=== PATIENT | female | born 1965 | race Caucasian/White ===

== ENCOUNTER 2024-10-05 21:01 | Outpatient (REF) | payer BC, SELFPAY ==
--- OUTSIDE RECORDS SUMMARY | 2024-10-05 21:04 | XMS_ITS | Encounter Summary ---
Author Organization [facility] Address [address] [place] [address] Phone Care Team Providers Care Corporate Executive Name Role Phone Angela Heard MD Primary Care Provider [phone] Willard Vann MD Unavailable [phone] Encounter Details Date Type Department Care Team (Late st Contact Info) Description 01/02/2021 10:00 AM PDT Immunization [facility] COVID-[address] [facility] [place] [address] [place] [address] Camila Be MD [address] [facility] [address] [place], [place] [id number] Social History Tobacco Use Types Packs/Day Years Used Date Smoking Tobacco: Former Cigarettes Smokeless Tobacco: Never Alcohol Use Standard Drinks/Week Comments Yes 5 (1 standard drink = 0.6 oz pure alcohol) Wine and spirits 5+ days per week Depression Answer Date Recorded PHQ-9 Score 0 08/22/2020 What screening was completed? Not on file Sexually Active Control Partners Comments Not Currently Pill Comments No Sex and Gender Information Value Date Recorded Sex Assigned at Not on file Legal Sex Female 7:27 PM PDT Gender Identity Not on file Sexual Orientation Not on file documented as of this encounter Functional Status * Are you deaf or do you have serious difficulty hearing? Answer Date of Assessment Author No 05/31/2019 6:00 PM PDT Miri Esquivel RN * Are you blind or do you have serious difficulty seeing, even when wearing glasses? Answer Date of Assessment Author No 05/31/2019 6:00 PM PDT Miri Esquivel RN * Do you have serious difficulty walking or climbing stairs? Answer Date of Assessment Author No 05/31/2019 6:00 PM PDT Miri Esquivel RN * Do you have difficulty dressing or bathing? Answer Date of Assessment Author No 05/31/2019 6:00 PM PDT Miri Esquivel RN * Because of a physical, mental, or emotional condition, do you have difficulty doing errands alone such as visiting a doctor's office or shopping? Answer Date of Assessment Author No 05/31/2019 6:00 PM PDT Miri Esquivel RN documented as of this encounter Plan of Treatment Upcoming Encounters Date Type Department Care Team (Late st Contact Info) Description 10/30/2024 3:00 PM PST Initial consult 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
--- OUTSIDE RECORDS SUMMARY | 2024-10-05 21:04 | XMS_ITS | Encounter Summary ---
Author Organization [facility] Address [address] [place] [address] Phone Care Team Providers Care Assistant Manager Quality Management Name Role Phone Angela Heard MD Primary Care Provider [phone] Willard Vann MD Unavailable [phone] Encounter Details Date Type Department Care Team (Latest Contact Info) Description 09/10/2020 5:53 PM PST - 09/10/2020 11:59 PM [facility] Hospital Encounter OUTREACH SPECIMEN [address] [place] [address] Laboratory, [place], [address] [facility] [id number] [place], [place] [id number] Discharge Disposition: Home Social History Tobacco Use Types Packs/Day Years [...] of Assessment Author No 05/31/2019 6:00 PM Miri Suero RN * Are you blind or do you have serious difficulty seeing, even when wearing glasses? Answer Date of Assessment Author No 05/31/2019 6:00 PM PDT Miri Esquivel RN * Do you have serious difficulty walking or climbing stairs? Answer Date of Assessment Author No 05/31/2019 6:00 PM Miri Suero RN * Do you have difficulty dressing or bathing? Answer Date of Assessment Author No 05/31/2019 6:00 PM Miri Suero RN * Because of a physical, mental, or emotional condition, do you have difficulty doing errands alone such as visiting a doctor's office or shopping? Answer Date of Assessment Author No 05/31/2019 6:00 PM Miri Suero RN documented as of this encounter Medications at Time of Discharge HYDROcodone-lauri taminophen 5-325 mg (NORCO) 5-325 mg oral tablet Take 1 tablet by mouth every 6 hours as needed for Pain. Max dose of acetaminophen is 3000mg from all sources in 24 hrs. 20 tablet 06/03/2019 ibuprofen (MOTRIN) 600 mg oral tablet Take 1 tablet by mouth 3 times daily. Take with food. 30 tablet 06/03/2019 enoxaparin (LOVENOX) 40 mg/0.4 mL syringe Inject 40 mg subcutaneously every 12 hours. 11 Syringe 06/03/2019 loratadine (CLARITIN PO) 1 tablet daily. documented as of this encounter Plan of Treatment Upcoming Encounters Date Type Department Care Team (Late st Contact Info) Description 10/30/2024 3:00 PM PST Initial consult [facility]X [address] [place] [address] [address] [place] [address] Jesu Dawkins MD [address] [place] [address] [address] [place], [place] [id number] documented as of this encounter Procedures Procedure Name Priority Date/Time Associated Diagnosis Comments CT LEVEL IV SURG PATHOLOGY GROSS&MICROSCOPIC EXAM Routine 09/10/2020 documented in this encounter Results * SURGICAL PATHOLOGY (09/10/2020) 09/10/2020 09/11/2020 us Rosy Gomez MD PATHOLOGY/CYTOLOGY ORDER FREDDIE Final Result [facility] DEPT OF PATHOLOGY & LAB MEDICINE [address] [place] [address] documented in this encounter Visit Diagnoses Not on filedocumented in this encounter Additional Health Concerns Infection Onset Date Last Indicated Resolved Time ESBL Producing Organism (Ext ended Spectrum Beta-lactamase) Comment:06/08/19 Urine E.coli 06/13/2019 06/13/2019 Assessment Noted Time PHQ-9 Depression Total Score: 0 08/22/20 20 11:53 AM PST documented as of this encounter Care Teams Assistant Manager Quality Management Relationship Specialty Start Date End Date Angela Heard MD PCP - General Obstetrics & Gynecology 05/25/19 09/26/24 Willard Vann MD [address] [address] PCP - [employer] Attributed PCP 04/16/20 10/16/21 documented as of this encounter
--- OUTSIDE RECORDS SUMMARY | 2024-10-05 21:04 | XMS_ITS | Encounter Summary ---
Author Organization [facility] Address [address] [facility] [place] [address] Phone Care Team Providers Care Cook Pressure Name Role Phone Angela Heard MD Primary Care Provider Willard Vann MD Unavailable [phone] Reason for Visit * Reason Comments Follow-up Encounter Details Date Type Department Care Team (Latest Contact Info) Description 08/22/2020 11:40 AM PST Office Visit [facility] [address] [facility] [address] [place], [place] [id number] Willard Vann MD [address] [facility] [facility] [address] [place] [address] History of cervical cancer (Primary Dx) Social History Tobacco Use Types Packs/Day Years [...] on file documented as of this encounter Last Filed Vital Signs Vital Sign Reading Time Taken Comments Blood Pressure 142/85 08/22/2020 11:52 AM PST Pulse 64 08/22/2020 11:52 AM PST Temperature 36.6 ??C (97.8 ??F) 08/22/2020 11:[address] Respiratory Rate 21 08/22/2020 11:52 AM PST Oxygen Saturation - - Inhaled Oxygen Concentration - - Weight 59 kg (130 lb) 08/22/2020 11:52 AM PST Height - - Body Mass Index 19.48 05/31/2019 9:59 AM PDT documented in this encounter Functional Status * Are you [...] Esquivel RN documented as of this encounter Progress Notes * Willard Vann MD - 08/22/2020 11:40 AM PST Gynecology Oncology Progress Note Date of service: 08/22/2020 Chief complaint: Surveillance visit. Subjective: This is a 54 year old year old female status post modified radical hysterectomy and staging on 05/31/19 for a stage IB1 adenocarcinoma of the cervix. She is feeling well and has no complaints. Her incision is intermittently tender. Review of systems: She has no pain or vaginal bleeding. Social: The patient is back to her activities of daily living. Objective: Vitals: 08/22/20 1152 BP: 142/85 Pulse: 64 Resp: 21 Temp: 36.6 ??C (97.8 ??F) GI: Abdomen soft, nontender, no masses. : Vulva shows normal external female genitalia; the Bartholin's and Skenes glands are unremarkable. Vagina is without lesions, blood, or masses. Cuff is intact without masses. Posterior culdesac shows no nodularity. Pap performed. Asessment/plan: This is a 54 year old year old with FIGO 2018 stage IIA1 adenocarcinoma of the cervix. She did not meet Sedlis criteria for postoperative radiation. I recommend observation and surveillance. She will return in 6 months. Willard Vann MD 08/22/2020 12:02 PM CC: Angela Heard MD documented in this encounter Plan of Treatment Upcoming Encounters Date Type Department Care Team (Late st Contact Info) Description 10/30/2024 3:00 PM PST Initial consult [facility]X [address] [place] [address] [place] [address] Jesu Dawkins MD [address] [address] documented as of this encounter Procedures Procedure Name Priority Date/Time Associated Diagnosis Comments PAP CYTOLOGY Routine 08/22/2020 documented in this encounter Results * PAP CYTOLOGY (08/22/2020) 08/22/2020 08/22/2020 us Willard Vann MD PATHOLOGY/CYTOLOGY ORDERABLES Final Result [facility] DEPT OF PATHOLOGY & LAB MEDICINE [address] [facility] [place] [address] documented in this encounter Visit Diagnoses Diagnosis History of cervical cancer- Primary Personal history of malignant neoplasm of cervix uteri documented in this encounter Additional Health Concerns Infection Onset Date Last Indicated Resolved Time ESBL Producing Organism (Ext ended Spectrum Beta-lactamase) Comment:06/08/19 Urine E.coli 06/13/2019 06/13/2019 Assessment Noted Time PHQ-9 Depression Total Score: 0 08/22/20 11:53 AM PST documented as of this encounter Care Teams Cook Pressure Relationship Specialty Start Date End Date Angela Heard MD PCP - General Obstetrics & Gynecology 05/25/19 09/26/24 Willard Vann MD [address] [address] PCP - [employer] Attributed PCP 04/16/20 10/16/21 documented as of this encounter
--- OUTSIDE RECORDS SUMMARY | 2024-10-05 21:04 | XMS_ITS | Encounter Summary ---
Author Organization [facility] Address [address] [facility] [place] [address] Phone Care Team Providers Care Court Commissioner Name Role Phone Angela Heard MD Primary Care Provider [phone] Encounter Details Date Type Department Care Team (Late st Contact Info) Description 09/14/2019 Orders Only [facility] GENERAL INT LEAD ENGINEER [address] [place] [address] [employer] Social History Tobacco Use Types Packs/Day Years Used Date Smoking Tobacco: Former Cigarettes Smokeless Tobacco: Never Alcohol Use Standard Drinks/Week Comments Yes 5 (1 standard drink = 0.6 oz pure alcohol) Wine and spirits 5+ days per week Sexually Active Control Partners Comments Not Currently [...] Author No 05/31/2019 6:00 PM PDT Miri Esquivel, RAISA * Are you blind or do you have serious difficulty seeing, even when wearing glasses? Answer Date of Assessment Author No 05/31/2019 6:00 PM PDT Miri Esquivel, RAISA * Do you have serious difficulty walking [...] Description 10/30/2024 3:00 PM PST Initial consult [facility]/[address] [address] Jesu Dawkins MD [address] [phone] Scheduled Orders Name Type Priority Associated Diagnoses Orde r Schedule MY CS-LINK PERSONAL DATA LOG Procedures Routine Ordered: 019 documented as of this encounter Visit Diagnoses Not on filedocumented in this encounter Additional Health Concerns Infection Onset Date Last Indicated Resolved Time ESBL Producing Organism (Ext ended Spectrum Beta-lactamase) Comment:06/08/19 Urine E.coli 06/13/2019 06/13/2019 Assessment Noted Time PHQ-9 Depression Total Score: 0 05/31/20 19 6:00 PM PDT documented as of this encounter Care Teams Court Commissioner Relationship Specialty Start Date End Date Angela Heard MD PCP - General Obstetrics & Gynecology 05/25/1909/26 documented as of this encounter
--- OUTSIDE RECORDS SUMMARY | 2024-10-05 21:04 | XMS_ITS | Encounter Summary ---
Author Organization [facility] Address [address] [facility] [place] [address] Phone Care Team Providers Care Product Safety Test Engineer Name Role Phone Angela Heard MD Primary Care Provider [phone] Reason for Visit * Reason Comments Follow-up Encounter Details Date Type Department Care Team (Latest Contact Info) Description 04/23/2023 10:20 AM PDT Office Visit [facility] [address] [facility] [address] [place] [address] Willard Vann MD [address] [facility] [address] [place] [address] History of cervical cancer (Primary Dx) Social [...] Sign Reading Time Taken Comments Blood Pressure 119/68 04/23/2023 10:33 AM PDT Pulse 58 04/23/2023 10:33 AM PDT Temperature 36.1 ??C (97 ??F) 04/23/2023 10:33 AM PDT Respiratory Rate 18 04/23/2023 10:33 AM PDT Oxygen Saturation - - Inhaled Oxygen Concentration - - Weight 60.5 kg (133 lb 4.8 oz) 04/23/2023 10:33 AM PDT Height - - Body Mass Index 19.97 05/31/2019 9:59 AM PDT documented in this [...] Progress Notes * Willard Vann MD - 04/23/2023 10:20 AM PDT Gynecology Oncology Progress Note Date of service: 04/23/2023 Chief complaint: Surveillance visit. Subjective: This is a 57 year old year old female status post modified radical hysterectomy and staging on 05/31/19 for a stage IB1 adenocarcinoma of the cervix. She is feeling well and has no complaints. She is having annual normal Pap testing with Dr Heard. Review of systems: She has no pain or vaginal bleeding. Social: The patient is back to her activities of daily living. Objective: Vitals: 04/23/23 1033 BP: 119/68 Pulse: 58 Resp: 18 Temp: 36.1 ??C (97 ??F) GI: Abdomen soft, nontender, no masses. : Vulva shows normal external female genitalia; the Bartholin's and Skenes glands are unremarkable. Vagina is without lesions, blood, or masses. Cuff is intact without masses. Posterior culdesac shows no nodularity. Her exam is unchanged from her last visit. Asessment/plan: This is a 57 year old year old with FIGO 2018 stage IIA1 adenocarcinoma of the cervix. She did not meet Sedlis criteria for postoperative radiation. I recommend observation and surveillance. She will continue 6 months visits alternating between Dr Heard and myself, and will continue annualPap testing with Dr Heard. Willard Vann MD 04/23/2023 10:46 AM CC: Angela Heard MD documented in this encounter Plan of Treatment Upcoming Encounters Date Type Department Care Team (Late st Contact Info) Description 10/30/2024 3:00 PM PST Initial consult [facility] [address] [place] [address] Jesu Dawkins MD [address] [address] documented as of this encounter Visit Diagnoses Diagnosis History of [...] documented as of this encounter Care Teams Product Safety Test Engineer Relationship Specialty Start Date End Date Angela Heard MD PCP - General Obstetrics & Gynecology 05/25/1909/26 documented as of this encounter
--- OUTSIDE RECORDS SUMMARY | 2024-10-05 21:04 | XMS_ITS | Encounter Summary ---
Author Organization [facility] Address [address] [facility] [place] [address] Phone Care Team Providers Care Hhas Name Role Phone Oliver Keller MD Primary Care Provider [phone] Reason for Visit * Reason Comments Low Back Pain Right leg pain Encounter Details Date Type Department Care Team (Late st Contact Info) Description 09/27/2024 9:30 AM PST Office Visit [facility] [address] [facility] [place] [phone] Cameron Llamas MD [address] [facility] [address] [place] [address] Lumbar disc herniation (Primary Dx); Lumbar radiculopathy; Right foot drop Social History Tobacco Use Types Packs/Day Years Used Date Smoking Tobacco: Former Cigarettes Smokeless Tobacco: Never Tobacco Cessation:Counseling Given: Not Answered Alcohol Use Standard Drinks/Week Comments Yes 5 [...] Sign Reading Time Taken Comments Blood Pressure - - Pulse - - Temperature - - Respiratory Rate - - Oxygen Saturation - - Inhaled Oxygen Concentration - - Weight 60.3 kg (133 lb) 09/27/2024 11:14 AM PST Height 172.7 cm (5' 8) 09/27/2024 11:14 AM PST Body Mass Index 20.22 09/27/2024 11:14 AM PST documented in this encounter Functional Status * [...] Esquivel RN documented as of this encounter Patient Instructions * Patient Instructions* Leah Kirkland - 09/27/2024 9:[address] Chidi Lugo [address] [facility], [address] [place] [address] Dr. Jesu Dawkins [address] [facility] [address] [place] [address] documented in this encounter Progress Notes * Cameron Llamas MD - 09/27/2024 9:30 AM PST Images from the original note were not included. I, Leah Kirkland, am scribing for, and in the presence of, Cameron Llamas MD. Initial Patient Consultation Date: 09/27/2024 Consulting Physician: No ref. provider found Chief Complaint: Chief Complaint Patient presents with Low Back Pain Right leg pain History of Present Illness: Leah Jones is a 58 year old female who presents at the request of No ref. provider found for initial consultation and evaluation for treatment options related to the patient's pain complaints. The patient???s complaints started 3 weeks ago. The patient statesher symptoms began after performing a squat while at the gym. She developed acute pain in the low back radiating down the right lower extremity. She was prescribed a Medrol Pasquale with good improvement.Pain has improved, however still notes slight discomfort in the leg, numbness in the right foot, and weakness of the right leg that causes her to limp. Currently, the pain is described as intermittent. It is rated as 5-7 /10 and described as sharp-shooting, tingling, numbness, pin-prick, stabbing, deep- pressure, tightness, and spasms . The pain is in the right side of the low back with radiation to the right lower extremity. The pain is worse withsitting and better with n/a . The patient is limited by not being able to walk, sit. The patient does describe any weakness in the right lower extremity. She was seen at [facility] by Dr. Rei Carmona, was told she had a foot drop. Past Medical History: Past Medical History: Diagnosis Date Anxiety Chicken pox Hay fever Skin tumors, generalized Past Surgical History: Past Surgical History: Procedure Laterality Date HX APPENDECTOMY HX LEEP PROCEDURE 20 years ago LAPAROTOMY N/A 05/31/2019 Performed by Willard Vann MD at MAIN OR LAPAROTOMY STAGING N/A 05/31/2019 Performed by Willard Vann MD at MAIN OR MODIFIED HYSTERECTOMY RADICAL N/A 05/31/2019 Performed by Willard Vann MD at MAIN OR Medications: Current Outpatient Medications Medication estradiol-norethindrone acetate (ACTIVELLA) 0.5-0.1 mg oral tablet HYDROcodone-acetaminophen 5-325 mg (NORCO) 5-325 mg oral tablet ibuprofen (MOTRIN) 600 mg oral tablet enoxaparin (LOVENOX) 40 mg/0.4 mL syringe loratadine (CLARITIN PO) No current facility-administered medications for this visit. Allergies: Other Family History: Family History Problem Relation Age of Onset Lung Cancer Paternal Uncle at the age of 65 Social History: Social History Socioeconomic History Marital status: Single Spouse name: Not on file Number of children: Not on file Years of education: Not on file Highest education level: Not on file Occupational History Not on file Tobacco Use Smoking status: Former Types: Cigarettes Smokeless tobacco: Never Vaping Use Vaping status: Unknown Substance and Sexual Activity Alcohol use: Yes Alcohol/week: 5.0 standard drinks of alcohol Types: 5 Standard drinks or equivalent per week Comment: Wine and spirits 5+ days per week Drug use: Never Sexual activity: Not Currently control/protection: Pill Physical Exam: Visit Vitals LMP 03/11/2019 (Approximate) General appearance: alert, cooperative, no distress, appears stated age Head: Normocephalic, without obvious abnormality, atraumatic Extremities: extremities normal, atraumatic, no cyanosis or edema Skin: Skin color, texture, turgor normal. No rashes or lesions Lumbar Spine: Inspection: The lumbar area is symmetric without kyphosis or scoliosis Palpation: There is tenderness along the right lumbar paraspinals and tenderness along the right sciatic notch Range of Motion: There is diminished range in all planes with pain Special Testing: Straight leg testing is positive on the right. Facet loading is negative. Neurologic Exam: Oriented to person/ place/ time. Intact recent and remote memory. Appropriate moodand affect. Normal attention span and concentration. Motor: Normal bulk and tone in all 4 extremities. 5/5 strength in all muscle groups x 4 extremities. RUE: 5/5 Deltoid, 5/5 Triceps, 5/5 Biceps, 5/5 BrachioRadialis, 5/5 Intrinsics. LUE: 5/5 Deltoid, 5/5 Triceps, 5/5 Biceps, 5/5 BrachioRadialis, 5/5 Intrinsics. RLE: 5/5 IlioPsoas, 5/5 KneeFlexors, 5/5 KneeExtensors, 2/5 AnkleFlexors, 5/5 AnkleExtensors. LLE: 5/5 IlioPsoas, 5/5 KneeFlexors, 5/5 KneeExtensors, 5/5 AnkleFlexors, 5/5 AnkleExtensors. DTRs: 2/4 equal and symmetric in all extremities Imaging and work-up: MRI of the lumbar spine, taken on 09.15.24, was personally reviewed by myself with the patient present. Demonstrated: Diagnosis: 1. Lumbar disc herniation 2. Lumbar radiculopathy 3. Right foot drop Commentary and Medical Decision Making: Leah Jones is a 58 year old female who presentsto clinic today for evaluation and treatment options related to symptoms complaints. The patient???s complaints are most likely secondary to lumbar disc pathology and lumbar radiculopathy. Symptoms are radicular in nature. Overall pain has improved significantly but the weakness has not. She does have weakness with dorsiflexion and a foot drop. Given the weakness I did suggest getting a surgical opinion. Despite the pain improving the weakness is quite profound. We will make the necessary referral. At this time we discussed various treatment options including referral for surgical options. Recommendations: - The patient may continue anti-inflammatories as directed with a meal. - The patient will be referred to a spine surgeon for surgical opinion. - The patient to use ice and heat to the affected area prn. - The patient will follow-up as symptoms dictate - We may consider an epidural injection. However, we discussed this may not address the weakness and encouraged she seek a surgical opinion. While in the patient's presence and per the provider's instructions, I brought the following information into this note from elsewhere in the medical record; past medical history, past surgical history, past social history, past family history, medications, vitals, review of systems and imaging studies. Signed by: Catalina Hoskins, 09/27/2024 10:18 AM. I, Cameron Llamas MD, personally performed the services described in this documentation, as scribed by Leah Kirkland in my presence, and it is both accurate and complete. Signed: 09/27/2024 10:18 AM documented in this encounter Plan of Treatment Upcoming Encounters Date Type Department Care Team (Late st Contact Info) Description 10/30/2024 3:00 PM PST Initial consult [facility] [address] [facility] [place] [address] Jesu Dawkins MD [address] [facility] [address] [place] [id number] documented as of this encounter Visit Diagnoses Diagnosis Lumbar disc herniation- Primary Displacement of lumbar intervertebral disc without myelopathy Lumbar radiculopathy Thoracic or lumbosacral neuritis or radiculitis, unspecified Right foot drop Other acquired deformity of ankle and foot documented in this encounter Additional Health Concerns Infection Onset Date Last Indicated Resolved Time ESBL Producing Organism (Ext ended Spectrum Beta-lactamase) Comment:06/08/19 Urine E.coli 06/13/2019 06/13/2019 Assessment Noted Time PHQ-9 Depression Total Score: 0 08/22/20 20 11:53 AM PST documented as of this encounter Care Teams Hhas Relationship Specialty Start Date End Date Oliver Keller MD [address] [facility] [address] [place] [address] PCP - General Internal Medicine 09/27/24 documented as of this encounter
--- OUTSIDE RECORDS SUMMARY | 2024-10-05 21:04 | XMS_ITS | Clinical Summary ---
Author Organization [facility] Address [address] [place] [address] Phone Care Team Providers Care Quality Assurance Engineer Name Role Phone Oliver Keller MD Primary Care Provider [phone] Source Comments The [employer] EMR is fully implemented at [facility] Allergies Active Allergy Reactions Criticality Noted Date Comments Other Swelling Medium 05/31/2019 Bees; hay fever- itching Medications * Always verify current medications with the patient. loratadine (CLARITIN PO) 1 tablet daily. Active HYDROcodone-ac etaminophen 5-325 mg (NORCO) 5-325 mg oral tablet Take 1 tablet by mouth every 6 hours as needed for Pain. Max dose of acetaminophen is 3000mg from all sources in 24 hrs. 20 tablet 9 Active Additional Information Patient not taking.Reason: Patient Non-Compliant, Reported on 06/08/2019 ibuprofen (MOTRIN) 600 mg oral tablet Take 1 tablet by mouth 3 times daily. Take with food. 30 tablet 9 Active Additional Information Patient not taking.Reason: Per Provider Instruction, Reported on 08/17/2019 enoxaparin (LOVENOX) 40 mg/0.4 mL syringe Inject 40 mg subcutaneously every 12 hours. 11 Syringe 9 Active Additional Information Patient not taking.Reason: Per Provider Instruction, Reported on 08/17/2019 estradiol-nore thindrone acetate (ACTIVELLA) 0.5-0.1 mg oral tablet 2 Active Active Problems Problem Noted Date Diagnosed Date Encounter for evaluation of Dubon catheter 06/06 Post-operative state 06/06/2019 Encounters Date Type Department Care Team Description 09/27/2024 9:30 AM PST Office Visit [facility] [address] [facility] [place] [phone] Cameron Llamas MD Lumbar disc herniation (Primary Dx); Lumbar radiculopathy; Right foot drop 09/15/2024 Ancillary Procedure [facility] [address] [facility] [address] [place] [address] 09/15/2024 Orders Only [facility] [address] [facility] [address] [place] [address] Imaging, Roel, 08/29/2024 9:20 AM PST Office Visit [facility] [place] [address] [address] [place] [address] Willard Vann MD History of cervical cancer (Primary Dx) from Last 3 Months Immunizations Name Administration Dates Next Due COVID-19, monovalent, mRNA, Pfizer, 12+ yrs (until 01/26/2023) 01/23/2021,01/02/2021 Family History Medical History Relation Name Comments Lung Cancer Paternal Uncle at the a ge of 65 Relation Name Status Comments Paternal Uncle Social History Tobacco Use Types Packs/Day Years [...] on file Sexual Orientation Not on file Last Filed Vital Signs Vital Sign Reading Time Taken Comments Blood Pressure 127/80 08/29/2024 9:57 AM PST Pulse 58 08/29/2024 9:57 AM PST Temperature 36.3 ??C (97.4 ??F) 08/29/2024 9:57 AM PS T Respiratory Rate 18 08/29/2024 9:57 AM PST Oxygen Saturation 98% 04/20/2023 3:27 PM PDT Inhaled Oxygen Concentration - - Weight 60.3 kg (133 lb) 09/27/2024 11:14 AM PST Height 172.7 cm (5' 8) 09/27/2024 11:14 AM PST Body Mass Index 20.22 09/27/2024 11:14 AM PST Plan of Treatment Upcoming Encounters Date Type Department Care Team (Late st Contact Info) Description 10/30/2024 3:00 PM PST Initial consult [facility] [address] [place] [address] [place] [phone] Jesu Dawkins MD [address] [address] Health Maintenance Due Date Last Done Comments CRC Screening 1967 CT Colonography Test 1967 Cologuard 1967 Colonoscopy 1967 FIT Test 1967 Flexible Sigmoidoscopy 1967 Hep C Screening 1967 Mammography 12/24/1997 Zoster Vaccine (1 of 2) 12/24/2017 Depression Assessment (PHQ 2 -9 / PHQ A / EPDS) 05/22/2021 08/22/2020, 05/10/2019 COVID-19 Vaccination (SARS-CoV-2) ( season) 2024 09/20/2021, 01/23/2021, 01/02/2021 Influenza Vaccine (#1) 2024 08/24/2020 DTaP,Tdap,and Td Vaccines (2 - Td or Tdap) 04/25/2029 04/25/2019 Pneumococcal Peds and High-Risk Adults Aged Out No longer eligible b ased on patient's age to complete this topic Procedures Procedure Name Priority Date/Time Associated Diagnosis Comments MR OUTSIDE IMAGES L-SPINE Routine 09/15/2024 12:00 AM PST from Last 3 Months Results * MR OUTSIDE IMAGES L-SPINE (09/15/2024 12:00 AM PST) Narrative [facility] - 09/25/2024 2:21 PM PST These images were uploaded for comparison. There will be no formal interpretation for this accession number. us Unknown Imaging MD MR ORDERABLES Final Result Performing Organization Address City/State/[facility] Co de Phone Number [facility] [address] [place] [address], [facility] [phone] from Last 3 Months Additional Health Concerns Infection Onset Date Last Indicated ESBL Producing Organism (Ext ended Spectrum Beta-lactamase) Comment:06/08/19 Urine E.coli 06/13/2019 06/13/2019 Insurance [facility] OUT OF STATE BLUE [employer]OSS [facility] OUT OF STATE Advance Directives For more information, please contact: [phone] * Full Code Per Policy (Latest Code Status on File) Date Activated Date Inactivated Comments 05/31/2019 1:20 PM 06/03/2019 3:12 PM Healthcare Agents on File Name Relationship Healthcare Agent Relationshi p Communication Sandi Jones Mother 4. Emergency Con tact Only - Only Share Emergent Health Information Angela Jones Sister 4. Emergency Con tact Only - Only Share Emergent Health Information Care Teams Quality Assurance Engineer Relationship Specialty Start Date End Date Oliver Keller MD [address] [address] PCP - General Internal Medicine 12/18/24
--- OUTSIDE RECORDS SUMMARY | 2024-10-05 21:04 | XMS_ITS | Encounter Summary ---
Author Organization [facility] Address [address] [facility] [place] [address] Phone Care Team Providers Care Rabbit Breeder Name Role Phone Angela Heard MD Primary Care Provider [phone] Encounter Details Date Type Department Care Team (Late st Contact Info) Description 02/14/2020 Orders Only [facility] [address] [place] [address] My[facility]-Link Social History Tobacco Use Types Packs/Day [...] No 05/31/2019 6:00 PM PDT Miri Esquivel, RIASA * Do you have serious difficulty walking [...] Description 10/30/2024 3:00 PM PST Initial consult [facility]/[address] [address] Jesu Dawkins MD [address] [phone] Scheduled Orders Name Type Priority Associated Diagnoses Orde r Schedule MY CS-LINK PERSONAL DATA LOG Procedures Routine Ordered: 020 documented as of this encounter Visit Diagnoses Not on filedocumented in this encounter Additional Health Concerns Infection Onset Date Last Indicated Resolved Time ESBL Producing Organism (Ext ended Spectrum Beta-lactamase) Comment:06/08/19 Urine E.coli 06/13/2019 06/13/2019 Assessment Noted Time PHQ-9 Depression Total Score: 0 05/31/20 19 6:00 PM PDT documented as of this encounter Care Teams Rabbit Breeder Relationship Specialty Start Date End Date Angela Heard MD PCP - General Obstetrics & Gynecology 05/25/1909/26 documented as of this encounter
--- OUTSIDE RECORDS SUMMARY | 2024-10-05 21:04 | XMS_ITS | Encounter Summary ---
Author Organization [facility] Address [address] [place] [address] Care Team Providers Care Director International Name Role Phone Non-Pcp, Unassigned MD Primary Care Provider Carmel vailable Reason for Visit * Reason Comments URI Encounter Details Date Type Department Care Team (Late st Contact Info) Description 05/10/2013 10:00 AM PDT Office Visit [facility] [address] [place] [address] Po Willingham MD [address] [facility] [address] [place] [address] Sinusitis, acute maxillary (Primary Dx); Cough Social History Tobacco Use Types Packs/Day Years Used Date Smoking Tobacco: Never Alcohol Use Standard Drinks/Week Comments Not Asked 0 (1 standard drink = 0.6 oz pur e alcohol) Sex and Gender Information Value Date Recorded Sex Assigned at Not on file Gender Identity Not on file Sexual Orientation Not on file documented as of this encounter Last Filed Vital Signs Vital Sign Reading Time Taken Comments Blood Pressure 125/82 05/10/2013 9:51 AM PDT Pulse 72 05/10/2013 9:51 AM PDT Temperature 36.9 ??C (98.5 ??F) 05/10/2013 9:51 AM PD T Respiratory Rate - - Oxygen Saturation 100% 05/10/2013 9:51 AM PDT Inhaled Oxygen Concentration - - Weight 61.2 kg (135 lb) 05/10/2013 9:51 AM PDT Height 175.3 cm (5' 9) 05/10/2013 9:51 AM PDT Body Mass Index 19.94 05/10/2013 9:51 AM PDT documented in this encounter Patient Instructions * Patient Instructions* Memo Christian - 05/10/2013 10:00 AM PDT If with fever/chills or any other patient concern return to documented in this encounter Progress Notes * Memo Christian. - 05/10/2013 9:57 AM PDT SUBJECTIVE: Chief Complaint Patient presents with ??? URI The patient presents with Nasal congestion ,cough,ears plugged worseneing over the last 4 days,. Dneis f/c/n/v/sob. Taking dayquil with little resolve. No outpatient prescriptions prior to visit. No Known Allergies OBJECTIVE: BP 125/82 Pulse 72 Temp 98.5 ??F (36.9 ??C) (Oral) Ht 5' 9 (1.753 m) Wt 135 lb (61.236 kg) BMI 19.94 kg/m2 SpO2 100% LMP 01/09/2013 ? No NAD VSS OMPM +dysphonia RRR CTAB coarse upper airway bs ASSESSMENT: Encounter Diagnoses Name Primary? Sinusitis, acute maxillary Yes ??? Cough PLAN: Orders Placed This Encounter ??? amoxicillin-clavulanate (AUGMENTIN) 875-125 mg tablet Fluids rest documented in this encounter Miscellaneous Notes * Consent - Provider, [facility] - 05/10/2013 12:00 AM PDT * Consent - Provider, [facility] - 05/10/2013 12:00 AM PDT documented in this encounter Plan of Treatment Not on file documented as of this encounter Visit Diagnoses Diagnosis Sinusitis, acute maxillary- Primary Cough documented in this encounter Care Teams Director International Relationship Specialty Start Date End Date Non-Pcp, Unassigned, MD WILLARD PCP - General 05/10/13 10/26/18 documented as of this encounter Additional Source Comments Request medical records from [facility] directly by faxing your request to . Please call for additional information and assistance.[facility]
--- OUTSIDE RECORDS SUMMARY | 2024-10-05 21:04 | XMS_ITS | Encounter Summary ---
Author Organization [facility] Address [address] [place] [address] Care Team Providers Care Director Audience Marketing Name Role Phone Unavailable Primary Care Provider Unavailabl e Encounter Details Date Type Department Care Team (Latest Contact Info) Description 07/13/2022 3:30 PM PDT Hospital Encounter [facility] [address] [place] [address] Lois Tucker MD [address] [place] [address] Encounter for consultation Discharge Disposition: Home or Self Care Social History Tobacco Use Types Packs/Day Years Used Date Smoking Tobacco: Never Smokeless Tobacco: Never Alcohol Use Standard Drinks/Week Comments Yes 0 (1 standard drink = 0.6 oz pur e alcohol) Depression Risk (PHQ) Answer Date Recor ded Total Risk Score based on the patient's PHQ-9 if documented Not on file 06/17/2022 Total Risk Score based on th e patient's IP PHQ-2 if documented Not on file 06/17/2022 Total Risk Score based on the patient's PHQ-2 if documented Not on file 06/17/2022 Social Isolation Answer Date Recorded How often do you see or talk to people that you care about and feel close to? Not on file 06/15/2020 Sex and Gender Information Value Date Recorded Sex Assigned at Not on file Gender Identity Not on file Sexual Orientation Not on file documented as of this encounter Medications at Time of Discharge Medication Sig Dispensed Refills Start Date End Date azithromycin (ZITHROMAX Z-AXEL) 250 mg tabletIndications:Bronch itis, acute, with bronchospasm Take 2 tablets on day 1 and then 1 tablet daily on days 2-5. 6 tablet 09/27/2018 benzonatate 200 mg capsuleIndications:Bronc hitis, acute, with bronchospasm Take 1 capsule (200 mg total) by mouth three (3) times daily as needed. 30 capsule 09/27/2018 hydrocodone-acetaminophe n 5-325 mg tablet Take 1-2 tablets by mouth every six (6) hours as needed for Moderate Pain or Severe Pain. Max Daily Amount: 8 tablets 10 tablet 0 07/27/2016 levonorgestrel-ethinyl estradiol (SEASONALE) 0.15-0.03 mg tablet TAKE 1 TABLET BY MOUTH EVERY DAY 0 05/07/2016 loratadine 10 mg tablet Take 10 mg by mouth daily. documented as of this encounter Plan of Treatment Not on file documented as of this encounter Procedures Procedure Name Priority Date/Time Associated Diagnosis Comments MR SPINE, LUMBAR, OUTSIDE IMAGING Routine 07/13/2022 4:15 PM PDT Encounter for consultation documented in this encounter Results * MR lumbar spine image import comparison; Date of Exam: 01/08/2021 (07/13/2022 4:15 PM PDT) Narrative EXTERNAL LAB - 07/13/2022 4:15 PM PDT This order is used to store images obtained from non [facility] imaging facilities in PACS. This order is intended for comparison purposes only and no formal result will be rendered. Lois Tucker MD IMG OVER-READ ORDERA [facility] EXTERNAL LAB documented in this encounter Visit Diagnoses Diagnosis Encounter for consultation documented in this encounter Additional Source Comments Request medical records from [facility] directly by faxing your request to . Please call for additional information and assistance.[facility]
--- OUTSIDE RECORDS SUMMARY | 2024-10-05 21:04 | XMS_ITS | Encounter Summary ---
Author Organization [facility] Address [address] [place] [address] Phone Care Team Providers Care Cost Coordinator Name Role Phone Angela Heard MD Primary Care Provider [phone] Reason for Referral * Radiology Services (Routine) - Closed Specialty Diagnoses / Procedures Referred By Stanislav fernandes Referred To Contact Radiology Diagnoses Menopausal syndrome Procedures DXA BONE DENSITY SPINE HIP CHG DXA BONE DENSITY STUDY 1/> SITES AXIAL Wolf Singh MD [address] [facility] [address] [place] [address] Phone: tel: [facility]: [facility] [address] [place] [address] Phone: tel: Referral ID Status Reason Start Date Expiration Date V isits Requested Visits Authorized [id number] Closed Provider Request 04/20/2023 10/17/2023 1 1 Encounter Details Date Type Department Care Team (Late st Contact Info) Description 04/20/2023 2:45 PM PDT Office Visit Dominick Gore M.D., Bradley Prince M.D., Dayron Duckworth M.D., Wolf Moura M.D. [address] [facility], [address] [place] [address] Wolf Moura MD [address] [facility] [address] [place] [address] Menopausal syndrome (Primary Dx) Social History Tobacco Use Types [...] Sign Reading Time Taken Comments Blood Pressure 120/80 04/20/2023 3:27 PM PDT Pulse 60 04/20/2023 3:27 PM PDT Temperature - - Respiratory Rate - - Oxygen Saturation 98% 04/20/2023 3:27 PM PDT Inhaled Oxygen Concentration - - Weight 62.6 kg (138 lb) 04/20/2023 3:27 PM PDT Height - - Body Mass Index 20.68 05/31/2019 9:59 AM PDT documented in this [...] No 05/31/2019 6:00 PM PDT Miri Esquivel, RN * Because of a physical, mental, or emotional condition, do you have difficulty doing errands alone such as visiting a doctor's office or shopping? Answer Date of Assessment Author No 05/31/2019 6:00 PM PDT Miri Esquivel, RN documented as of this encounter Progress Notes * Wolf Moura MD - 04/20/2023 2:45 PM PDT Hormones Jacob Keller MD Blood pressure 120/80, pulse 60, weight 62.6 kg (138 lb), last menstrual period 03/11/2019, SpO2 98%. The patient has questions about her estrogen replacement therapy, and I told her that I thought herestradiol was the best medication for this and that she was probably on the right dose and I advised against bioidentical hormones. She is not at risk of blood clots I do not see any point in changing her over to transdermal. I advised her against taking testosterone for its libido effects because they are so minimal even if they are statistically significant. I reviewed her notes by [facility] and agree with them. She is tall thin and light pigmented and is at significant risk of osteoporosis so I have ordered abone mineral density. For occasional dyspareunia that I have recommended Cr glide instead of other available lubricants. I reassured her that she is not missing something hormonal here. I warned her that it may be several months before she can get a bone mineral density, but after this is completed I will call her withthe results Since you have done extensive laboratory testing on her I have little else to add*8 documented in this encounter Plan of Treatment Upcoming Encounters Date Type Department Care Team (Late st Contact Info) Description 10/30/2024 3:00 PM PST Initial consult [facility] [place] [address] [place] [address] [address] [place] [address] Jesu Dawkins MD [address] [phone] documented as of this encounter Results * DXA BONE DENSITY SPINE HIP (07/05/2023 4:14 PM PDT) Anatomical Region Laterality Modality Bone N/A Nuclear Medicine 07/05/2023 4:38 PM PDT Impressions 07/05/2023 4:39 PM PDT 1. Normal bone mineral density of the lumbar spine. 2. Normal bone mineral density of both hips. A FRAX score can be calculated using the online calculator available at ??https://www.vianca.ac.uk/FRAX/index.aspx, entering the lowest femoral neck BMD provided in this report, equipment type Unifysquare, and physician verified risk factors. Detailed information regarding densitometry is available through the international society for clinical densitometry web site at https://www.iscd.org/ Reviewed and Interpreted by: Jose Denson M.D. ??07/05/2023 4:39 PM Narrative 07/05/2023 4:39 PM PDT DXA BONE DENSITY SPINE HIP ??07/05/2023 4:14 PM CLINICAL INDICATION: 57 old patient for screening of osteoporosis. TECHNICAL FACTORS: Following dual X-ray scans of the lumbar spine and hips, bone mineral density was calculated. FINDINGS: Analysis of the lumbar spine is within normal limits with value for L2-L4 lumbar spine being 0.5 standard deviations below the mean for the young adult population. Analysis of the right hip is within normal limits with value for the femoral neck being 0.9 standard deviations below the mean for the young adult population (BMD = 0.907 gm/cm2). Analysis of the left hip is within normal limits with value for the femoral neck being 0.4 standard deviations below the mean for the young adult population (BMD = 0.980 gm/cm2). Procedure Note Jose Denson MD - 07/05/2023 DXA BONE DENSITY SPINE HIP 07/05/2023 4:14 PM CLINICAL INDICATION: 57 old patient for screening of osteoporosis. TECHNICAL FACTORS: Following dual X-ray scans of the lumbar spine andhips, bone mineral density was calculated. FINDINGS: Analysis of the lumbar spine is within normal limits with valuefor L2- L4 lumbar spine being 0.5 standard deviations below the mean forthe young adult population. Analysis of the right hip is within normal limits with value for thefemoral neck being 0.9 standard deviations below the mean for the youngadult population (BMD = 0.907 gm/cm2). Analysis of the left hip is within normal limits with value for thefemoral neck being 0.4 standard deviations below the mean for the youngadult population (BMD = 0.980 gm/cm2). IMPRESSION: 1. Normal bone mineral density of the lumbar spine. 2. Normal bone mineral density of both hips. A FRAX score can be calculated using the online calculator available athttps://www.vianca.ac.uk/FRAX/index.aspx, entering the lowest femoralneck BMD provided in this report, equipment type Unifysquare, and physicianverified risk factors. Detailed information regarding densitometry is available through theinternational society for clinical densitometry web site athttps://www.iscd.org/ Reviewed and Interpreted by: Jose Denson M.D. 07/05/2023 4:39PM Wolf Moura MD NM ORDERABLES Final Result documented in this encounter Visit Diagnoses Diagnosis Menopausal syndrome- Primary Symptomatic menopausal or female climacteric states Menopausal syndrome Symptomatic menopausal or female climacteric states documented in this encounter Additional Health Concerns Infection Onset Date Last Indicated Resolved Time ESBL Producing Organism (Ext ended Spectrum Beta-lactamase) Comment:06/08/19 Urine E.coli 06/13/2019 06/13/2019 Assessment Noted Time PHQ-9 Depression Total Score: 0 08/22/20 20 11:53 AM PST documented as of this encounter Care Teams Cost Coordinator Relationship Specialty Start Date End Date Angela Heard MD PCP - General Obstetrics & Gynecology 05/[birth year]09/26 documented as of this encounter
--- OUTSIDE RECORDS SUMMARY | 2024-10-05 21:04 | XMS_ITS | Encounter Summary ---
Author Organization [facility] Address [address] [place] [address] Care Team Providers Care Dolphin Trainer Name Role Phone Non-Pcp, Unassigned MD Primary Care Provider Carmel vailable Reason for Visit * Reason Comments Follow-up Encounter Details Date Type Department Care Team (Late st Contact Info) Description 09/29/2018 12:45 PM PST Office Visit [facility] [address] [id number] Luan Joshi MD [address] [facility] [address] [place] [phone] Bronchitis with flu (Primary Dx); Cough Social History Tobacco Use [...] Sign Reading Time Taken Comments Blood Pressure 104/67 09/29/2018 1:04 PM PST Pulse 60 09/29/2018 1:04 PM PST Temperature 36.7 ??C (98 ??F) 09/29/2018 1:04 PM PST Respiratory Rate 18 09/29/2018 1:04 PM PST Oxygen Saturation 100% 09/29/2018 1:04 PM PST Inhaled Oxygen Concentration - - Weight - - Height 175.3 cm (5' 9) 09/29/2018 1:04 PM PST Body Mass Index - - documented in this encounter Patient Instructions * Patient Instructions* Luan Joshi MD - 09/29/2018 1:54 PM PST Images from the original note were not included. .Rest, take medication as advised Take plenty of warn fluids,warm salt water gargle, vit C 1000 mg for 2 weeks Influenza (Adult) Influenza is also called the flu. It is a viral illness that affects the air passages of your lungs. It is different from the common cold. The flu can easily be passed from one to person to another. It may be spread through the air by coughing and sneezing. Or it can be spread by touching the sick person and then touching your own eyes, nose, or mouth. The flu starts 1 to 3 days after you are exposed to the flu virus. It may last??for 1 to 2 weeks but many people feel tired or fatigued for many weeks afterward. You usually don???t need to take antibiotics unless you have a complication. This might be an ear or sinus infection or pneumonia. Symptoms of the flu may be mild or severe. They can include extreme tiredness (wanting to stay in bed all day), chills, fevers, muscle aches, soreness with eye movement, headache, and a dry, hacking cough. Home care Follow these guidelines when caring for yourself at home: ?? Avoid being around cigarette smoke, whether yours or other people???s. ?? Acetaminophen or ibuprofen will help ease your fever, muscle aches, and headache. Don???t give aspirin to anyone younger than 18 who has the flu. Aspirin can harm the liver. ?? Nausea and loss of appetite are common with the flu. Eat light meals. Drink 6 to 8 glasses of liquids every day. Good choices are water, sport drinks, soft drinks without caffeine, juices, tea, and soup. Extra fluids will also help loosen secretions in your nose and lungs. ?? Xcri-imh-pazlwkg cold medicines will not make the flu go away faster. But the medicines may helpwith coughing, sore throat, and congestion in your nose and sinuses. Don???t use a decongestant if you have high blood pressure. ?? Stay home until your fever has been gone for at least 24 hours without using medicine to reduce fever. Follow-up care Follow up with your healthcare provider, or as advised, if you are not getting better over the nextweek. If you are age 65 or older, talk with your provider about getting a pneumococcal vaccine every 5 years. You should also get this vaccine if you have chronic asthma or COPD. All adults should get a flu vaccine every fall. Ask your provider about this. When to seek medical advice Call your healthcare provider right away if any of these occur: ?? Cough with lots of colored mucus (sputum) or blood in your mucus ?? Chest pain, shortness of breath, wheezing, or trouble breathing ?? Severe headache, or face, neck, or ear pain ?? New rash??with fever ?? Fever of 100.4??F (38??C)??or higher, or as??directed by your healthcare provider ?? Confusion, behavior change, or seizure ?? Severe weakness or dizziness ?? You get a new??fever or cough after getting better for a few days Date Last Reviewed: 10/11/2016 ?? [id number] [employer]. [address] [place] [address]. All rights reserved. This information is not intended as a substitute for professional medical care. Always follow your healthcare professional's instructions. Bronchitis with Wheezing (Viral or Bacterial: Adult) Bronchitis is an infection of the air passages. It often occurs during a cold and is usually causedby a virus. Symptoms include cough with mucus (phlegm) and low-grade fever. This illness is contagious during the first few days and is spread through the air by coughing and sneezing, or by direct contact (touching the sick person and then touching your own eyes, nose, or mouth). If there is a lot of inflammation, air flow is restricted. The air passages may also go into spasm,especially if you have asthma. This causes wheezing and difficulty breathing even in people who do not have asthma. Bronchitis usually lasts 7 to 14 days. The wheezing should improve with treatment during the first week. An inhaler is often prescribed to relax the air passages and stop wheezing. Antibiotics will be prescribed if your doctor thinks there is also a secondary bacterial infection. Home care ?? If symptoms are severe, rest at home for the first 2 to 3 days. When you go back to your usual activities, don't let yourself get too tired. ?? Do not smoke. Also avoid being exposed to secondhand smoke. ?? You may use qhxx-rwb-yhiditc medicine to control fever or pain, unless another medicine was prescribed. Note: If you have chronic liver or kidney disease or have ever had a stomach ulcer or gastrointestinal bleeding, talk with your healthcare provider before using these medicines. Also talk to your provider if you are taking medicine to prevent blood clots.) Aspirin should never be given to anyone younger than 18 years of age who is ill with a viral infection or fever. It may cause severe liver or brain damage. ?? Your appetite may be poor, so a light diet is fine. Avoid dehydration by drinking 6 to 8 glassesof fluids per day (such as water, soft drinks, sports drinks, juices, tea, or soup). Extra fluids will help loosen secretions in the nose and lungs. ?? Kacg-okh-hgxrgcb cough, cold, and sore-throat medicines will not shorten the length of the illness, but they may be helpful to reduce symptoms. (Note: Do not use decongestants if you have high blood pressure.) ?? If you were given an inhaler, use it exactly as directed. If you need to use it more often than prescribed, your condition may be worsening. If this happens, contact your healthcare provider. ?? If prescribed, finish all antibiotic medicine, even if you are feeling better after only a few days. Follow-up care Follow up with your healthcare provider, or as advised. If you had an X-ray or ECG (electrocardiogram), a specialist will review it. You will be notified of any new findings that may affect your care. Note: If you are age 65 or older, or if you have a chronic lung disease or condition that affects your immune system, or you smoke, talk to your healthcare provider about having a pneumococcal vaccinations and a yearly influenza vaccination (flu shot). When to seek medical advice Call your healthcare provider right away if any of these occur: ?? Fever of 100.4??F (38??C) or higher ?? Coughing up increasing amounts of colored sputum ?? Weakness, drowsiness, headache, facial pain, ear pain, or a stiff neck Call 911, or get immediate medical care Contact emergency services right away if any of these occur. ?? Coughing up blood ?? Worsening weakness, drowsiness, headache, or stiff neck ?? Increased wheezing not helped with medication, shortness of breath, or pain with breathing Date Last Reviewed: 06/23/2015 ?? [id number] [employer]. [address] [place] [address], [place] [address]. All rights reserved. This information is not intended as a substitute for professional medical care. Always follow your healthcare professional's instructions. documented in this encounter Progress Notes * Luan Joshi MD - 09/29/2018 12:45 PM PST Leah Jones is a 52 y.o. female For follow-up of her flu and her persisting spasmodic cough. She started on antibiotic as of yesterday as the pharmacy did not have the medication. Her fever has come down and she is able to walk but her cough is persisting and keeping her up at night. She wants to travel to [place] tomorrow morning to be with the family for Jose Miguel. She is denies any fever has cough with wheezing no shortness of breath generalized body aches and pains of resolving Currently on Tamiflu and Z-Pasquale and albuterol Review of Systems Constitutional: Positive for malaise/fatigue. Negative for chills and fever. HENT: Negative for congestion. Eyes: Negative. Respiratory: Positive for cough and wheezing. Negative for shortness of breath. Cardiovascular: Negative for chest pain. Gastrointestinal: Negative. Genitourinary: Negative. Neurological: Positive for weakness. Negative for dizziness. Endo/Heme/Allergies: Negative. Allergy: No Known Allergies Social History Substance Use Topics ??? Smoking status: Never Smoker ??? Smokeless tobacco: Never Used ??? Alcohol use Yes Physical exam Vitals reviewed BP 104/67 Pulse 60 Temp 36.7 ??C (98 ??F) (Oral) Resp 18 Ht 5' 9 (1.753 m) LMP 06/30/2018 (Approximate) SpO2 100% BMI 21.03 kg/m?? Gen: no acute distress, AAOx3 Head: Normal, normocephalic, atraumatic. Eye: Normal external eye, conjunctiva, lids cornea, MONSE. Ears: Normal TM's bilaterally. Normal auditory canals and external ears. Non-tender. Throat: normal Neck: supple, no palpable cervical adenopathy Lung: chest clear, no wheezing, rales, normal symmetric air entry, Heart exam - S1, S2 normal, no murmur, no gallop, rate regular Skin- dry Impression 1. Bronchitis with flu - TBOC - Nebulizer Treatment - albuterol (2.5 mg/0.5 mL) 0.5% nebu soln 5 mg; Take 1 mL (5 mg total) by nebulization once. - dexamethasone 4 mg/mL inh 4 mg; Inhale 1 mL (4 mg total) once. - methylPREDNISolone 4 mg tablet pack; Take as directed on package. Dispense: 21 tablet; Refill: 0 2. Cough - promethazine-codeine 6.25-10 mg/5 mL syrup; Take 5-10 mLs by mouth at bedtime. Max Daily Amount: 10 mLs Dispense: 120 mL; Refill: 0 Rest, take medication as advised Take plenty of fluids,warm salt water gargle, vit C 1000 mg for 2 weeks The above plan of care, diagnosis, orders, and follow-up were discussed with the patient. The patient had all questions answered satisfactorily and understands this recommended plan of care. See AVS for additional information and counseling materials provided to the patient. Author: Luan Joshi MD [facility] @ 09/29/2018 1:22 PM documented in this encounter Plan of Treatment Not on file documented as of this encounter Procedures Procedure Name Priority Date/Time Associated Diagnosis Comments TBOC AMB CINTIA NEBULIZER TREATMENT Routine 09/29/2018 1:22 PM PST Bronchitis with flu documented in this encounter Visit Diagnoses Diagnosis Bronchitis with flu- Primary Cough documented in this encounter Administered Medications Inactive Administered Medications - up to 3 most recent administrations Medication Order MAR Action Action Date Dose Rate Site albuterol (2.5 mg/0.5 mL) 0.5% nebu soln 5 mg 5 mg, Nebulization, Once, 1 dose, On Danni 09/29/18 at 1400 Given 09/29/2018 6:06 PM PST 2.5 mg dexamethasone 4 mg/mL inh 4 mg 4 mg, Inhalation, Once, 1 dose, On Danni 09/29/18 at 1400 Given 09/29/2018 6:07 PM PST 4 mg documented in this encounter Care Teams Dolphin Trainer Relationship Specialty Start Date End Date Non-Pcp, Unassigned, MD WILLARD PCP - General 05/10/13 10/26/18 documented as of this encounter Additional Source Comments Request medical records from [facility] directly by faxing your request to . Please call for additional information and assistance.[facility]
--- OUTSIDE RECORDS SUMMARY | 2024-10-05 21:04 | XMS_ITS | Encounter Summary ---
Author Organization [facility] Address [address] [place] [address] Care Team Providers Care Cdl Program Coordinator Name Role Phone Non-Pcp, Unassigned MD Primary Care Provider Carmel vailable Encounter Details Date Type Department Care Team (Late st Contact Info) Description 09/27/2018 10:19 AM [facility] - 09/27/2018 11:59 PM [facility] Hospital Encounter [facility] - Radiology [address] [place] [place] [id number] Luan Joshi MD [address] [facility] [address] [place], [place] [phone] Flu; Cough Discharge Disposition: Home or Self Care Social [...] End Date azithromycin (ZITHROMAX Z-AXEL) 250 mg tabletIndications:Bronc hitis, acute, with bronchospasm Take 2 tablets on day 1 and then 1 tablet daily on days 2-5. 6 tablet 09/27/2018 benzonatate 200 mg capsuleIndications:Bron chitis, acute, with bronchospasm Take 1 capsule (200 mg total) by mouth three (3) times daily as needed. 30 capsule 09/27/2018 hydrocodone-acetaminoph en 5-325 mg tablet Take 1-2 tablets by mouth every six (6) hours as needed for Moderate Pain or Severe Pain. Max Daily Amount: 8 tablets 10 tablet 0 07/27/2016 levonorgestrel-ethinyl estradiol (SEASONALE) 0.15-0.03 mg tablet TAKE 1 TABLET BY MOUTH EVERY DAY 0 05/07/2016 loratadine 10 mg tablet Take 10 mg by mouth daily. albuterol 90 mcg/act inhalerIndications:Bron chitis, acute, with bronchospasm Inhale 1 puff every four (4) hours as needed. 6.7 g 09/27/2018 09/27/2019 oseltamivir (TAMIFLU) 75 mg capsuleIndications:Flu Take 1 capsule (75 mg total) by mouth two (2) times daily for 5 days. 10 capsule 09/27/2018 10/02/2018 methylprednisolone 16 mg tablet Take 16 mg by mouth daily. 09/29/2018 documented as of this encounter Plan of Treatment Not on file documented as of this encounter Procedures Procedure Name Priority Date/Time Associated Diagnosis Comments XR CHEST PA LAT 2V STAT with Urgent Read 09/27/2018 10:51 AM PST Flu Cough documented in this encounter Results * XR chest pa+lat (2 views) (09/27/2018 10:51 AM PST) Anatomical Region Laterality Modality Chest Computed Radiogr aphy 09/27/2018 10:1 9 AM PST Impressions 09/27/2018 11:03 AM PST IMPRESSION: No acute findings or abnormalities related to provided history. ` Signed by: Chidi Johnson ?? 09/27/2018 11:03 AM Narrative 09/27/2018 11:03 AM PST XR CHEST PA LAT 2V COMPARISON: none History: sever cough and congestion with flu+ last 3 days. r/o pneumonia FINDINGS: Lungs: Clear Heart/aorta: Normal Mediastinum: None Pleura: No effusion Bones and Chest wall: No acute bony or body wall ??findings Procedure Note Chidi Johnson MD - 09/27/2018 XR CHEST PA LAT 2V COMPARISON: none History: sever cough and congestion with flu+ last 3 days. r/o pneumonia FINDINGS: Lungs: Clear Heart/aorta: Normal Mediastinum: None Pleura: No effusion Bones and Chest wall: No acute bony or body wall findings IMPRESSION: No acute findings or abnormalities related to provided history. ` Signed by: Chidi Johnson 09/27/2018 11:03 AM Luan Joshi MD [facility] ORDERABLES documented in this encounter Visit Diagnoses Diagnosis Flu Influenza with other respiratory manifestations Cough documented in this encounter Care Teams Cdl Program Coordinator Relationship Specialty Start Date End Date Non-Pcp, Unassigned, MD WILLARD PCP - General 05/10/13 10/26/18 documented as of this encounter Additional Source Comments Request medical records from [facility] directly by faxing your request to . Please call for additional information and assistance.[facility]
--- OUTSIDE RECORDS SUMMARY | 2024-10-05 21:04 | XMS_ITS | Encounter Summary ---
Author Organization [facility] Address [address] [place] [address] Phone Care Team Providers Care Salesperson Terrazzo Tiles Name Role Phone Angela Heard MD Primary Care Provider [phone] Willard Vann MD Unavailable [phone] Encounter Details Date Type Department Care Team (Latest Contact Info) Description 05/23/2021 5:50 PM PDT - 05/23/2021 11:59 PM PDT Hospital Encounter OUTREACH SPECIMEN [address] [place] [address] Laboratory, [place], [address] [facility] [address] [place] [address] Discharge Disposition: Home Social History Tobacco Use [...] Miri Suero RN * Do you have serious difficulty [...] Description 10/30/2024 3:00 PM PST Initial consult [facility]/LAX [address] [place] [address] [address] [place] [address] Jesu Dawkins MD [address] [address] [place], [place] [id number] documented as of this encounter Procedures Procedure Name Priority Date/Time Associated Diagnosis Comments ID LEVEL IV SURG PATHOLOGY GROSS&MICROSCOPIC EXAM Routine 05/23/2021 documented in this encounter Results * SURGICAL PATHOLOGY (05/23/2021) 05/23/2021 05/23/2021 us Rosy Gomez MD PATHOLOGY/CYTOLOGY ORDER FREDDIE Final Result [facility] DEPT OF PATHOLOGY & LAB MEDICINE [address] [place] [address] documented in this encounter Visit Diagnoses Not on filedocumented in this encounter Additional Health Concerns Infection Onset Date Last Indicated Resolved Time ESBL Producing Organism (Ext ended Spectrum Beta-lactamase) Comment:06/08/19 Urine E.coli 06/13/2019 06/13/2019 Assessment Noted Time PHQ-9 Depression Total Score: 0 08/22/20 20 11:53 AM PST documented as of this encounter Care Teams Salesperson Terrazzo Tiles Relationship Specialty Start Date End Date Angela Heard MD PCP - General Obstetrics & Gynecology 05/25/19 09/26/24 Willard Vann MD [address] [address] PCP - Blue Shield Attributed PCP 04/16/20 10/16/21 documented as of this encounter
--- OUTSIDE RECORDS SUMMARY | 2024-10-05 21:04 | XMS_ITS | Encounter Summary ---
Author Organization [facility] Address [address] [facility] [place] [address] Phone Care Team Providers Care Second Baller Name Role Phone Angela Heard MD Primary Care Provider [phone] Reason for Referral * Radiology Services (Routine) - Closed Specialty Diagnoses / Procedures Referred By Contac t Referred To Contact Radiology Diagnoses Menopausal syndrome Procedures DXA BONE DENSITY SPINE HIP CHG DXA BONE DENSITY STUDY 1/> SITES AXIAL Wolf Singh MD [address] [facility] [address] [place] [address] Phone: tel: fax: [facility] [address] [place] [address] Phone: tel: Referral ID Status Reason Start Date Expiration Date V isits Requested Visits Authorized [id number] Closed Provider Request 04/20/2023 10/17/2023 1 1 Reason for Visit * Radiology Services (Routine) - Closed Specialty Diagnoses / Procedures Referred By Contac t Referred To Contact Radiology Diagnoses Menopausal syndrome Procedures DXA BONE DENSITY SPINE HIP CHG DXA BONE DENSITY STUDY SITES AXIAL Wolf Singh MD [address] [facility] [address] [place] [address] Phone: tel: fax: [facility] [address] [place] [address] Phone: tel: Referral ID Status Reason Start Date Expiration Date V isits Requested Visits Authorized [id number] Closed Provider Request 04/20/2023 10/17/2023 1 1 Encounter Details Date Type Department Care Team (Latest Contact Info) Description 07/05/2023 3:00 PM PDT - 07/05/2023 11:59 PM PDT Hospital Encounter [facility] [address] [place] [id number] Roel Silva MD No Office or Mailing Address on Record Menopausal syndrome Discharge Disposition: Home Social History Tobacco Use [...] Esquivel, RN documented as of this encounter Medications at Time of Discharge estradiol-noret hindrone acetate (ACTIVELLA) 0.5-0.1 mg oral tablet 01/15/2022 HYDROcodone-lauri taminophen 5-325 mg (NORCO) 5-325 mg [...] tablet daily. documented as of this encounter Progress Notes * Wolf Moura MD - 07/05/2023 3:00 PM PDT Your bones are normal. Tamanna do not have thin bones, (osteoporosis) documented in this encounter Plan of Treatment Upcoming Encounters Date Type Department Care Team (Late st Contact Info) Description 10/30/2024 3:00 PM PST [facility]/LAX [address] [place] [address] [address] [place] [address] Jesu Dawkins MD [address] [address] documented as of this encounter Procedures Procedure Name Priority Date/Time Associated Diagnosis Comments NUC MED DXA BONE DENSITY SPINE HIP Routine 07/05/2023 4:14 PM PDT Menopausal syndrome documented in this encounter Results * DXA BONE DENSITY [...] BMD provided in this report, equipment type adSage, and physician verified risk factors. Detailed information [...] BMD provided in this report, equipment type adSage, and physicianverified risk factors. Detailed information regarding densitometry is available through theinternational society for clinical densitometry web site athttps://www.iscd.org/ Reviewed and Interpreted by: Jose Denson M.D. 07/05/2023 4:39PM Wolf Moura MD NM ORDERABLES Final Result documented in this encounter Visit Diagnoses Diagnosis Menopausal syndrome Symptomatic menopausal or female climacteric states documented in this encounter Additional Health Concerns Infection Onset Date Last Indicated Resolved Time ESBL Producing Organism (Ext ended Spectrum Beta-lactamase) Comment:06/08/19 Urine E.coli 06/13/2019 06/13/2019 Assessment Noted Time PHQ-9 Depression Total Score: 0 08/22/20 20 11:53 AM PST documented as of this encounter Care Teams Second Baller Relationship Specialty Start Date End Date Angela Heard MD PCP - General Obstetrics & Gynecology 05/25/1909/26 documented as of this encounter
--- OUTSIDE RECORDS SUMMARY | 2024-10-05 21:04 | XMS_ITS | Encounter Summary ---
Author Organization [facility] Address [address] [place] [address] Phone Care Team Providers Care Appraiser Land Name Role Phone Angela Heard MD Primary Care Provider [phone] Willard Vann MD Unavailable Encounter Details Date Type Department Care Team (Latest Contact Info) Description 12/27/2020 Orders Only CS EIS Referred, Self Social History Tobacco Use Types Packs/Day Years [...] Description 10/30/2024 3:00 PM PST Initial consult [facility]/[address] [place] [address] Jesu Dawkins MD [address] [address] documented as of this encounter Visit Diagnoses Not on filedocumented in this encounter Additional Health Concerns Infection Onset Date Last Indicated Resolved Time ESBL Producing Organism (Ext ended Spectrum Beta-lactamase) Comment:06/08/19 Urine E.coli 06/13/2019 06/13/2019 Assessment Noted Time PHQ-9 Depression Total Score: 0 08/22/20 20 11:53 AM PST documented as of this encounter Care Teams Appraiser Land Relationship Specialty Start Date End Date Angela Heard MD PCP - General Obstetrics & Gynecology 05/25/19 09/26/24 Willard Vann MD [address] [facility] [address] [place] [address] PCP - Blue Shield Attributed PCP 04/16/20 10/16/21 documented as of this encounter
--- OUTSIDE RECORDS SUMMARY | 2024-10-05 21:04 | XMS_ITS | Encounter Summary ---
Author Organization [facility] Address [address] [place] [address] Care Team Providers Care Senior Business Development Analyst Name Role Phone Unavailable Primary Care Provider Unavailabl e Encounter Details Date Type Department Care Team (Latest Contact Info) Description 07/13/2022 3:32 PM PDT - 07/13/2022 11:59 PM PDT Hospital Encounter [facility] [address] [place], [place] [id number] Lois Tucker MD [address] [place] [address] Encounter for consultation Discharge Disposition: [...] tablet Take 10 mg by mouth daily. naproxen 500 mg tablet Take 1 tablet (500 mg total) by mouth two (2) times daily with meals. 40 tablet 2 07/13/2022 07/13/2023 documented as of this encounter Plan of Treatment Not on file documented as of this encounter Procedures Procedure Name Priority Date/Time Associated Diagnosis Comments MR SPINE, LUMBAR, OUTSIDE IMAGING Routine 07/13/2022 4:15 PM PDT Encounter for consultation documented in this encounter Results * MR lumbar spine image import comparison; Date of Exam: 01/21/2018 (07/13/2022 4:15 PM PDT) Narrative EXTERNAL LAB - 07/13/2022 4:15 PM PDT This order is used to store images obtained from non [facility] imaging facilities in PACS. This order is intended for comparison purposes only and no formal result will be rendered. Lois Tucker MD [facility] EXTERNAL [facility] documented in this encounter Visit Diagnoses Diagnosis Encounter for consultation documented in this encounter Additional Source Comments Request medical records from [facility] directly by faxing your request to . Please call for additional information and assistance.[facility]
--- OUTSIDE RECORDS SUMMARY | 2024-10-05 21:04 | XMS_ITS | Encounter Summary ---
Author Organization [facility] Address [address] [place] [address] Care Team Providers Care Fret Saw Operator Name Role Phone Unavailable Primary Care Provider Unavailabl e Reason for Visit * Reason Comments lump on Chin Encounter Details Date Type Department Care Team (Late st Contact Info) Description 11/11/2019 10:00 AM PST Office Visit [facility] [address] [place] [address] Penny Truong MD [address] [place] [address] [place] [address] Skin lesion (Primary Dx); Herpes zoster without complication Social History Tobacco Use Types Packs/Day Years [...] Sign Reading Time Taken Comments Blood Pressure 146/90 11/11/2019 10:56 AM PST Pulse 70 11/11/2019 10:56 AM PST Temperature 36.8 ??C (98.2 ??F) 11/11/2019 10:[address] Respiratory Rate 18 11/11/2019 10:56 AM PST Oxygen Saturation 98% 11/11/2019 10:56 AM PST Inhaled Oxygen Concentration - - Weight - - Height 175.3 cm (5' 9) 11/11/2019 10:56 AM PST Body Mass Index - - documented in this encounter Patient Instructions * Patient Instructions* Penny Truong MD - 11/11/2019 10:00 AM PST Images from the original note were not included. Shingles (Herpes Zoster) Talk to your healthcare provider about the shingles vaccine. Shingles is also called herpes zoster. It??is a painful skin rash caused by the herpes zoster virus. This is the same virus that causes chickenpox. After a person??has chickenpox, the virus remains inactive in the nerve cells. Years later, the virus can become active again and travel to the skin. Most people have shingles only once, but it is possible to have it more than once. What are the risk factors for shingles? Anyone who has ever had chickenpox can develop shingles. But your risk is greater if you: ?? Are 50 years of age or older ?? Have an illness that weakens your immune system, such as HIV/AIDS ?? Have cancer, especially Hodgkin disease or lymphoma ?? Take medicines that weaken your immune system What are the symptoms of shingles? ?? The first sign of shingles is usually pain, burning, tingling, or itching on one part of your face or body. You may also feel as if you have the flu, with fever and chills. ?? A red rash with small blisters appears within a few days. The rash may appear as follows:? The blisters can occur anywhere, but they???re most common on the back, chest, or abdomen. ?? They usually appear on only one side of the body, spreading along the nerve pathway where the virus was inactive.? The rash can also form around an eye, along one side of the face or neck, or in the mouth. ?? In a few people, usually those with weakened immune systems,??shingles appear on more than one part of the body at once. ?? After a few days, the blisters become dry and form a crust. The crust falls off in days to weeks. The blisters generally do not leave scars. How is shingles treated? For most people, shingles heals on its own in a few weeks. But treatment is recommended to??help relieve pain, speed healing, and reduce the risk of complications.??Antiviral medicines are prescribedwithin the first 72 hours of the appearance of the rash.??To lessen symptoms: ?? Apply ice packs (wrapped in a thin towel) or cool compresses, or soak in a cool bath. ?? Use calamine lotion to calm itchy skin. ?? Ask your healthcare provider about hkuk-ejh-[id number] pain relievers. If your pain is severe, yourhealthcare provider may prescribe stronger pain medicines. What are the complications??of shingles? Shingles often goes away with no lasting effects. But some people have serious problems long after the blisters have healed: ?? Postherpetic neuralgia.??This is the most common complication. It is severe nerve pain at the place where the rash used to be. It can last for months, or even years after you have had shingles. Medicines can be prescribed to help relieve the pain and improve quality of life. ?? Bacterial infection.??Shingles blisters may become infected with bacteria. Antibiotic medicine is used to treat the infection. ?? Eye problems. A person with shingles on the face should see his or her healthcare provider rightaway. Shingles can cause serious problems with vision, and even blindness. Very rarely shingles can also lead to pneumonia, hearing problems, brain inflammation, or even .?? When to seek medical care Contact your healthcare provider if you experience any of the following: ?? Symptoms that don???t go away with treatment ?? A rash or blisters near your eye ?? Increased drainage, fever, or rash after treatment, or severe pain that doesn???t go away How can shingles be prevented? You can only get shingles if you have had chickenpox in the past. Those who have never had chickenpox can get the virus from you. Although instead of developing shingles, the person may get chickenpox. Until your blisters form scabs, avoid contact with others, especially the following: ?? women who have never had chickenpox or the vaccine ?? Infants who were born early (prematurely) or who had low weight at ?? People with weak immune system (for example, people receiving chemotherapy for cancer, people who have had organ transplants, or people with HIV infections) ?? The shingles vaccine Shingles vaccines are available to help prevent shingles or make it less painful. Vaccination is recommended for adults 50 and older, even if you've had shingles in the past. Talk with your healthcare provider about the most appropriate time for you to get vaccinated, and which vaccine is best for you. Date Last Reviewed: 07/11/2016 ?? [id number] The [employer]. [address] [place] [address], [place] [address]. All rights reserved. This information is not intended as a substitute for professional medical care. Always follow your healthcare professional's instructions. documented in this encounter Progress Notes * Penny Truong MD - 11/11/2019 10:00 AM PST PATIENT: Leah Jones : 1965 DATE OF SERVICE: 11/11/2019 CARE TEAM: No care receiving team member to display Subjective: Chief Complaint Patient presents with ??? lump on Chin The patient presents for lump on the chin that started this week. She states that it started with the pain in the chin on the left side. Then developed into a red spot. She was seen in the urgent care and [facility] and thought was possibly a spider bite. She states she also doctor dentist who thought it was also spider bite. And not a dental infection. She states that they thought it was a bacterialinfection and she was started on Keflex. She saw her gunsmith apprentice yesterday and thought it was actually shingles lesion. She started her on Valtrex and switch her to doxy for secondary bacterial infections since it was not improving on the Keflex. She started Valtrex last night and started changed to doxy this morning. She states that is a little bit better but there is still some swelling in the area. There is no fevers or chills. There is no significant lymphadenopathy. There is no other sores or lesions. She states that she notes some pain along the jawline. No outpatient medications have been marked as taking for the 11/11/19 encounter (Office Visit) with Tina Sears MD. No Known Allergies Social History Tobacco Use ??? Smoking status: Never Smoker ??? Smokeless tobacco: Never Used Substance Use Topics ??? Alcohol use: Yes ??? Drug use: Not on file Active Ambulatory Problems Diagnosis Date Noted ??? No Active Ambulatory Problems Resolved Ambulatory Problems Diagnosis Date Noted ??? No Resolved Ambulatory Problems Past Medical History: Diagnosis Date ??? Bulging of cervical intervertebral disc ??? Environmental allergies Review of Systems: Negative, except as noted in the HPI Objective: BP 146/90 Pulse 70 Temp 36.8 ??C (98.2 ??F) (Oral) Resp 18 Ht 5' 9 (1.753 m) LMP 06/30/2018 (Approximate) SpO2 98% BMI 21.03 kg/m?? Check if Normal, or note + findings Vit BP 146/90 Pulse 70 Temp 36.8 ??C (98.2 ??F) (Oral) Resp 18 Ht 5' 9 (1.753 m) LMP 06/30/2018 (Approximate) SpO2 98% BMI 21.03 kg/m?? BP Readings from Last 3 Encounters: 11/11/19 146/90 09/29/18 104/67 09/27/18 95/57 Wt Readings from Last 3 Encounters: 09/27/18 142 lb 6.4 oz (64.6 kg) 07/25/16 142 lb 6.4 oz (64.6 kg) 05/10/13 135 lb (61.2 kg) Const [x] NAD GI [] Abd [] Rect [] HSM Eyes [x] Conj/Lids [x] Pupils - symmetric [] Masses [] Guard/Rebnd ENMT [x] Ears extn [] Oroph [x] Nose extn [x] Hearing - gross :Fem :Male [] Ext [] Vag [] Pen [] Scro [] Cerv [] Uter/Ad [] Deferred [] Prost [] Deferred Neck [x] Inspect [x] Thyroid inspect Neuro [x] A&O [] CN2-12 Breast [] Inspect [] Palpation [] DTR [] Motor/Sen Resp [x] Effort [] Ascult [] Percuss MSK [x] Gait [] ROM [x] Tone [] Bal [x] Digits/nails [] Back CV [] Auscultate [] Carotids [] Edema Puls: [] Post Tib Skin [x] Inspect [] Palp Lymph [] Neck [] Axillary [] Femoral Psych [x] Insight/judg [x] Affect [x] Cog There is approximately a 2.5 cm swelling on the jaw line on the left. There is approximately a 1 cmerythematous lesion slight ulceration that is in the center of this swelling. There is no significant mass or abscess noted. There is no significant lymphadenopathy. There are no oral lesions and there are no dental pain. No other skin lesions noted. MedicalDecisionMaking/Assessment/Plan: In addition to the above information-- Labs Reviewed: Imaging Reviewed: EKG interpreted: Other tests reviewed: Discussed with family or other physicians: Labs/Imaging: I have []reviewed radiology, [x]reviewed labs, []reviewed diag med test, []reviewed & summarized old records, []requested outside medical records. 1. Skin lesion 2. Herpes zoster without complication Patient's gunsmith apprentice swab to the area. For bacteria and for shingles. Discussed that I agree that is likely shingles and to continue for the Valtrex and continue doxy Cyclen for secondary infection given the Keflex at the help. [place] is leaving the country on [place]. Recommended that she take bothantibiotics with her InCase there is worsening swelling redness or progressive symptoms. Continue the Valtrex. Await swabs from Dermatology. Return if symptoms are worsening. New or Modified Medications for this Encounter New No medications on file Modified No medications on file Discontinued Medications No medications on file Return if symptoms worsen or fail to improve. sooner if symptoms worse or fail to resolve The above plan of care, diagnosis, orders, and follow-up were discussed with the patient. The patient had all questions answered satisfactorily and understands this recommended plan of care. See AVS for additional information and counseling materials provided to the patient. Author: Tina Sears MD 11/11/2019 12:23 PM documented in this encounter Plan of Treatment Not on file documented as of this encounter Visit Diagnoses Diagnosis Skin lesion- Primary Unspecified disorder of skin and subcutaneous tissue Herpes zoster without complication documented in this encounter Additional Source Comments Request medical records from [facility] directly by faxing your request to . Please call for additional information and assistance.[facility]
--- OUTSIDE RECORDS SUMMARY | 2024-10-05 21:04 | XMS_ITS | Encounter Summary ---
Author Organization [facility] Address [address] [place] [address] Phone Care Team Providers Care Secretary Name Role Phone Angela Heard MD Primary Care Provider [phone] Reason for Visit * Reason Comments Follow-up Encounter Details Date Type Department Care Team (Latest Contact Info) Description 03/05/2020 9:20 AM PDT Office Visit [facility] [place] [address] [place] [address] Willard Vann MD [facility] [address] [id number] History of cervical cancer (Primary Dx) Social [...] Sign Reading Time Taken Comments Blood Pressure 113/74 03/05/2020 9:23 AM PDT Pulse 65 03/05/2020 9:23 AM PDT Temperature 36.8 ??C (98.2 ??F) 03/05/2020 9:23 AM PD T Respiratory Rate 18 03/05/2020 9:23 AM PDT Oxygen Saturation - - Inhaled Oxygen Concentration - - Weight 61.4 kg (135 lb 5.8 oz) 03/05/2020 9:23 A M PDT Height - - Body Mass Index 20.28 05/31/2019 9:59 AM PDT documented in this [...] Progress Notes * Willard Vann MD - 03/05/2020 9:20 AM PDT Gynecology Oncology Progress Note Date of service: 03/05/2020 Chief complaint: Surveillance visit. Subjective: This is a 54 year old year old female status post modified radical hysterectomy and staging on 05/31/19 for a stage IB1 adenocarcinoma of the cervix. She is feeling well and has no complaints. Her incision is intermittently tender. Review of systems: She has no pain or vaginal bleeding. Social: The patient is returning back to her activities of daily living. Objective: Vitals: 03/05/20 0923 BP: 113/74 Pulse: 65 Resp: 18 Temp: 36.8 ??C (98.2 ??F) GI: incision well healed without tenderness or masses. Abdomen soft, nontender, no masses. : Vulva shows normal external female genitalia; the Bartholin's and Skenes glands are unremarkable. Vagina is without lesions, blood, or masses. Cuff is intact without masses. Posterior culdesac shows no nodularity. Asessment/plan: This is a 54 year old year old with FIGO 2018 stage IIA1 adenocarcinoma of the cervix. She did not meet Sedlis criteria for postoperative radiation. I recommend observation and surveillance. She will return in 6 months. Willard Vann MD 03/05/2020 9:47 AM CC: Angela Heard MD documented in this encounter Plan of Treatment Upcoming Encounters Date Type Department Care Team (Late st Contact Info) Description 10/30/2024 3:00 PM PST Initial consult [facility]/LAX [address] [place] [address] [address] [place] [phone] Jesu Dawkins MD [address] [address] documented as of this encounter Visit Diagnoses [...] documented as of this encounter Care Teams Secretary Relationship Specialty Start Date End Date Angela Heard MD PCP - General Obstetrics & Gynecology 05/25/1909/26 documented as of this encounter
--- OUTSIDE RECORDS SUMMARY | 2024-10-05 21:04 | XMS_ITS | Clinical Summary ---
Author Organization [facility] Address [address] [place] [address] Care Team Providers Care Powder Press Operator Name Role Phone Lois Tucker MD Primary Care Provider [phone] Source Comments IMPORTANT WARNING: This document is intended for the use of the person orentity to which it is addressed and may contain information that is privilegedand confidential, the disclosure of which is governed by applicable law. If youare not the intended recipient, or the employee or agent responsible to deliverit to the intended recipient, you are notified that any dissemination,distribution or copying of this information is STRICTLY PROHIBITED. If you havereceived this communication in error, please immediately notify us by telephoneat [phone] and return this original message or destroy it.[facility] Allergies No known active allergies Medications Medication Sig Dispensed Refills Start Date End Date Status levonorgestrel-ethiny l estradiol (SEASONALE) 0.15-0.03 mg tablet TAKE 1 TABLET BY MOUTH EVERY DAY 0 05/07/2016 Active loratadine 10 mg tablet Take 10 mg by mouth daily. Active hydrocodone-acetamino phen 5-325 mg tablet Take 1-2 tablets by mouth every six (6) hours as needed for Moderate Pain or Severe Pain. Max Daily Amount: 8 tablets 10 tablet 0 07/27/2016 Active azithromycin (ZITHROMAX Z-AXEL) 250 mg tabletIndications:Bro nchitis, acute, with bronchospasm Take 2 tablets on day 1 and then 1 tablet daily on days 2-5. 6 tablet 09/27/2018 Active benzonatate 200 mg capsuleIndications:Br onchitis, acute, with bronchospasm Take 1 capsule (200 mg total) by mouth three (3) times daily as needed. 30 capsule 09/27/2018 Active Social History Tobacco Use Types Packs/Day Years Used Date Smoking Tobacco: Never Smokeless Tobacco: Never Alcohol Use Standard Drinks/Week Comments Yes 0 (1 standard drink = 0.6 oz pur e alcohol) Depression Risk (PHQ) Answer Date Recor ded Total Risk Score based on the patient's PHQ-9 if documented Not on file 08/29/2022 Total Risk Score based on th e patient's IP PHQ-2 if documented Not on file 08/29/2022 Total Risk Score based on the patient's PHQ-2 if documented Not on file 08/29/2022 Social Isolation Answer Date Recorded How often [...] PST Inhaled Oxygen Concentration - - Weight 64.6 kg (142 lb 6.4 oz) 09/27/2018 9:36 A M PST Height 175.3 cm (5' 9) 11/11/2019 10:56 AM PST Body Mass Index 21.03 05/10/2013 9:51 AM PDT Plan of Treatment Health Maintenance Due Date Last Done Comments HIV Screening 12/24/1985 Hepatitis B Screening 12/24/1985 Hepatitis C Screening 12/24/1985 Tdap/Td Vaccine (1 - Tdap) 12/24/1986 CT Colonography 1987 Cologuard (External test,HM not autoupdated) 1987 FIT/FOBT 1987 Sigmoidoscopy 1987 Cervical Ca Screening: PAP Smear 12/24/1997 Cervical Cancer Screening: H PV Testing 12/24/1997 Breast Cancer Screening: Mammogram 2007 Colonoscopy 12/24/2012 Colorectal Cancer Screening 12/24/2012 Preventive Wellness Visit 12/24/2017 Shingles (Shingrix) Vaccine (1 of 2) 12/24/2017 COVID-19 Vaccine(Tracks prim leonel and booster doses, not sup/immunocomp) (2023- season) 2024 09/20/2021, 01/23/2021, 01/02/2021 Influenza Vaccine (#1) 2024 08/24/2020 Care Teams Powder Press Operator Relationship Specialty Start Date End Date Lois Tucker MD PCP - General 09/30/22 Additional Source Comments Request medical records from [facility] directly by faxing your request to . Please call for additional information and assistance.[facility]
--- OUTSIDE RECORDS SUMMARY | 2024-10-05 21:04 | XMS_ITS | Encounter Summary ---
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, pt is on steroids * Auth/Cert Specialty Diagnoses / Procedures Referred By Stanislav fernandes Referred To Contact Emergency Medicine Ed [address] [place] [address] Referral ID Status Reason Start Date Expiration Date Visits Re quested Visits Authorized [id number] 07/27/2016 11/24/2016 3 3 Encounter Details Date Type Department Care Team (Late st Contact Info) Description 07/27/2016 12:36 PM PDT - 07/27/2016 3:11 PM PDT Emergency [facility] Emergency Department [address] [place] [address] Viktoria Paiz DO [address] [place] [address] [place] [id number] Cervical radiculopathy (Primary Dx) Discharge Disposition: Home or Self Care Social [...] Sign Reading Time Taken Comments Blood Pressure 164/91 07/27/2016 3:09 PM PDT Pulse 67 07/27/2016 3:09 PM PDT Temperature 36.3 ??C (97.3 ??F) 07/27/2016 12:32 PM P DT Respiratory Rate 14 07/27/2016 3:09 PM PDT Oxygen Saturation 100% 07/27/2016 3:09 PM PDT Inhaled Oxygen Concentration - - Weight - - Height - - Body Mass Index - - documented in this encounter Medications at Time of Discharge Medication Sig Dispensed Refills Start Date End Date hydrocodone-acetaminoph en 5-325 mg tablet Take 1-2 tablets by mouth every six (6) hours as needed for Moderate Pain or Severe Pain. Max Daily Amount: 8 tablets 10 tablet 0 07/27/2016 levonorgestrel-ethinyl estradiol (SEASONALE) 0.15-0.03 mg tablet TAKE 1 TABLET BY MOUTH EVERY DAY 0 05/07/2016 loratadine 10 mg tablet Take 10 mg by mouth daily. methylprednisolone 16 mg tablet Take 16 mg by mouth daily. 09/29/2018 documented as of this encounter ED Notes * Viktoria Paiz, - 07/27/2016 12:54 PM PDT [facility] Emergency Department Service Report Leah Jones 50 y.o. female , presents with Numbness Triage Arrived on 07/27/2016 at 12:27 PM Arrived by Car [5] ED Triage Vitals Temp Temp Source BP Heart Rate Resp SpO2 O2 Device Pain Score Weight 07/27/16 1232 07/27/16 1232 07/27/16 1232 07/27/16 1232 07/27/16 1232 07/27/16 1232 07/27/16 1232 07/27/16 1232 -- 36.3 ??C (97.3 ??F) Oral 181/80 mmHg 67 20 100 % None (Room air) Ten Pre hospital care: No Known Allergies History HPI Comments: Patient is a 50 y.o. female with hx of bulging cervical disk who presents to the ED with complaint of gradual onset left arm pain x3 days. Pain starts in the left shoulder blade and radiated down the arm to the fingers. Pain is sharp, constant, worse with touch or movement. Associatedsx include left arm numbness radiating from the shoulder to the fingers. Denies recent fever, chills, SOB, chest pain, abdominal pain, nausea, vomiting, and dysuria. Pt states 2 wks ago she fell and hurt her lower back. Pt has had chronic neck stiffness for 2 years and was found to have a bulging disk by MRI last Wednesday. Patient is a 50 y.o. female presenting with arm injury. The history is provided by the patient. No biblical languages professor was used. Arm Injury The incident occurred more than 2 days ago. The incident occurred at home. Injury mechanism: none. There is an injury to the left shoulder, left forearm, left upper arm, left hand and left wrist. Thepain is moderate. It is unlikely that a foreign body is present. Associated symptoms include numbness. Past Medical History Diagnosis Date ??? Environmental allergies ??? Bulging of cervical intervertebral disc Past Surgical History Procedure Laterality Date ??? Appendectomy Past Family History No pertinent family history. Past Social History she reports that she has never smoked. She does not have any smokeless tobacco history on file. Shereports that she drinks alcohol. Her drug and sexual activity histories are not on file. Review of Systems Musculoskeletal: Arm pain Neurological: Positive for numbness. All other systems reviewed and are negative. Physical Exam Physical Exam Constitutional: She appears well-developed and well-nourished. No distress. HENT: Head: Normocephalic and atraumatic. Eyes: Conjunctivae and EOM are normal. Neck: Normal range of motion. Neck supple. Paracervical muscle guarding, neuro intact, no bony tenderness Cardiovascular: Normal rate and regular rhythm. Pulmonary/Chest: Effort normal and breath sounds normal. No respiratory distress. Abdominal: Soft. There is no tenderness. There is no rebound and no guarding. Musculoskeletal: Normal range of motion. Lymphadenopathy: She has no cervical adenopathy. Neurological: She is alert. No sensory deficit. Moving all four extremities. Skin: Skin is warm and dry. Psychiatric: Her behavior is normal. Nursing note and vitals reviewed. Laboratory Results Labs Reviewed BASIC METABOLIC PANEL - Abnormal; Notable for the following: Sodium 130 (*) Chloride 94 (*) Glucose 125 (*) All other components within normal limits DIFFERENTIAL, AUTOMATED (PERFORMABLE) - Abnormal; Notable for the following: Absolute Neut Count 6.98 (*) All other components within normal limits CBC & AUTO DIFFERENTIAL Narrative: The following orders were created for panel order CBC & Plt & Diff. Procedure Abnormality Status --------- ------ CBC[[id number]] Final result Differential, Automated[[id number]] Abnormal Final result Please view results for these tests on the individual orders. RAINBOW DRAW TO LABORATORY Narrative: The following orders were created for panel order [place] Draw to Laboratory (Red, Lt blue, Dark Green). Procedure Abnormality Status --------- ------ Extra Red Top (Plastic)[[id number]] Final result Extra Light Blue Top[[id number]] Final result Extra Dark Green Top[[id number]] Final result [place] Top-Blood Bank Hold...[[id number]] Final result Please view results for these tests on the individual orders. EXTRA RED TOP (PLASTIC) EXTRA LIGHT BLUE TOP EXTRA DARK GREEN TOP PINK TOP-BLOOD BANK HOLD SPECIMEN CBC (PERFORMABLE) Imaging Results No orders to display Administered Medications Medication Administration from 07/27/2016 1227 to 07/27/2016 1457 Date/Time Order Dose Route Action Action by Comments 07/27/2016 1317 hydrocodone-acetaminophen 5-325 mg tab 1 tablet 1 tablet Oral Given Tanisha Pearce RN hr: 64 rr: 18 bp: 164/86 07/27/2016 1449 morphine PF 4 mg/mL inj 4 mg 4 mg IV Push Given Corrine Kovacs RN 07/27/2016 1449 ondansetron 4 mg/2 mL inj 4 mg 4 mg IV Push Given Corrine Kovacs RN Procedures Procedures MDM Number of Diagnoses or Management Options Amount and/or Complexity of Data Reviewed Clinical lab tests: ordered and reviewed Tests in the medicine section of CPT??: ordered and reviewed Decide to obtain previous medical records or to obtain history from someone other than the patient:yes Review and summarize past medical records: yes (Bulging cervical disk) Data Reviewed/Counseling: I have reviewed the patient's vital signs, nursing notes and old medical records. I had a detailed discussion with the patient regarding the historical points, exam findings, and any diagnostic results supporting the discharge diagnosis. I also discussed lab results and the need to return to the ED if symptoms worsen or if there are any questions or concerns that arise at home. Clinical Impression 1. Cervical radiculopathy Prescriptions New Prescriptions HYDROCODONE-ACETAMINOPHEN 5-325 MG TABLET Take 1-2 tablets by mouth every six (6) hours as needed for Moderate Pain or Severe Pain. Max Daily Amount: 8 tablets Disposition and Follow-up Disposition: Discharge [1] No future appointments. [facility] up with: [facility] [address] [place] [address] [address] [facility] [phone] Return precautions are specified on After Visit Summary. The documentation on this chart was performed by morena Ortega for Viktoria Paiz DO 07/27/2016 2:57 PM Viktoria Paiz DO 07/27/16 1608 documented in this encounter Plan of Treatment Not on file documented as of this encounter Procedures Procedure Name Priority Date/Time Associated Diagnosis Comments RAINBOW DRAW TO LABORATORY STAT 07/27/2016 12:51 PM PDT CBC (PERFORMABLE) STAT 07/27/2016 12: 51 PM PDT BLUE TOP STAT 07/27/2016 12:51 PM PDT DIFFERENTIAL, AUTOMATED (PERFORMABLE) STAT 07/27/2016 12:51 PM PDT EXTRA DARK GREEN TOP STAT 07/27/2016 12:51 PM PDT EXTRA RED TOP (PLASTIC) STAT 07/27/2016 12:51 PM PDT EXTRA LIGHT BLUE TOP STAT 07/27/2016 12:51 PM PDT CBC & AUTO DIFFERENTIAL STAT 07/27/2016 12:51 PM PDT BASIC METABOLIC PANEL STAT 07/27/2016 12:51 PM PDT documented in this encounter Results * (ABNORMAL) Differential, Automated (07/27/2016 12:51 PM PDT) Neutrophil Percent, Auto 79.7 No Ref. Range % 07/27/2016 1:03 PM PDT [facility] Comment:Percent reference ra nge not reported per accrediting agency. Lymphocyte Percent, Auto 16.6 No Ref. Range % 07/27/2016 1:03 PM PDT [facility] Comment:Percent reference ra nge not reported per accrediting agency. Monocyte Percent, Auto 3.6 No Ref. Range % 07/27/2016 1:03 PM PDT [facility] Comment:Percent reference ra nge not reported per accrediting agency. Eosinophil Percent, Auto 0.0 No Ref. Range % 07/27/2016 1:03 PM PDT [facility] Comment:Percent reference ra nge not reported per accrediting agency. Basophil Percent, Auto 0.1 No Ref. Range % 07/27/2016 1:03 PM PDT [facility] Comment:Percent reference ra nge not reported per accrediting agency. Absolute Neut Count 6.98(H) 1.80 - 6.90 x10E3/uL 07/27/2016 1:03 PM PDT [facility] Absolute Lymphocyte Count 1.46 1.30 - 3.40 x10E3/uL 07/27/2016 1:03 PM PDT [facility] Absolute Will Count 0.32 0.20 - 0.80 x10E3/uL 07/27/2016 1:03 PM PDT [facility] Absolute Eos Count 0.00 0.00 - 0.50 x10E3/uL 07/27/2016 1:03 PM PDT [facility] Absolute Baso Count 0.01 0.00 - 0.10 x10E3/uL 07/27/2016 1:03 PM PDT [facility] Blood 07/27/2016 12:5 1 PM PDT 07/27/2016 12:56 PM PDT Viktoria Paiz DO LAB BLOOD ORDERABLES [facility] [address], [address] [place] [phone] * CBC (07/27/2016 12:51 PM PDT) [facility] White Blood Cell Count 8.77 4.16 - 9.95 x10E3/uL 07/27/2016 1:03 PM PDT [facility] Red Blood Cell Count 4.49 3.96 - 5.09 x10E6/uL 07/27/2016 1:03 PM PDT [facility] Hemoglobin 14.2 11.6 - 15.2 g/dL 07/27/2016 1:03 PM PDT [facility] Hematocrit 40.5 34.9 - 45.2 % 07/27/2016 1:03 PM PDT [facility] Mean Corpuscular Volume 90.2 79.3 - 98.6 fL 07/27/2016 1:03 PM PDT [facility] Mean Corpuscular Hemoglobin 31.6 26.4 - 33.4 pg 07/27/2016 1:03 PM PDT [facility] MCH Concentration 35.1 31.5 - 35.5 g/dL 07/27/2016 1:03 PM PDT [facility] Red Cell Distribution Width-SD 40.6 36.9 - 48.3 fL 07/27/2016 1:03 PM PDT [facility] Red Cell Distribution Width-CV 12.3 11.1 - 15.5 % 07/27/2016 1:03 PM PDT [facility] Platelet Count, Auto 290 143 - 398 x10E3/uL 07/27/2016 1:03 PM PDT [facility] Mean Platelet Volume 10.6 9.3 - 13.0 fL 07/27/2016 1:03 PM PDT [facility] Nucleated RBC%, automated 0.0 No Ref. Range % 07/27/2016 1:03 PM PDT [facility] Comment:Percent Reference Ra nge Not Reported per accrediting agency Absolute Nucleated RBC Count 0.00 0.00 - 0.00 x10E3/uL 07/27/2016 1:03 PM PDT [facility] Neutrophil Abs (Prelim) 6.[address] x10E3/uL 07/27/2016 1:03 PM PDT [facility] Comment: This is a preliminary result. ??If automated differential see Absolute Neut ??Count or if manual differential see Absolute Neut Ct, Manual for final result. Blood 07/27/2016 12:5 1 PM PDT 07/27/2016 12:56 PM PDT Viktoria HanselCasey Paiz DO LAB BLOOD ORDERABLES [facility] [address] [place] [address], Room [address] [place], [place] [phone] * [place] Top-Blood Bank Hold Specimen (07/27/2016 12:51 PM PDT) Blood Bank Hold Specimen Available 07/27/2016 1:23 PM PDT [facility] Blood specimen (specimen) 07/27/2016 12:51 PM PDT 07/27/2016 12:56 PM PDT Viktoria Paiz DO BLOOD BANK TEST ORDE RABLES Performing Organization Address [facility] Co de Phone Number [facility] [address] [place] [address] * Extra Dark Green Top (07/27/2016 12:51 PM PDT) Extra Tube Performed 07/27/2016 2:00 PM PDT [facility] Comment:Auto resulted. Blood 07/27/2016 12:5 1 PM PDT 07/27/2016 12:56 PM PDT Viktoria Paiz DO LAB BLOOD ORDERABLES Performing Organization Address City/[facility]/ZIP Co de Phone Number [facility] [address] [place] [address], [address] [place] [phone] * Extra Light Blue Top (07/27/2016 12:51 PM PDT) Extra Tube Performed 07/27/2016 2:00 PM PDT [facility] Comment:Auto resulted. Blood 07/27/2016 12:5 1 PM PDT 07/27/2016 12:56 PM PDT [facility] BLOOD ORDERABLES [facility] [address] [place] [address], Room [address] [place] [address] * Extra Red Top (Plastic) (07/27/2016 12:51 PM PDT) Extra Tube Performed 07/27/2016 2:00 PM PDT [facility] Comment:Auto resulted. Blood 07/27/2016 12:5 1 PM PDT 07/27/2016 12:56 PM PDT Viktoria Betancourt DO LAB BLOOD ORDERABLES Performing Organization Address City/[facility]/ZIP Co de Phone Number [facility] [address] [place] [address] [address] [place] [address] * (ABNORMAL) Basic Metabolic Panel (07/27/2016 12:51 PM PDT) Sodium 130(L) 135 - 146 mmol/L 07/27/2016 1:25 PM PDT [facility] Potassium 4.4 3.6 - 5.3 mmol/L 07/27/2016 1:25 PM PDT [facility] Chloride 94(L) 96 - 106 mmol/L 07/27/2016 1:25 PM PDT [facility] Total CO2 22 20 - 30 mmol/L 07/27/2016 1:25 PM PDT [facility] Anion Gap 14 8 - 19 07/27/2016 1:25 PM PDT [facility] Glucose 125(H) 65 - 99 mg/dL 07/27/2016 1:25 PM PDT [facility] GFR Estimate for Non- 89 See GFR Additional Information 07/27/2016 1:25 PM PDT [facility] GFR Estimate for >89 See GFR Additional Information 07/27/2016 1:25 PM PDT [facility] GFR Additional Information 07/27/2016 1:25 PM PDT [facility] Comment: GFR >89 ?Normal GFR 60 - 89 ?Normal to mildly reduced GFR 30 - 59 ?Moderately reduced GFR 15 - 29 ?Severely reduced GFR <15 ?Kidney failure Results are in mL/min/1.73 square meters. The estimate assumes a steady-state and is most accurate for GFRs <60 mL/min/1.73 square meters. Patients who are >59 years old can have mildly reduced GFR due to aging. Creatinine 0.7 0.6 - 1.3 mg/dL 07/27/2016 1:25 PM PDT [facility] Urea Nitrogen 9 7 - 22 mg/dL 07/27/2016 1:25 PM PDT [facility] Calcium 9.1 8.6 - 10.3 mg/dL 07/27/2016 1:25 PM PDT [facility] Blood 07/27/2016 12:5 1 PM PDT 07/27/2016 12:56 PM PDT Viktoria Paiz DO LAB BLOOD ORDERABLES [facility] [address], [address] [place] [phone] documented in this encounter Visit Diagnoses Diagnosis Cervical radiculopathy- Primary Brachial neuritis or radiculitis nos documented in this encounter Administered Medications Inactive Administered Medications - up to 3 most recent administrations Medication Order MAR Action Action Date Dose Rate Site hydrocodone-acetaminophen 5-325 mg tab 1 tablet 1 tablet, Oral, Once, 1 dose, On Wed07/27/16 at 1315 Given 07/27/2016 1:17 PM PDT 1 tablet morphine PF 4 mg/mL inj 4 mg 4 mg, IV Push, STAT, 1 dose, On Wed07/27/16 at 1445 Given 07/27/2016 2:49 PM PDT 4 mg ondansetron 4 mg/2 mL inj 4 mg 4 mg, IV Push, STAT, 1 dose, On 07/27/16 at 1445 Given 07/27/2016 2:49 PM PDT 4 mg documented in this encounter Active and Recently Administered Medications Times are shown in PDT. Scheduled Medication Order 07/25/2016 07/26/2016 07/27/2016 hydrocodone-acetaminophen 5-325 mg tab 1 tablet (COMPLETED) 1 tablet, Oral, Once, 1 dose, On Wed07/27/16 at 1315 1317 (Given - Provid er: Tanisha Pearce RN - Comment: hr: 64 rr: 18 bp: 164/86) morphine PF 4 mg/mL inj 4 mg (COMPLETED) 4 mg, IV Push, STAT, 1 dose, On Wed07/27/16 at 1445 1449 (Given - Provid er: Corrine Kovacs RN) ondansetron 4 mg/2 mL inj 4 mg (COMPLETED) 4 mg, IV Push, STAT, 1 dose, On Wed07/27/16 at 1445 1449 (Given - Provid er: Corrine Kovacs RN) documented in this encounter Care Teams Theater Teacher Relationship Specialty Start Date End Date Non-Pcp, Unassigned, MD WILLARD PCP - General 05/10/13 10/26/18 documented as of this encounter Additional Source Comments Request medical records from [facility] directly by faxing your request to . Please call for additional information and assistance.[facility]
--- OUTSIDE RECORDS SUMMARY | 2024-10-05 21:04 | XMS_ITS | Encounter Summary ---
Author Organization [facility] Address [address] [place] [address] Phone Care Team Providers Care Floral Designer Salesperson Name Role Phone Angela Heard MD Primary Care Provider [phone] Reason for Visit * Reason Comments Follow-up Encounter Details Date Type Department Care Team (Latest Contact Info) Description 08/17/2019 1:20 PM PST Office Visit [facility] the [facility] [address] [place] [address] Willard Vann MD [facility] [address] [phone] History of cervical cancer (Primary Dx) Social [...] Sign Reading Time Taken Comments Blood Pressure 129/85 08/17/2019 1:15 PM PST Pulse 72 08/17/2019 1:15 PM PST Temperature 36.8 ??C (98.3 ??F) 08/17/2019 1:15 PM PS T Respiratory Rate 19 08/17/2019 1:15 PM PST Oxygen Saturation - - Inhaled Oxygen Concentration - - Weight 60.2 kg (132 lb 11.2 oz) 08/17/2019 1:15 PM PST Height - - Body Mass Index 19.88 05/31/2019 9:59 AM PDT documented in this [...] Progress Notes * Willard Vann MD - 08/17/2019 1:20 PM PST Gynecology Oncology Progress Note Date of service: 08/17/2019 Chief complaint: Surveillance visit. Subjective: This is a 53 year old year old female status post modified radical hysterectomy and staging on 05/31/19 for a stage IB1 adenocarcinoma of the cervix. She is feeling well and has no complaints. She has more frequent urination but no dysuria. Review of systems: She has no pain or vaginal bleeding. Social: The patient is returning back to her activities of daily living. Objective: Vitals: 08/17/19 1315 BP: 129/85 Pulse: 72 Resp: 19 Temp: 36.8 ??C (98.3 ??F) GI: incision clean and dry. Abdomen soft, nontender, no masses. : Vulva shows normal external female genitalia; the Bartholin's and Skenes glands are unremarkable. Vagina is without lesions, blood, or masses. Cuff is intact without masses. Posterior culdesac shows no nodularity. Asessment/plan: This is a 53 year old year old with FIGO 2018 stage IIA1 adenocarcinoma of the cervix. She does not meet Sedlis criteria for postoperative radiation. I recommend observation and surveillance. She will return in 6 months. Willard Vann MD 08/17/2019 1:21 PM CC: Angela Heard MD documented in this encounter Plan of Treatment Upcoming Encounters Date Type Department Care Team (Late st Contact Info) Description 10/30/2024 3:00 PM PST Initial consult [facility] [address] [place] [phone] Jesu Dawkins MD [address] [address] documented as of this encounter Visit Diagnoses [...] documented as of this encounter Care Teams Floral Designer Salesperson Relationship Specialty Start Date End Date Angela Heard MD PCP - General Obstetrics & Gynecology 05/25/1909/26 documented as of this encounter
--- OUTSIDE RECORDS SUMMARY | 2024-10-05 21:04 | XMS_ITS | Encounter Summary ---
Author Organization [facility] Address [address] [place] [address] Care Team Providers Care Home Builder Name Role Phone Non-Pcp, Unassigned MD Primary Care Provider Carmel vailable Reason for Visit * Reason Comments Sore Throat 3 days Generalized Body Aches Cough Diarrhea Encounter Details Date Type Department Care Team (Late st Contact Info) Description 09/27/2018 9:30 AM PST Office Visit [facility] [address] [facility] [address] [place] [phone] Luan Joshi MD [address] [facility] [address] [place] [phone] Flu (Primary Dx); Nausea; Bronchitis, acute, with bronchospasm Social History Tobacco Use Types Packs/Day Years [...] Sign Reading Time Taken Comments Blood Pressure 95/57 09/27/2018 12:13 PM PST Pulse 65 09/27/2018 12:13 PM PST Temperature 36.5 ??C (97.7 ??F) 09/27/2018 9:36 AM PS T Respiratory Rate - - Oxygen Saturation 100% 09/27/2018 12:13 PM PST Inhaled Oxygen Concentration - - Weight 64.6 kg (142 lb 6.4 oz) 09/27/2018 9:36 A M PST Height - - Body Mass Index 21.03 05/10/2013 9:51 AM PDT documented in this encounter Patient Instructions * Patient Instructions* Luan Joshi MD - 09/27/2018 11:13 AM PST Images from the original note were not included. Rest, take medication as advised Take plenty [...] secretions in your nose and lungs. ?? Nalw-soo-wecfmum cold medicines will not make the flu [...] few days Date Last Reviewed: 10/11/2016 ?? [phone] [employer]. [address] [place] [address]. All rights reserved. This information is not [...] to secondhand smoke. ?? You may use apdm-jfe-jixzxlc medicine to control fever or pain, unless [...] secretions in the nose and lungs. ?? Dhoz-cgq-qiwrepz cough, cold, and sore-throat medicines will not [...] with breathing Date Last Reviewed: 06/23/2015 ?? [phone] [employer]. [address] [place] [address], [place] [address]. All rights reserved. This information is not intended as a substitute for professional medical care. Always follow your healthcare professional's instructions. documented in this encounter Progress Notes * Luan Joshi MD - 09/27/2018 9:30 AM PST SUBJECTIVE: Chief Complaint Patient presents with ??? Sore Throat 3 days ??? Generalized Body Aches ??? Cough ??? Diarrhea The patient presents with generalized body aches feeling warm cough with congestion and diarrhea last 2-3 days. She feels a little nausea and dizzy has not been eating or drinking the last few days she lives by herself and felt very sick Her cough is intermittent with some wheezing Review of Systems Constitutional: Positive for fever and malaise/fatigue. HENT: Positive for congestion and sore throat. Eyes: Negative. Respiratory: Positive for cough and wheezing. Cardiovascular: Negative for chest pain. Gastrointestinal: Positive for nausea. Negative for vomiting. Genitourinary: Negative for dysuria. Musculoskeletal: Negative for myalgias. Skin: Negative. Neurological: Positive for headaches. Negative for dizziness and tingling. Current Outpatient Prescriptions Medication Sig ??? hydrocodone-acetaminophen 5-325 mg tablet Take 1-2 tablets by mouth every six (6) hours as needed for Moderate Pain or Severe Pain. Max Daily Amount: 8 tablets ??? levonorgestrel-ethinyl estradiol (SEASONALE) 0.15-0.03 mg tablet TAKE 1 TABLET BY MOUTH EVERY DAY ??? loratadine 10 mg tablet Take 10 mg by mouth daily. ??? methylprednisolone 16 mg tablet Take 16 mg by mouth daily. No current facility-administered medications for this visit. No Known Allergies OBJECTIVE: Last Recorded Vital Signs: 09/27/18 1213 BP: 95/57 Pulse: 65 Temp: SpO2: 100% Gen: Acutely ill-looking patient coughing on and off HEENT: NC/AT, PERRL, EOMI, Ear: no fluid, no bulging TM or erythema, oral moist, no exudate, neck supple Lungs: : Chest is clear, no wheezing or rales. Normal symmetric air entry throughout both lung bruno. No chest wall deformities or tenderness. Heart: S1 and S2 normal, no murmurs, clicks, gallops or rubs. Regular rate and rhythm. Abdomen- soft non tender BS+ Skin- dry X-ray- XR CHEST PA LAT 2V ?? COMPARISON: none ?? History: sever cough and congestion with flu+ last 3 days. r/o pneumonia ?? FINDINGS: ?? Lungs: Clear Heart/aorta: Normal Mediastinum: None Pleura: No effusion Bones and Chest wall: No acute bony or body wall findings ? IMPRESSION: ?? No acute findings or abnormalities related to provided history. ASSESSMENT: .1. Flu Patient given oral electrolyte rich fluids to drink 3/8 oz - XR chest pa+lat (2 views); Future - POCT Influenza A/B; Future - POCT Influenza A/B - oseltamivir (TAMIFLU) 75 mg capsule; Take 1 capsule (75 mg total) by mouth two (2) times daily for 5 days. Dispense: 10 capsule; Refill: 0 2. Nausea - POCT Influenza A/B; Future - POCT Influenza A/B 3. Bronchitis, acute, with bronchospasm No infiltrate - ondansetron 4 mg/2 mL inj 4 mg; Inject 2 mLs (4 mg total) into the muscle once. - XR chest pa+lat (2 views); Future - azithromycin (ZITHROMAX Z-AXEL) 250 mg tablet; Take 2 tablets on day 1 and then 1 tablet daily on days 2-5. Dispense: 6 tablet; Refill: 0 - albuterol 90 mcg/act inhaler; Inhale 1 puff every four (4) hours as needed. Dispense: 6.7 g; Refill: 0 Rest, take medication as advised Take plenty of warm fluids,warm salt water gargle, vit C 1000 mg for 2 weeks If symptoms worsening or progressive advised to go to the ER for further management .timespent in clinic More than 180 mins --more than 40% of the time fppz-ml-nuvw encounter evaluating and monitoring the patient Patient was feeling much better with no dizziness or nausea and was able to ambulate. The above plan of care, diagnosis, orders, and follow-up were discussed with the patient. The patient had all questions answered satisfactorily and understands this recommended plan of care. See AVS for additional information and counseling materials provided to the patient. Luan Joshi MD [facility] LORIE JAIN * Luan Joshi MD - 09/27/2018 9:30 AM PST Called patient able to ambulate slowly eating better fever coming down coughing persisting which isan issue Cancelled flight today has a flight tomorrow Wants to know if she can go Advised to come to evaluate her She will come today at some point documented in this encounter Plan of Treatment Not on file documented as of this encounter Procedures Procedure Name Priority Date/Time Associated Diagnosis Comments POCT INFLUENZA A/B Routine 09/27/2018 10 :23 AM PST Flu Nausea documented in this encounter Results * XR [...] Joshi MD IMG DIAGNOSTIC [facility] ORDERABLES * POCT Influenza A/B (09/27/2018 10:23 AM PST) Rapid Influenza A Ag, Manual positive EXTERNAL LAB Rapid Influenza B Ag, Manual negative EXTERNAL LAB 09/27/2018 10:2 3 AM PST Luan Joshi MD POINT OF CARE TEST ORDERABLES EXTERNAL LAB documented in this encounter Visit Diagnoses Diagnosis Flu- Primary Influenza with other respiratory manifestations Nausea Nausea alone Bronchitis, acute, with bronchospasm Flu Influenza with other respiratory manifestations Cough documented in this encounter Administered Medications Inactive Administered Medications - up to 3 most recent administrations Medication Order MAR Action Action Date Dose Rate Site ondansetron 4 mg/2 mL inj 4 mg 4 mg, Intramuscular, Once, 1 dose, On Wed09/27/18 at 1015 Given 09/27/2018 9:52 AM PST 4 mg Left Gluteal documented in this encounter Care Teams Home Builder Relationship Specialty Start Date End Date Non-Pcp, Unassigned, MD WILLARD PCP - General 05/10/13 10/26/18 documented as of this encounter Additional Source Comments Request medical records from [facility] directly by faxing your request to . Please call for additional information and assistance.[facility]
--- OUTSIDE RECORDS SUMMARY | 2024-10-05 21:04 | XMS_ITS | Encounter Summary ---
Author Organization [facility] Address [address] [place] [address] Phone Care Team Providers Care Family Counselor Name Role Phone Angela Heard MD Primary Care Provider [phone] Encounter Details Date Type Department Care Team (Late st Contact Info) Description 09/15/2024 Ancillary Procedure [address] [place] [phone] Social History Tobacco Use Types Packs/Day Years [...] Description 10/30/2024 3:00 PM PST [facility] [address] [facility] [address] [place] [phone] Jesu Dawkins MD [address] [address] documented as of this encounter Procedures Procedure Name Priority Date/Time Associated Diagnosis Comments MR OUTSIDE IMAGES L-SPINE Routine 09/15/2024 12:00 AM PST documented in this encounter Results * MR OUTSIDE IMAGES L-SPINE (09/15/2024 12:00 AM PST) Narrative [facility] - 09/25/2024 2:21 PM PST These images were uploaded for comparison. There will be no formal interpretation for this accession number. us Unknown Imaging MD MR ORDERABLES Final Result [facility] [address] [place] [address], [facility] [phone] documented in this encounter Visit Diagnoses Not on filedocumented in this encounter Additional Health Concerns Infection Onset Date Last Indicated Resolved Time ESBL Producing Organism (Ext ended Spectrum Beta-lactamase) Comment:06/08/19 Urine E.coli 06/13/2019 06/13/2019 Assessment Noted Time PHQ-9 Depression Total Score: 0 08/22/20 20 11:53 AM PST documented as of this encounter Care Teams Family Counselor Relationship Specialty Start Date End Date Angela Heard MD PCP - General Obstetrics & Gynecology 05/25/1909/26 documented as of this encounter
--- OUTSIDE RECORDS SUMMARY | 2024-10-05 21:04 | XMS_ITS | Encounter Summary ---
Author Organization [facility] Address [address] [place] [address] Care Team Providers Care Round Up Ring Hand Name Role Phone Unavailable Primary Care Provider Unavailabl e Encounter Details Date Type Department Care Team (Late st Contact Info) Description 05/10/2019 Telephone [facility], OBGYN Oncology [place] [address] [place] [address] Simin Interiano MD [address] [place] [address] Social History Tobacco Use Types Packs/Day Years Used Date Smoking Tobacco: Never Smokeless Tobacco: Never Alcohol Use Standard Drinks/Week Comments Yes 0 (1 standard drink = 0.6 oz pur e alcohol) Sex and Gender Information Value Date Recorded Sex Assigned at Not on file Gender Identity Not on file Sexual Orientation Not on file documented as of this encounter Miscellaneous Notes * Telephone Encounter - Mali Medina MA - 05/10/2019 9:42 AM PDT Images from the original note were not included. Thanks Mali Appreciate all you do for us On May 10, 2019, at 7:58 AM, Mali Medina <[email or web address]> wrote: Morning Harika, i will call this pt. I just wanted to let you know, I am off the remainder of the week. Please cc Polo to ensure nothing is missed. thank you Mali From: Harika Del Angel <[email or web address]> Sent: Thursday, May 09, 2019 4:41:00 PM To: Mali Medina <[email or web address]> Subject: RE: New Patient Request Please refer this zenaida patient to Dr Lynnette Interiano is traveling a lot in May J Harika Del Angel RN, [place], AOCN SET UP MECHANIC COATING MACHINES-Oncology Clinical Nurse Specialist [facility] Department of OUTSOLE COMPRESSOR [address] [address] [place] [address] [email or web address]> From: Penny Cifuentes <[email or web address]> Sent: Wednesday, May 08, 2019 3:22 PM To: Harika Del Angel <[email or web address]> Subject: New Patient Request Quan Shabazz, Patient Leah Jones ( ) would like to schedule an appointment with Dr. Interiano for andrenal carcinoma. She will be faxing over her medical records. Her phone number is [phone]. Please let me know if it is ok to schedule. Thank you, Penny Cifuentes Electronics Technology Instructor to the Chair Lindy Bella MD Department of Obstetrics & Gynecology [facility] at [facility] documented in this encounter Plan of Treatment Not on file documented as of this encounter Visit Diagnoses Not on filedocumented in this encounter Additional Source Comments Request medical records from [facility] directly by faxing your request to . Please call for additional information and assistance.[facility]
--- OUTSIDE RECORDS SUMMARY | 2024-10-05 21:04 | XMS_ITS | Encounter Summary ---
Author Organization [facility] Address [address] [facility] [place] [address] Phone Care Team Providers Care General Practice Name Role Phone Angela Heard MD Primary Care Provider [phone] Encounter Details Date Type Department Care Team (Late st Contact Info) Description 07/07/2019 Orders Only [facility] GENERAL INT CUSTOMER SALES DISTRIBUTOR [address] [place] [address] Mycs-Link Social History Tobacco Use Types Packs/Day [...] Description 10/30/2024 3:00 PM PST Initial consult [facility]/[address] [address] Jesu Dawkins MD [address] [phone] Scheduled Orders Name Type Priority Associated Diagnoses [...] documented as of this encounter Care Teams General Practice Relationship Specialty Start Date End Date Angela Heard MD PCP - General Obstetrics & Gynecology 05/25/1909/26 documented as of this encounter
--- OUTSIDE RECORDS SUMMARY | 2024-10-05 21:04 | XMS_ITS | Encounter Summary ---
Author Organization [facility] Address [address] [place] [address] Care Team Providers Care Medical Videographer Name Role Phone Non-Pcp, Unassigned MD Primary Care Provider Carmel vailable Reason for Visit * Reason Comments Shoulder Pain neck, L side Encounter Details Date Type Department Care Team (Late st Contact Info) Description 07/25/2016 12:30 PM PDT Office Visit [facility] Immediate Care [address] [place] [address] Camilo Sauceda MD [address] [facility] [address] [place], [place] [id number] Neck pain (Primary Dx) Social History Tobacco Use Types [...] Sign Reading Time Taken Comments Blood Pressure 148/93 07/25/2016 12:35 PM PDT Pulse 63 07/25/2016 12:35 PM PDT Temperature 36.4 ??C (97.6 ??F) 07/25/2016 12:35 PM P DT Respiratory Rate - - Oxygen Saturation 99% 07/25/2016 12:35 PM PDT Inhaled Oxygen Concentration - - Weight 64.6 kg (142 lb 6.4 oz) 07/25/2016 12:35 PM PDT Height - - Body Mass Index 21.03 05/10/2013 9:51 AM PDT documented in this encounter Progress Notes * Camilo Sauceda MD - 07/25/2016 1:19 PM PDT Name: Leah Jones Date of Service: 07/25/2016 Primary Care Physician: Non-Pcp, Unassigned, Chief Complaint: Chief Complaint Patient presents with ??? Shoulder Pain neck, L side History of Present Illness: 50 y/o with history of cervical disk bulge and history of neck pain. Fell 2-3 weeks ago and having neck pain. Went for MRI showed disc bulge. Saw orthopedic surgeon who recommended PT and accupuncture. Started having severe neck pain yesterday. Having pain with movement in the arm, but no focal weakness, numbness. Normal range of motion of neck. Noticed some muscle fasciculation. Taking Famotidine/Ibuprofen. Saw orthopedic surgeon recently who recommended conservative therapy. Past Medical History: The below chronic conditions are all stable, except as noted above No past medical history on file. Past Surgical History: No past surgical history on file. Allergies: No Known Allergies Home Medications: No current outpatient prescriptions on file. Current Facility-Administered Medications Medication Dose Route Frequency ??? ketorolac 60 mg/2 mL inj 60 mg 60 mg Intramuscular Once Review of Systems: 14 point ROS negative except as mentioned above Physical Exam: Vitals: Last Recorded Vital Signs: 07/25/16 1235 BP: 148/93 Pulse: 63 Temp: 36.4 ??C (97.6 ??F) SpO2: 99% Filed Vitals: 07/25/16 1235 Weight: 142 lb 6.4 oz (64.592 kg) General: No acute distress, alert and oriented x 3 HEENT: Normocephalic, atraumatic, PERRL, conjunctiva/corneas clear, EOM's intact bilaterally, moistmucous membranes, no oral ulcerations/lesions Neck: Supple, symmetrical, trachea midline, no lymphadenopathy, no thyromegaly, no carotid bruits or JVD Lungs: Clear to auscultation bilaterally, respirations unlabored, no rales/rhonchi/wheezing Heart: Regular rate and rhythm, S1, S2 normal, no murmurs, rubs or gallops Abdomen: Soft, non-tender, bowel sounds normal, no masses, no palpable organomegaly Extremities: No clubbing, cyanosis or edema, pulses 2+ bilaterally, symmetric Skin: Skin color, texture, turgor normal, no rashes or lesions Lymph nodes: Cervical, supraclavicular, and axillary nodes normal Neurologic: No focal neurologic deficits No tenderness along cervical spine. Tenderness in muscles in upper back. No weakness or numbness inthe arm, but motion of arm limited by muscle pain. No loss of sensation. 5/5 strength in distal extremities, 5/5 strength in proximal extremities (but limited by pain in the left upper extremity). Normal range of motion of neck. Laboratory Data: No results found for: WBC, HGB, HCT, PLT No results found for: NA, K, CL, CO2, BUN, CREAT, GLUCOSE, CALCIUM, MG, PHOS No results found for: APTT, PT, INR No results found for: ALT, AST, BILITOT, ALKPHOS, ALBUMIN No results found for: TSH, HGBA1C No results found for: CHOL, CHOLHDL, CHOLDLCAL, CHOLDLQ, TRIGLY No results found for: CKTOT, CKMB, TROPONIN, BNP Imaging Studies: Assessment and Plan: The patient is a 50 y.o. year old female with known cervical disk bulge with worsening pain muscular pain and spasm. Difficult to accurately assess strength in the left upper extremity because of limitation by muscular pain, but appears to have normal range of motion and strength. -given Toradol 60 mg injection x1 -instructed to use heat, ice pack, and physical therapy -If symptoms do not improve and any weakness in the extremities/or sensory deficits, advised to go the ER for repeat MRI and further evaluation There are no diagnoses linked to this encounter. Orders Placed This Encounter ??? ketorolac 60 mg/2 mL inj 60 mg Camilo Sauecda MD Patient advised to follow up with his PMD this week. Advised to return to the ER or urgent care if any worsening or new symptoms. Urgent Care Annie Bravo [facility] documented in this encounter Plan of Treatment Not on file documented as of this encounter Visit Diagnoses Diagnosis Neck pain- Primary Cervicalgia documented in this encounter Administered Medications Inactive Administered Medications - up to 3 most recent administrations Medication Order MAR Action Action Date Dose Rate Site ketorolac 60 mg/2 mL inj 60 mg 60 mg, Intramuscular, Once, 1 dose, On 07/25/16 at 1500 Given 07/25/2016 2:42 PM PDT 60 mg Right Gluteal documented in this encounter Care Teams Medical Videographer Relationship Specialty Start Date End Date Non-Pcp, Unassigned, MD WILLARD PCP - General 05/10/13 10/26/18 documented as of this encounter Additional Source Comments Request medical records from [facility] directly by faxing your request to . Please call for additional information and assistance.[facility]
--- OUTSIDE RECORDS SUMMARY | 2024-10-05 21:04 | XMS_ITS | Encounter Summary ---
Author Organization [facility] Address [address] [place] [address] Care Team Providers Care Wood Getter Name Role Phone Unavailable Primary Care Provider Unavailabl e Encounter Details Date Type Department Care Team (Late st Contact Info) Description 07/13/2022 Telephone Patient Business Services [address] [place] [address] Lois Tucker MD [address] [place] [address] Social History Tobacco Use Types Packs/Day Years [...] encounter Miscellaneous Notes * Telephone Encounter - Chidi Ulrich - 07/13/2022 9:47 AM PDT Reply by: Chidi Altman, Thank you for your assistance, we will work towards clearing it as soon as the ID is updated. Chidi Dominguez [id number] documented in this encounter Plan of Treatment Not on file documented as of this encounter Visit Diagnoses Not on filedocumented in this encounter Additional Source Comments Request medical records from [facility] directly by faxing your request to . Please call for additional information and assistance.[facility]
--- OUTSIDE RECORDS SUMMARY | 2024-10-05 21:04 | XMS_ITS | Encounter Summary ---
Author Organization [facility] Address [address] [facility] [place] [address] Phone Care Team Providers Care Geek Squad Agent Name Role Phone Angela Heard MD Primary Care Provider [phone] Reason for Visit * Reason Comments Follow-up Encounter Details Date Type Department Care Team (Latest Contact Info) Description 01/29/2022 2:40 PM PDT Office Visit [facility] [address] [address] [place] [address] Willard Vann MD [address] [place] [address] History of cervical cancer (Primary Dx) Social [...] Sign Reading Time Taken Comments Blood Pressure 121/77 01/29/2022 3:20 PM PDT Pulse 66 01/29/2022 3:20 PM PDT Temperature 36.7 ??C (98 ??F) 01/29/2022 3:20 PM PDT Respiratory Rate 18 01/29/2022 3:20 PM PDT Oxygen Saturation - - Inhaled Oxygen Concentration - - Weight 60.1 kg (132 lb 6.4 oz) 01/29/2022 3:20 P M PDT Height - - Body Mass Index 19.84 05/31/2019 9:59 AM PDT documented in this [...] Progress Notes * Willard Vann MD - 01/29/2022 2:40 PM PDT Gynecology Oncology Progress Note Date of service: 01/29/2022 Chief complaint: Surveillance visit. Subjective: This is a 56 year old year old female status post modified radical hysterectomy and staging on 05/31/19 for a stage IB1 adenocarcinoma of the cervix. She is feeling well and has no complaints. She is having annual normal Pap testing with Dr Heard. Review of systems: She has no pain or vaginal bleeding. Social: The patient is back to her activities of daily living. Objective: Vitals: 01/29/22 1520 BP: 121/77 Pulse: 66 Resp: 18 Temp: 36.7 ??C (98 ??F) GI: Abdomen soft, nontender, no masses. : Vulva shows normal external female genitalia; the Bartholin's and Skenes glands are unremarkable. Vagina is without lesions, blood, or masses. Cuff is intact without masses. Posterior culdesac shows no nodularity. Asessment/plan: This is a 56 year old year old with FIGO 2018 stage IIA1 adenocarcinoma of the cervix. She did not meet Sedlis criteria for postoperative radiation. I recommend observation and surveillance. She will continue 6 months visits alternating between Dr Heard and myself, and will continue annualPap testing with Dr Heard. Willard Vann MD 01/29/2022 3:21 PM CC: Angela Heard MD documented in this encounter Plan of Treatment Upcoming Encounters Date Type Department Care Team (Late st Contact Info) Description 10/30/2024 3:00 PM PST Initial consult [facility]/[address] [place] [address] Jesu Dawkins MD [address] [address] documented as of this encounter Visit Diagnoses [...] documented as of this encounter Care Teams Geek Squad Agent Relationship Specialty Start Date End Date Angela Heard MD PCP - General Obstetrics & Gynecology 05/25/1907/26 documented as of this encounter
--- OUTSIDE RECORDS SUMMARY | 2024-10-05 21:04 | XMS_ITS | Encounter Summary ---
Author Organization [facility] Address [address] [place] [address] Care Team Providers Care Line Maintenance Supervisor Name Role Phone Unavailable Primary Care Provider Unavailabl e Encounter Details Date Type Department Care Team (Latest Contact Info) Description 07/13/2022 2:21 PM PDT - 07/13/2022 3:29 PM PDT Hospital Encounter [facility] [place] - Radiology [address] [place], [place] [id number] Lois Tucker MD [address] [facility] [address] [place] [address] Pain Discharge Disposition: Home or Self Care Social [...] Name Priority Date/Time Associated Diagnosis Comments XR KNEE BILATERAL STANDING AP LAT TUNNEL MERCHANT 4V Routine 07/13/2022 2:51 PM PDT Pain documented in this encounter Results * XR knee ap+lat+tunnel+merchant standing bilat (4 views ea) (07/13/2022 2:51 PM PDT) Anatomical Region Laterality Modality Knee Computed Radiogr aphy 07/13/2022 2:21 PM PDT Impressions 07/13/2022 3:03 PM PDT IMPRESSION: Bilateral: No acute fracture or dislocation. No knee effusion. Minimal medial joint space narrowing. Small patellofemoral osteophytes. Signed by: Kathi Shahid ?? 07/13/2022 3:03 PM Narrative 07/13/2022 3:03 PM PDT XR KNEE AP LAT TUNNEL MERCHANT STANDING BILAT 4V CLINICAL HISTORY: Follow uu. COMPARISON: None. Procedure Note Kathi Shahid MD - 07/13/2022 XR KNEE AP LAT TUNNEL MERCHANT STANDING BILAT 4V CLINICAL HISTORY: Follow uu. COMPARISON: None. IMPRESSION: Bilateral: No acute fracture or dislocation. No knee effusion. Minimal medial jointspace narrowing. Small patellofemoral osteophytes. Signed by: Kathi Shahid 07/13/2022 3:03 PM Lois Tucker MD IMG DIAGNOSTIC IMAGI NG ORDERABLES documented in this encounter Visit Diagnoses Diagnosis Pain Generalized pain documented in this encounter Additional Source Comments Request medical records from [facility] directly by faxing your request to . Please call for additional information and assistance.[facility]
--- OUTSIDE RECORDS SUMMARY | 2024-10-05 21:04 | XMS_ITS | Encounter Summary ---
Author Organization [facility] Address [address] [place] [address] Care Team Providers Care Ceramic Engineer Name Role Phone Unavailable Primary Care Provider Unavailabl e Encounter Details Date Type Department Care Team (Latest Contact Info) Description 07/13/2022 3:31 PM PDT Hospital Encounter [facility] Image Library - Teleradiology Services [address] [place] [address] Lois Tucker MD [address] [place] [address] Encounter for consultation Discharge Disposition: [...] Name Priority Date/Time Associated Diagnosis Comments MR KNEE LEFT EXTERNAL IMAGE IMPORT Routine 07/13/2022 4:15 PM PDT Encounter for consultation documented in this encounter Results * MR knee left image import comparison; Date of Exam: 01/08/2021 (07/13/2022 4:15 PM PDT) Narrative EXTERNAL LAB - 07/13/2022 4:15 PM PDT This order is used to store images obtained from non [facility] imaging facilities in PACS. This order is intended for comparison purposes only and no formal result will be rendered. Lois Tucker MD IMG OVER-READ [facility] EXTERNAL LAB documented in this encounter Visit Diagnoses Diagnosis Encounter for consultation documented in this encounter Additional Source Comments Request medical records from [facility] directly by faxing your request to . Please call for additional information and assistance.[facility]
--- OUTSIDE RECORDS SUMMARY | 2024-10-05 21:04 | XMS_ITS | Encounter Summary ---
Author Organization [facility] Address [address] [place] [address] Phone Care Team Providers Care Gluer And Wedger Name Role Phone Angela Heard MD Primary Care Provider [phone] Willard Vann MD Unavailable [phone] Encounter Details Date Type Department Care Team (Late st Contact Info) Description 01/23/2021 10:00 AM PDT Immunization [facility] COVID-[address] [facility] [place] [address] [place] [address] Camila Be MD [address] [facility] [address] [place], [place] [id number] Social History Tobacco Use Types Packs/Day Years [...] Description 10/30/2024 3:00 PM PST Initial consult 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
--- OUTSIDE RECORDS SUMMARY | 2024-10-05 21:04 | XMS_ITS | Encounter Summary ---
Author Organization [facility] Address [address] [place] [address] Phone Care Team Providers Care Design Cell Engineer Name Role Phone Angela Heard MD Primary Care Provider [phone] Encounter Details Date Type Department Care Team (Late st Contact Info) Description 09/15/2024 Orders Only [address] [place] [address] Imaging, [place], No Office or Mailing Address on Record Social History Tobacco Use Types Packs/Day Years [...] Description 10/30/2024 3:00 PM PST Initial consult [facility]/[address] [address] Jesu Dawkins MD [address] [place] [address] documented as of this encounter Results * MR OUTSIDE IMAGES L-SPINE (09/15/2024 12:00 AM PST) Narrative [facility] - 09/25/2024 2:21 PM PST These images were uploaded for comparison. There will be no formal interpretation for this accession number. us Unknown Imaging MR ORDERABLES Final Result [facility] [address] [place] [address] documented in this encounter Visit Diagnoses Not on filedocumented in this encounter Additional Health Concerns Infection Onset Date Last Indicated Resolved Time ESBL Producing Organism (Ext ended Spectrum Beta-lactamase) Comment:06/08/19 Urine E.coli 06/13/2019 06/13/2019 Assessment Noted Time PHQ-9 Depression Total Score: 0 08/22/20 20 11:53 AM PST documented as of this encounter Care Teams Design Cell Engineer Relationship Specialty Start Date End Date Angela Heard MD PCP - General Obstetrics & Gynecology 05/25/1909/26 documented as of this encounter
--- OUTSIDE RECORDS SUMMARY | 2024-10-05 21:04 | XMS_ITS | Encounter Summary ---
Author Organization [facility] Address [address] [place] [address] Care Team Providers Care Textile Dyer Name Role Phone Non-Pcp, Unassigned MD Primary Care Provider Carmel vailable Reason for Visit * Reason Comments Advice Only Encounter Details Date Type Department Care Team (Late st Contact Info) Description 09/28/2018 Telephone [facility] [address] [facility] [address] [place] [address] Po Willingham MD [address] [facility] [address] [place] [address] Advice Only Social History Tobacco Use Types Packs/Day Years [...] encounter Miscellaneous Notes * Telephone Encounter - Gabby Daniels - 09/28/2018 3:46 PM PST S/w pt and informed of Keyla's message. * Telephone Encounter - Keyla Wiley PA - 09/28/2018 3:42 PM PST S/w Dr. Davenport OK to write note for patient through 10/04/18, Dr. Davenport also requested patient to f/u in 2-3days for close monitoring. Please notify patient * Telephone Encounter - Akhil Moses - 09/28/2018 3:34 PM PST Pt called requesting a letter for the airlines due to her not being able to travel . Pt was seen yesterday 09/27 . Pt is scheduled to travel on 09/30.. Please advise documented in this encounter Plan of Treatment Not on file documented as of this encounter Visit Diagnoses Not on filedocumented in this encounter Care Teams Textile Dyer Relationship Specialty Start Date End Date Non-Pcp, Unassigned, MD WILLARD PCP - General 05/10/13 10/26/18 documented as of this encounter Additional Source Comments Request medical records from [facility] directly by faxing your request to . Please call for additional information and assistance.[facility]
--- OUTSIDE RECORDS SUMMARY | 2024-10-05 21:04 | XMS_ITS | Encounter Summary ---
Author Organization [facility] Address [address] [facility] [place] [address] Phone Care Team Providers Care Cpo Name Role Phone Angela Heard MD Primary Care Provider [phone] Encounter Details Date Type Department Care Team (Late st Contact Info) Description 12/18/2019 Orders Only [facility] [address] [place] [address] Mycs-Link Social History Tobacco Use Types Packs/Day [...] Description 10/30/2024 3:00 PM PST Initial consult [facility]/[address] [address] Jesu Dawkins MD [address] [phone] Scheduled Orders Name Type Priority Associated Diagnoses [...] documented as of this encounter Care Teams Cpo Relationship Specialty Start Date End Date Angela Heard MD PCP - General Obstetrics & Gynecology [birth year]09/26 documented as of this encounter
--- OUTSIDE RECORDS SUMMARY | 2024-10-05 21:04 | XMS_ITS | Encounter Summary ---
Author Organization [facility] Address [address] [place] [address] Care Team Providers Care Community Aide Name Role Phone Unavailable Primary Care Provider Unavailabl e Encounter Details Date Type Department Care Team (Late st Contact Info) Description 06/19/2022 Orders Only [facility] Orthopaedic Surgery [address] [place] [address] Lois Tucker MD [address] [place] [address] Pain in both knees, unspecified chronicity (Primary Dx) Social History Tobacco Use Types [...] on file documented as of this encounter Plan of Treatment Pending Results Name Type Priority Associated Diagnoses Date /Time SDM WiserCare Knee Osteoarthritis WiserCare Routine Pain in both knees, unspecified chronicity 06/19/2022 2:02 PM PDT documented as of this encounter Procedures Procedure Name Priority Date/Time Associated Diagnosis Comments SDM WISERCARE KNEE OSTEOARTHRITIS Routine 06/19/2022 2:02 PM PDT Pain in both knees, unspecified chronicity documented in this encounter Visit Diagnoses Diagnosis Pain in both knees, unspecified chronicity- Primary documented in this encounter Additional Source Comments Request medical records from [facility] directly by faxing your request to . Please call for additional information and assistance.[facility]
--- OUTSIDE RECORDS SUMMARY | 2024-10-05 21:04 | XMS_ITS | Encounter Summary ---
Author Organization [facility] Address [address] [place] [address] Care Team Providers Care Exploitation Analyst Name Role Phone Unavailable Primary Care Provider Unavailabl e Reason for Referral * Rehabilitation - Outpatient (Routine) - Closed Specialty Diagnoses / Procedures Referred By Stanislav fernandes Referred To Contact Diagnoses Patellofemoral pain syndrome of both knees Primary osteoarthritis of knees, bilateral Degeneration of meniscus of left knee Lois Tucker MD [address] [place] [address] Referral ID Status Reason Start Date Expiration Date Visits Requested Visits Authorized [id number] Closed Patient Preference 07/13/2022 07/13/2023 12 12 Scheduling Instructions Please be advised that [facility] may refer patients to facilities for follow- up care that may have policy-based restrictions on care. For example, some facilities do not provide assisted conception, sterilization, abortions, or end of life care. For additional information, please visit [email or web address] Reason for Visit * Reason Comments New Consult New Consult Encounter Details Date Type Department Care Team (Latest Contact Info) Description 07/13/2022 2:30 PM PDT Office Visit [facility] Orthopaedic Surgery [address] [place] [address] Lois Tucker MD [address] [place] [address] Patellofemoral pain syndrome of both knees (Primary Dx); Primary osteoarthritis of knees, bilateral; Degeneration of meniscus of left knee Social History Tobacco Use Types Packs/Day Years [...] on file documented as of this encounter Patient Instructions * Patient Instructions* Lois Tucker MD - 07/13/2022 2:30 PM PDT PT Consider SHEEHAN if no improvement Naprosyn bid with food for one week then as needed documented in this encounter Progress Notes * Lois Tucker MD - 07/13/2022 2:30 PM PDT SPORTS MEDICINE CONSULTATION 23:45 PM Referred by: Referral, [address] [address] Primary Care Physician: No primary care provider on file. HISTORY: I had the pleasure of seeing Leah Jones today in consultation in sports medicine. Leah Jones is a 56 y.o. 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 Mechanism of injury: recreational sports Sport/Activity: track Past Medical History:I have reviewed and confirmed the past medical history in the chart. Past Medical History: Diagnosis Date ??? Bulging of cervical intervertebral disc ??? Environmental allergies Past Surgical History: Past Surgical History: Procedure Laterality Date ??? APPENDECTOMY Medications: reviewed medication list in the chart Current Outpatient Medications Medication Sig ??? azithromycin (ZITHROMAX Z-AXEL) 250 mg tablet Take 2 tablets on day 1 and then 1 tablet daily ondays 2-5. ??? benzonatate 200 mg capsule Take 1 capsule (200 mg total) by mouth three (3) times daily as needed. ??? hydrocodone-acetaminophen 5-325 mg tablet Take 1-2 tablets by mouth every six (6) hours as needed for Moderate Pain or Severe Pain. Max Daily Amount: 8 tablets ??? levonorgestrel-ethinyl estradiol (SEASONALE) 0.15-0.03 mg tablet TAKE 1 TABLET BY MOUTH EVERY DAY ??? loratadine 10 mg tablet Take 10 mg by mouth daily. No current facility-administered medications for this visit. Allergies: reviewed allergy section in the chart Family History: No family history on file. Social History: Social History Socioeconomic History ??? Marital status: Single Tobacco Use ??? Smoking status: Never Smoker ??? Smokeless tobacco: Never Used Substance and Sexual Activity ??? Alcohol use: Yes Review of Systems: A 14-point review of systems was performed. With the exception of the HPI, all other review of systems was negative. PHYSICAL EXAM: Vitals: There were no vitals filed for this visit. General: NAD, pleasant & cooperative L Knee Exam: Antalgic gait: negative Skin overlying injury: normal. Effusion: negative Range of motion: Flexion 125, Extension 3 Palpation: focal TTP ant and med Meniscal Testing: Medial joint line tenderness: positive, Lateral joint line tenderness: negative, Roger test: negative, Thessaly test: positive, Bounce test pain: negative Ligament Testing: Christine test: negative, Pivot-shift: negative, Posterior Drawer sign: negative, Valgus laxity: negative, Varus laxity: negative Patellar Testing: Crepitus with tracking yes, Inhibition positive, Apprehension negative, Grind positive Strength/Function: Quadriceps: VMO atrophy, Q-Angle normal, Katie's negative, Abductor strength weakbilat R knee: no effusion, ROM 0-130, patellofemoral pain Distal NV intact IMAGING: XR KNEE AP LAT TUNNEL MERCHANT STANDING BILAT 4V ?? CLINICAL HISTORY: Follow uu. ?? COMPARISON: None. ? IMPRESSION: Bilateral: No acute fracture or dislocation. No knee effusion. Minimal medial joint space narrowing. Small patellofemoral osteophytes. ? Signed by: Kathi Sheehan 07/13/2022 3:03 PM MRI L knee: no imaging report available ; patient states meniscal tear noted ASSESSMENT: Leah Jones is a 56 y.o. female who presents with bilat knee pain left worse than right - withhistory of possible meniscal tear, MRI report pending. Exam consistent with patellofemoral pain andpossible meniscal injury, degenerative, minimal joint line narrowing. RECOMMENDATIONS & PLAN: Given our clinical suspicion of the above diagnosis, our initial plan is as follows: PT Consider SHEEHAN if no improvement Naprosyn bid with food for one week then as needed F/u after PT Follow-Up: 6-8 weeks Once again it was a pleasure to see Leah Jones today in consultation. Please feel free to contact me if I can be of any further assistance. 30 mins was spent on this visit with over 50% in consultation. Lois Tucker M.D. documented in this encounter Plan of Treatment Scheduled Referrals Name Type Priority Associated Diagnoses Orde r Schedule Referral to [facility] Rehabilitation, Physical Therapy Outpatient Referral Routine Patellofemoral pain syndrome of both knees Primary osteoarthritis of knees, bilateral Degeneration of meniscus of left knee Ordered: 07/13/2022 documented as of this encounter Visit Diagnoses Diagnosis Patellofemoral pain syndrome of both knees- Primary Primary osteoarthritis of knees, bilateral Degeneration of meniscus of left knee documented in this encounter Additional Source Comments Request medical records from [facility] directly by faxing your request to . Please call for additional information and assistance.[facility]
--- OUTSIDE RECORDS SUMMARY | 2024-10-05 21:04 | XMS_ITS | Encounter Summary ---
Author Organization [facility] Address [address] [facility] [place] [address] Phone Care Team Providers Care Assistant Press Operator Name Role Phone Angela Heard MD Primary Care Provider [phone] Reason for Visit * Reason Comments Follow-up Encounter Details Date Type Department Care Team (Latest Contact Info) Description 08/29/2024 9:20 AM PST Office Visit [facility] [address] [address] [place] [address] Willard Vann MD [address] [address] [place] [address] History of cervical cancer (Primary Dx) Social [...] 18 08/29/2024 9:57 AM PST Oxygen Saturation - - Inhaled Oxygen Concentration - - Weight 62.1 kg (137 lb) 08/29/2024 9:57 AM PST Height - - Body Mass Index 20.53 05/31/2019 9:59 AM PDT documented in this [...] Progress Notes * Willard Vann MD - 08/29/2024 9:20 AM PST Gynecology Oncology Progress Note Date of service: 08/29/2024 Chief complaint: Surveillance visit. Subjective: This is a 58 year old year old female status post modified radical hysterectomy and staging on 05/31/19 for a stage IB1 adenocarcinoma of the cervix. She is feeling well and has no complaints. She is having annual normal Pap testing with Dr Heard. Review of systems: She has no pain or vaginal bleeding. Social: The patient is back to her activities of daily living. Objective: Vitals: 08/29/24 0957 BP: 127/80 Pulse: 58 Resp: 18 Temp: 36.3 ??C (97.4 ??F) GI: Abdomen soft, nontender, no masses. : Vulva shows normal external female genitalia; the Bartholin's and Skenes glands are unremarkable. Vagina is without lesions, blood, or masses. Cuff is intact without masses. Posterior culdesac shows no nodularity. Her exam is still unchanged from her last visit. Asessment/plan: This is a 58 year old year old with FIGO 2018 stage IIA1 adenocarcinoma of the cervix. She did not meet Sedlis criteria for postoperative radiation. She is in remission after 5 years. She will now see me as needed and continue annual exams with vaginal pap testing with Dr Heard. Willard Vann MD, MD 08/29/2024 10:04 AM CC: Angela Heard MD documented in this encounter Plan of Treatment Upcoming Encounters Date Type Department Care Team (Late st Contact Info) Description 10/30/2024 3:00 PM PST Initial consult [facility] [address] [place] [address] [place] [address] Jesu Dawkins MD [address] [address] documented as of this encounter Visit Diagnoses [...] as of this encounter Care Teams Assistant Press Operator Relationship Specialty Start Date End Date Angela Heard MD PCP - General Obstetrics & Gynecology 05/25/[birth year]09/26 documented as of this encounter
--- OUTSIDE RECORDS SUMMARY | 2024-10-05 21:05 | XMS_ITS | Summary of Care ---
Author Organization [facility] an Services [facility] Address [facility] [address] [place] [address] Care Team Providers Care Home Care Liaison Name Role Phone Tariq Lopez Primary Care Provi madeline Reason for Visit * Reason Comments Follow-up Encounter Details Date Type Department Care Team Description 05/20/2019 Telephone [facility] [address] [place] [address] Eduar Hinkle MD [address] [place] [address] Follow-up Allergies No Known Allergiesdocumented as of this encounter (statuses as of 05/29/2019) Medications Medication Sig Dispensed Refills Start Date End Date Status loratadine (CLARITIN) 10 mg tablet 0 Active levonorgestrel-ethinyl estradiol 0.15-0.03 MG per tablet TAKE 1 TABLET BY MOUTH DAILY 12 03/26/2019 Active documented as of this encounter (statuses as of 05/29/2019) Active Problems No known active problems documented as of this encounter (statuses as of 05/29/2019) Immunizations Name Dates Previously Given Next Due TDAP, (ADOL/ADULT) 04/25/2019 documented as of this encounter Social History Tobacco Use Types Packs/Day Years Used Date Never Smoker Smokeless Tobacco: Never Used Alcohol Use Drinks/Week oz/Week Comments Yes Sex Assigned at Date Recorded Not on file Job Start Date Occupation Industry Not on file Not on file Not on file Travel History Travel Start Travel End No recent travel history geovany il[employer]. documented as of this encounter Miscellaneous Notes * Telephone Encounter - Eduar Hinkle MD - 05/29/2019 1611 [place] [address] Patient Name: Age: : Medical Record Number: CSN: Physician: Leah Jones 53 y.o. 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 The 2cm visible lesion at the exocervix by speculum exam is highly likelyunder-representing the disease and this was noted as part of discussion of the area of origin of adenoca, up the endocervix. 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 Reassured her that the nodes were grossly negative but that the positivity rate with this size tumor, inclusive of micrometastases, that is approximating IB3 and involving lower uterine segment, is in the range of 20% or significantly greater. Noted that a straight radical hysterectomy with the hope of avoiding radiation is exceedingly unlikely due to either possible hiwot micromets that may be uncovered if surgery were to be done or due to the local size and characteristics which will lead to adjuvant radiation anyway per NCCN guidelines . Therefore, to minimize combining radical surgery with radiation, in order to minimize known increased morbidity, this will require tailored therapy after consideration of several options. Options which are based on NCCN guidelines are: 1/ chemoradiation with assessment of residual after external beam towards completion with either brachytherapy or adjuvant hyst +/- external boost (especially since this is an adenoca and extending likely to uterus with propensity for residual disease after definitive radiation). 2/ The above could be preceded by robotic node sampling to tailor bruno and possibly move ovaries out of the way for preservation from radiation, assuming nodes are negative. If nodes are positive micromets to the ovary on the ipsilateral side argue in favor of ipsilateral oophorectomy. 3/ Modified radical hyst with ONLY a goal of cytoreducing and extirpating the main disease, while minimizing risks of operative injury and ureteral devascularization as is more characteristic of fullradical hyst, followed by tailored radiation bruno. In this case would recommend robotic approach with employment of modifications noted to potentially reduce risk of intraoperative spread, such as sealing the vagina via suturing muscularis and mucosa prior to extirpation and C02 pneumo modifications. The goal here is to optimize getting to radiation faster and to minimize adhesions using minimally invasive (vs. Open) approach to reduce the known additive risk of combined radiation and radicalsurgery complications risk per se. Previously discussed minimally invasive surgery limitations and risks based on laparoscopic surgery (80% of cases) but due to special circumstances as delineated, robotics with risk reducing modifications would be reasonable to consider if option 3 chosen. Would advise rad onc to consult up front (advised that this will be arranged for her on Wednesday) in order to determine best course after multidisciplinary discussion. Will see patient after rad onc to discuss and determine best course. Patient understands why this is being discussed vs the likely erroneous impression that her disease is only 2cm. The latter would lend it self to other treatment planning inclusive of primary radical surgery with intent to avoid radiation in adjuvant setting. However, emphasized that this does not appear to be the case based on my exam noting barrel cervix and supported by PET-CT findings, necessitating the more comprehensive tailored planning approach being discussed to optimize cure and minimize morbidity. Eduar Hinkle MD, MIAN, FACOG, FACS, FACN, ABIHM, [facility] Machinery Engineer, Integrative Medicine Machinery Engineer, Gynecologic Oncology Professor, [facility] [place] Professor, [facility] [employer] documented in this encounter Plan of Treatment Upcoming Encounters Date Type Specialty Care Team Description 06/13/2019 Hospital Encounter Eduar Hinkle MD [address] [place] [address] 06/13/2019 Surgery ROBOTIC ASSIST ED XI MODIFIED VERSUS RADICAL HYSTERECTOMY, BILATERAL SALPINGO-OOPHORECTOMY, STAGING, MINI LAPAROTOMY 06/20/2019 Appointment Oncology Eduar Hinkle MD [address] [place] [address] [phone] Health Maintenance Due Date Last Done Comments Cervical Cancer Screening (Pap) 12/24/1997 Breast Cancer Screening (Ages 50-74) 12/24/201711/11 Colorectal Cancer Screening (Colonoscopy) 12/24/2017 Vaccine: Zoster (1 of 2) 12/24/2017 Vaccine: Influenza (#1) 2019 Vaccine: Dtap/Tdap/Td (2 - Td) 04/25/2029 04/25/2019 documented as of this encounter Insurance Payer Benefit Plan / Group Subscriber ID Effective Dates Phone Address Type [facility] PPO [id number] 2008-Present PPO documented as of this encounter Advance Directives Patient has advance care planning documents on file. For more information, please contact: [facility] and [facility] and [facility] [address] [place] [address]
--- OUTSIDE RECORDS SUMMARY | 2024-10-05 21:05 | XMS_ITS | Encounter Summary ---
Author Organization [facility] Address [address] [place] [address] Phone Care Team Providers Care Director Government Name Role Phone Angela Heard MD Primary Care Provider [phone] Reason for Visit * Reason Comments Nurse Visit Encounter Details Date Type Department Care Team (Latest Contact Info) Description 06/06/2019 12:20 PM PDT Clinical Support [facility] [address] [place] [address]. [place] [address] Willard Vann MD [facility] [address] [id number] Post-operative state (Primary Dx); Encounter for evaluation of Amaya catheter Social History Tobacco Use Types Packs/Day Years [...] Sign Reading Time Taken Comments Blood Pressure 124/56 06/06/2019 12:06 PM PDT Pulse 65 06/06/2019 12:06 PM PDT Temperature 37 ??C (98.6 ??F) 06/06/2019 12:06 PM PDT Respiratory Rate 19 06/06/2019 12:06 PM PDT Oxygen Saturation - - Inhaled Oxygen Concentration - - Weight 65 kg (143 lb 4.8 oz) 06/06/2019 12:06 PM PDT Height - - Body Mass Index 21.47 05/31/2019 9:59 AM PDT documented in this [...] Esquivel RN documented as of this encounter Nursing Notes * Svetlana Jimenez RN - 06/06/2019 12:20 PM PDT Patient in EA for voiding trial post surgery. Instilled 240 cc ofSterile saline to bladder toerated well, patient voiding freely 300 cc total of pinkish clear urine. Instructed patient to continue fluids,increase ambulation,void Q 2 hours for first 24 hours post amaya cath removal then pRN. Encourage warm prune juice for good BM today. Patient verbalized all understanding. RV with on 06/08/19 confirmed. documented in this encounter Plan of Treatment Upcoming Encounters Date Type Department Care Team (Late st Contact Info) Description 10/30/2024 3:00 PM PST [facility] [address] [place] [address] [address] [place] [phone] eJsu Dawkins MD [address] [address] documented as of this encounter Visit Diagnoses Diagnosis Post-operative state- Primary Other postprocedural status Encounter for evaluation of Amaya catheter documented in this encounter Additional Health Concerns Assessment Noted Time PHQ-9 Depression Total Score: 0 05/31/20 19 6:00 PM PDT documented as of this encounter Care Teams Director Government Relationship Specialty Start Date End Date Angela Heard MD PCP - General Obstetrics & Gynecology 05/25/1909/26 documented as of this encounter
--- OUTSIDE RECORDS SUMMARY | 2024-10-05 21:05 | XMS_ITS | Encounter Summary ---
Author Organization [facility] Address [address] [place] [address] Phone Care Team Providers Care Track Man Name Role Phone Angela Heard MD Primary Care Provider [phone] Reason for Visit * Auth/Cert Specialty Diagnoses / Procedures Referred By Stanislav t Referred To Contact Diagnoses Malignant neoplasm of cervix, unspecified site (HCC) Procedures VA EXPLORATORY OF ABDOMEN VA RADICAL ABD HYSTEREC+PELV NODES VA LAPAROTOMY FOR STAGING OVAR MALIG LAPAROTOMY HYSTERECTOMY RADICAL LAPAROTOMY STAGING Referral ID Status Reason Start Date Expiration Date Visits Re quested Visits Authorized [id number] 1 1 Encounter Details Date Type Department Care Team (Late st Contact Info) Description 05/31/2019 1:21 PM PDT Anesthesia Event 3-OR [address] [place] [address] [phone] ([phone]) Joshua Alanis MD [address] [facility] [address] [place] [phone] Steve Gonzalez MD Anesthesia Record Procedure Summary Procedure Name Responsible Anesthesiologist Anesthesia Start Time Anesthesia Stop Time ANESTHESIA BLOCK Joshua Alanis MD 05/31/19 13 21 Events Date Time Event Comment 05/31/2019 1321 Anes Start Meds Name Total bupivacaine 0.25%-EPInephrine 1:200,000 60 mL * Agents No agents on file. * Blood No blood administrations on file. Lines, Drains, and Airways Type Details Placement Removal Peripheral IV N; 05/31/19; 1018; 1 8 G; Antecubital; Left; lien rn; 06/03/19; 1307; Therapy Complete; No complications; Dressing applied 05/31/19 1018 by Marie Gutierrez RN 06/03/19 1307 by Wendi Reilly RN Surgical Incision/Orifice 05/31/19; 1019; Abdomen; 10/12/20; 0035 05/31/19 1019 by Nabeel Alexander RN 10/12/20 0035 by Paty Mcallister Urethral Catheter 05/31/19; 1100; DR VELAZQUEZ; Non-Latex; 14 fr; 10 mL; Yes; 06/03/19; 0530 05/31/19 1100 by Nabeel Alexander RN 06/03/19 0530 by Luis García RN Non-Surgical Airway 05/31/19; 1106 (created via procedure documentation); 05/31/19; 1328 05/31/19 1106 by Marjorie Zee MD 05/31/19 1328 by Marjorie Zee MD Peripheral IV N; 05/31/19; 1337; Hand; Right; (present on assessment); 06/03/19; 1307; Therapy Complete; No complications; Dressing applied 05/31/19 1337 by Lola Welsh RN 06/03/19 1307 by Wendi Reilly RN Surgical Incision/Orifice N; 05/31/19; 1417; Abdomen; Lower; 10/12/20; 0035 05/31/19 1417 by Xavier Al RN 10/12/20 0035 by Paty Mcallister Urethral Catheter N; 06/03/19; 1044; Ashli Reilly RN; 16 fr; 10 mL; 07/03/19; 1307 06/03/19 1044 by Wendi Reilly RN 07/03/19 1307 by Paty Mcallister documented in this encounter Social History Tobacco Use Types [...] Answer Date of Assessment Author No 05/31/2019 10:01 AM PDT Marie Gutierrez RN * Are you blind or do you have serious difficulty seeing, even when wearing glasses? Answer Date of Assessment Author No 05/31/2019 10:01 AM PDT Marie Gutierrez RN documented as of this encounter OR Notes * Anesthesia Procedure Notes - Steve Gonzalez MD - 05/31/2019 1:35 PM PDT Associated Order(s): Regional Block Images from the original note were not included. Regional Block Performed by: Steve Gonzalez MD Authorized by: Steve Gonzalez MD Location where block performed: OR Start time: 05/31/2019 1:21 PM, End time: 05/31/2019 1:23 PM Time Out / Side & Site Verification: A formal time out and side / site verification was performed prior to beginning the procedure. Regional Block Type: Transverse abdominus plane/TAP Pre- procedure Checklist: indications, risks, benefits and alternatives explained, surgeon consent obtained, monitors and equipment checked and patient consent obtained Procedure Details: Type: At surgeon's request for post-op analgesia Position: supine Prep: patient draped and chlorhexidine Monitoring: ASA standard and Supplemental Oxygen Laterality: bilateral Technique: ultrasound guided Catheter: single-shot Needle Type: stimuplex Needle Gauge: 21 G Needle Length: 3.5 in Local Injection: incrementally injected with intermittent aspiration, ultrasound images local anesthetic spread, no hemodynamic changes, minimal resistance encountered with injection, no paresthesia,ultrasound image(s) on file, needle visualized at all times, initial saline hydro-distention and noblood aspirated Injectate: Bupivacaine Concentration %: 0.25 Vol (ml): 60 mL Adjunct: Epinephrine:5 mcg/mL (1/200,000) Procedure Events: Patient tolerated the procedure well with no immediate complications # of attempts: 1Faculty Supervision: Joshua Alanis. Attestation: I certify as the Regional Painter Helper that I was present during the critical aspects of the procedure. Regional Anesthesia Service: (In house: ext [phone]) Steve Gonzalez 05/31/2019 1:37 PM Cosigned by Joshua Alanis MD at 05/31/2019 5:57 PM PDT documented in this encounter Plan of Treatment Upcoming Encounters Date Type Department Care Team (Late st Contact Info) Description 10/30/2024 3:00 PM PST Initial consult [facility] [place] [address] Jesu Dawkins MD [address] [phone] (work) documented as of this encounter Procedures Procedure Name Priority Date/Time Associated Diagnosis Comments REGIONAL BLOCK Routine 05/31/2019 1:35 PM PDT documented in this encounter Results * Regional Block (05/31/2019 1:35 PM PDT) Anatomical Region Laterality Modality Other Narrative 05/31/2019 1:35 PM PDT Steve Gonzalez MD ? 05/31/2019 ??1:38 PM Regional Block Performed by: Steve Gonzalez MD Authorized by: Steve Gonzalez MD Location where block performed: OR Start time: 05/31/2019 1:21 PM, End time: 05/31/2019 1:23 PM Time Out / Side & Site Verification: A formal time out and side / site verification was performed prior to beginning the procedure. Regional Block Type: Transverse abdominus plane/TAP Pre- procedure Checklist: indications, risks, benefits and alternatives explained, surgeon consent obtained, monitors and equipment checked and patient consent obtained Procedure Details: Type: At surgeon's request for post-op analgesia Position: supine Prep: patient draped and chlorhexidine Monitoring: ASA standard and Supplemental Oxygen Laterality: bilateral Technique: ultrasound guided Catheter: single-shot Needle Type: stimuplex Needle Gauge: 21 G Needle Length: 3.5 in Local Injection: incrementally injected with intermittent aspiration, ultrasound images local anesthetic spread, no hemodynamic changes, minimal resistance encountered with injection, no paresthesia, ultrasound image(s) on file, needle visualized at all times, initial saline hydro-distention and no blood aspirated Injectate: Bupivacaine Concentration %: 0.25 Vol (ml): 60 mL Adjunct: Epinephrine:5 mcg/mL (1/200,000) Procedure Events: Patient tolerated the procedure well with no immediate complications # of attempts: 1Faculty Supervision: Joshua Alanis. Steve Gonzalez MD PROCEDURE/MINOR SURGICAL ORDER FREDDIE Edited Result - Final documented in this encounter Visit Diagnoses Not on filedocumented in this encounter Administered Medications Inactive Administered Medications - up to 3 most recent administrations Medication Order MAR Action Action Date Dose Rate Site bupivacaine-EPInephrine (preservative free) 0.25 %-1:200,000 injection INTRA-PROCEDURE ONLY, Starting on Wed05/31/19 at 1322, Anesthesia Intra-op Given 05/31/2019 1:22 PM PDT 60 mL documented in this encounter Additional Health Concerns Assessment Noted Time PHQ-9 Depression Total Score: 0 05/31/20 19 6:00 PM PDT documented as of this encounter Care Teams Track Man Relationship Specialty Start Date End Date Angela Heard MD PCP - General Obstetrics & Gynecology 05/25/1909/26 documented as of this encounter
--- OUTSIDE RECORDS SUMMARY | 2024-10-05 21:05 | XMS_ITS | Summary of Care ---
Author Organization [facility] an Services [facility] Address [facility] [address] [place] [address] Care Team Providers Care Non Clinical Advisor Name Role Phone Tariq Lopez Primary Care Provi madeline Reason for Visit * Reason Comments Follow-up Encounter Details Date Type Department Care Team Description 05/29/2019 Telephone [facility] [address] [place] [address] Eduar Hinkle MD [address] [place] [address] Follow-up Allergies No Known Allergiesdocumented [...] Encounter - Eduar Hinkle MD - 05/29/2019 2136 PDT Telephone encounter noted and documented. documented in this encounter Plan of Treatment Upcoming Encounters Date Type Specialty Care Team Description 06/13/2019 Hospital Encounter Eduar Hinkle MD [address] [place], [place] [phone] 06/13/2019 Surgery ROBOTIC ASSIST ED XI MODIFIED VERSUS RADICAL HYSTERECTOMY, BILATERAL SALPINGO-OOPHORECTOMY, STAGING, MINI LAPAROTOMY 06/20/2019 Appointment Oncology Eduar Hinkle MD [address] [place], [place] [id number] Health Maintenance Due Date Last Done Comments Cervical Cancer Screening (Pap) 12/24/1997 Breast Cancer Screening (Ages 50-74) 12/24/201711/11 Colorectal Cancer Screening (Colonoscopy) 12/24/2017 Vaccine: Zoster (1 of 2) 12/24/2017 Vaccine: Influenza (#1) 2019 Vaccine: Dtap/Tdap/Td (2 - Td) 04/25/2029 04/25/2019 documented as of this encounter Insurance Payer Benefit Plan / Group Subscriber ID Effective Dates Phone Address Type [facility] [place] PPO [id number] 2008-Present PPO documented as of this encounter Advance Directives Patient has advance care planning documents on file. For more information, please contact: [facility] and [facility] [address] [place] [address]
--- OUTSIDE RECORDS SUMMARY | 2024-10-05 21:05 | XMS_ITS | Summary of Care ---
Author Organization [facility] Address [facility] [address] [place] [address] Care Team Providers Care Check Totaler Name Role Phone Tariq Lopez DO Primary Care Provi madeline Encounter Details Date Type Department Care Team Description 08/20/2020 Clinical Support [facility] [address] [place] [id number] Chronic idiopathic constipation; Bloating; Screening for malignant neoplasm of colon Allergies No Known Active Allergiesdocumented as of this encounter (statuses as of 08/20/2020) Medications Medication Sig Dispensed Refills Start Date End Date Status loratadine (CLARITIN) 10 mg tablet 0 Active sodium sulfate-potassium sulfate-magnesium sulfate (SUPREP BOWEL PREP KIT) oral solutionIndications:Scree kobi for malignant neoplasm of colon,Chronic idiopathic constipation Use as directed. 1 kit 0 12/11/2019 Active documented as of this encounter (statuses as of 08/20/2020) Active Problems Problem Noted Date Screening for malignant neoplasm of colo n 12/11/2019 Last Assessment & Plan: A discussion was held with the patient regarding colorectal cancer screening. The rationale for screening were discussed. Colorectal cancer screening is currently the second leading cause of cancer in both men and women. It is known that most, if not all, colon cancer derives from previously benign polyps and studies have shown, that if all adenomas are removed prior to becoming malignancies, that these patients did not develop colon cancer. Studies suggest that about 25-35% of people over the age of 50 have adenomatous polyps. Colonoscopy is the only approved colorectal cancer screening tool which both screens for both polyps and colon cancer throughout the entire colon mucosa but also prevents cancer by removing adenomatous polyps. The time interval for adenomatous polyps to develop and subsequently mutate into a colon cancer is a relatively long time. In a normal risk individual the recommended time interval between normal colonoscopies is ten years. Colonoscopies should be done in more frequent intervals if high risk family history or personal history exist. Alternatives to colonoscopy involve radiologic studies, including virtual colonography, and barium enema, flexible sigmoidoscopy, and stool studies, including FIT testing and Cologuard stool DNA testing. Both virtual colonography and barium enema both require bowel cleansing similar to a colonoscopy however require no sedation. Imaging is only done with these procedures but both studies have a lower polyp and cancer detection rate than colonoscopy and also polyps are not removed. Virtual colonography will image other organs besides the colon. Flexible sigmoidoscopy will only view 30-40% of the colon wall and therefore many lesions may be missed. Stool studies such as FIT test and Cologuard require no bowel preparation or sedation and have a 70% and 92% pick-up rate for colon cancer respectively. Benign polyps are routinely not detected by these tests and both tests have a high false positive rate. None of the alternative screening tests have been shown to be preventative. Insurance coverage will depend on the patient's history, risk factors, age, history of prior examinations and findings, and your particular insurance plan. For Medicare plans, one examination every 10 years is allowed if there has been no sigmoidoscopy in the preceding 4 years. Medicare patients will be given an advanced beneficiary notice explaining possible non-coverage. The examination is performed at an endoscopic center with either conscious sedation with Fentanyl/Versed or monitored anesthesia care with Propofol. Propofol anesthesia will result in complete amnesia of the procedure and no pain during the examination. Propofol has a short half life and therefore patients typically rapidly recover from the sedation with minimal post-procedure symptoms. Not all insurance plans cover Propofol and a supplemental fee may be charged. Conscious sedation with Fentanyl and Versed is covered by most plans but has a wide variability of response. The majority of patients will have some recollection of the procedure. A small percent will be completely asleep and a small percent will be awake and uncomfortable. The recovery from this sedation is more gradual and some patients will experience nausea and vomiting from the opiate component. Both anesthesia options will be administered by a Certified Nurse Patrol Agent with the physician in the room. Both anesthesia options will have careful cardiovascular monitoring. Chronic idiopathic constipation 12/11/19 Last Assessment & Plan: We discussed the various etiologies of constipation which may include obstructive pathology, pelvic floor dyssynergia, chronic stool retention, motility disorders. These underlying conditions may require further work-up which include possible colonoscopy, ano-rectal manometry, Sitzmark study, MRI defecography, lactulose hydrogen breath test, or SMART pill. The studies were reviewed with the patient and the risks and benefits of each were discussed. -colonoscopy History of cervical cancer 12/11/2019 Overview: S/p hysterectomy May 2019 Last Assessment & Plan: Assess anal canal for high risk HPV at time of procedure S/P hysterectomy 12/11/2019 Overview: May 2019 Last Assessment & Plan: May 2019 documented as of this encounter (statuses as of 08/20/2020) Immunizations Name Administration Dates Next Due TDAP, (ADOL/ADULT) 04/25/2019 documented as of this encounter Social History Tobacco Use Types Packs/Day Years Used Date Never Smoker Smokeless Tobacco: Never Used Alcohol Use Drinks/Week oz/Week Comments Yes Sex Assigned at Date Recorded Not on file documented as of this encounter Progress Notes * Virgie Rolon Litigation Associate - 08/20/2020 3:00 PM PST Patient presents to the office for SARS- Cov-2 RNA, QUAL RT-PCR Testing to be done in office pre procedure Per Dr. Porter documented in this encounter Plan of Treatment Upcoming Encounters Date Type Specialty Care Team Description 08/26/2020 Off-[place] [address] [place] [phone] Health Maintenance Due Date Last Done Comments Hepatitis C Screening 1965 Cervical Cancer Screening (Pap) 12/24/1997 Breast Cancer Screening 11/24/2013 11/24/2012 Colorectal Cancer Screening (Colonoscopy) 12/24/2017 Vaccine: Zoster (1 of 2) 12/24/2017 Vaccine: Influenza (#1) 2020 Vaccine: Dtap/Tdap/Td (2 - Td) 04/25/2029 04/25/2019 documented as of this encounter Visit Diagnoses Diagnosis Chronic idiopathic constipation Unspecified constipation Bloating Flatulence, eructation, and gas pain Screening for malignant neoplasm of colon documented in this encounter Additional Health Concerns Infection Onset Date Last Indicated Resolved Time Rule out COVID-19 08/20/2020 08/20/2020 documented as of this encounter Advance Directives Documents on File Type Date Recorded Patient Commercial Specialist Expl anation Power of Charity Fundraiser Advance Directive packet giv en 05/18/19
--- OUTSIDE RECORDS SUMMARY | 2024-10-05 21:05 | XMS_ITS | Encounter Summary ---
Author Organization [facility] Address [address] [facility] [place] [address] Phone Care Team Providers Care Telecommunications Repairer Name Role Phone Angela Heard MD Primary Care Provider [phone] Reason for Visit * Reason Comments Follow-up Encounter Details Date Type Department Care Team (Latest Contact Info) Description 06/08/2019 1:40 PM PDT Office Visit [facility] at the [facility] [place] [address] [place] [phone] Willard Vann MD [facility] [address] [phone] Postop check (Primary Dx); Dysuria Social History Tobacco Use Types Packs/Day Years [...] Sign Reading Time Taken Comments Blood Pressure 144/78 06/08/2019 1:16 PM PDT Pulse 73 06/08/2019 1:16 PM PDT Temperature 37.3 ??C (99.1 ??F) 06/08/2019 1:16 PM PD T Respiratory Rate 19 06/08/2019 1:16 PM PDT Oxygen Saturation - - Inhaled Oxygen Concentration - - Weight 63.6 kg (140 lb 3.4 oz) 06/08/2019 1:16 P M PDT Height - - Body Mass Index 21.01 05/31/2019 9:59 AM PDT documented in this [...] Progress Notes * Willard Vann MD - 06/08/2019 1:40 PM PDT Gynecology Oncology Progress Note Date of service: 06/08/2019 Chief complaint: Post-operative visit. Subjective: This is a 53 year old year old female status post modified radical hysterectomy and staging on 05/31/19 for a stage IB1 adenocarcinoma of the cervix. The patient did well postoperatively and was discharged home without any complications. She presents today for a routine postoperative visit. She is feeling well and has no complaints. She is urinating without difficulty, but reports the urine is cloudy and she has frequency. Social: The patient is returning back to her activities of daily living. Objective: Vitals: 06/08/19 1316 BP: 144/78 Pulse: 73 Resp: 19 Temp: 37.3 ??C (99.1 ??F) GI: incision clean and dry. Ecchyosis on right buttock. Pathology reviewed: A. RIGHT PELVIC LYMPH NODE: - Twelve lymph nodes, negative for metastatic carcinoma (0/12) B. LEFT PELVIC LYMPH NODE: - Four lymph nodes, negative for metastatic carcinoma (0/4) A. UTERUS AND CERVIX, MODIFIED RADICAL HYSTERECTOMY: - Cervix: Invasive endocervical adenocarcinoma, usual type - Tumor diameter: 2.6 cm - Depth of invasion: 1.9 cm - Tumor invades through the entire thickness of the cervical wall, superficially reaching the cervical adventia - All margins are negative, closest: paracervical radial margin, free by 0.2 cm - No lymphovascular invasion - One paracervical lymph node, negative for metastatic carcinoma (0/1) - Vaginal cuff: Positive for invasive adenocarcinoma. Vaginal cuff margin is negative by 0.5 cm - Bilateral parametrial: Negative for carcinoma - Four parametrial lymph nodes, negative for metastatic carcinoma (0/4) - Lower uterine segment: Positive for invasive adenocarcinoma - Endometrium: Atrophic - Myometrium: Leiomyomata (largest 0.7 cm) - Uterine serosa: No significant abnormalities D. VAGINAL MARGIN, EXCISION: - Benign squamous mucosa, negative for carcinoma Asessment/plan: This is a 53 year old year old who presents for a routine postoperative visit [facility]. She has FIGO 2018 stage IIA1 adenocarcinoma of the cervix. She does not meet Sedlis criteria for postoperative radiation. I recommend observation and surveillance. I reviewed the close but negative margin; they agree. She will return in 3 months for surveillance and then every 6 months. I will check a urine culture. Willard Vann MD 06/08/2019 1:21 PM CC: Angela Heard MD documented in this encounter Plan of Treatment Upcoming Encounters Date Type Department Care Team (Late st Contact Info) Description 10/30/2024 3:00 PM PST Initial consult [facility]/[address] [place] [phone] Jesu Dawkins MD [address] [place] [address] [place] [address] documented as of this encounter Procedures Procedure Name Priority Date/Time Associated Diagnosis Comments URINE CULTURE AND SENSI Routine 06/08/2019 3:46 PM PDT Dysuria documented in this encounter Results * (ABNORMAL) URINE CULTURE AND SENSI (06/08/2019 3:46 PM PDT) Source URINE [facility] Comments NONE [facility] Culture >100,000 col/ml ESCHERICHIA COLI (ESBL producer arborist manager, confers RESISTANCE to all Cephalosporin agents and Aztreonam)(A) [facility] Report Status FINAL 06/09/2019 [facility] DEPT OF PATHOLOGY & LAB MEDICINE Organism ESCHERICHIA COLI (ESBL producer arborist manager, confers RESISTANCE to all Cephalosporin agents and Aztreonam) [facility] Urine (URINE) 06/08/2019 3:4 6 PM PDT 06/08/2019 3:47 PM PDT Narrative Organism Antibiotic Method Susceptibility Escherichia coli (esbl produ cer, confers resistance to all cephalosporin agents and aztreonam) Ampicillin FAHAD RESISTANT Escherichia coli (esbl produ cer, confers resistance to all cephalosporin agents and aztreonam) PIP/TAZO FAHAD SUSCEPTIBLE Escherichia coli (esbl produ cer, confers resistance to all cephalosporin agents and aztreonam) Cefazolin FAHAD RESISTANT Escherichia coli (esbl produ cer, confers resistance to all cephalosporin agents and aztreonam) Ceftriaxone FAHAD RESISTANT Escherichia coli (esbl produ cer, confers resistance to all cephalosporin agents and aztreonam) Cefepime FAHAD RESISTANT Escherichia coli (esbl produ cer, confers resistance to all cephalosporin agents and aztreonam) Ertapenem FAHAD SUSCEPTIBLE Escherichia coli (esbl produ cer, confers resistance to all cephalosporin agents and aztreonam) Gentamicin FAHAD RESISTANT Escherichia coli (esbl produ cer, confers resistance to all cephalosporin agents and aztreonam) Tobramycin FAHAD INTERMEDIATE Escherichia coli (esbl produ cer, confers resistance to all cephalosporin agents and aztreonam) Levofloxacin FAHAD RESISTANT Escherichia coli (esbl produ cer, confers resistance to all cephalosporin agents and aztreonam) Nitrofurantoin FAHAD SUSCEPTIBLE Escherichia coli (esbl produ cer, confers resistance to all cephalosporin agents and aztreonam) Trimeth/Sulfa FAHAD RESISTANT Escherichia coli (esbl produ cer, confers resistance to all cephalosporin agents and aztreonam) Meropenem FAHAD SUSCEPTIBLE Comment:>100,000 col/ml ESCH ERICHIA COLI (ESBL producer arborist manager, confers RESISTANCE to all Cephalosporin agents and Aztreonam) us Willard Vann MD MICROBIOLOGY - GENERAL ORDERAB LES Final Result Performing Organization Address City/State/[facility] Co de Phone Number [facility] [address] [place] [address] documented in this encounter Visit Diagnoses Diagnosis Postop check- Primary Follow-up examination, following unspecified surgery Dysuria documented in this encounter Additional Health Concerns Assessment Noted Time PHQ-9 Depression Total Score: 0 05/31/20 19 6:00 PM PDT documented as of this encounter Care Teams Telecommunications Repairer Relationship Specialty Start Date End Date Angela Heard MD PCP - General Obstetrics & Gynecology 05/[birth year]09[birth year] documented as of this encounter
--- OUTSIDE RECORDS SUMMARY | 2024-10-05 21:05 | XMS_ITS | Encounter Summary ---
Author Organization [facility] Address [address] [place] [address] Phone Care Team Providers Care Shank Cutter Name Role Phone Angela Heard MD Primary Care Provider [phone] Willard Vann MD Unavailable [phone] Oliver Keller MD Primary Care Provider [phone] Encounter Details Date Type Department Care Team (Late st Contact Info) Description 05/09/2019 Abstract [facility] Center at the [facility] [place] [address] [place], [place] [id number] Tasia Gongora, RAISA Social History Tobacco Use Types Packs/Day Years [...] Description 10/30/2024 3:00 PM PST Initial consult [facility] [address] [facility] [address] [place] [address] Jesu Dawkins MD [address] [facility] [address] [place], [place] [id number] documented as of this encounter Visit Diagnoses Not on filedocumented in this encounter Additional Health Concerns Infection Onset Date Last Indicated Resolved Time ESBL Producing Organism (Ext ended Spectrum Beta-lactamase) Comment:06/08/19 Urine E.coli 06/13/2019 06/13/2019 documented as of this encounter Care Teams Shank Cutter Relationship Specialty Start Date End Date Angela Heard MD PCP - General Obstetrics & Gynecology 05/25/19 09/26/24 Willard Vann MD [address] [facility] [address] [place] [address] PCP - Blue Shield Attributed PCP 04/16/20 10/16/21 Oliver Keller MD [address] [facility] [address] [place] [address] PCP - General Internal Medicine 09/27/24 documented as of this encounter
--- OUTSIDE RECORDS SUMMARY | 2024-10-05 21:05 | XMS_ITS | Encounter Summary ---
Author Organization [facility] Address [address] [place] [place] [address] Phone Care Team Providers Care Extracorporeal Circulation Specialist Name Role Phone Angela Heard MD Primary Care Provider [phone] Reason for Visit * Auth/Cert Specialty Diagnoses / Procedures Referred By Stanislav t Referred To Contact Diagnoses Malignant neoplasm of cervix, unspecified site (HCC) Procedures IL EXPLORATORY OF ABDOMEN [place] RADICAL ABD HYSTEREC+PELV NODES [place] LAPAROTOMY FOR STAGING OVAR MALIG LAPAROTOMY HYSTERECTOMY RADICAL LAPAROTOMY STAGING Referral ID Status Reason Start Date Expiration Date Visits Re quested Visits Authorized [id number] 1 1 Encounter Details Date Type Department Care Team (Late st Contact Info) Description 05/31/2019 11:20 AM PDT - 05/31/2019 2:00 PM PDT Surgery Perioperative Services Waldo Vann MD [address] [address] [place], [place] [address] LAPAROTOMY Social History Tobacco Use Types Packs/Day Years [...] Sign Reading Time Taken Comments Blood Pressure 128/63 05/31/2019 2:00 PM PDT Pulse 74 05/31/2019 2:00 PM PDT Temperature 36.5 ??C (97.7 ??F) 05/31/2019 1:37 PM PD T Respiratory Rate 13 05/31/2019 2:00 PM PDT Oxygen Saturation 97% 05/31/2019 2:00 PM PDT Inhaled Oxygen Concentration - - Weight 64.7 kg (142 lb 9.6 oz) 05/31/2019 9:59 A M PDT Height 174 cm (5' 8.5) 05/31/2019 9:59 AM PDT Body Mass Index 21.37 05/31/2019 9:59 AM PDT documented in this encounter Functional Status * Are you deaf or do you have serious difficulty hearing? Answer Date of Assessment Author No 05/31/2019 6:00 PM PDT * Are you blind or do you [...] Assessment Author No 05/31/2019 6:00 PM PDT documented as of this encounter Discharge Summaries * Prudence Doyle MD - 06/03/2019 9:01 AM PDT Gynecology Oncology Discharge Summary 06/03/2019 9:02 AM Leah Guerra [id number] Admit Date/Time: 05/31/2019 9:24 AM Discharge Date/Time: 06/03/2019 9:02 AM Attending Physician: Waldo Vann MD Admission Diagnosis: 1. Stage IB1 adenocarcinoma of the cervix Discharge Diagnoses: 1. Stage IB1 adenocarcinoma of the cervix Consults: None Procedures Performed: Laparotomy, modified radical hysterectomy, bilateral pelvic lymph node dissection. Complications: None OPERATIVE FINDINGS: 1. Unremarkable peritoneal surfaces. 2. Unremarkable ovaries and fallopian tubes. 3. No enlarged lymph nodes suspicious for metastatic disease. 4. Clinical 1 cm negative vaginal margin. HPI: Ms. Guerra??is a 53 year old??G0??with a new diagnosis of cervical cancer. She reported a??LEEP 20 years ago with subsequent normal pap tests. ??She then had an atypical pap test in August 2018 withnegative colposcopy. She then had a repeat atypical pap test this year, with biopsies showing invasive cancer. She reported postcoital bleeding over the last year and takes continuous oral contraceptives with a 3 month scheduled menses; this has been longer over the last year. She was scheduled forsurgical treatment with Dr. Vann. Hospital Course: This is a 53 year old G0 female with recent diagnosis of cervical cancer who presented on 05/31/2019 for scheduled laparotomy, modified radical hysterectomy, bilateral pelvic lymph node dissection. The patient was consented for this procedure. She underwent the procedure well without any complications. Please see the operative note for complete details of the procedure. She had the above findings. She had an unremarkable hospital course and by postoperative day #3 the patient continued to do well. She was tolerating a regular diet, ambulating, voiding with amaya, passing flatus and her pain was well-controlled. She remained afebrile. Her vital signs were stable. Her blood count was reassuring. Her incision was clean, dry and intact. Her abdomen is soft, nondistended, tender to palpation. She was therefore deemed stable for discharge home with a amaya catheter per routine protocol. DISCHARGE INSTRUCTIONS: The patient was instructed to follow up with Dr. Vann in 3 days for postoperative follow-up and amaya removal. The patient was instructed to call for temperature greater than 100.4, increasing pain, bleeding, discharge or any other concerns. She was also instructed to avoid heavy lifting x6-8 weeks (no more than 10lbs), no driving for at least 2 weeks and while using narcotic pain medications, and maintain pelvic rest for 6 weeks (no sex, tampons, douching). DISCHARGE MEDICATIONS: Robert, Leah Sandi Home Medication Instructions CHERRI:[id number] Printed on:06/03/19 0902 Medication Information docusate (COLACE) 100 mg capsule Take 1 capsule by mouth 2 times daily as needed for Constipation for up to 30 days. enoxaparin (LOVENOX) 40 mg/0.4 mL syringe Inject 40 mg subcutaneously every 12 hours. HYDROcodone-acetaminophen 5-325 mg (NORCO) 5-325 mg oral tablet Take 1 tablet by mouth every 6 hours as needed for Pain. Max dose of acetaminophen is 3000mg from all sources in 24 hrs. ibuprofen (MOTRIN) 600 mg oral tablet Take 1 tablet by mouth 3 times daily. Take with food. levonorgestrel-ethinyl estradiol (JOLESSA) 0.15 mg-30 mcg (91) 3 month pack TAKE 1 TABLET BY MOUTH DAILY loratadine (CLARITIN PO) 1 tablet daily. sulfamethoxazole-trimethoprim (BACTRIM DS) 800-160 mg oral tablet Take 1 tablet by mouth 2 times daily for 5 days. Take with plenty of fluids. DISPOSITION: Stable. DISCHARGE ACTIVITIES: As tolerated. DISCHARGE DIET: Regular Signed: PGY3: Jesusita Diamond MD 06/03/19 9:02 AM [employer] INST[employer] Oncology Resident: [id number] documented in this encounter Discharge Instructions * Discharge Instructions* Wendi Reilly RN - 06/03/2019 11:47 AM PDT [facility] Patient/Caregiver Instructions at Home and Goals Condition/Procedure: Laparotomy, modified radical hysterectomy, bilateral pelvic lymph node dissection Self-Care: keep operative area clean and dry, remove or change bandage or dressing only as directedby your surgeon or nurse, allow steri-strips to fall off, empty drain as instructed by nurse and shower or bathe - check with your physician. Recommended activity: activity as tolerated and no driving for today, no heavy lifting, strenuous activity, driving, or sex for 4-6 weeks and no driving while on analgesics, assistive devices:none. NO LIFTING OBJECTS > 10LBS FOR SIX WEEKS NO DRIVING FOR TWO WEEKS OR WHILE TAKING NARCOTIC PAIN MEDICATION PELVIC REST X 6 WEEKS Recommended diet: Regular Diet. For diet questions call Clinical Nutrition: . Report the following symptoms to your physician: Contact your physician if you experience any of the following: - temperature > 100.4 - persistent nausea and vomiting - severe uncontrolled pain - redness, tenderness, or signs of infection (pain, swelling, redness, odor or green/yellow discharge around incision site) - difficulty breathing, headache or visual disturbances - hives - persistent dizziness or light-headedness - extreme fatigue -you have pain or pressure in your abdomen or back, hiccups, and you feel restless. -you feel your heart beating faster than usual. -you have swelling or pain in your leg Go to the Emergency Department or call 911: If you have any chest pain, shortness of breath or difficulty breathing. Contact your physician if you experience any of the following symptoms: abnormal or markedly decreased output from the amaya Follow-up appointment(s) with: Dr. Vann in 7 days, phone #: [phone], call for appointment date and time. You should schedule an appointment to follow up with the physician listed below 3 days for voiding trial * Attachments The following attachments cannot be sent through Care Everywhere. * Indwelling Urinary Catheter Care Adult [id number] ([place]) * Indwelling Urinary Catheter Care Adult ([place] Citizen) * Indwelling Urinary Catheter Insertion Care After ([place] Citizen) documented in this encounter Medications at Time [...] 06/03/2019 loratadine (CLARITIN PO) 1 tablet daily. docusate (COLACE) 100 mg capsule Take 1 capsule by mouth 2 times daily as needed for Constipation for up to 30 days. 60 capsule 06/03/2019 9 sulfamethoxazol e-trimethoprim (BACTRIM DS) 800-160 mg oral tablet Take 1 tablet by mouth 2 times daily for 5 days. Take with plenty of fluids. 10 tablet 05/30/2019 9 levonorgestrel- ethinyl estradiol (JOLESSA) 0.15 mg-30 mcg (91) 3 month pack TAKE 1 TABLET BY MOUTH DAILY 03/26/2019 9 documented as of this encounter Progress Notes * Khloe Natarajan MD - 06/03/2019 6:30 AM PDT Gynecologic Oncology Progress Note Interval events: No acute events overnight S: Patient doing well. No issues. Patient is tolerating regular diet, ambulating, passing flatus. Failed active void trial. Pain well controlled. PRN meds overnight: norco 10 x 3. Denies N/V, lightheadedness/dizziness, fever/chills, no SOB/chestpain. O: VS: Blood pressure 107/63, pulse 60, temperature 97.7 ??F (36.5 ??C), temperature source Oral, resp. rate 16, height 1.74 m (5' 8.5), weight 64.7 kg (142 lb 9.6 oz), SpO2 97 %. Vitals: 06/02/19200406/03/19 0244 06/03/19 0320 06/03/19 0409 BP: 123/69 107/63 BP Location: Right arm Right arm Patient Position: Sitting Sitting Pulse: 59 60 Resp: 16 16 16 16 Temp: 97.9 ??F (36.6 ??C) 97.7 ??F (36.5 ??C) TempSrc: Oral Oral SpO2: 95% 97% Weight: Height: BP Min: 107/63 Max: 123/69 Temp Av.6 ??F (36.4 ??C) Min: 97.2 ??F (36.2 ??C) Max: 97.9 ??F (36.6 ??C) Pulse Av Min: 59 Max: 64 Resp Av.4 Min: 16 Max: 18 SpO2 Av.3 % Min: 94 % Max: 97 % UOP: 1925 ml/hr PE: General: NAD, appears comfortable in bed Resp: Normal respiratory effort Abdomen: soft, mildly distended, appropriately tender to palpation, no rebound or guarding Incision: pfannenstiel c/d/i with steri strips in place Musculoskeletal: no pitting peripheral edema, SCDs in place Neurological: Alert and oriented x3 Lab Results Component Value Date WBC 8.31 05/09/2019 Hemoglobin 13.4 05/09/2019 Hematocrit 39.2 05/09/2019 MCV 94.0 05/09/2019 Platelet Count 269 05/09/2019 RDW 12.4 05/09/2019 A/P: 53 year old??female with stage IB1 cervical cancer, POD#3 s/p modified radical hysterectomy - doing well post operatively and meeting appropriate post op milestones. ?? Neuro:?? - pain well controlled with po pain medication CV/Pulm:??stable, no acute issues GI:??tolerating small amount regular diet, IV fluids discontinued :?? -adequate urine output overnight -will remove amaya, follow-up void -continue bactrim for UTI from prior to admission Heme/ID:??afebrile, lovenox ppx to complete 14 day course PPX:??SCDs, incentive spirometer, encourage ambulation Dispo: anticipate discharge today Signed: Jesusita Diamond, PGY3 06/03/19 6:30 AM Gynecologic Oncology Resident Please call [phone] to reach Nurse Informaticist-Onc resident regarding any issues [employer] ONC FELLOW ADDENDUM: I saw and evaluated this patient with the resident. Briefly, Leah Guerra is a 53 year old female who is POD 3 from the aforementioned procedure. She is doing well overall. Fully advanced through milestones. Failed active voiding trial. Home with amaya. Return on Wednesday for voiding trialin office. Anticipate discharge after foely teaching. post op instructions reviewed, to follow up with Dr. Vann in 1 week. Home on lovenox to complete a 14 day course. Cat Dumont MD Gynecologic Oncology Fellow 06/03/2019 6:54 AM Please call [phone] to speak to the first call resident for [employer] ONC Gynecologic Oncology Attending Note - Coverage for Dr. Vann I have seen and examined the patient, and have discussed the management with the resident and/or fellow. I reviewed the resident's and/or fellow's note(s) and agree with documented findings and plan of care. Doing well, meeting milestones for discharge Failed voiding trial - replace amaya with leg bag teaching Plan for follow-up in office next week for voiding trial Khloe Natarajan MD Gynecologic Oncology Resident 06/03/2019 7:58 AM Time of note does not necessarily reflect time of encounter. * Jesusita Diamond MD - 06/02/2019 5:08 PM PDT R3 Gynecology Note - postoperative day #3 Interval events: none Patient doing well: she is tolerating a regular diet, ambulating, amaya in situ, and her pain is well-controlled w/ her current regimen. Passing flatus. She denies nausea/emesis, fevers, chills, chest pain, or shortness of breath. Vitals: 06/02/19 0214 06/02/19 0439 06/02/19 0514 06/02/19 1347 BP: 116/69 116/63 Pulse: 62 64 Resp: 18 18 18 18 Temp: 97.9 ??F (36.6 ??C) 97.2 ??F (36.2 ??C) TempSrc: Oral Axillary SpO2: 95% 94% Weight: Height: BP Min: 116/63 Max: 124/65 Temp Av.9 ??F (36.6 ??C) Min: 97.2 ??F (36.2 ??C) Max: 98.4 ??F (36.9 ??C) Pulse Av.5 Min: 62 Max: 65 Resp Av.3 Min: 18 Max: 20 SpO2 Av % Min: 94 % Max: 96 % UOP: 1309 cc over twelve hours General: Appears well, in no apparent distress, alert and oriented x three Resp: No increased work of breathing Abdomen: Soft, non tender, non distended, no rebound or guarding, no tympany Incision: pfannenstiel incision covered with steris, clean/dry/intact Ext: No leg tenderness, asymmetry, erythema; SCDs on Lab Results Component Value Date WBC 8.31 05/09/2019 Hemoglobin 13.4 05/09/2019 Hematocrit 39.2 05/09/2019 MCV 94.0 05/09/2019 Platelet Count 269 05/09/2019 RDW 12.4 05/09/2019 Leah Guerra is a 53 year old POD # 2 s/p modified radical hysterectomy for stage IB1 cervical cancer, hemodynamically stable and recovering appropriately after surgery. Neuro - Pain well controlled with current regimen, will continue CV/Pulm - Stable, no acute issues GI/FEN - Pt tolerating regular diet, passing flatus /Renal - Adequate urine output, amaya in situ, will perform active voiding trial in AM Heme/ID - afebrile, no s/s anemia PPX - SCDs, incentive spirometer, lovenox ppx to complete 14d course Dispo - per attending, but anticipate tomorrow Jesusita Diamond 06/02/2019 5:08 PM [employer] INSTALL[employer] team Voalte: [id number] Cosigned by Waldo Vann MD at 06/04/2019 9:07 AM PDT * Waldo Vann MD - 06/02/2019 6:31 AM PDT R2 Gynecologic Oncology Progress Note Events: No acute events during day S: Patient doing well. No issues. Patient is tolerating regular diet, ambulating, voiding, passing flatus. Pain moderately controlled with current meds. Pain requirements: roxicodone 10mg x2 overnight. O: VS: Blood pressure 116/69, pulse 62, temperature 97.9 ??F (36.6 ??C), temperature source Oral, resp. rate 18, height 1.74 m (5' 8.5), weight 64.7 kg (142 lb 9.6 oz), SpO2 95 %. Vitals: 06/02/19 0141 06/02/19 0214 06/02/19 0439 06/02/19 0514 BP: 118/76 116/69 BP Location: Right arm Right arm Patient Position: Supine Cuff Size: Pulse: 63 62 Resp: 18 18 18 18 Temp: 98.4 ??F (36.9 ??C) 97.9 ??F (36.6 ??C) TempSrc: Oral Oral SpO2: 96% 95% Weight: Height: BP Min: 116/69 Max: 134/70 Temp Av.4 ??F (36.9 ??C) Min: 97.9 ??F (36.6 ??C) Max: 99 ??F (37.2 ??C) Pulse Av.4 Min: 62 Max: 70 Resp Av.3 Min: 18 Max: 20 SpO2 Av.8 % Min: 95 % Max: 97 % I/O: Intake/Output Summary (Last 24 hours) at 06/02/2019 0631 Last data filed at 06/02/2019 0441 Gross per 24 hour Intake 1160.37 ml Output 4090 ml Net -2929.63 ml UOP: 2240cc over 11 hours>3.18cc/hr PE: General: NAD, appears comfortable in bed Resp: Normal respiratory effort Abdomen: soft, mildly distended, appropriately tender to palpation, no rebound or guarding Incision: c/d/i with steri strips in place Musculoskeletal: no pitting peripheral edema, SCDs in place Neurological: Alert and oriented x3 Lab Results Component Value Date WBC 8.31 05/09/2019 Hemoglobin 13.4 05/09/2019 Hematocrit 39.2 05/09/2019 MCV 94.0 05/09/2019 Platelet Count 269 05/09/2019 RDW 12.4 05/09/2019 A/P: 53 year old female with stage IB1 cervical cancer, POD#2 s/p modified radical hysterectomy - doing well post operatively. Post Operative Day #2 -Neuro: s/p tap block on POD 1, roxicodone, gabapentin, toradol prn for pain control -CV/Pulm: stable, no acute issues -GI: tolerating small amount regular diet, IV fluids discontinued -: adequate urine output, amaya in situ-continue amaya for three days post- operatively, continue UTI bactrim from prior to admission -Heme/ID: afebrile -PPX: SCDs, incentive spirometer, encourage ambulation ?? #Dispo: continue inpatient post-operative management, pending post-op milestones Signed: Joana Garcia MD PGY2 Attending note I have seen and examined the patient, and have discussed the management with the resident and/or fellow. I reviewed the resident's and/or fellow's note(s) and agree with documented findings and plan of care. Doing well Still with pain with ambulating I discussed oral medications prior to ambulation Advance care Discharge planning for tomorrow after voiding trial tomorrow. Waldo Vann MD 06/02/2019 7:29 AM * Jesusita Diamond MD - 06/01/2019 4:29 PM PDT R3 Gynecologic Oncology Progress Note Events: No acute events during day S: Patient doing well. No issues. Patient is tolerating regular diet, ambulating, voiding, waiting to pass flatus. Pain moderately controlled with current meds. O: VS: Blood pressure 122/68, pulse 62, temperature 98.6 ??F (37 ??C), temperature source Oral, resp. rate 18, height 1.74 m (5' 8.5), weight 64.7 kg (142 lb 9.6 oz), SpO2 97 %. Vitals: 06/01/19 0316 06/01/19 0318 06/01/19 0944 06/01/19 1349 BP: 115/71 134/70 122/68 BP Location: Right arm Right arm Right arm Patient Position: Semi-Bradshaw Supine Supine Cuff Size: Adult - Medium Adult - Medium Adult - Medium Pulse: 67 70 62 Resp: 18 17 18 18 Temp: 98.1 ??F (36.7 ??C) 99 ??F (37.2 ??C) 98.6 ??F (37 ??C) TempSrc: Oral Oral Oral SpO2: 96% 97% Weight: Height: BP Min: 115/71 Max: 144/74 Temp Av.8 ??F (37.1 ??C) Min: 98.1 ??F (36.7 ??C) Max: 99.4 ??F (37.4 ??C) Pulse Av.7 Min: 62 Max: 74 Resp Av Min: 17 Max: 20 SpO2 Av % Min: 96 % Max: 98 % I/O: Intake/Output Summary (Last 24 hours) at 06/01/2019 1630 Last data filed at 06/01/2019 1339 Gross per 24 hour Intake 1741.13 ml Output 2900 ml Net -1158.87 ml UOP: 1.22 Ml/hr PE: General: NAD, appears comfortable in bed Resp: Normal respiratory effort Abdomen: soft, mildly distended, appropriately tender to palpation, no rebound or guarding Incision: c/d/i Musculoskeletal: no pitting peripheral edema, SCDs in place Neurological: Alert and oriented x3 Lab Results Component Value Date WBC 8.31 05/09/2019 Hemoglobin 13.4 05/09/2019 Hematocrit 39.2 05/09/2019 MCV 94.0 05/09/2019 Platelet Count 269 05/09/2019 RDW 12.4 05/09/2019 A/P: 53 year old female with stage IB1 cervical cancer, POD#1 s/p modified radical hysterectomy - doing well post operatively. Post Operative Day #1 -Neuro: pain moderately controlled with tap block, dilaudid, gabapentin -CV/Pulm: stable, no acute issues -GI: tolerating small amount regular diet, IV fluids discontinued -: adequate urine output, amaya in situ-continue amaya for three days post- operatively, continue UTI bactrim from prior to admission -Heme/ID: afebrile -PPX: SCDs, incentive spirometer, encourage ambulation ?? #Dispo: continue inpatient post-operative management, pending post-op milestones Signed: Jesusita Diamond, PGY3 * Zenon Hart MD - 06/01/2019 11:33 AM PDT Post anesthetic note #2. Visit Vitals BP 134/70 (BP Location: Right arm, Patient Position: Supine, Cuff Size: Adult - Medium) Pulse 70 Temp 99 ??F (37.2 ??C) (Oral) Resp 18 Ht 1.74 m (5' 8.5) Wt 64.7 kg (142 lb 9.6 oz) SpO2 96% BMI 21.37 kg/m?? There are no specific post anesthesia related issues * Waldo Vann MD - 06/01/2019 5:48 AM PDT PGY2 Gynecology Oncology Progress Note S: Doing well. Pain well controlled. Denies fevers, chills, nausea, vomiting. Tolerating clear liquid diet. Amaya in place. Not yet ambulating. Denies flatus or BM. Used PRN Roxicodone 5mg x1 overnight. O: Vitals: 06/01/19 0036 06/01/19 0203 06/01/19 0316 06/01/19 0318 BP: 115/71 Pulse: 67 Resp: 17 17 18 17 Temp: 98.1 ??F (36.7 ??C) TempSrc: Oral SpO2: Weight: Height: Gen: NAD Pulm: nonlabored breathing Abd: soft, NTND, midline incision site with steri strips and dressing in place, no soak through, c/d/i : amaya catheter in place, draining clear yellow urine Ext: wwp, no c/c/e UOP: 1400 over 24 hours>58cc/hr>0.89cc/kg/hr Lab Results Component Value Date WBC 8.31 05/09/2019 Hemoglobin 13.4 05/09/2019 Hematocrit 39.2 05/09/2019 MCV 94.0 05/09/2019 Platelet Count 269 05/09/2019 RDW 12.4 05/09/2019 A/P: 53 year old female with stage IB1 cervical cancer, POD#1 s/p modified radical hysterectomy - doing well post operatively. Post Operative Day #1 -Neuro: pain controlled with tap block, dilaudid, gabapentin -CV/Pulm: stable, no acute issues -GI: tolerating small amount clear liquids diet, IV fluids at 75 -: adequate urine output, amaya in situ-continue amaya, UTI continuing bactrim from prior to admission -Heme/ID: afebrile, hemoglobin stable -PPX: SCDs, incentive spirometer, encourage ambulation #Dispo: continue inpatient post-operative management, pending post-op milestones Signed: PGY2: Cat Dumont MD 06/01/19 7:15 AM [facility] Oncology Resident: [id number] [employer]ST[employer] ONC FELLOW ADDENDUM: I saw and evaluated this patient with the resident. Briefly, Leah Guerra is a 53 year old female who is POD 1 from the aforementioned procedure. She is doing well overall. Continue post-operative care and to advance through milestones. Anticipate discharge in 1-2 days. Cat Dumont MD Gynecologic Oncology Fellow 06/01/2019 7:15 AM Please call [phone] to speak to the first call resident for [employer] ONC Attending note I have seen and examined the patient, and have discussed the management with the resident and/or fellow. I reviewed the resident's and/or fellow's note(s) and agree with documented findings and plan of care. Doing well POD1 Findings at surgery discussed with patient. Waldo Vann MD 06/01/2019 8:17 AM * Jesusita Diamond MD - 05/31/2019 5:31 PM PDT PGY3 Gynecology Oncology Post-Operative Progress Note S: Doing well. Pain well controlled. Denies fevers, chills, nausea, vomiting. Tolerating small amount clears. Amaya in place. Not yet ambulating. Denies flatus or BM. O: Vitals: 05/31/19 1445 05/31/19 1500 05/31/19 1541 05/31/19 1715 BP: 117/67 123/68 127/66 135/71 Pulse: 72 79 72 63 Resp: Temp: 97.3 ??F (36.3 ??C) 98.1 ??F (36.7 ??C) 98.7 ??F (37.1 ??C) TempSrc: Temporal Oral Oral SpO2: 98% 97% 97% 97% Weight: Height: Gen: NAD Pulm: nonlabored breathing Abd: soft, NTND, incision sites covered with occlusive dressing : amaya catheter in place, draining clear yellow urine Ext: wwp, no c/c/e UOP: not recorded Lab Results Component Value Date WBC 8.31 05/09/2019 Hemoglobin 13.4 05/09/2019 Hematocrit 39.2 05/09/2019 MCV 94.0 05/09/2019 Platelet Count 269 05/09/2019 RDW 12.4 05/09/2019 No results found for: GLUCOSE, GLUF, GLUC, CREAT, BUN, BUNCREATRTIO, NA, K, CL, CO2, ALT, AST, ALKPHOS, BILITOT, PROT, ALB, GLOB, AGRATIO, CA No results found for: GLUCOSE, GLUF, GLUC, CREAT, BUN, BUNCREATRTIO, NA, K, CL, CO2, ANIONGAP, CA A/P: 53 year old female with stage IB1 cervical cancer, POD#0 s/p modified radical hysterectomy - doing well in the immediate postoperative period. #Postoperative -pain controlled with tap block, dilaudid -CV/Pulm stable, no acute issues -tolerating small amount clear liquids diet, IV fluids at 75 -adequate urine output, amaya in situ -afebrile, hemoglobin stable -PPX: SCDs, incentive spirometer, encourage ambulation #Dispo: continue inpatient post-operative management, pending post-op milestones Signed: PGY3: Jesusita Diamond MD 05/31/19 5:31 PM [employer] Oncology Resident: [id number] documented in this encounter H&P Notes * Waldo Vann MD - 05/31/2019 9:55 AM PDT I attest that I re-evaluated the patient immediately prior to surgery and that there are no changesin the patient's H&P, except if documented below. Waldo Vann 05/31/2019 9:55 AM I discussed use of TAP blocks for postoperative pain management; she agrees. Waldo Vann MD 05/31/2019 Source Note - Jesusita Diamond MD - 05/25/2019 7:53 AM PDT Gynecologic Oncology Pre-Operative History & Physical The entirety of this History & Physical was obtained and modified from the patient's electronicmedical records. HISTORY OF PRESENT ILLNESS: Ms. Guerra is a 53 year old G0 with a new diagnosis of cervical cancer. ?? She reported a LEEP 20 years ago with subsequent normal pap tests. She then had an atypical pap test in August 2018 with negative colposcopy. She then had a repeat atypical pap test this year, withbiopsies showing invasive cancer. ?? She reports postcoital bleeding over the last year and takes continuous oral contraceptives with a 3 month scheduled menses; this has been longer over the last year. She has no pelvic pain. She has no changes in her bowel or bladder habits. PAST MEDICAL HISTORY: None PAST SURGICAL HISTORY: LEEP Appendectomy GYNECOLOGIC HISTORY: G0 SOCIAL HISTORY: Smoked socially for 5 years, quit. Wine 5 days a week. FAMILY HISTORY: Uncle colon cancer in his 60s. Grand mother with breast cancer in her 80s. MEDICATIONS: ??? loratadine (CLARITIN PO), , Disp: , Rfl: ALLERGIES: KNDA PHYSICAL EXAM: *Performed by Dr Vann on 05/09/19 * Vital Signs BP 150/80 Pulse 75 Temp 36.7 ??C (98 ??F) (Oral) Resp 18 Ht 1.73 m (5' 8.11) Wt 65.7 kg (144 lb 13.5 oz) LMP 03/11/2019 (Approximate) BMI 21.95 kg/m? Respiratory: clear to ausculation bilaterally Cardiovascular: Regular rate and rhythm GI: Abdomen soft, nontender, no masses, no guarding MS: no leg edema Psychiatric: alert and oriented x 3. Skin: no rashes. Lymph node survey: no groin lymphadenopathy. Eyes: nonicteric. : Vulva shows normal external female genitalia. Normal Bartholins and Skenes glands Vagina without blood, lacerations, or discharge Cervix with 2 cm visible and palpable lesion consistent with malignancy. Uterus mobile and nontender. Adnexa no masses. Posterior culdesac no nodularity. PATH: - Cervical biopsy 05/01/19: Moderately differentiated endocervical adenocarcinoma. - HPV 01/20/19: 16 detected, 18, HR negative. - Pap 01/20/19: Atypical glandular cells, endocervical. - ECC 05/20/18: negative. - Pap 05/03/18: Atypical glandular cells, endocervical. LABS: Lab Results Component Value Date WBC 8.31 05/09/2019 Hemoglobin 13.4 05/09/2019 Hematocrit 39.2 05/09/2019 MCV 94.0 05/09/2019 Platelet Count 269 05/09/2019 RDW 12.4 05/09/2019 IMAGING: PET CT 05/19/19 Abdomen, pelvis, and thighs: Ill-defined markedly hypermetabolic mass centered within the cervix which appears to extend into the lower uterine segment measuring 4.0 x 3.7 cm x 5.2 cm in maximum dimensions (AP x TRNS x CC) on the attenuation correctedimages and demonstrates a Max SUV of 25.9. No regional hypermetabolic uptake to suggest metastasis. Bones: Normal FDG uptake. IMPRESSION: Focal hypermetabolic uptake centered within the cervix and likely extending into the lower uterine segment consistent with provided history of moderately differentiated endocervical adenocarcinoma. No regional metastasis. Consider a contrast-enhanced MRI of the pelvis to better delineate the exact extent of the likely regionally invasive cervical neoplasm. EK05/09/19 Normal Sinus Rhythm ASSESSMENT/PLAN: Leah Guerra is a 53 year old female with a new diagnosis of cervical cancer, appearing to have stage IB1 disease. Surgical management was recommended and laparotomy with a low transverse skin incision with modified radical hysterectomy and staging was discussed. The rationale, risks, benefits, alternatives, and potential complications were reviewed and the need for amaya catheter for 3days was discussed. The patient agreed and wishes to proceed. The possibility of adjvuant therapy following surgery, depending on her results, was also discussed. She will continue oral contraceptives up to surgery. *Note: Patient counseling and evaluation performed by Dr Vann * Signed: Jesusita Diamond, PGY3 6:22 PM 05/26/2019 Cosigned by Waldo Vann MD at 05/26/2019 7:50 PM PDT * Jesusita Diamond MD - 05/25/2019 7:53 AM PDT Gynecologic Oncology Pre-Operative History & Physical The entirety of this History & Physical was obtained and modified from the patient's electronicmedical records. HISTORY OF PRESENT ILLNESS: Ms. Guerra is a 53 year old G0 with a new diagnosis of cervical cancer. ?? She reported a LEEP 20 years ago with subsequent normal pap tests. She then had an atypical pap test in August 2018 with negative colposcopy. She then had a repeat atypical pap test this year, withbiopsies showing invasive cancer. ?? She reports postcoital bleeding over the last year and takes continuous oral contraceptives with a 3 month scheduled menses; this has been longer over the last year. She has no pelvic pain. She has no changes in her bowel or bladder habits. PAST MEDICAL HISTORY: None PAST SURGICAL HISTORY: LEEP Appendectomy GYNECOLOGIC HISTORY: G0 SOCIAL HISTORY: Smoked socially for 5 years, quit. Wine 5 days a week. FAMILY HISTORY: Uncle colon cancer in his 60s. Grand mother with breast cancer in her 80s. MEDICATIONS: ??? loratadine (CLARITIN PO), , Disp: , Rfl: ALLERGIES: KNDA PHYSICAL EXAM: *Performed by Dr Vann on 05/09/19 * Vital Signs BP 150/80 Pulse 75 Temp 36.7 ??C (98 ??F) (Oral) Resp 18 Ht 1.73 m (5' 8.11) Wt 65.7 kg (144 lb 13.5 oz) LMP 03/11/2019 (Approximate) BMI 21.95 kg/m? Respiratory: clear to ausculation bilaterally Cardiovascular: Regular rate and rhythm GI: Abdomen soft, nontender, no masses, no guarding MS: no leg edema Psychiatric: alert and oriented x 3. Skin: no rashes. Lymph node survey: no groin lymphadenopathy. Eyes: nonicteric. : Vulva shows normal external female genitalia. Normal Bartholins and Skenes glands Vagina without blood, lacerations, or discharge Cervix with 2 cm visible and palpable lesion consistent with malignancy. Uterus mobile and nontender. Adnexa no masses. Posterior culdesac no nodularity. PATH: - Cervical biopsy 05/01/19: Moderately differentiated endocervical adenocarcinoma. - HPV 01/20/19: 16 detected, 18, HR negative. - Pap 01/20/19: Atypical glandular cells, endocervical. - ECC 05/20/18: negative. - Pap 05/03/18: Atypical glandular cells, endocervical. LABS: Lab Results Component Value Date WBC 8.31 05/09/2019 Hemoglobin 13.4 05/09/2019 Hematocrit 39.2 05/09/2019 MCV 94.0 05/09/2019 Platelet Count 269 05/09/2019 RDW 12.4 05/09/2019 IMAGING: PET CT 05/19/19 Abdomen, pelvis, and thighs: Ill-defined markedly hypermetabolic mass centered within the cervix which appears to extend into the lower uterine segment measuring 4.0 x 3.7 cm x 5.2 cm in maximum dimensions (AP x TRNS x CC) on the attenuation correctedimages and demonstrates a Max SUV of 25.9. No regional hypermetabolic uptake to suggest metastasis. Bones: Normal FDG uptake. IMPRESSION: Focal hypermetabolic uptake centered within the cervix and likely extending into the lower uterine segment consistent with provided history of moderately differentiated endocervical adenocarcinoma. No regional metastasis. Consider a contrast-enhanced MRI of the pelvis to better delineate the exact extent of the likely regionally invasive cervical neoplasm. EK05/09/19 Normal Sinus Rhythm ASSESSMENT/PLAN: Leah Guerra is a 53 year old female with a new diagnosis of cervical cancer, appearing to have stage IB1 disease. Surgical management was recommended and laparotomy with a low transverse skin incision with modified radical hysterectomy and staging was discussed. The rationale, risks, benefits, alternatives, and potential complications were reviewed and the need for amaya catheter for 3days was discussed. The patient agreed and wishes to proceed. The possibility of adjvuant therapy following surgery, depending on her results, was also discussed. She will continue oral contraceptives up to surgery. *Note: Patient counseling and evaluation performed by Dr Vann * Signed: Jesusita Diamond, PGY3 6:22 PM 05/26/2019 Cosigned by Waldo Vann MD at 05/26/2019 7:50 PM PDT documented in this encounter Consult Notes * Steve Gonzalez MD - 05/31/2019 1:40 PM PDTAssociated Order(s): CONSULT TO [facility] .I have completed the consultation and documentation for the anesthesia block procedure. Please seethe procedure note for full details. Steve Gonzalez 05/31/2019 1:40 PM Cosigned by Joshua Alanis MD at 05/31/2019 6:09 PM PDT documented in this encounter OR Notes * Operative Report - Waldo Vann MD - 05/31/2019 2:01 PM PDT PATIENT: LEAH GUERRA MED REC: [id number] [facility] DICTATOR: WALDO VANN M.D. 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 OPERATIONS PERFORMED: Laparotomy, modified radical hysterectomy, bilateral pelvic lymph node dissection. SURGEON: Waldo Vann M.D. FIELD SERVICE COORDINATOR: Creative Project Manager: Cat Dumont, Fellow. Second Bat Lathe Operator: Joana Garcia MD, Resident. ANESTHESIA: General endotracheal. ANESTHESIOLOGIST: Marjorie Zee MD. COMPLICATIONS: None. ESTIMATED BLOOD LOSS: 50 mL. INS: 1.5 L of crystalloid. OUTS: 150 mL of clear urine. OPERATIVE FINDINGS: 1. Unremarkable peritoneal surfaces. 2. Unremarkable ovaries and fallopian tubes. 3. No enlarged lymph nodes suspicious for metastatic disease. 4. Clinical 1 cm negative vaginal margin. DISPOSITION: Vital signs stable, to the recovery room, extubated. BACKGROUND: The patient is a 53-year-old female with an abnormal Pap test, who was found to have aninvasive adenocarcinoma of the cervix. I could palpate and visualize a 2 cm lesion in the office with no parametrial or sidewall disease. I counseled the patient regarding definitive surgical diagnosis and management. I reviewed the rationale, risks, benefits, alternatives, potential complications a nd she wished to proceed. OPERATIVE PROCEDURE: After obtaining consent for the procedure, the patient was taken to the operating theater, where she was given general endotracheal anesthesia by Dr. Zee. After this was deemed adequate, she was placed in the supine position and prepped and draped in the usual sterile fashion. I called a time-out procedure as protocol. I then made a 10 cm skin incision in a low transverse fashion with a skin knife and I carried this down to the fascia with the Bovie electrocautery. I incised the fascia, which I extended laterally. I elevated the fascia and dissected the rectus muscles off the posterior aspect of the fascia with the Bovie electrocautery. I divided the rectus muscles in their natural diastasis. I then entered the peritoneal cavity sharply without injury to underlyingorgans including the bladder. I extended the peritoneal incision with care to avoid injury to the bladder. I now established the Robert retractor and packed away the bowel cephalad with moist laparotomy sponges. I identified the uterus, cervix, ovaries, and fallopian tubes. I suture ligated the round ligaments bilaterally, which I incised with the Bovie electrocautery. I then opened the retroperitoneum by incising the posterior leaf of the broad ligaments bilaterally, parallel and lateral to the respective infundibulopelvic ligaments. I incised the anterior leaf of the broad ligament along the bladder function and I dissected the bladder off the lower uterine segment, cervix, and distal vagina in the appropriate avascular plane. Starting on the right side, I identified the right ureter, which was nondilated and peristaltic. I identified the right external iliac artery and vein. There was lymphatic tissue overlying the external iliac artery and vein, which I elevated and excised and dissected away with the Bovie electrocautery in a hemostatic fashion. I performed a right pelvic lymph node dissection from the genitofemoral nerve laterally to the superior vesical artery medially, and from the circumflex vein caudally to the bifurcation of the external and internal iliac vessels cephalad. I now used a vein retractor to mobilize the right external iliac vein laterally and explored the right obturator space. I identified the right obturator nerve and there was lymphatic tissue anterior to the right obturator nerve that I excised with the Bovie electrocautery without injury to the right obturator nerve. I performed the same procedure on the left side. There were no enlarged lymph nodes suspicious for metastatic disease. Returning back to the right side, I now began to free the ureter from its medial attachment to the peritoneum. This was done in order to lateralize and draw the ureter posteriorly with gentle sharp dissection. No injury to the ureter sustained during thisprocess. I further took the bladder down off the distal vagina approximately 2 cm. I could visualize the uterine vessels on the right side. I could see the ureter coursing underneath the uterine vessels. I elevated the uterine vessels, which facilitated identification of the avascular tunnel between the uterine vessels and anterior to the ureter. This tunnel was dissected and opened, allowing me the pass sutures underneath the uterine vessels, which I suture ligated the uterine vessels proximally and distally. I then cut the uterine vessels immediately anterior to the ureter. This was done without injury to the ureter room and when this was done in a hemostatic fashion, I could further mobilize and dissect the ureter further posteriorly and laterally. I performed the same procedure on the left side. I could now follow both ureters as they coursed into the bladder. I now fenestrated the posterior leaves of the broad ligaments bilaterally, which allowed me to skeletonize the utero-ovarian ligaments, which were clamped, back clamped, cut, and suture ligated with excellent hemostasis. Inow skeletonized the uterosacral ligaments. I entered the rectovaginal space in the appropriate avascular plane. I used the Bovie electrocautery to cauterize and divide the uterosacral ligaments, one-third from their insertion into the cervix. I now used the curved Zeppelin clamps to clamp across the parametrial tissue to skeletonize the vagina. I now clamped across the vagina 1 cm from the cervix, which I cut at the distal vagina removing the uterus, cervix, and vagina. Inspection identified the tumor on the cervix with a ring of normal tissue. In order to ensure at least 1 cm further ring of normal vaginal tissue, I re- clamped the vagina, which I re-cut and sutured the most distal margin at the 12 o'clock position. This was sent as vaginal margin. I ensured that the bladder was free of any injury and I now closed the fornices of the vaginal cuff with Minnie sutures of 0 Vicryl. The remainder of the vaginal cuff I closed with a series of [id number] sutures of 0 Vicryl. There wasexcellent hemostasis. I re-identified both ureters, which were nondilated, peristaltic, without evidence of injury. The bladder was without evidence of injury and there was clear, yellow urine seen in the Amaya catheter. I re-inspected the retroperitoneal areas of dissection, which were hemostatic.Both utero-ovarian pedicles were hemostatic and plicated to the round ligament pedicles. I irrigated the abdomen and pelvis, confirming hemostasis, and I removed the laparotomy sponges and disassembled the [place] retractor. I performed a visual manual sweep of the patient's abdomen and pelvis withno evidence of retained foreign objects. Counts of instruments, sponges, and needles were performedand were correct. I now closed the fascia with a running suture of 0 Vicryl. I irrigated the subcuta neous tissue, which I closed with interrupted sutures of 3-0 plain gut. I closed the skin incision with 4-0 Monocryl. The patient was then awoken, extubated, and escorted to the recovery room in stable condition. Please note that I was present and scrubbed during the entire procedure. Waldo Vann M.D. [id number] JOB#: [id number] cc: Joana Garcia M.D. * Post-Op (Brief Op Note) - Joana Garcia MD - 05/31/2019 1:07 PM PDT Post-Operative / Post-Procedure Note Complete After All Procedures: Surgeon(s): Surgeon(s): Waldo Vann MD Scott, Marla Elizabeth, MD Santelia Rose, MD Procedure: Procedure(s): LAPAROTOMY MODIFIED HYSTERECTOMY RADICAL LAPAROTOMY STAGING Final Anesthesia Type: General Pre/Post Diagnosis: Cervical cancer EBL: 50cc Specimen(s): ID Type Source Tests Collected by Time Destination A : RIGHT PELVIC LYMPH NODE Tissue [facility] SURGICAL PATHOLOGY Waldo Vann MD 05/31/2019 1134 B : LEFT PELVIC LYMPH NODE Tissue [facility]ST[facility] SURGICAL PATHOLOGY Waldo Vann MD 05/31/2019 1146 C : uterus and cervix Tissue [facility]ST[facility] SURGICAL PATHOLOGY Waldo Vann MD 05/31/2019 1233 D : vaginal margin suture at distal margin 12 o'clock Tissue M[facility] INSTALLER SURGICAL PATHOLOGY Waldo Vann MD 05/31/2019 1233 Findings: Normal external female genitalia with 2cm palpable cervical lesion. Normal fallopian tubes and ovaries bilaterally. Normal, small appearing uterus. Additional Information: Drains/Tubes: Amaya Prosthetic Devices or Implants: NA Signed: Joana Garcia 05/31/2019 1:07 PM Cosigned by Waldo Vann MD at 05/31/2019 1:26 PM PDT * Pre-Op (Attestation) - Waldo Vann MD - 05/31/2019 9:55 AM PDT A SEPARATE Interval H&P note must be documented within 24 hours of procedure AND after the patient has been admitted. Pre-Procedure Note and Attestation Complete Prior to Procedure: Planned Procedure: laparotomy, modified radical hysterectomy, staging Surgeon(s): Waldo Vann MD Indications for the Procedure: Pre-Procedure/Pre-Operative Diagnosis: cervix cancer Attestation: I attest that I discussed the nature of the procedure; its benefits; risks and complications; and alternatives (and the risks and benefits of such alternatives), prior to the procedure to the patient, with the patient (or the patient's legal contact representative). I attest that, if there was a reasonable possibility of needing a blood transfusion, the patient (or the patient's legal contact representative) was given the [facility] standardized written summary, pursuant to the [place] Blood Safety Act ([place] Health and Safety Code#1645, as amended). Signed: Waldo Vann 05/31/2019 9:55 AM documented in this encounter Miscellaneous Notes * Progress Note - Nursing - Wendi Reilly RN - 06/03/2019 1:07 PM PDT Patient seen by Dr. Diamond, assessed and discussed discharge instructions and prescription. Clinically stable for discharge. Patient ambulates in the hallway, to the bathroom, and up in the chair independently. Tolerating current diet with no nausea or vomiting. Patient reports pain is adequately controlled with oxycodone. Amaya intact, passing gas, but no bm. VSS. RN provided patient with discharge instructions as ordered, patient verbalized understanding to patient teachings given including lovenox and amaya leg bag teachings with return demonstration, no further questions or complaints noted at this time. Patient watched patient education video on amaya care. Patient was given antiseptic wash, day and night amaya leg bags, and leg strap. Patient agreeable to grinder set up operator universal her prescriptions at her own pharm. Patient called her [facility] [place] and confirmed the lovenox and norco are able janine filled. Transporter took patient via wheelchair with her mother and sister to the drop off area. * Progress Note - Nursing - Luis García RN - 06/03/2019 3:20 AM PDT Pt passing some gas, no BM yet. Good fluid intake. No nausea or vomiting. Pt with gas pains, simethicone given with some relief. Pain controlled with oxycodone. Pt able to sleep at intervals. Needs attended. Amaya with clear yellow urine. * Initial Assessments - Aimee Cain, - 06/02/2019 3:11 PM PDT Discharge Planning Evaluation/Assessment: Covering Admit Date: 05/31/2019 Admit Diagnosis: Malignant neoplasm of cervix, unspecified site (HCC) [C53.9] Preferred Language: [place] Citizen Primary Payor: [employer] Primary Payor Plan: BLX PPO/EPO OFF EXCHANGE /IFP Secondary Payor: N/A Secondary Payor Plan: N/A PCP: Angela Heard Patient's Prior Location to this Admission: Home Mental Status Prior to Admission: Oriented to person, place, date/time Mental Status Current: Oriented to person, place, date/time Does Anyone Depend On You For Their Care: No Contact Information (Name): Sandi Guerra Contact Relationship: Mother Contact Additional Contact (name): Angela Johnsony Additional Contact Decision Maker (name): Self Assessment Assessment Type: Initial Prior Level of Function: Independent Current personal hygiene and grooming: Independent Current dressing and undressing: Independent Current feeding: Independent Current voluntary control of bowel: Independent Current voluntary control of bladder: Independent Current ambulation: Independent What is the patient's current ability to provide medically-related self-care?: Independent Other risk factors: None Home DME: None Is it anticipated that patient will require new/additional DME?: No If the patient receives care from a support person, will the support person still be able to provide medically-related care for the patient at time of discharge?: N/A Would the patient's expected post-discharge care needs be adequately taken care of in the environment from which he/she came?: Yes Will the patient's home or physical environment need to be modified?: No Will the pt potentially require HH services or SNF care?: Unable to determine at this time Provided patient with list of HH agencies that could meet patients needs and within the geographic area requested: No Provided patient with list of SNF that could meet patients needs and within the geographic area requested: No Will the pt's insurance coverage (if applicable) provide for necessary services and medications post-discharge?: Unable to determine at this time Patient was involved in a discussion of the discharge evaluation results: Yes Patient's contact representative was involved in a discussion of the discharge evaluation results?: No SW met with pt at bedside to introduce self and role. Pt is s/p modified radical hysterectomy. Pt lives alone. She is IND with ADL and does not use an assisted device to ambulate. Her mother, Sandi, is visiting from the [facility] and will stay with the pt for one week for support. She reports having a network of friends she can ask for help if additional help is needed. Pt declined needing a letter for work. Expected Discharge Plan Expects to discharge to: Home Mode of Transportation: Friend/Family Member Date discharge assessment completed: 06/02/19 Duration of Assessment (minutes): 20 min Intensity of Services: 1- Lincoln Cain LCSW, [facility] Remote Encoding Center Manager Department of Case Management Cell/Text: [phone] On Voalte or voicemail [phone] (If you have any immediate need for social work assistance after hours, please call [phone] or page [phone]) * Care Plan - Adrianna Mcnamara RN - 06/01/2019 11:05 PM PDT Problem: Fluid Volume - Risk of, Imbalanced Goal: Absence of active bleeding, surgical site Description As evidenced by patient remains free from bleeding during hospitalization Outcome: Progressing Toward Goal Goal: Balanced intake and output Description As evidenced by patient I/O remain WDL during hospitalization Outcome: Progressing Toward Goal Problem: Infection - Risk of, Surgical Site Infection Goal: Absence of infection signs and symptoms Description As evidenced by patient remains free from any increased pain, redness, swelling or heat from surgical incision during hospitalization. Outcome: Progressing Toward Goal Goal: Body temperature within specified parameters Description As evidenced by patient temp remains <101 during shift Outcome: Progressing Toward Goal Problem: Activity Intolerance - Risk of Goal: Able to perform prescribed physical activity Outcome: Progressing Toward Goal Goal: Knowledge of energy-conservation techniques Outcome: Progressing Toward Goal Problem: Falls - Risk of Goal: Absence of falls Description As evidenced by patient remains free from falls during shift Outcome: Progressing Toward Goal Goal: Absence of physical injury Description As evidenced by patient remains free from physical injury during shift Outcome: Progressing Toward Goal Goal: Knowledge of fall prevention Description As evidenced by patient verbalizes necessity for wearing fall bracelet as well as verbalizes importance of calling for assistance prior to getting out of bed, ambulating, etc.. During shift Outcome: Progressing Toward Goal Problem: Pain Goal: Communication of presence of pain Description As evidenced by patient verbalizing pain in accordance to verbal pain score scale 0-10 Outcome: Progressing Toward Goal Goal: Control of pain Description As evidenced by patient verbalizing a pain score less than comfort level Outcome: Progressing Toward Goal Goal: Knowledge of pain management methods Description As evidenced by patient able to verbalize proper use and necessity for pain medications Outcome: Progressing Toward Goal Problem: Pressure Ulcer - Risk of Goal: Absence of pressure ulcer Outcome: Progressing Toward Goal Problem: Pressure Ulcer Goal: Decrease in pressure ulcer size Outcome: Progressing Toward Goal Problem: Venous Thrombosis and Embolism (VTE) - Risk of Goal: Absence of deep venous thrombosis Description As evidenced by patient being free from DVT during hospitalization. Outcome: Progressing Toward Goal Goal: Knowledge of deep venous thrombosis Description As evidenced by pt able to verbalize signs and symptoms to be aware of regarding DVT. Outcome: Progressing Toward Goal Goal: Knowledge of anticoagulation therapy and risks for signs and symptoms of bleeding Description As evidenced by pt able to verbalize at least 3 signs and symptoms to monitor for while on anticoagulation therapy at the end of every shift. Outcome: Progressing Toward Goal * Progress Note - Nursing - Miri Esquivel RN - 05/31/2019 6:04 PM PDT Recd pt via gurney, vital signs stable. Skin intact, skin assessed with Megan KLINE. Pt tolerating clears with no nausea/vomiting. Pt states pain controlled with tap block. Oriented pt to room and discussed plan of care with pt, pt verbalized understanding. Pt resting comfortably in bed, all needs met, will continue to monitor. documented in this encounter Plan of Treatment Upcoming Encounters Date Type Department Care Team (Late st Contact Info) Description 10/30/2024 3:00 PM PST Initial consult [facility] [address] [place] [address] Jesu Dawkins MD [address] [place] [address] [place] [address] documented as of this encounter Procedures Procedure Name Priority Date/Time Associated Diagnosis Comments GENERAL PROCEDURE 06/01/2019 12: 00 AM PDT CARDIAC RHYTHM STRIP 05/31/2019 1:43 PM PDT CARDIAC RHYTHM STRIP 05/31/2019 1:43 PM PDT LAPAROTOMY STAGING 05/31/2019 10 :36 AM PDT Malignant neoplasm of cervix, unspecified site (HCC) HYSTERECTOMY RADICAL 05/31/2019 10:36 AM PDT Malignant neoplasm of cervix, unspecified site (HCC) LAPAROTOMY 05/31/2019 10:36 AM PDT Malignant neoplasm of cervix, unspecified site (HCC) SECOND SPECIMEN - CONFIRM BLOOD TYPE STAT 05/31/2019 10:28 AM PDT TYPE AND SCREEN STAT 05/31/2019 10:20 AM PDT SURGICAL PATHOLOGY Routine 05/31/2019 Malignant neoplasm of cervix, unspecified site (HCC) documented in this encounter Results * GENERAL PROCEDURE (06/01/2019 12:00 AM PDT) Anatomical Region Laterality Modality Other us Scan Hid PROCEDURE/MINOR SURGICAL ORDERAB LES Final Result * CARDIAC RHYTHM STRIP (05/31/2019 1:43 PM PDT) Only the most recent of2 resultswithin the time period is included. us Interface Provider CARDIAC RHYTHM STRIP Final Re sult * SECOND SPECIMEN - CONFIRM BLOOD TYPE (05/31/2019 10:28 AM PDT) ABO/Rho(D) O POSITIVE [facility] DEPT OF PATHOLOGY & LAB MEDICINE Specimen Expiration 06/03/2019 [facility] DEPT OF PATHOLOGY & LAB MEDICINE Blood (BLOOD) 05/31/2019 10: 28 AM PDT 05/31/2019 10:58 AM PDT Result [facility] Marjorie Zee MD BLOOD BANK ORDERABLES F inal Result Performing Organization Address [facility] Co de Phone Number [facility] DEPT OF PATHOLOGY & LAB MEDICINE [address] [place], [place] [id number] * TYPE AND SCREEN (05/31/2019 10:20 AM PDT) Specimen Expiration 06/03/2019 [facility] DEPT OF PATHOLOGY & LAB MEDICINE ABO/Rho(D) O POSITIVE [facility] DEPT OF PATHOLOGY & LAB MEDICINE Antibody Screen NEGATIVE [facility] DEPT OF PATHOLOGY & LAB MEDICINE Confirm ABO O POSITIVE [facility] DEPT OF PATHOLOGY & LAB MEDICINE Blood Bank Comment State law requires that the woman being tested be informed, by her physician, of her Rho(D) typing results. [facility] DEPT OF PATHOLOGY & LAB MEDICINE Blood (BLOOD) 05/31/2019 10: 20 AM PDT 05/31/2019 10:57 AM PDT Result [facility] Marjorie Zee MD BLOOD BANK ORDERABLES F inal Result Performing Organization Address [facility] Co de Phone Number [facility] DEPT OF PATHOLOGY & LAB MEDICINE [address] [place] [phone] * SURGICAL PATHOLOGY (05/31/2019) Tissue (MIRROR INSTALLER) 05/31/2019 11:3 4 AM PDT Tissue (MIRROR INSTALLER) 05/31/2019 11:4 6 AM PDT Tissue (MIRROR INSTALLER) 05/31/2019 12:3 3 PM PDT Tissue (MIRROR INSTALLER) 05/31/2019 12:3 3 PM PDT Waldo Vann MD PATHOLOGY/CYTOLOGY ORDERABLES Final Result Performing Organization Address City/State/[facility] Co de Phone Number [facility] DEPT OF PATHOLOGY & LAB MEDICINE [address] [place] [address] documented in this encounter Visit Diagnoses Diagnosis Malignant neoplasm of cervix, unspecified site (HCC) Malignant neoplasm of cervix, unspecified site (HCC) documented in this encounter Administered Medications Inactive Administered Medications - up to 3 most recent administrations Medication Order MAR Action Action Date Dose Rate Site 0.9% NaCl (SALINE FLUSH) injection 2 mL 2 mL, IV Line Flush, SEE ADMIN INSTRUCTIONS PRN, Line Care, Starting on Wed06/01/19 at 0758, Administer per [facility] protocol (CCN 70384), FLUSH EVERY 8 HOURS AND PRN. Given 06/01/2019 7:59 AM PDT 2 mL 0.9% NaCl irrigation solution INTRA-PROCEDURE ONLY, Starting on Wed05/31/19 at 1131, Intra-op Given 05/31/2019 11:31 AM PDT 3,000 mL docusate (DSS) capsule 100 mg 100 mg, Oral, 2 TIMES DAILY, First dose on Wed05/31/19 at 2200, Hold for loose bowel movement SWALLOW WHOLE. DO NOT CHEW, DIVIDE, OR CRUSH. Give with a full glass of water or juice unless NPO or instructed by MD., Post-Op/Procedure Given 06/03/2019 8:32 AM PDT 100 mg Given 06/02/2019 9:20 PM PDT 100 mg Given 06/02/2019 8:37 AM PDT 100 mg enoxaparin (LOVENOX) injection 40 mg 40 mg, Subcutaneous, EVERY 24 HOURS SCHEDULED, First dose on Wed06/01/19 at 0900, Order MAY be automatically substituted with P&T Approved equivalent per protocol. CAUTION: THIS DRUG IS A LOW MOLECULAR WEIGHT HEPARIN! (IT IS AN ANTICOAGULANT) Verify if patient on epidural or will be receiving one. If so contact MD regarding enoxaparin therapy. Monitor for signs and symptoms of neurological impairment. Given 06/03/2019 8:32 AM PDT 40 mg Abdomen, Right Lower Quadrant Given 06/02/2019 8:38 AM PDT 40 mg Ar m, Right Lower Given 06/01/2019 10:19 AM PDT 40 mg A rm, Left Upper gabapentin (NEURONTIN) capsule 100 mg 100 mg, Oral, 3 TIMES DAILY, First dose on Wed05/31/19 at 1630 Given 06/03/2019 8:32 AM PDT 100 mg Given 06/02/2019 8:24 PM PDT 100 mg Given 06/02/2019 2:09 PM PDT 100 mg loratadine (CLARITIN/ALAVERT) tablet 10 mg 10 mg, Oral, DAILY, First dose on Wed05/31/19 at 1630 Given 06/03/2019 8:32 AM PDT 10 mg oxyCODONE (ROXICODONE) immediate release tablet 10 mg 10 mg, Oral, EVERY 4 HOURS PRN, Severe Pain (7-10), Starting on Wed05/31/19 at 1946, USE IMMEDIATE RELEASE TABLETS Given 06/03/2019 3:09 AM PDT 10 mg Given 06/02/2019 9:20 PM PDT 10 mg Given 06/02/2019 3:33 PM PDT 10 mg oxyCODONE (ROXICODONE) immediate release tablet 5 mg 5 mg, Oral, EVERY 4 HOURS PRN, Moderate Pain (4-6), Starting on Wed05/31/19 at 1946, USE IMMEDIATE RELEASE TABLETS Given 06/03/2019 9:00 AM PDT 5 mg Given 06/01/2019 1:22 AM PDT 5 mg Given 05/31/2019 7:59 PM PDT 5 mg simethicone (MYLICON) chewable tablet 160 mg 160 mg, Oral, 3 TIMES DAILY PRN, Cramping, Flatulence, Starting on Wed06/02/19 at 0652 Given 06/02/2019 10:19 PM PDT 160 mg Given 06/02/2019 8:37 AM PDT 160 mg sterile water INTRA-PROCEDURE ONLY, Starting on Wed05/31/19 at 1113, Intra-op Given 05/31/2019 11:13 AM PDT 1,000 mL sulfamethoxazole-trimethoprim (BACTRIM DS, SEPTRA DS) 800-160 mg DS tablet 1 tablet 1 tablet, Oral, 2 TIMES DAILY, First dose on Wed05/31/19 at 2200, Give with adequate amounts of fluid unless NPO or otherwise ordered by physician. Given 06/03/2019 8:32 AM PDT 1 tablet Given 06/02/2019 9:22 PM PDT 1 tablet Given 06/02/2019 8:37 AM PDT 1 tablet documented in this encounter Active and Recently Administered Medications Times are shown in PDT. Scheduled Medication Order 06/01/2019 06/02/2019 06/03/2019 docusate (DSS) capsule 100 mg 100 mg, Oral, 2 TIMES DAILY, First dose on Wed05/31/19 at 2200, Hold for loose bowel movement SWALLOW WHOLE. DO NOT CHEW, DIVIDE, OR CRUSH. Give with a full glass of water or juice unless NPO or instructed by MD., Post-Op/Procedure 0800 (Given - Provider: Miri Esquivel RN)210 (Given - Provider: Adrianna Mcnamara, RAISA) 0837 (Given - Provider: Jessica Clifford RN)2119 (Given - Provider: Luis García RN) 0832 (Given - Provider: Wendi Reilly, RAISA) enoxaparin (LOVENOX) injection 40 mg 40 mg, Subcutaneous, EVERY 24 HOURS SCHEDULED, First dose on Wed06/01/19 at 0900, Order MAY be automatically substituted with P&T Approved equivalent per protocol. CAUTION: THIS DRUG IS A LOW MOLECULAR WEIGHT HEPARIN! (IT IS AN ANTICOAGULANT) Verify if patient on epidural or will be receiving one. If so contact MD regarding enoxaparin therapy. Monitor for signs and symptoms of neurological impairment. 1019 (Given - Provider: Miri Esquivel RN) 0838 (Given - Provider: Jessica Clifford RN) 0832 (Given - Provider: Wendi Reilly RN) gabapentin (NEURONTIN) capsule 100 mg 100 mg, Oral, 3 TIMES DAILY, First dose on Wed05/31/19 at 1630 0800 (Given - Provider: Miri Esquivel RN)1332 (Given - Provider: Miri Esquivel RN)210 (Given - Provider: Adrianna Mcnamara RN) 0837 (Given - Provider: Jessica Clifford RN)1409 (Given - Provider: Jessica Clifford RN)2023 (Given - Provider: Luis García, RAISA) 0832 (Given - Provider: Wendi Reilly RN) loratadine (CLARITIN/ALAVERT) tablet 10 mg 10 mg, Oral, DAILY, First dose on Wed05/31/19 at 1630 0900 (Patient Refused - Provider: Miri Esquivel RN) 0837 (Patient Refused - Provider: Jessica Clifford RN) 0832 (Given - Provider: Wendi Reilly RN) sulfamethoxazole-trimeth oprim (BACTRIM DS, SEPTRA DS) 800-160 mg DS tablet 1 tablet 1 tablet, Oral, 2 TIMES DAILY, First dose on Wed05/31/19 at 2200, Give with adequate amounts of fluid unless NPO or otherwise ordered by physician. 0800 (Given - Provider: Miri Esquivel, RAISA)2105 (Given - Provider: Adrianna Mcnamara, RN) 0837 (Given - Provider: Jessica Clifford RN)2122 (Given - Provider: Luis García RN) 0832 (Given - Provider: Wendi Reilly RN) Continuous Medication Order 06/01/2019 06/02/2019 06/03/2019 D5W - LR IV solution (CANCELED) at 75 mL/hr, IV Infusion, CONTINUOUS, Starting on Wed05/31/19 at 1630, Post-Op/Procedure 0318 (New Bag/Syringe/Cartridge - Provider: Rosana Eisenberg RN)0753 (IV Stop - Provider: Miri Esquivel, RAISA) PRN Medication Order 06/01/2019 06/02/2019 06/03/2019 0.9% NaCl (SALINE FLUSH) injection 2 mL 2 mL, IV Line Flush, SEE ADMIN INSTRUCTIONS PRN, Line Care, Starting on Danni 06/01/19 at 0758, Administer per [facility] protocol (CCN 23606), FLUSH EVERY 8 HOURS AND PRN. 0759 (Given - Provider: Miri Esquivel, RAISA) acetaminophen (TYLENOL) tablet 650 mg 650 mg, Oral, EVERY 6 HOURS PRN, Mild Pain (1-3), Fever (100.4 F / 38 C), Headache, Starting on Wed05/31/19 at 1515, If patient tolerating PO. Maximum dose of acetaminophen is 3000 mg from all sources in 24 hours. , Post-Op/Procedure ketorolac (TORADOL) 30 mg/mL (1 mL) injection 15 mg 15 mg (0.232 mg/kg), IV Push, EVERY 6 HOURS PRN, Mild Pain (1-3), Starting on Wed05/31/19 at 1515, For 3 days, Maximum single dose IV Push is 30 mg. Monitor Urine Output (UOP) and Serum Creatinine. Protect from light., Post-Op/Procedure oxyCODONE (ROXICODONE) immediate release tablet 10 mg 10 mg, Oral, EVERY 4 HOURS PRN, Severe Pain (7-10), Starting on Wed05/31/19 at 1946, USE IMMEDIATE RELEASE TABLETS 0745 (Given - Provider: Miri Esquivel RN)1152 (Given - Provider: Miri Esquivel RN)1723 (Given - Provider: Miri Esquivel, RN)2122 (Given - Provider: Adrianna Mcnamara, RN) 0144 (Given - Provider: Adrainna Mcnamara RN)0837 (Given - Provider: Jessica Clifford, RAISA)1533 (Given - Provider: Jessica Clifford, RAISA)2120 (Given - Provider: Luis García, RAISA) 0309 (Given - Provider: Luis García, RAISA) oxyCODONE (ROXICODONE) immediate release tablet 5 mg 5 mg, Oral, EVERY 4 HOURS PRN, Moderate Pain (4-6), Starting on Wed05/31/19 at 1946, USE IMMEDIATE RELEASE TABLETS 0122 (Given - Provider: Rosana Eisenberg RN)0739 [facility]: Miri Esquivel, RAISA) 0900 (Given - Provider: Wendi Reilly RN) prochlorperazine (COMPAZINE) tablet 10 mg 10 mg, Oral, EVERY 6 HOURS PRN, Nausea or Vomiting, Starting on Wed05/31/19 at 1515, May give IV if unable to tolerate PO, Post-Op/Procedure simethicone (MYLICON) chewable tablet 160 mg 160 mg, Oral, 3 TIMES DAILY PRN, Cramping, Flatulence, Starting on Wed06/02/19 at 0652 0837 (Given - Provider: Jessica Clifford RN)2219 (Given - Provider: Luis García, RAISA) simethicone (MYLICON) chewable tablet 80 mg (CANCELED) 80 mg, Oral, 3 TIMES DAILY PRN, Flatulence, Starting on Wed05/31/19 at 1515, Post-Op/Procedure 1723 (Given - Provider: Miri Esquivel, RAISA) documented in this encounter Additional Health Concerns Assessment Noted Time PHQ-9 Depression Total Score: 0 05/31/20 19 6:00 PM PDT documented as of this encounter Care Teams Extracorporeal Circulation Specialist Relationship Specialty Start Date End Date Angela Heard MD PCP - General Obstetrics & Gynecology 05/25/1907/26 documented as of this encounter
--- OUTSIDE RECORDS SUMMARY | 2024-10-05 21:05 | XMS_ITS | Encounter Summary ---
Author Organization [facility] Address [address] [place] [address] Phone Care Team Providers Care Product Finisher Name Role Phone Unavailable Primary Care Provider Unavailabl e Encounter Details Date Type Department Care Team (Late st Contact Info) Description 01/28/1998 2:30 PM PDT - 07/30/1998 12:28 AM PDT Hospital Encounter EPIC CONV DEFAULT Dennis-Eduar Hayes, DDS [address] [facility] [address] [place] [address] Social History Tobacco Use Types Packs/Day Years Used Date Smoking Tobacco: Never Assessed Comments Unknown Sex and Gender Information Value Date Recorded Sex Assigned at Not on file Legal Sex Female 7:27 PM PDT Gender Identity Not on file Sexual Orientation Not on file documented as of this encounter Plan of Treatment Upcoming Encounters Date Type Department Care Team (Late st Contact Info) Description 10/30/2024 3:00 PM PST Initial consult [facility]X [address] [place] [address] [address] [place] [address] Jesu Dawkins MD [address] [place] [address] [place] [id number] documented as of this encounter Visit Diagnoses Not on filedocumented in this encounter
--- OUTSIDE RECORDS SUMMARY | 2024-10-05 21:05 | XMS_ITS | Encounter Summary ---
Author Organization [facility] Address [address] [place], [place] [address]ly [facility] [place] [address] Phone Care Team Providers Care Complaint Adjuster Name Role Phone Angela Heard MD Primary Care Provider [phone] Encounter Details Date Type Department Care Team (Late st Contact Info) Description 06/05/2019 Telephone [facility] [place] [address] [place] [address]. [place] [address] Cat Dumont MD [address] [place] [id number] Social History Tobacco Use Types Packs/Day Years [...] Esquivel RN documented as of this encounter Miscellaneous Notes * Telephone Encounter - Cat Dumont MD - 06/05/2019 5:26 PM PDT Pt called because she noted some blood tinged urine in the amaya after laying on her side today. Nofevers chills, sx of UTI. Amaya drained. No clots. Hasnt had much further drainage from catheter but this all happened about 15 mins ago. Does not feel like her bladder is distended. Will watch UOP over the next few hours if no urine passing in the amaya then will present to ED or urgent care for eval. Discussed if having more komal blood or large clots then to also present for eval. If amaya draining even if urine blood tinged can be evaluated in the am. Offered pt to eval amaya in long infusion but declined given time of day and traffic. All questions answered. Pt comfortable with the plan. Cat Dumont MD Rug Scratcher-Onc Fellow documented in this encounter Plan of Treatment Upcoming Encounters Date Type Department Care Team (Late st Contact Info) Description 10/30/2024 3:00 PM PST Initial consult [facility]/[address] [place] [phone] Jesu Dawkins MD [address] [place] [address] [place] [address] documented as of this encounter Visit Diagnoses Not on filedocumented in this encounter Additional Health Concerns Assessment Noted Time PHQ-9 Depression Total Score: 0 05/31/20 19 6:00 PM PDT documented as of this encounter Care Teams Complaint Adjuster Relationship Specialty Start Date End Date Angela Heard MD PCP - General Obstetrics & Gynecology [birth year]09[birth year] documented as of this encounter
--- OUTSIDE RECORDS SUMMARY | 2024-10-05 21:05 | XMS_ITS | Encounter Summary ---
Author Organization [facility] Address [address] [place] [address] Phone Care Team Providers Care Medical Coding Specialist Name Role Phone Unavailable Primary Care Provider Unavailabl e Reason for Visit * Reason Comments New Patient * Consultation (Routine) - Closed Specialty Diagnoses / Procedures Referred By Stanislav fernandes Referred To Contact Gynecologic Oncology / Hematology and Oncology Diagnoses Endocervical adenocarcinoma (HCC) ENDOCERVICAL ADENOCARCINOMA/ DR ANGELA HEARD/ REC'S FWD'D TO [place]/ BC PPO/ OK PER / ML --DEMOS CONFIRMED Procedures [place] OFFICE OUTPATIENT NEW 60 MINUTES NEW PATIENT Angela Heard MD Phone: tel: fax: Willard Vann MD [address] [address] Phone: tel: fax: Referral ID Status Reason Start Date Expiration Date V isits Requested Visits Authorized [id number] Closed Provider Request 05/09/2019 09/06/2019 1 1 Encounter Details Date Type Department Care Team (Latest Contact Info) Description 05/09/2019 12:00 PM PDT Office Visit [facility] the [facility] [place] [address] [facility] [place] [address] Willard Vann MD [facility] [address] [address] Primary cervical cancer (HCC) (Primary Dx); Preop examination Social History Tobacco Use Types Packs/Day Years [...] Sign Reading Time Taken Comments Blood Pressure 150/80 05/09/2019 12:04 PM PDT Pulse 75 05/09/2019 12:04 PM PDT Temperature 36.7 ??C (98 ??F) 05/09/2019 12: 04 PM PDT Respiratory Rate 18 05/09/2019 12:0 4 PM PDT Oxygen Saturation - - Inhaled Oxygen Concentration - - Weight 65.7 kg (144 lb 13.5 oz) 019 12:04 PM PDT Height 173 cm (5' 8.11) 05/09/2019 12: 04 PM PDT Body Mass Index 21.95 05/09/2019 12:04 PM PDT documented in this encounter Progress Notes * Willard Vann MD - 05/09/2019 12:00 PM PDT Gynecologic Oncology Consultation Date: 05/09/2019 Referring Provider: Angela Heard MD Patient: Leah Jones : 1965 Reason for Visit: Cervical cancer. History of Present Illness: Leah Jones is a 53 year old female who presents for evaluation of a new diagnosis of cervical cancer. She reports LEEP 20 years ago, with subsequent normal pap tests. She then had an atypical pap test in August 2018, with negative colposcopy. She then had a repeat atypical pap test this year, with biopsies showing invasive cancer. She reports postcoital bleeding over the last year. She takes continuous oral contraceptives with a3 month scheduled menses; this has been longer over the last year. She has no pelvic pain. She has no changes in her bowel or bladder habits. Patient Medical History: None. Patient Surgical History: LEEP. Appendectomy in the 80s. Medications: Oral contraceptive pills, claritin. Allergies: None. Social History: Smoked socially for 5 years, quit. Wine 5 days a week. Family History: Uncle colon cancer in his 60s. Grand mother with breast cancer in her 80s. Gynecologic History: G0. Review of Systems: All others reviewed and negative, with pertinent negatives/positives noted above. Physical Exam: Constitutional: Visit Vitals BP 150/80 Pulse 75 Temp 36.7 ??C (98 ??F) (Oral) Resp 18 Ht 1.73 m (5' 8.11) Wt 65.7 kg (144 lb 13.5 oz) LMP 03/11/2019 (Approximate) BMI 21.95 kg/m?? Respiratory: clear to ausculation bilaterally Cardiovascular: Regular [...] Adnexa no masses. Posterior culdesac no nodularity. Data reviewed: Cervical biopsy 05/01/19: Moderately differentiated endocervical adenocarcinoma. HPV 01/20/19: 16 detected, 18, HR negative. Pap 01/20/19: Atypical glandular cells, endocervical. ECC 05/20/18: negative. Pap 05/03/18: Atypical glandular cells, endocervical. Assessment/Plan Leah Jones is a 53 year old female with a new diagnosis of cervical cancer. She appearsto have stage IB1 disease. I recommend surgical management and discussed laparotomy with a low transverse skin incision with modified radical hysterectomy and staging. I reviewed the rationale, risks, benefits, alternatives, and potential complications. I discussed the need for amaya catheter for 3days. She agrees and wishes to proceed. I discussed the possibility of adjvuant therapy following surgery, depending on her results. I would hold on CT imaging as this will not change our immediate management. I will order an EKG and CBC today in preparation for surgery. She will continue oral contraceptives up to surgery which we will plan for May 31 following a planned work trip. Thank you for the opportunity to see your patient in consultation. Willard Vann MD documented in this encounter Procedure Notes * Maribel Stevenson - 05/09/2019 1:05 PM PDTAssociated Order(s): ECG Procedure(s): MN ECG ROUTINE ECG W/LEAST 12 LDS W/I&R Pre-Procedure Diagnose(s): Primary cervical cancer (HCC); Preop examination See MUSE documented in this encounter Miscellaneous Notes * Addendum Note - Maribel Stevenson - 05/09/2019 12:00 PM PDTAddended by: MARIBEL STEVENSON on: 05/09/2019 01:09 PM Modules accepted: Orders documented in this encounter Plan of Treatment Upcoming Encounters Date Type Department Care Team (Late st Contact Info) Description 10/30/2024 3:00 PM PST Initial consult [facility] [address] [place] [address] [address] [place] [address] Jesu Dawkins MD [address] [address] documented as of this encounter Procedures Procedure Name Priority Date/Time Associated Diagnosis Comments GENERAL NON INTERFACED LAB 05/18/2019 8:11 PM PDT CBC Routine 05/09/2019 1:12 PM PDT Primary cervical cancer (HCC) MN ECG ROUTINE ECG W/LEAST 12 LDS W/I&R Routine 05/09/2019 1:05 PM PDT Primary cervical cancer (HCC) documented in this encounter Results * GENERAL NON INTERFACED LAB (05/18/2019 8:11 PM PDT) us Scan Hid CHEMISTRY ORDERABLES Final Resul t * CBC (05/09/2019 1:12 PM PDT) WBC 8.31 4.00 - 11.00 1000/UL [facility] DEPT OF PATHOLOGY & LAB MEDICINE RBC 4.17 3.67 - 5.11 MILL/UL [facility] DEPT OF PATHOLOGY & LAB MEDICINE Hemoglobin 13.4 11.6 - 15.4 g/dL [facility] DEPT OF PATHOLOGY & LAB MEDICINE Hematocrit 39.2 34.3 - 45.4 % [facility] DEPT OF PATHOLOGY & LAB MEDICINE MCV 94.0 80.0 - 100.0 FL [facility] DEPT OF PATHOLOGY & LAB MEDICINE MCH 32.1 27.0 - 33.0 pg [facility] DEPT OF PATHOLOGY & LAB MEDICINE MCHC 34.2 32.0 - 36.0 % [facility] DEPT OF PATHOLOGY & LAB MEDICINE RDW 12.4 11.7 - 14.4 % [facility] DEPT OF PATHOLOGY & LAB MEDICINE Platelet Count 269 150 - 450 1000/UL [facility] DEPT OF PATHOLOGY & LAB MEDICINE MPV 10.8 9.4 - 12.3 FL [facility] DEPT OF PATHOLOGY & LAB MEDICINE Comment: NOTE: New reference range as of November 10, 2016. Reference ranges are age stratified. Reference intervals are derived from [facility] and 'Pediatric Reference Intervals 7th Edition' [employer], Edited by Eduar Ceballos. Blood (BLOOD) 05/09/2019 1:1 2 PM PDT 05/09/2019 1:20 PM PDT us Willard Vann MD HEMATOLOGY ORDERABLES Final Re sult [facility] DEPT OF PATHOLOGY & LAB MEDICINE [address] [facility] [place] [address] * [place] ECG ROUTINE ECG W/LEAST 12 LDS W/I&R (05/09/2019 1:05 PM PDT) Narrative Maribel Stevenson - 05/09/2019 1:05 PM PDT Maribel Stevenson ? 05/09/2019 ??1:09 PM See MUSE us Willard Vann MD ECG ORDERABLES Final Result documented in this encounter Visit Diagnoses Diagnosis Primary cervical cancer (HCC)- Primary Preop examination Preoperative examination, unspecified documented in this encounter
--- OUTSIDE RECORDS SUMMARY | 2024-10-05 21:05 | XMS_ITS | Encounter Summary ---
Author Organization [facility] Address [address] [place] [address] Phone Care Team Providers Care Social Media Strategist Name Role Phone Unavailable Primary Care Provider Unavailabl e Encounter Details Date Type Department Care Team (Late st Contact Info) Description 01/18/1998 5:11 PM PDT - 01/18/1998 5:12 PM PDT Hospital Encounter EPIC CONV DEFAULT Brandon Huynh MD [address] [facility] [id number] [address] Social History Tobacco Use Types Packs/Day Years [...] Description 10/30/2024 3:00 PM PST Initial consult [facility] [address] [place] [address] [address] [place] [address] Jesu Dawkins MD [address] [address] [place] [address] documented as of this encounter Visit Diagnoses Not on filedocumented in this encounter
--- OUTSIDE RECORDS SUMMARY | 2024-10-05 21:05 | XMS_ITS | Encounter Summary ---
Author Organization [facility] Address [address] [facility] [place] [address] Phone Care Team Providers Care Hoop Maker Helper Machine Name Role Phone Angela Heard MD Primary Care Provider [phone] Encounter Details Date Type Department Care Team (Late st Contact Info) Description 06/10/2019 Telephone [facility] [place] [address] [facility] [place], [place] [id number] Willard Vann MD [facility] [address] [id number] Social History Tobacco Use Types Packs/Day Years [...] encounter Miscellaneous Notes * Telephone Encounter - Willard Vann MD - 06/10/2019 8:54 AM PDT I called Leah with her urine culture results from 06/08/19: She has e coli with pcn resistance; it is sensitive to macrobid. She reports worsening deep pelvic pain on the right, radiating into her right buttock. She has not had a BM since Wednesday. I discussed miralax and macrobid, and would hold on urgent care unless these symptoms worsen. She agrees. I will call in macrobid now. Willard Vann 06/10/2019 8:55 AM documented in this encounter Plan of Treatment Upcoming Encounters Date Type Department Care Team (Late st Contact Info) Description 10/30/2024 3:00 PM PST Initial consult [facility] [place] [facility] [address] [place] [address] [address] [place] [address] Jesu Dawkins MD [address] [address] [place] [address] documented as of this encounter Visit Diagnoses Not on filedocumented in this encounter Additional Health Concerns Assessment Noted Time PHQ-9 Depression Total Score: 0 05/31/20 19 6:00 PM PDT documented as of this encounter Care Teams Hoop Maker Helper Machine Relationship Specialty Start Date End Date Angela Heard MD PCP - General Obstetrics & Gynecology 05/25/1909/26 documented as of this encounter
--- OUTSIDE RECORDS SUMMARY | 2024-10-05 21:05 | XMS_ITS | Summary of Care ---
Author Organization [facility] Address [facility] [address] [place] [address] Care Team Providers Care Fire Department Battalion Chief Name Role Phone Tariq Lopez DO Primary Care Provi madeline Reason for Visit * Reason Comments Encounter Details Date Type Department Care Team Description 05/17/[address] [facility] [address] [facility] [address] [place] [address] Sadie Porter MD [address] [place] [address] [place], [place] [id number] Chronic idiopathic constipation; Screening for malignant neoplasm of colon; History of cervical cancer Allergies No Known Allergiesdocumented as of this encounter (statuses as of 06/12/2020) Medications Medication Sig Dispensed Refills Start Date End Date Status loratadine (CLARITIN) 10 mg tablet 0 Active sodium sulfate-potassium sulfate-magnesium sulfate (SUPREP BOWEL PREP KIT) oral solutionIndications:Scree kobi for malignant neoplasm of colon,Chronic idiopathic constipation Use as directed. 1 kit 0 12/11/2019 Active documented as of this encounter (statuses as of 06/12/2020) Active Problems Problem Noted Date Screening for [...] will be administered by a Certified Nurse Vacuum Cleaner Repairer with the physician in the room. Both [...] as of this encounter (statuses as of 06/12/2020) Immunizations Name Administration Dates Next Due TDAP, (ADOL/ADULT) 04/25/2019 documented as of this encounter Social History Tobacco Use Types Packs/Day Years Used Date Never Smoker Smokeless Tobacco: Never Used Alcohol Use Drinks/Week oz/Week Comments Yes Sex Assigned at Date Recorded Not on file documented as of this encounter Progress Notes * Sadie Porter MD - 05/17/2020 2:00 PM PDT Creating healthier communities, together [address] [place] [phone] Patient Name: Leah Jones Age: 54 y.o. : 1965 Date of Service: 05/17/2020 (home) Referring Provider: No ref. provider found Encounter Dept: [facility] Payor: Payor: [facility] [place] / [place] / Product Type: PPO / SUBJECTIVE: CC: No chief complaint on file. History of Present Illness: Leah Jones is a 54 y.o. female who presents with No chief complaint on file. She is here for colon cancer screening, referred by her greensman Dr. 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 Lopez. She reports she's always had trouble with digestion and bowel movements. She takes a lot of fiber pills and eat a lot of vegetables. She has some periods where she has no problem and then other timesshe struggles. After her hysterectomy one year ago she developed more issues, and felt off for 6 months after. She has tried tumeric pills that a friend gave her which was actually helpful. She's tried several things, which will help for a period of time and then stop working. She notes her mother has also always had digestive issues but doesn't talk about it much. ?? She can have bloating and a sense of fullness with it, but no pain associated with her constipation. She has hemorrhoids and sometimes has blood streaking she relates to hemorrhoids flares. She denies anemia. She had some unintentional weight loss after her surgery. ?? She denies any upper digestive issues now. She saw Dr. Davies in 2006 for GERD, but her symptoms went away. She doesn't need to take any acid reducing medications now. She denies chronic cough or dysphagia. ?The patient has an uncle with colon cancer in his 60s. Chronic Problem List: Patient Active Problem List Diagnosis Date Noted POA ??? Screening for malignant neoplasm of colon 12/11/2019 Unknown ??? Chronic idiopathic constipation 12/11/2019 Unknown ??? History of cervical cancer 12/11/2019 Unknown ??? S/P hysterectomy 12/11/2019 Unknown Medications: Current Outpatient Medications Medication Sig Dispense Refill ??? loratadine (CLARITIN) 10 mg tablet ??? sodium sulfate-potassium sulfate-magnesium sulfate (SUPREP BOWEL PREP KIT) oral solution Use asdirected. 1 kit 0 No current facility-administered medications for this visit. Allergies: No Known Allergies Past Medical History: Past Medical History: Diagnosis Date ??? Basal cell carcinoma ??? Bulging of cervical intervertebral disc ??? CSF leak spontaneous CSF leak (around age 31) ??? Endocervical adenocarcinoma (HCC) Surgical History: Past Surgical History: Procedure Laterality Date ??? APPENDECTOMY ??? TOTAL HYSTERECTOMY patient has ovaries Social History: Social History Socioeconomic History ??? Marital status: Single Spouse name: Not on file ??? Number of children: Not on file ??? Years of education: Not on file ??? Highest education level: Not on file Tobacco Use ??? Smoking status: Never Smoker ??? Smokeless tobacco: Never Used Substance and Sexual Activity ??? Alcohol use: Yes ??? Drug use: Never Family History: Family History Problem Relation Age of Onset ??? Arthritis Mother ??? Diabetes Mother ??? Hearing loss Father ROS: Review of Systems Constitutional: Negative. HENT: Negative. Eyes: Negative. Respiratory: Negative. Cardiovascular: Negative. Gastrointestinal: Positive for abdominal pain and constipation. Genitourinary: Negative. Musculoskeletal: Negative. Skin: Negative. Neurological: Negative. Endo/Heme/Allergies: Negative. Psychiatric/Behavioral: Negative. I have reviewed this ROS with the patient. OBJECTIVE: There were no vitals taken for this visit. Physical Examination: Physical Exam Vitals reviewed: Vital signs and parts of the physical exam deferred due to limitations of virtual visit. Constitutional: Appearance: Normal appearance. HENT: Head: Normocephalic and atraumatic. Right Ear: External ear normal. Left Ear: External ear normal. Nose: Nose normal. Eyes: General: No scleral icterus. Extraocular Movements: Extraocular movements intact. Neck: Musculoskeletal: Normal range of motion. Pulmonary: Effort: Pulmonary effort is normal. Abdominal: General: Abdomen is flat. There is no distension. Musculoskeletal: Normal range of motion. Skin: General: Skin is dry. Coloration: Skin is not jaundiced. Neurological: General: No focal deficit present. Mental Status: She is alert and oriented to person, place, and time. Mental status is at baseline. Psychiatric: Mood and Affect: Mood normal. Behavior: Behavior normal. Reviewed Lab(s): No results found for this or any previous visit (from the past 1344 hour(s)). Reviewed Radiology: No results found. Reviewed Orders/Procedures/Referrals: No orders of the defined types were placed in this encounter. No notes on file Reviewed Records: Reviewed active problem list, medication list, allergies, family history, social history, notes from last encounter, and recent lab results. ASSESSMENT & PLAN: 1. Chronic idiopathic constipation Assessment & Plan: We discussed the various etiologies of constipation which may include obstructive pathology, pelvicfloor dyssynergia, chronic stool retention, motility disorders. These underlying conditions may require further work-up which include possible colonoscopy, ano-rectal manometry, Sitzmark study, MRI de fecography, lactulose hydrogen breath test, or SMART pill. The studies were reviewed with the patient and the risks and benefits of each were discussed. -colonoscopy 2. Screening for malignant neoplasm of colon Assessment & Plan: A discussion was held with the patient regarding colorectal cancer screening. The rationale for screening were discussed. Colorectal cancer screening is currently the second leading cause of cancer in both men and women. It is known that most, if not all, colon cancer derives from previously benignpolyps and studies have shown, that if all adenomas are removed prior to becoming malignancies, that these patients did not develop colon cancer. Studies suggest that about 25-35% of people over the age of 50 have adenomatous polyps. Colonoscopy is the only approved colorectal cancer screening toolwhich both screens for both polyps and colon cancer throughout the entire colon mucosa but also prevents cancer by removing adenomatous polyps. The time interval for adenomatous polyps to develop andsubsequently mutate into a colon cancer is a relatively long time. In a normal risk individual the recommended time interval between normal colonoscopies is ten years. Colonoscopies should be done inmore frequent intervals if high risk family history [...] from this sedation is more gradual and somepatients will experience nausea and vomiting from the opiate component. Both anesthesia options will be administered by a Certified Nurse Vacuum Cleaner Repairer with the physician in the room. Both anesthesia options will have careful cardiovascular monitoring. 3. History of cervical cancer Assessment & Plan: Assess anal canal for high risk HPV at time of procedure New, Modified, Previous & DC 'd Meds: Patient's Medications New Prescriptions No medications on file Modified Medications No medications on file Discontinued Medications No medications on file Care instructions and warning signs were discussed. Medications per orders. Side effects discussed.All pertinent labs, studies & exam findings were reviewed today and discussed with patient. Patient expresses understanding of assessment & plan. All questions answered. All portions documented in this exam were performed today and the results are accurately documented. Follow Up: After care instructions & AVS given. No follow-ups on file. or sooner prn worse condition. Electronically signed by: Sadie Porter MD 06/12/2020 at 9:51 AM PDT documented in this encounter Miscellaneous Notes * Assessment & Plan Note - Sadie Porter MD - 06/12/2020 10:13 AM PDT Associated Problem(s): History of cervical cancer Assess anal canal for high risk HPV at time of procedure * Assessment & Plan Note - Sadie Porter MD - 06/12/2020 10:13 AM PDT Associated Problem(s): Screening for malignant neoplasm of colon A discussion was held with the patient regarding colorectal cancer screening. The rationale for screening were discussed. Colorectal cancer screening is currently the second leading cause of cancer in both men and women. It is known that most, if not all, colon cancer derives from previously benignpolyps and studies have shown, that if all adenomas are removed prior to becoming malignancies, that these patients did not develop colon cancer. Studies suggest that about 25-35% of people over the age of 50 have adenomatous polyps. Colonoscopy is the only approved colorectal cancer screening toolwhich both screens for both polyps and colon cancer throughout the entire colon mucosa but also prevents cancer by removing adenomatous polyps. The time interval for adenomatous polyps to develop andsubsequently mutate into a colon cancer is a relatively long time. In a normal risk individual the recommended time interval between normal colonoscopies is ten years. Colonoscopies should be done inmore frequent intervals if high risk family history [...] from this sedation is more gradual and somepatients will experience nausea and vomiting from the opiate component. Both anesthesia options will be administered by a Certified Nurse Vacuum Cleaner Repairer with the physician in the room. Both anesthesia options will have careful cardiovascular monitoring. * Assessment & Plan Note - Sadie Porter MD - 06/12/2020 10:12 AM PDT Associated Problem(s): Chronic idiopathic constipation We discussed the various etiologies of constipation which may include obstructive pathology, pelvicfloor dyssynergia, chronic stool retention, motility disorders. These underlying conditions may require further work-up which include possible colonoscopy, ano-rectal manometry, Sitzmark study, MRI de fecography, lactulose hydrogen breath test, or SMART pill. The studies were reviewed with the patient and the risks and benefits of each were discussed. -colonoscopy documented in this encounter Plan of Treatment Upcoming Encounters Date Type Specialty Care Team Description 07/12/2020 Off-[place] [address] [place] [address] [phone] Health Maintenance Due Date Last Done Comments Hepatitis C Screening 1965 Cervical Cancer Screening (Pap) 12/24/1997 Breast Cancer Screening 11/24/2013 11/24/2012 Colorectal Cancer Screening (Colonoscopy) 12/24/2017 Vaccine: Zoster (1 of 2) 12/24/2017 Vaccine: Influenza (#1) 2020 Vaccine: Dtap/Tdap/Td (2 - Td) 04/25/2029 04/25/2019 documented as of this encounter Visit Diagnoses Diagnosis Chronic idiopathic constipation Unspecified constipation Screening for malignant neoplasm of colon History of cervical cancer Personal history of malignant neoplasm of cervix uteri documented in this encounter Advance Directives Documents on File Type Date Recorded Patient Dope House Operator Helper Expl anation Power of Chorus Dancer Advance Directive packet giv en 05/18/19
--- OUTSIDE RECORDS SUMMARY | 2024-10-05 21:05 | XMS_ITS | Encounter Summary ---
Author Organization [facility] Address [address] [place] [address] Phone Care Team Providers Care Tents Assembler Name Role Phone Unavailable Primary Care Provider Unavailabl e Encounter Details Date Type Department Care Team (Late st Contact Info) Description 05/26/2014 KJOC CONVERSION ENCOUNTER EPIC CONV DEFAULT Provider, Historical Social History Tobacco Use Types Packs/Day Years Used Date Smoking Tobacco: Never Assessed Comments Unknown Sex and Gender Information Value Date Recorded Sex Assigned at Not on file Legal Sex Female 7:27 PM PDT Gender Identity Not on file Sexual Orientation Not on file documented as of this encounter H&P Notes * Provider, Historical - 05/26/2014 12:00 AM PDT COMPREHENSIVE ORTHOPAEDIC EVALUATION CHIEF COMPLAINT: Bilateral anterior knee pain. HISTORY OF PRESENT ILLNESS: This is a 48-year-old female who reports having some bilateral knee pain particularly over the quadriceps. It has been going on for quite sometime. She has also been treated by her retort load expediter for herankle pain and was referred to me by Dr. Alvaro Marie's office for he bilateral knees. She has had noparticular treatment for this. She reports that she does CrossFit exercises. It does not make it worse and she is otherwise in her normal state of health. Please see the medical history form dated 05/26/2014, which I reviewed with the patient today. PHYSICAL EXAMINATION: On physical exam, she is a well-appearing female. She is in no acute distress. She is well nourished, noncachectic appearance. She is alert, oriented x3 and cooperative with the exam. She has full range of motion of her lumbar spine in forward flexion, extension, as well as lateral rotation. She has full range of motion of her bilateral hips as well as bilateral knees. She has tight hamstrings. Popliteal angle of 120 degrees bilaterally. She has normal sensation from L2-S1 and +2 dorsalis pedispulses. RADIOGRAPHS: X-rays, two views of the bilateral knee were reviewed. They do show preserved joint space in the medial, lateral, and patellofemoral compartments. ASSESSMENT: Bilateral quadriceps tendinitis as well as patellofemoral chondromalacia. PLAN: We are going to treat this with physical therapy. I will see her back on a p.r.n. basis. Jensen Shaw M.D. ID: [id number] tra/stalin/qkg Electronically signed by [employer]_My Visual Brief, Selenokhodoc_Conversion_One at 07/03/2017 5:05 PM PDT documented in this encounter Miscellaneous Notes * Documentation Only - Provider, Historical - 05/26/2014 12:00 AM PDT RADIOLOGICAL REPORT RADIOGRAPHS: X-rays, two views of the bilateral knee were reviewed. They show preserved joint space in the medial, lateral, and patellofemoral compartments. Jensen Shaw M.D. ID: [id number] tra/stalin/qkg Electronically signed by [facility]_My Visual Brief, Kjoc_Conversion_Two at 10/24/2017 6:04 PM PST documented in this encounter Plan of Treatment Upcoming Encounters Date Type Department Care Team (Late st Contact Info) Description 10/30/2024 3:00 PM PST Initial consult [facility] [address] [place] [id number] Jesu Dawkins MD [address] [id number] documented as of this encounter Visit Diagnoses Not on filedocumented in this encounter
--- OUTSIDE RECORDS SUMMARY | 2024-10-05 21:05 | XMS_ITS | Encounter Summary ---
Author Organization [facility] Address [address] [place] [address] Phone Care Team Providers Care Tile And Marble Installer Name Role Phone Angela Heard MD Primary Care Provider [phone] Willard Vann MD Unavailable [phone] Oliver Keller MD Primary Care Provider [phone] Encounter Details Date Type Department Care Team (Late st Contact Info) Description 05/26/2019 Miscellaneous/Outsid e Records HEALTH INFORMATION DEP Hid, Scan Social History Tobacco Use Types Packs/Day Years [...] Description 10/30/2024 3:00 PM PST Initial consult [facility] [address] [place] [address] [address] [place] [address] Jesu Dawkins MD [address] [facility] [address] [place] [address] documented as of this encounter Procedures Procedure Name Priority Date/Time Associated Diagnosis Comments GENERAL RADIOLOGY 05/26/2019 12:00 AM PDT documented in this encounter Results * GENERAL RADIOLOGY (05/26/2019 12:00 AM PDT) Anatomical Region Laterality Modality Other us Scan Hid DIAGNOSTIC IMAGING ORDERABLES Fi nal Result documented in this encounter Visit Diagnoses Not on filedocumented in this encounter Additional Health Concerns Infection Onset Date Last Indicated Resolved Time ESBL Producing Organism (Ext ended Spectrum Beta-lactamase) Comment:06/08/19 Urine E.coli 06/13/2019 06/13/2019 documented as of this encounter Care Teams Tile And Marble Installer Relationship Specialty Start Date End Date Angela Heard MD PCP - General Obstetrics & Gynecology 05/25/19 09/26/24 Willard Vann MD [address] [address] PCP - [employer] Attributed PCP 04/16/20 10/16/21 Oliver Keller MD [address] [facility] [address] [place] [address] PCP - General Internal Medicine 09/27/24 documented as of this encounter
--- OUTSIDE RECORDS SUMMARY | 2024-10-05 21:05 | XMS_ITS | Encounter Summary ---
Author Organization [facility] Address [address] [place] [address] Phone Care Team Providers Care Plugman Name Role Phone Unavailable Primary Care Provider Unavailabl e Encounter Details Date Type Department Care Team (Late st Contact Info) Description 07/31/2016 KJOC CONVERSION ENCOUNTER EPIC CONV DEFAULT Leo Escobedo DO [address] [place] [address] [place] [id number] Social History Tobacco Use Types Packs/Day Years Used Date Smoking Tobacco: Never Assessed Comments Unknown Sex and Gender Information Value Date Recorded Sex Assigned at Not on file Legal Sex Female 7:27 PM PDT Gender Identity Not on file Sexual Orientation Not on file documented as of this encounter Progress Notes * Leo Escobedo DO - 07/31/2016 2:00 PM PDT documented in this encounter H&P Notes * Leo Escobedo DO - 07/31/2016 12:00 AM PDT Delt Bic WE Tri FF Inteross Right 5 5 5 5 5 5 Left 5 5 5 4+ 5 5 Motor: There was normal tone of the affected limbs examined. Reflexes: DTR's Bic Brach Tri Right 2 2 2 Left 2 2 2 Gonzales: Negative IMAGING WORK-UP: Imaging was reviewed personally by me and demonstrate by reporting the following: MRI of the C-spine shows a left paracentral protrusion osteophyte C6-C7 narrowing in the left foramen, but not compromising the cord, left C2-C3 and right C3-C4 neuroforaminal narrowing. The right C5-C6 foramen is narrowed as well. Left-sided facet arthropathy is described. The exam was done on 05/2016. She also had lumbar spine MRI, which was done on 07/30/2016. Impression is discogenic changes L2 to S1 without compromise of neural elements as well as thoracic MRI that was done on 07/30/2016, which shows a normal MRI of the thoracic spine. ASSESSMENT AND PLAN: This is a 50-year-old female, who presents today for evaluation for neck pain. Based on the history, physical examination and evaluation of all available imaging, I have made the following assessment. 1. Cervical radiculopathy in the left C6 versus C7 distribution. 2. Cervical spondylosis. 3. Myofascial pain. 1. Medication(s) as noted below. Primary provider may renew medication, and the patient was advisedof side effects and understood and agreed to take the medication as directed. -Topical NSAIDS (Voltaren gel/Flector Patch) - omeprazole 20 mg q day, while on medrol dosepak -Continue current pain meds. - Medrol Dosepak. 2. Physical therapy for cervical spine stabilization. The patient will start once her pain is better controlled. 3. For diagnostic and therapeutic purposes, may consider if symptoms fail to improve: ??? Cervical epidural steroid injection targeted at the left C6-C7 junction with fluoroscopic guidance. Patient is slightly hesitant about proceeding with injection at this time. If anything changes she will let us know ??? Left C4, C5 and C6 medial branch blocks, and if successful the patient would be a candidate forradiofrequency ablation procedure. 4. Consider electromyography and nerve conduction study to evaluate for peripheral neuropathy versus lumbar radiculopathy or an entrapment syndrome. This could help confirm the diagnosis and determine prognosis of LUE. This will need to be done in 3 weeks. 5. recommended a cervical pillow. 6. Should the patient's weakness fail to improve, may consider a surgical referral. 7. F/u in 2 weeks, however if her symptoms improve will see her during EMG/NCS 8. I advised the patient that if neurological issues were to develop such as weakness, bowel or bladder control, or worsening pain, that they should present immediately to the closest Emergency Room. If I can be of further service, please contact my office Leo Escobedo D.O. ID: [id number] DEJAH/SUSY [?] * Leo Escobedo DO - 07/31/2016 12:00 AM PDT COMPREHENSIVE ORTHOPAEDIC EVALUATION CHIEF COMPLAINT: Neck pain. HISTORY OF PRESENT ILLNESS: This is a 50-year-old right female, who presents with neck pain that started on Wednesday07/24/2016 while she was sitting on the couch and stated that her neck started to get sore and she started to feel pain in the shoulder blade, then the pain started to radiate down the left arm posteriorly into her thumb, index, ring, and middle finger, but, primarily the index and ring finger. She states that her pain continued to get worse the next day. She went to the urgent care and she got Toradol shot, which did not help her at all. She went to the carpenter supervisor wooden ship, who in the past has been able to help her with her neck pain; however, she got no relief during this particular visit. The patient states that she has had some chronic neck pain for several years with stiffness every once in a while, however, massage and acupuncture helps; however, at this time the pain is different. She then went to the ER on Wednesday night in [place]. She got a shot of morphine, which did help her pain. She does state that she was also given a Medrol Dosepak. She called her ortho after hours and the person production cell leader prescribed it to her. She completed it today and she states that she does feel slightly better. She was also given an anti-inflammatory and a muscle relaxant, which she does not recall what the names were. She has also been given [place] Gres 5/325 mg and has been taking it every four hours. The patient admits to some numbness and tingling in her hand, which has slightly improved. She denies any weakness. She is right-handed. The patient states that currently her pain is an 8/10 and at its worse at10/10. The patient is prescribed as being sharp, shooting, throbbing, and spasm like in nature. Thepatient states that she feels the pain primarily during sleep. It is hard for her get into a comfortable position. However, laying down on her back does help improve her symptoms as well as using a heating pad. The pain gets worse by being upright. She feels much more pressure in that area. ALLERGIES: The patient denies any allergies. CURRENT MEDICATIONS: Au Gres 5/325 mg q. 4 hours that she has been taking. She just completed Medrol Dosepak, muscle relaxant and anti-inflammatory, which she does not recalls. Patient called the office after visit she wasprescribed baclofen and duexis. PAST MEDICAL HISTORY: Significant for neck arthritis. PAST SURGICAL HISTORY: Significant for appendectomy. SOCIAL HISTORY: She is single. She drinks alcohol four times a week. Denies smoking. Denies any illicit substance or supplements enhancing drugs. FAMILY HISTORY: Significant for arthritis and diabetes. REVIEW OF SYSTEMS: Constitutional: The patient denies any fevers, chills, change in appetite, poor sleep, and abdominal pain. Positive for muscle pain and weakness. Fevers/chills - no. Weight change - no Eyes: Vision change - no Ears, Nose, Mouth, Throat: Headaches - no Cardiovascular: Chest pain - no Respiratory: Shortness of breath - no Gastrointestinal: Stool incontinence - no Genitourinary: Urinary incontinence - no Integumentary: Rashes - no Neurological: Weakness - no Numbness/tingling - yes, but subsiding Psychiatric: Depressed mood - no Sleep problems - no Anxiety - no Musculoskeletal: Other joint swelling - no PHYSICAL EXAMINATION: Vital Signs: BP is 146/80. Temperature is 98.2. Pulse is 80. RR is 12. General: well developed, well nourished, and in no acute distress, alert and oriented x 4. CV: RRR Lungs: non labored breathing Abd: soft. No tenderness to palpation Ext: pulses intact, no clubbing or cyanosis Skin: no lesions or rash on trunk, feet, or hands Lymphatic: No enlarged cervical or inguinal lymph nodes. Musculoskeletal/Spine: Cervical-spine: The cervical spine is symmetric without kyphosis or scoliosis. Range of motion is limited secondary to pain, especially with rotation and side bending to the left. There is tenderness to palpation in the left cervical paraspinals. There tenderness to palpation inthe left trapezius and levator scapulae. FACET loading is positive on the left. Spurling's is negative. Upper extremity shoulder, elbow and wrist exam and Tinel's testing is normal. Neurological: Normal gait. Sensation is intact to light touch in the upper extremities. Strength: Delt Bic WE Tri FF Inteross Right 5 5 5 5 5 5 Left 5 5 5 4+ 5 5 Motor: There was normal tone of the affected limbs examined. Reflexes: DTR's Bic Brach Tri Right 2 2 2 Left 2 2 2 Gonzales: Negative IMAGING WORK-UP: Imaging was reviewed personally by me and demonstrate by reporting the following: MRI of the C-spine shows a left paracentral protrusion osteophyte C6-C7 narrowing in the left foramen, but not compromising the cord, left C2-C3 and right C3-C4 neuroforaminal narrowing. The right C5-C6 foramen is narrowed as well. Left-sided facet arthropathy is described. The exam was done on 05/2016. She also had lumbar spine MRI, which was done on 07/30/2016. Impression is discogenic changes L2 to S1 without compromise of neural elements as well as thoracic MRI that was done on 07/30/2016, which shows a normal MRI of the thoracic spine. ASSESSMENT AND PLAN: This is a 50-year-old female, who presents today for evaluation for neck pain. Based on the history, physical examination and evaluation of all available imaging, I have made the following assessment. 1. Cervical radiculopathy in the left C6 versus C7 distribution. 2. Cervical spondylosis. 3. Myofascial pain. 1. Medication(s) as noted below. Primary provider may renew medication, and the patient was advisedof side effects and understood and agreed to take the medication as directed. -Topical NSAIDS (Voltaren gel/Flector Patch) - omeprazole 20 mg q day, while on medrol dosepak -Continue current pain meds. - Medrol Dosepak. 2. Physical therapy for cervical spine stabilization. The patient will start once her pain is better controlled. 3. For diagnostic and therapeutic purposes, may consider if symptoms fail to improve: ??? Cervical epidural steroid injection targeted at the left C6-C7 junction with fluoroscopic guidance. Patient is slightly hesitant about proceeding with injection at this time. If anything changes she will let us know ??? Left C4, C5 and C6 medial branch blocks, and if successful the patient would be a candidate forradiofrequency ablation procedure. 4. Consider electromyography and nerve conduction study to evaluate for peripheral neuropathy versus lumbar radiculopathy or an entrapment syndrome. This could help confirm the diagnosis and determine prognosis of LUE. This will need to be done in 3 weeks. 5. recommended a cervical pillow. 6. Should the patient's weakness fail to improve, may consider a surgical referral. 7. F/u in 2 weeks, however if her symptoms improve will see her during EMG/NCS 8. I advised the patient that if neurological issues were to develop such as weakness, bowel or bladder control, or worsening pain, that they should present immediately to the closest Emergency Room. If I can be of further service, please contact my office Loe Escobedo D.O. ID: [id number] /[id number] Electronically Signed by: Leo Escobedo DO on Wednesday, September 21, 2016 documented in this encounter Miscellaneous Notes * Documentation Only - Leo Escobedo DO - 07/31/2016 2:00 PM PDT July 31, 2016 PATIENT: Leah Jones : 1965 SERVICE REQUESTED: EMG/NCV. SPECIAL ORDERS: LOCATION: [facility] [place] [phone]. DATE/TIME OF TEST: in 3 weeks BODY PART: LUE DIAGNOSIS: Cervical Radiculopathy TEST SCHEDULED BY/WITH: Will schedule upon speaking with patient Please forward results to: [address] [place] [address] . F/u In 2 weeks SPECIAL INSTRUCTIONS: Arrive at lease 1/2 hour before test is scheduled. If Special Instruction form is given, read and follow carefully. Responsibility of patient to verify benefits with insurance company for diagnostic testing. Doctor must have report and image studies on CD/DVD. (DICOM images only) M.D. /Initial: LEO ESCOBEDO DO * Documentation Only - Leo Escobedo DO - 07/31/2016 2:00 PM PDT PHYSICAL THERAPY PRESCRIPTION Dear [facility] Patient: Your doctor has recommended that you receive and/or continue with your supervised physical therapy treatments. Please give this prescription for therapy to the physical therapy clinic.Should additional documentation be needed, the [facility] will be happy to provide your therapist with the necessary medical records. Please forward results to: [address] [place] [address] . PATIENT: Leah Jones : 1965 July 31, 2016 LEO ESCOBEDO DO PHYSICAL THERAPY: Times per week: 2, 3. Number of weeks: 6. CERVICAL SPINE. DIAGNOSIS: Cervical radiculopathy SPINE SPECIFIC ORDERS Stretching. Range of Motion. Modalities. Deep Tissue Massage. Sadaf Exercises. Evaluate and Treat. manual therapy Please provide patient with an updated progress report before their next visit to the doctor. This information is necessary to assess patient's progress and/or need for further physical therapy. IT IS THE RESPONSIBLITY OF THE PATIENT TO VERIFY BENEFITS WITH THE INSURANCE COMPANY. DISTRIBUTION: The physiotherapy prescription form was handed to the patient. Please provide a report 2 days prior to patient's doctor appointment by fax or give to patient to hand carry into office. M.D. /Initial: LEO ESCOBEDO DO documented in this encounter Plan of Treatment Upcoming Encounters Date Type Department Care Team (Late st Contact Info) Description 10/30/2024 3:00 PM PST Initial consult [facility]/[address] [place] [id number] Jesu Dawkins MD [address] [address] documented as of this encounter Procedures Procedure Name Priority Date/Time Associated Diagnosis Comments OTHER SCANNED ORDERS REPORT 07/31/2016 3:44 PM PDT GENERAL RADIOLOGY 07/30/2016 12:54 PM PDT GENERAL RADIOLOGY 07/30/2016 12:54 PM PDT GENERAL RADIOLOGY 07/18/2016 12:54 PM PDT documented in this encounter Results * OTHER SCANNED ORDERS REPORT (07/31/2016 3:44 PM PDT) us Leo Escobedo DO SCANNED ORDERS Final Result * GENERAL RADIOLOGY (07/30/2016 12:54 PM PDT) Anatomical Region Laterality Modality Other us Leo Escobedo DO DIAGNOSTIC IMAGING ORDERABLES Fi nal Result * GENERAL RADIOLOGY (07/30/2016 12:54 PM PDT) Anatomical Region Laterality Modality Other us Leo Escobedo DO DIAGNOSTIC IMAGING ORDERABLES Fi nal Result * GENERAL RADIOLOGY (07/18/2016 12:54 PM PDT) Anatomical Region Laterality Modality Other us Leo Escobedo DO DIAGNOSTIC IMAGING ORDERABLES Fi nal Result documented in this encounter Visit Diagnoses Not on filedocumented in this encounter
--- OUTSIDE RECORDS SUMMARY | 2024-10-05 21:05 | XMS_ITS | Encounter Summary ---
Author Organization [facility] Address [address] [place] [address] Phone Care Team Providers Care Air Boatswain Name Role Phone Angela Heard MD Primary Care Provider [phone] Encounter Details Date Type Department Care Team (Late st Contact Info) Description 06/05/2019 Orders Only [facility] [place] [address] [place] [address] Svetlana Jimenez RN Social History Tobacco Use Types Packs/Day Years [...] Description 10/30/2024 3:00 PM PST Initial consult [facility] [address] [place] [address] [address] [place] [id number] Jesu Dawkins MD [address] [address] documented as of this encounter Visit Diagnoses Not on filedocumented in this encounter Additional Health Concerns Assessment Noted Time PHQ-9 Depression Total Score: 0 05/31/20 19 6:00 PM PDT documented as of this encounter Care Teams Air Boatswain Relationship Specialty Start Date End Date Angela Heard MD PCP - General Obstetrics & Gynecology 05/25/1909/26 documented as of this encounter
--- OUTSIDE RECORDS SUMMARY | 2024-10-05 21:05 | XMS_ITS | Summary of Care ---
Author Organization [facility] Address [address] [place] [address] Care Team Providers Care Etl Bi Developer Name Role Phone Tariq Lopez DO Primary Care Provi madeline Reason for Referral * Diagnostic/Screening (Routine) Status Reason Specialty Diagnoses / Procedures Referred By Contact Referred To Contact Pending Review Radiology Diagnoses Neck pain Nonintractable headache, unspecified chronicity pattern, unspecified headache type Procedures MRI Brain wo Contrast Tariq Lopez, [address] [address] * Diagnostic/Screening (Routine) Status Reason Specialty Diagnoses / Procedures Referred By Contact Referred To Contact Pending Review Radiology Diagnoses Neck pain Nonintractable headache, unspecified chronicity pattern, unspecified headache type Procedures MRI Cervical Spine wo Contrast Tariq Lopez, DO [address] [address] [facility] [address] [place] [phone] Reason for Visit * Reason Comments Headache Encounter Details Date Type Department Care Team Description 10/26/[address] [facility] [place] [address] [address] [place] [phone] Tariq Lopez, DO [address] [address] [phone] Neck pain (Primary Dx); Nonintractable headache, unspecified chronicity pattern, unspecified headache type Allergies No Known Allergiesdocumented as of this encounter (statuses as of 10/26/2019) Medications Medication Sig Dispensed Refills Start Date End Date Status loratadine (CLARITIN) 10 mg tablet 0 Active levonorgestrel-eth inyl estradiol 0.15-0.03 MG per tablet TAKE 1 TABLET BY MOUTH DAILY 12 03/26/2019 10/26/2019 Discontinued( Therapy completed) documented as of this encounter (statuses as of 10/26/2019) Active Problems No known active problems documented as of this encounter (statuses as of 10/26/2019) Immunizations Name Administration Dates Next Due TDAP, [...] geovany ilable. documented as of this encounter Last Filed Vital Signs Vital Sign Reading Time Taken Comments Blood Pressure 130/84 10/26/2019 4:06 PM PST Pulse 77 10/26/2019 3:35 PM PST Temperature 36.6 ??C (97.8 ??F) 10/26/2019 3:35 PM PS T Respiratory Rate - - Oxygen Saturation 99% 10/26/2019 3:35 PM PST Inhaled Oxygen Concentration - - Weight - - Height 174 cm (5' 8.5) 10/26/2019 3:35 PM PST Body Mass Index - - documented in this encounter Progress Notes * ChristinaTariq worley Ama, - 10/26/2019 3:30 PM PST Patient Name: Leah Jones Age: 53 y.o. : 1965 Date of Service: 10/26/2019 (home) PCP: Virgilio Lopez DO Encounter Dept: [facility] [place] [address] SUBJECTIVE: History of Present Illness: Leah Jones is a 53 y.o. female who presents with headache (pressure on the top of her head) for 9 days. Patient was lying down watching TV 9 days ago when she started having a headache. Patienthas had some nausea. Neck feels stiff at times. Left arm feels different at times. Patient feels pressure on her head also when she sneezes or bends over. Headache (pressure) is better but still withsymptoms. Ibuprofen did not help. Flonase helped a little. Patient did use new application for her skin, Picato, from her Certified Professional Midwife for 2 days. 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 Allergies: No Known Allergies Medications: Patient Reported Taking Dosage loratadine (CLARITIN) 10 mg tablet (Taking) Past Medical History: She has a past medical history of Basal cell carcinoma, Bulging of cervical intervertebral disc, CSF leak, and Endocervical adenocarcinoma (HCC). Family History: Her family history includes Arthritis in her mother; Diabetes in her mother; Hearing loss in her father. Social History: reports that she has never smoked. She has never used smokeless tobacco. She reports current alcohol use. She reports that she does not use drugs. Surgical History: She has a past surgical history that includes Appendectomy and Total Hysterectomy. ROS: Constitutional: negative Eyes: negative Ears, mouth, throat, and face: negative Respiratory: negative Cardiovascular: negative Gastrointestinal: negative Genitourinary:negative Integument/breast: negative Hematologic/lymphatic: negative Neurological: negative Behavioral/Psych: negative All pertinent positives are noted in the HPI. All other systems are negative in relation to the chief complaint. OBJECTIVE: BP 130/84 Pulse 77 Temp 36.6 ??C (97.8 ??F) (Tympanic) Ht 1.74 m (5' 8.5) SpO2 99% BMI 21.83 kg/m?? Physical Examination: GEN: A+O HEENT: PEERLA, TMs clear, no erythema, oropharynx clear Turbinates: slightly boggy Neck: Supple, no goiter, no lympadenopathy PULM: CTA Bilat; no w/r/r Cardiac: RRR, no murmurs Neuro: CN II-XII intact Reviewed Radiology: No results found. Health Maintenance Status: Preventative Services TOPIC LAST DONE NEXT DUE Vaccine: Influenza 06/11/2019 Colorectal Cancer Screening (Colonoscopy) 12/24/2017 Breast Cancer Screening 11/24/2012 11/24/2013 Cervical Cancer Screening (Pap) 12/24/1997 Vaccine: Dtap/Tdap/Td 04/25/2019 04/25/2029 Vaccine: Zoster 12/24/2017 ASSESSMENT & PLAN: 1. Neck pain Ibuprofen or Tylenol prn Patient has appointment with policy specialist in a few weeks (history of bulging disc) - MRI Cervical Spine wo Contrast; Future - MRI Brain wo Contrast; Future 2. Nonintractable headache, unspecified chronicity pattern, unspecified headache type Ibuprofen or Tylenol prn Trial Flonase BID for 1 week then daily Patient has appointment with policy specialist in a few weeks - MRI Cervical Spine wo Contrast; Future - MRI Brain wo Contrast; Future New, Modified, Previous & DC 'd Meds: Patient's Medications New Prescriptions No medications on file Modified Medications No medications on file Discontinued Medications LEVONORGESTREL-ETHINYL ESTRADIOL 0.15-0.03 MG PER TABLET TAKE 1 TABLET BY MOUTH DAILY Start Date: 03/26/2019 End Date: 10/26/2019 Follow Up: After care instructions & AVS given. Return if symptoms worsen or fail to improve. or sooner prn worse condition. Electronically signed by: Tariq Lopez DO 10/26/2019 at 4:11 PM documented in this encounter Plan of Treatment Upcoming Encounters Date Type Specialty Care Team Description 12/05/2019 Office Visit Gastroenterology Sadie Porter MD [address] [id number] Scheduled Orders Name Type Priority Associated Diagnoses Orde r Schedule MRI Cervical Spine wo Contrast Imaging Routine Neck pain Nonintractable headache, unspecified chronicity pattern, unspecified headache type Expected: 10/26/2019, Expires: 10/26/2020 MRI Brain wo Contrast Imaging Routine Neck pain Nonintractable headache, unspecified chronicity pattern, unspecified headache type Expected: 10/26/2019, Expires: 10/26/2020 Health Maintenance Due Date Last Done Comments Cervical Cancer Screening (Pap) 12/24/1997 Breast Cancer Screening 11/24/2013 11/24/2012 Colorectal Cancer Screening (Colonoscopy) 12/24/2017 Vaccine: Zoster (1 of 2) 12/24/2017 Vaccine: Influenza (#1) 2019 Vaccine: Dtap/Tdap/Td (2 - Td) 04/25/2029 04/25/2019 documented as of this encounter Visit Diagnoses Diagnosis Neck pain- Primary Cervicalgia Nonintractable headache, unspecified chronicity pattern, unspecified headache type documented in this encounter Advance Directives Documents on File Type Date Recorded 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
--- OUTSIDE RECORDS SUMMARY | 2024-10-05 21:05 | XMS_ITS | Summary of Care ---
Author Organization [employer] [facility] Address [facility] [address] [place] [address] Care Team Providers Care Mold Washer Name Role Phone Tariq Lopez Primary Care Provi madeline Reason for Visit * Reason Comments Colon Cancer Screening Encounter Details Date Type Department Care Team Description 06/29/2019 Telephone [facility] [address] [facility] [address] [place] [address] Eduar Hayden MD [address] [facility] [address] [place], [place] [id number] Colon Cancer Screening Allergies No Known Allergiesdocumented as of this encounter (statuses as of 07/10/2019) Medications Medication Sig Dispensed Refills Start Date End Date Status loratadine (CLARITIN) 10 mg tablet 0 Active levonorgestrel-ethinyl estradiol 0.15-0.03 MG per tablet TAKE 1 TABLET BY MOUTH DAILY 12 03/26/2019 Active documented as of this encounter (statuses as of 07/10/2019) Active Problems No known active problems documented as of this encounter (statuses as of 07/10/2019) Immunizations Name Dates Previously Given Next Due [...] encounter Miscellaneous Notes * Telephone Encounter - Rand Hernández - 07/04/2019 1032 PDT Benefits verified. Rand * Telephone Encounter - Savanah Rivas - 06/29/2019 1202 PDT Patient is sched 07/11, please verify benefits. documented in this encounter Plan of Treatment Upcoming Encounters Date Type Specialty Care Team Description 07/11/2019 Office Visit Family Medicine SeizEduar camejo MD [address] [facility] [address] [place] [address] [phone] Health Maintenance Due Date Last Done Comments Cervical Cancer Screening (Pap) 12/24/1997 Breast Cancer Screening (Ages 50-74) 12/24/201711/11 Colorectal Cancer Screening (Colonoscopy) 12/24/2017 Vaccine: Zoster (1 of 2) 12/24/2017 Vaccine: Influenza (#1) 2019 Vaccine: Dtap/Tdap/Td (2 - Td) 04/25/2029 04/25/2019 documented as of this encounter Insurance Payer Benefit Plan / Group Subscriber ID Effective Dates Phone Address Type [facility] [place] PPO [id number] 2008-Present PPO documented as of this encounter Advance Directives Patient has advance care planning documents on file. For more information, please contact: [facility] [address] [facility] [place] [address]
--- OUTSIDE RECORDS SUMMARY | 2024-10-05 21:05 | XMS_ITS | Summary of Care ---
Author Organization [facility] Address [facility] [address] [place] [address] Care Team Providers Care Braid Folder Name Role Phone Tariq Lopez DO Primary Care Provi madeline Reason for Visit * Reason Onset Date Comments Other 07/09/2020 Encounter Details Date Type Department Care Team Description 07/09/2020 Telephone [facility] [address] [facility] [address] [place] [address] Sadie Porter MD [address] [place] [address] Other Allergies No Known Allergiesdocumented as of this encounter (statuses as of 07/12/2020) Medications Medication Sig Dispensed Refills Start Date End Date Status loratadine (CLARITIN) 10 mg tablet 0 Active sodium sulfate-potassium sulfate-magnesium sulfate (SUPREP BOWEL PREP KIT) oral solutionIndications:Scree kobi for malignant neoplasm of colon,Chronic idiopathic constipation Use as directed. 1 kit 0 12/11/2019 Active documented as of this encounter (statuses as of 07/12/2020) Active Problems Problem Noted Date Screening for [...] will be administered by a Certified Nurse Clinical Pharmacologist with the physician in the room. Both [...] as of this encounter (statuses as of 07/12/2020) Immunizations Name Administration Dates Next Due TDAP, (ADOL/ADULT) 04/25/2019 documented as of this encounter Social History Tobacco Use Types Packs/Day Years Used Date Never Smoker Smokeless Tobacco: Never Used Alcohol Use Drinks/Week oz/Week Comments Yes Sex Assigned at Date Recorded Not on file documented as of this encounter Miscellaneous Notes * Telephone Encounter - Leah Cedeño - 07/09/2020 3:54 PM PDT Left Vm to call back * Telephone Encounter - Faina Mesa - 07/09/2020 2:36 PM PDT Pt wants to reschedule procedure documented in this encounter Plan of Treatment Upcoming Encounters Date Type Specialty Care Team Description 07/26/2020 Off-Site Visit Gastroenterology Sadie Porter MD [address] [address] [phone] Health Maintenance Due Date Last Done Comments Hepatitis C Screening 1965 Cervical Cancer Screening (Pap) 12/24/1997 Breast Cancer Screening 11/24/2013 11/24/2012 Colorectal Cancer Screening (Colonoscopy) 12/24/2017 Vaccine: Zoster (1 of 2) 12/24/2017 Vaccine: Influenza (#1) 2020 Vaccine: Dtap/Tdap/Td (2 - Td) 04/25/2029 04/25/2019 documented as of this encounter Insurance Payer Benefit Plan / Group Subscriber ID Effective Dates Phone Address Type [employer] [employer] [id number] [id number] 2019-Present PPO documented as of this encounter Advance Directives Documents on File Type Date Recorded Patient Cafeteria Table Attendant Expl anation Power of Film Librarian Advance Directive packet giv en 05/18/19
--- OUTSIDE RECORDS SUMMARY | 2024-10-05 21:05 | XMS_ITS | Encounter Summary ---
Author Organization [facility] Address [address] [place] [address] Phone Care Team Providers Care Bulk Filler Name Role Phone Angela Heard MD Primary Care Provider [phone] Encounter Details Date Type Department Care Team (Late st Contact Info) Description 06/08/2019 Orders Only [facility] [place] [address] [place] [address] Svetlana Jimenez RN Social History Tobacco Use [...] Description 10/30/2024 3:00 PM PST Initial consult [facility] [address] [place] [address] [address] [place] [phone] Jesu Dawkins MD [address] [address] documented as of this encounter Visit Diagnoses Not on filedocumented in this encounter Additional Health Concerns Assessment Noted Time PHQ-9 Depression Total Score: 0 05/31/20 19 6:00 PM PDT documented as of this encounter Care Teams Bulk Filler Relationship Specialty Start Date End Date Angela Heard MD PCP - General Obstetrics & Gynecology 05/25/1909/26 documented as of this encounter
--- OUTSIDE RECORDS SUMMARY | 2024-10-05 21:05 | XMS_ITS | Encounter Summary ---
Author Organization [facility] Address [address] [facility] [place] [address] Phone Care Team Providers Care Smooth Stucco Resurfacer Name Role Phone Angela Heard MD Primary Care Provider [phone] Encounter Details Date Type Department Care Team (Late st Contact Info) Description 05/30/2019 Telephone [facility] [place] [address] [place], [place] [phone] Willard Vann MD [facility] [address] [phone] Social History Tobacco Use Types Packs/Day Years [...] hearing? Answer Date of Assessment Author No 05/30/2019 11:10 AM PDT April Carranza RN * Are you blind or do you have serious difficulty seeing, even when wearing glasses? Answer Date of Assessment Author No 05/30/2019 11:10 AM PDT April Carranza RN documented as of this encounter Plan of Treatment Upcoming Encounters Date Type Department Care Team (Late st Contact Info) Description 10/30/2024 3:00 PM PST Initial consult [facility]/[address] [address] Jesu Dawkins MD [address] [address] documented as of this encounter Visit Diagnoses Not on filedocumented in this encounter Care Teams Smooth Stucco Resurfacer Relationship Specialty Start Date End Date Angela Heard MD PCP - General Obstetrics & Gynecology 05/25/1909/26 documented as of this encounter
--- OUTSIDE RECORDS SUMMARY | 2024-10-05 21:05 | XMS_ITS | Encounter Summary ---
Author Organization [facility] Address [address] [place] [address] Phone Care Team Providers Care Diesel Pile Driver Operator Name Role Phone Angela Heard MD Primary Care Provider [phone] Reason for Visit * Auth/Cert Specialty Diagnoses / Procedures Referred By Stanislav t Referred To Contact Diagnoses Malignant neoplasm of cervix, unspecified site (HCC) Procedures ME EXPLORATORY OF ABDOMEN ME RADICAL ABD HYSTEREC+PELV NODES ME LAPAROTOMY FOR STAGING OVAR MALIG LAPAROTOMY HYSTERECTOMY RADICAL LAPAROTOMY STAGING Referral ID Status Reason Start Date Expiration Date Visits Re quested Visits Authorized [id number] 1 1 Encounter Details Date Type Department Care Team (Late st Contact Info) Description 05/31/2019 10:56 AM PDT Anesthesia Event Perioperative Services Marjorie Zee MD Anesthesia Record Procedure Summary Procedure Name Responsible Anesthesiologist Anesthesia Start Time Anesthesia Stop Time LAPAROTOMY Marjorie Zee MD 05/31/19 1056 05/31/19 1343 Events Date Time Event Comment 05/31/2019 1056 Anes Start 1056 Start Data Collection 1104 Induction 1106 Airway Management 1125 Quick Note 2nd 18G IV plac ed-Right Hand, L 18G AC in-situ; T&S sent in pre-op. H/H baseline 13.4/39.2 1323 Quick Note Regional anesth esia performed TAP block intraoperatively [id number]. 1328 Extubation 1335 Stop Data Collection 1343 Anes Care Transfer 06/01/2019 1133 Follow-Up complete Meds Name Total midazolam BOLUS 4 mg propofol BOLUS 200 mg propofol INFUSION 20mL 363.61 mg fentaNYL BOLUS 100 mcg ceFAZolin 2,000 mg ondansetron 8 mg HYDROmorphone 2 mg rocuronium 60 mg glycopyrrolate 0.2 mg ranitidine (ZANTAC) injection 50 mg dexamethasone 8 mg sugammadex 259 mg lactated ringers 2,000 mL * Agents Name O2 Air N2O Desflurane * Blood No blood administrations on file. [...] RN 06/03/19 1307 by Wendi Reilly RN documented in this encounter Social History Tobacco [...] of this encounter OR Notes * Anesthesia Postprocedure Evaluation - Marjorie Zee MD - 05/31/2019 1:45 PM PDT Post-Anesthesia Assessment Note Vital Signs: Blood Pressure 117/80 Heart Rate 76 Respiratory Rate 11 O2 Saturation (%) 96 Temperature 97.7 Evaluation: Level of consciousness sufficient to participate in assessment: yes Cardiac and hydration status adequate: yes Respiratory status adequate/airway patent: yes Pain control adequate: yes Post-operative nausea and vomiting control adequate: yes Anesthesia complications: no * Anesthesia Procedure Notes - Marjorie Zee MD - 05/31/2019 11:52 AM PDTAssociated Order(s): Intraop Airway Management Intraop Airway Management Date/Time: 05/31/2019 11:06 AM Site: Oral Intubation method: direct Airway Equipment: MAC blade: 3 Airway Device: ETT type: standard ETT size: 7.0 ETT Cuffed: Yes Procedure Details: Atraumatic: Yes Rapid Sequence: Yes Cricoid: No VVC: Yes EtC02: Yes Equilateral bilateral breath sounds: Yes Cuff inflated: Yes Difficult: No Procedure Events: Patient tolerated the procedure well with no immediate complications Comments:grade 1 view w/MAC 3 documented in this encounter Miscellaneous Notes * Addendum Note - Zenon Hart MD - 06/01/2019 11:33 AM PDT Addendum created 06/01/19 1133 by Zenon Hart MD Intraprocedure Event edited, Sign clinical note * Anesthesia Pre-Op Marjorie Orozco MD - 05/31/2019 10:35 AM PDT Pre-Anesthesia Assessment Note NPO Since: 0100 Pre-op Diagnosis: Malignant neoplasm of cervix, unspecified site (HCC) Proposed Procedure: Procedure(s): LAPAROTOMY MODIFIED HYSTERECTOMY RADICAL LAPAROTOMY STAGING Medical History: Past Medical History: Diagnosis Date ??? Anxiety ??? Chicken pox ??? Hay fever ??? Skin tumors, generalized Surgical History: Past Surgical History: Procedure Laterality Date ??? HX APPENDECTOMY ??? HX LEEP PROCEDURE 20 years ago Use Of: Alcohol: no Smoking: no Other: no Allergies: No Known Allergies Current Medications: Reviewed ASSISTANT FACILITY MANAGER medication list. Prior to Admission Medications Prescriptions Last Dose Taking? levonorgestrel-ethinyl estradiol (JOLESSA) 0.15 mg-30 mcg (91) 3 month pack 05/30/2019 at Unknown time Yes Sig: TAKE 1 TABLET BY MOUTH DAILY loratadine (CLARITIN PO) Yes Si tablet daily. sulfamethoxazole-trimethoprim (BACTRIM DS) 800-160 mg oral tablet 05/31/2019 at 0800 Yes Sig: Take 1 tablet by mouth 2 times daily for 5 days. Take with plenty of fluids. Facility-Administered Medications: None Visit Vitals BP 141/82 (BP Location: Left arm, Patient Position: Semi-Bradshaw) Pulse 67 Resp 18 Ht 1.74 m (5' 8.5) Wt 64.7 kg (142 lb 9.6 oz) SpO2 99% BMI 21.37 kg/m?? Pertinent Lab/Diagnostic Tests: EKG - CXR - ECHO - Risks/benefits to regional anesthesia discussed prior to surgery. Pt agrees to block at end of surgery prior to emergence. Physical Exam Airway: () Mallampati: II (soft palate, fauces visible) Neck Mobility: full range of motion TM Distance (Finger Breadths): 3 Mouth Opening: adequate Dental: intact () Heart: Rate: normal Rhythm: regular Murmur Type: () Murmur Intensity: Comments: () Lungs: lungs clear to auscultation () Back: N/A () Neuro: awake and alert; oriented to person, place, and time () Pain Score: 0 - No pain Anesthesia Plan Based upon a chart review of pertinent history, a review of pertinent lab results and the above assessment: ASA 3 Anesthesia Type: general Induction Type: IV Patient Monitoring: ASA standard Post Anesthetic Plan: PACU Case Reporting Type: general Informed consent: The anesthetic risks, benefits, and options have been explained and the patient/family accept the plan. documented in this encounter Plan of Treatment Upcoming Encounters Date Type Department Care Team (Late st Contact Info) Description 10/30/2024 3:00 PM PST Initial consult [facility]/[address] [address] Jesu Dawkins MD [address] [address] Pending Results Name Type Priority Associated Diagnoses Date /Time Intraop Airway Management ME Charge Routine 05/31/2019 11:52 AM PDT documented as of this encounter Procedures Procedure Name Priority Date/Time Associated Diagnosis Comments INTRAOP AIRWAY MANAGEMENT Routine 05/31/2019 11:52 AM PDT Procedure Note - Marjorie Zee MD - 05/31/2019 11:52 AM PDTThis note is in progress. Intraop Airway Management Date/Time: 05/31/2019 11:06 AM Site: Oral Intubation method: direct Airway Equipment: MAC blade: 3 Airway Device: ETT type: standard ETT size: 7.0 ETT Cuffed: Yes Procedure Details: Atraumatic: Yes Rapid Sequence: Yes Cricoid: No VVC: Yes EtC02: Yes Equilateral bilateral breath sounds: Yes Cuff inflated: Yes Difficult: No Procedure Events: Patient tolerated the procedure well with no immediate complications Comments:grade 1 view w/MAC 3 documented in this encounter Visit Diagnoses Not on filedocumented in this encounter Administered Medications Inactive Administered Medications - up to 3 most recent administrations Medication Order MAR Action Action Date Dose Rate Site ceFAZolin (ANCEF) injection INTRA-PROCEDURE ONLY, Starting on Wed05/31/19 at 1116, Anesthesia Intra-op Given 05/31/2019 11:16 AM PDT 2,000 mg dexamethasone (DECADRON) 4 mg/mL injection INTRA-PROCEDURE ONLY, Intra-procedure use, Starting on Wed05/31/19 at 1108, Anesthesia Intra-op Given 05/31/2019 11:08 AM PDT 8 mg fentaNYL citrate (SUBLIMAZE) injection INTRA-PROCEDURE ONLY, Starting on Wed05/31/19 at 1104, Anesthesia Intra-op Given 05/31/2019 11:04 AM PDT 100 mcg glycopyrrolate (ROBINUL) injection INTRA-PROCEDURE ONLY, Intra-procedure use, Starting on Wed05/31/19 at 1131, Anesthesia Intra-op Given 05/31/2019 11:31 AM PDT 0.2 mg HYDROmorphone (DILAUDID) injection INTRA-PROCEDURE ONLY, Starting on Wed05/31/19 at 1157, Anesthesia Intra-op Given 05/31/2019 11:57 AM PDT 1 mg Given 05/31/2019 11:43 AM PDT 1 mg lactated Ringers continuous IV infusion INTRA-PROCEDURE CONTINUOUS, Starting on Wed05/31/19 at 1055, Anesthesia Intra-op New Bag/Syringe/Cartridge 05/31/2019 12:02 PM PDT New Bag/Syringe/Cartridge 05/31/2019 10:55 AM PDT midazolam (VERSED) injection INTRA-PROCEDURE ONLY, Starting on Wed05/31/19 at 1100, Anesthesia Intra-op Given 05/31/2019 12:02 PM PDT 2 mg Given 05/31/2019 11:00 AM PDT 2 mg ondansetron (ZOFRAN) 4 mg/2 mL injection INTRA-PROCEDURE ONLY, Starting on Wed05/31/19 at 1311, Anesthesia Intra-op Given 05/31/2019 1:11 PM PDT 8 mg propofol (DIPRIVAN) (10 mg/mL) infusion INTRA-PROCEDURE CONTINUOUS, Starting on Wed05/31/19 at 1135, Anesthesia Intra-op Rate Change 05/31/2019 12:50 PM PDT 20 mcg/kg/min 7.764 mL/hr Rate Change 05/31/2019 12:02 PM PDT 75 mcg/kg/min 29.115 m L/hr New Bag/Syringe/Cartridge 05/31/2019 11:35 AM PDT 60 mcg/k g/min 23.292 mL/hr propofol (DIPRIVAN) (10 mg/mL) iv push INTRA-PROCEDURE ONLY, Starting on Wed05/31/19 at 1105, Anesthesia Intra-op Given 05/31/2019 11:05 AM PDT 200 mg ranitidine (ZANTAC) injection INTRA-PROCEDURE ONLY, Starting on Wed05/31/19 at 1100, Anesthesia Intra-op Given 05/31/2019 11:00 AM PDT 50 mg rocuronium (ZEMURON) injection INTRA-PROCEDURE ONLY, For Intra-procedure use, Starting on Wed05/31/19 at 1120, Anesthesia Intra-op Given 05/31/2019 12:31 PM PDT 10 mg Given 05/31/2019 11:20 AM PDT 50 mg sugammadex (BRIDION) injection INTRA-PROCEDURE ONLY, Starting on Wed05/31/19 at 1342, Anesthesia Intra-op Given 05/31/2019 1:42 PM PDT 259 mg documented in this encounter Additional Health Concerns Assessment Noted Time PHQ-9 Depression Total Score: 0 05/31/20 19 6:00 PM PDT documented as of this encounter Care Teams Diesel Pile Driver Operator Relationship Specialty Start Date End Date Angela Heard MD PCP - General Obstetrics & Gynecology 05/25/1909/26 documented as of this encounter
--- OUTSIDE RECORDS SUMMARY | 2024-10-05 21:05 | XMS_ITS | Encounter Summary ---
Author Organization [facility] Address [address] [facility] [place] [address] Phone Care Team Providers Care Log Marker Name Role Phone Angela Heard MD Primary Care Provider [phone] Reason for Visit * Auth/Cert Specialty Diagnoses / Procedures Referred By Stanislav t Referred To Contact Diagnoses Malignant neoplasm of cervix, unspecified site (HCC) Procedures KS EXPLORATORY OF ABDOMEN [place] RADICAL ABD HYSTEREC+PELV NODES [place] LAPAROTOMY FOR STAGING OVAR MALIG LAPAROTOMY HYSTERECTOMY RADICAL LAPAROTOMY STAGING Referral ID Status Reason Start Date Expiration Date Visits Re quested Visits Authorized [id number] 1 1 Encounter Details Date Type Department Care Team (Latest Contact Info) Description 05/31/2019 9:24 AM PDT - 06/03/2019 1:07 PM PDT Hospital Encounter 8-SE [address] [place], [place] [id number] [phone] ([phone]) Waldo Vann MD [address] [facility] [address] [place], [place] [id number] Malignant neoplasm of cervix, unspecified site (HCC) Discharge Disposition: Home Social History Tobacco Use [...] Sign Reading Time Taken Comments Blood Pressure 109/65 06/03/2019 12:32 PM PDT Pulse 61 06/03/2019 12:32 PM PDT Temperature 34.8 ??C (94.6 ??F) 06/03/2019 12:32 PM P DT Respiratory Rate 18 06/03/2019 12:32 PM PDT Oxygen Saturation 97% 06/03/2019 12:32 PM PDT Inhaled Oxygen Concentration - - [...] Discharge Summary 06/03/2019 9:02 AM Leah Guerra [id number] Admit Date/Time: 05/31/2019 9:24 AM Discharge Date/Time: [...] weeks (no sex, tampons, douching). DISCHARGE MEDICATIONS: Leah Guerra Home Medication Instructions CHERRI:[id number] Printed on:06/03/19901 Medication Information docusate (COLACE) 100 mg capsule [...] PGY3: Jesusita Diamond MD 06/03/19 9:02 AM FRUIT HARVEST MACHINE OPERATOR Oncology Resident: [id number] documented in this encounter Discharge Instructions * Discharge Instructions* Wendi Reilly RN - 06/03/2019 11:47 AM PDT [facility] Patient/Caregiver Instructions at Home and Goals [...] Dr. Vann in 7 days, phone #: [phone], call for appointment date and time. You should schedule an appointment to follow up with the physician listed below 3 days for voiding trial * Attachments The following attachments cannot be sent through Care Everywhere. * Indwelling Urinary Catheter Care Adult Csqz-ib-Onwx (Vincentian) * Indwelling Urinary Catheter Care Adult (Vincentian) * Indwelling Urinary Catheter Insertion Care After (Vincentian) documented in this encounter Medications at Time [...] lb 9.6 oz), SpO2 97 %. Vitals: 06/02/19 2005 06/03/19 0244 06/03/19 0320 06/03/19 0409 BP: 123/69 [...] 6:30 AM Gynecologic Oncology Resident Please call [phone] to reach Return Clerk-Onc resident regarding any issues FRUIT HARVEST MACHINE OPERATOR ONC FELLOW ADDENDUM: I saw and evaluated [...] to complete a 14 day course. Cat Duomnt MD Gynecologic Oncology Fellow 06/03/2019 6:54 AM Please call [phone] to speak to the first call resident for FRUIT HARVEST MACHINE OPERATOR ONC Gynecologic Oncology Attending Note - Coverage [...] anticipate tomorrow Jesusita Diamond 06/02/2019 5:08 PM FRUIT HARVEST MACHINE OPERATOR team Voalte: [id number] Cosigned by Waldo Vann MD at 06/04/2019 [...] PGY2: Cat Dumont MD 06/01/19 7:15 AM FRUIT HARVEST MACHINE OPERATOR Oncology Resident: [id number] FRUIT HARVEST MACHINE OPERATOR ONC FELLOW ADDENDUM: I saw and evaluated this patient with the resident. Briefly, Leah Guerra is a 53 year old female who is POD 1 from the aforementioned procedure. She is doing well overall. Continue post-operative care and to advance through milestones. Anticipate discharge in 1-2 days. Cat Dumont MD Gynecologic Oncology Fellow 06/01/2019 7:15 AM Please call [phone] to speak to the first call resident for FRUIT HARVEST MACHINE OPERATOR ONC Attending note I have seen and [...] PGY3: Jesusita Diamond MD 05/31/19 5:31 PM FRUIT HARVEST MACHINE OPERATOR Oncology Resident: [id number] documented in this encounter H&P Notes * [...] PM PDT PATIENT: LEAH GUERRA MED REC: [id number] [facility] DICTATOR: WALDO VANN M.D. 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 OPERATIONS PERFORMED: Laparotomy, modified radical hysterectomy, bilateral pelvic lymph node dissection. SURGEON: Waldo Vann M.D. COMPLIANCE ADMINISTRATOR: Criminalist: Cat Dumont, Fellow. Second Insulation Board Head Saw Operator: Joana Garcia MD, Resident. ANESTHESIA: General [...] to the bladder. I now established the Barney retractor and packed away the bowel cephalad [...] cuff I closed with a series of [id number] sutures of 0 Vicryl. There wasexcellent hemostasis. [...] removed the laparotomy sponges and disassembled the Roebrt retractor. I performed a visual manual sweep [...] during the entire procedure. Waldo Vann M.D. [facility]/[id number] JOB#: [id number] cc: Joana Garcia M.D. * Post-Op (Brief [...] A : RIGHT PELVIC LYMPH NODE Tissue FRUIT HARVEST MACHINE OPERATOR SURGICAL PATHOLOGY Waldo Vann MD 05/31/2019 1134 B : LEFT PELVIC LYMPH NODE Tissue FRUIT HARVEST MACHINE OPERATOR SURGICAL PATHOLOGY Waldo Vann MD 05/31/2019 1146 C : uterus and cervix Tissue FRUIT HARVEST MACHINE OPERATOR SURGICAL PATHOLOGY Waldo Vann MD 05/31/2019 1233 D : vaginal margin suture at distal margin 12 o'clock Tissue FRUIT HARVEST MACHINE OPERATOR SURGICAL PATHOLOGY Waldo Vann MD 05/31/2019 1233 [...] with the patient (or the patient's legal primary care sales representative). I attest that, if there was a reasonable possibility of needing a blood transfusion, the patient (or the patient's legal primary care sales representative) was given the [facility] standardized written summary, pursuant to the Wolf [place] Blood Safety Act ([place] Health and Safety Code#1645, as amended). Signed: [...] bags, and leg strap. Patient agreeable to curing pickling packer her prescriptions at her own pharm. Patient called her [facility] [place] and confirmed the lovenox and norco are [...] urine. * Initial Assessments - Aimee Cain, MELIDA - 06/02/2019 3:11 PM PDT Discharge Planning Evaluation/Assessment: Covering Admit Date: 05/31/2019 Admit Diagnosis: Malignant neoplasm of cervix, unspecified site (HCC) [C53.9] Preferred Language: Vincentian Primary Payor: Mithridion Primary Payor Plan: BLX PPO/EPO OFF EXCHANGE /IFP Secondary Payor: N/A Secondary Payor Plan: N/A PCP: Angela Heard Patient's Prior Location to this Admission: Home Mental Status Prior to Admission: Oriented to person, place, date/time Mental Status Current: Oriented to person, place, date/time Does Anyone Depend On You For Their Care: No Contact Information (Name): Sandi Robert Contact Relationship: Mother Contact Additional Contact (name): [...] of the discharge evaluation results: Yes Patient's primary care sales representative was involved in a discussion of the discharge evaluation results?: No SW met with pt at bedside to introduce self and role. Pt is s/p modified radical hysterectomy. Pt lives alone. She is IND with ADL and does not use an assisted device to ambulate. Her mother, Sandi, is visiting from the [facility] and will stay with the pt for [...] Intensity of Services: 1- Lincoln Cain LCSW, [facility] Blasting [employer] Department of Case Management Cell/Text: [phone] On Voalte or voicemail [phone] (If you have any immediate need for social work assistance after hours, please call [phone] or page [phone]) * Care Plan - [...] 05/31/2019 6:04 PM PDT Recd pt via kierarney, vital signs stable. Skin intact, skin assessed [...] PM PST Initial consult [facility]/LAX [address] [place] [address] [address] [place] [id number] Jesu Dawkins MD [address] [place] [address] [place] [address] documented as of this encounter Procedures Procedure [...] (05/31/2019 10:28 AM PDT) ABO/Rho(D) O POSITIVE [facility] DEPT OF PATHOLOGY & LAB MEDICINE Specimen Expiration 06/03/2019 [facility] DEPT OF PATHOLOGY & LAB MEDICINE Blood (BLOOD) 05/31/2019 10: 28 AM PDT 05/31/2019 10:58 AM PDT Marjorie Zee MD BLOOD BANK ORDERABLES F inal Result Performing Organization Address [facility] Co de Phone Number [facility] DEPT OF PATHOLOGY & LAB MEDICINE [address] [place] [address] * TYPE AND SCREEN (05/31/2019 10:20 AM PDT) Specimen Expiration 06/03/2019 [facility] DEPT OF PATHOLOGY & LAB MEDICINE ABO/Rho(D) O POSITIVE [facility] DEPT OF PATHOLOGY & LAB MEDICINE Antibody Screen NEGATIVE [facility] DEPT OF PATHOLOGY & LAB MEDICINE Confirm ABO O POSITIVE [facility] DEPT OF PATHOLOGY & LAB MEDICINE Blood Bank Comment State law requires that the woman being tested be informed, by her physician, of her Rho(D) typing results. [facility] DEPT OF PATHOLOGY & LAB MEDICINE Blood (BLOOD) 05/31/2019 10: 20 AM PDT 05/31/2019 10:57 AM PDT Marjorie Zee MD BLOOD BANK ORDERABLES F inal Result Performing Organization Address [facility] Co de Phone Number [facility] DEPT OF PATHOLOGY & LAB MEDICINE [address] [facility] [place] [address] * SURGICAL PATHOLOGY (05/31/2019) Tissue (FRUIT HARVEST MACHINE OPERATOR) 05/31/2019 11:3 4 AM PDT Tissue (FRUIT HARVEST MACHINE OPERATOR) 05/31/2019 11:4 6 AM PDT Tissue (FRUIT HARVEST MACHINE OPERATOR) 05/31/2019 12:3 3 PM PDT Tissue (FRUIT HARVEST MACHINE OPERATOR) 05/31/2019 12:3 3 PM PDT Waldo Vann MD PATHOLOGY/CYTOLOGY ORDERABLES Final Result [facility] DEPT OF PATHOLOGY & LAB MEDICINE [address] [place] [address] documented in this encounter Visit Diagnoses Diagnosis [...] Starting on Wed06/01/19 at 0758, Administer per [facility] protocol (CCN 90132), FLUSH EVERY 8 HOURS AND PRN. Given 06/01/2019 7:59 AM PDT 2 mL D5W - LR IV solution at 75 mL/hr, IV Infusion, CONTINUOUS, Starting on Wed05/31/19 at 1630, Post-Op/Procedure New Bag/Syringe/Cartridg e 06/01/2019 3:18 AM PDT 75 mL/hr Rate Verify. 05/31/2019 7:26 PM PDT 75 mL/hr New Bag/Syringe/Cartridge 05/31/2019 3:35 PM PDT 75 mL/hr docusate (DSS) capsule 100 mg 100 mg, [...] Given 06/02/2019 2:09 PM PDT 100 mg lactated Ringers continuous IV infusion at 75 mL/hr, IV Infusion, CONTINUOUS, Starting on Wed05/31/19 at 1400, PACU IV Resume - New Order 05/31/2019 1:37 PM PDT 75 mL/hr loratadine (CLARITIN/ALAVERT) tablet 10 mg 10 mg, [...] Given 06/02/2019 8:37 AM PDT 160 mg simethicone (MYLICON) chewable tablet 80 mg 80 mg, Oral, 3 TIMES DAILY PRN, Flatulence, Starting on Wed05/31/19 at 1515, Post-Op/Procedure Given 06/01/2019 5:23 PM PDT 80 mg sulfamethoxazole-trimethoprim (BACTRIM DS, SEPTRA DS) 800-160 mg [...] Post-Op/Procedure 0800 (Given - Provider: Miri Esquivel RN)2105 (Given - Provider: Adrianna Mcnamara RN) 0837 (Given - Provider: Jessica Clifford, RAISA)2120 (Given - Provider: Luis García RN) 0832 [...] Clifford RN) 0832 (Given - Provider: Wendi Reilly, RAISA) gabapentin (NEURONTIN) capsule 100 mg 100 mg, Oral, 3 TIMES DAILY, First dose on Wed05/31/19 at 1630 0800 (Given - Provider: Miri Esquivel RN)1332 (Given - Provider: Miri Esquivel RN)210 (Given - Provider: Adrianna Mcnamara RN) 0837 (Given - Provider: Jessica Clifford, RAISA)140 (Given - Provider: Jessica Clifford, RAISA)2023 (Given - Provider: Luis García, RAISA) 0832 (Given - Provider: Wendi Reilly, RAISA) loratadine (CLARITIN/ALAVERT) tablet 10 mg 10 mg, Oral, DAILY, First dose on Wed05/31/19 at 1630 0900 (Patient Refused - Provider: Miri Esquivel RN) 0837 (Patient Refused - Provider: Jessica Clifford, RAISA) 0832 (Given - Provider: Wendi Reilly, RAISA) sulfamethoxazole-trimeth oprim (BACTRIM DS, SEPTRA DS) 800-160 mg DS tablet 1 tablet 1 tablet, Oral, 2 TIMES DAILY, First dose on Wed05/31/19 at 2200, Give with adequate amounts of fluid unless NPO or otherwise ordered by physician. 0800 (Given - Provider: Miri Esquivel RN)2105 (Given - Provider: Adrianna Mcnamara RN) 0837 (Given - Provider: Jessica Clifford, RAISA)2121 (Given - Provider: Luis García, RAISA) 0832 (Given - Provider: Wendi Reilly, RAISA) Continuous Medication Order 06/01/2019 06/02/2019 06/03/2019 D5W - LR IV solution (CANCELED) at 75 mL/hr, IV Infusion, CONTINUOUS, Starting on Wed05/31/19 at 1630, Post-Op/Procedure 0318 (New Bag/Syringe/Cartridge - Provider: Rosana Eisenberg RN)0753 (IV Stop - Provider: Miri Esquivel RN) PRN Medication Order 06/01/2019 06/02/2019 06/03/2019 0.9% NaCl (SALINE FLUSH) injection 2 mL 2 mL, IV Line Flush, SEE ADMIN INSTRUCTIONS PRN, Line Care, Starting on Danni 06/01/19 at 0758, Administer per [facility] protocol (CCN 01651), FLUSH EVERY 8 HOURS AND PRN. 0759 [...] Miri Esquivel RN)1723 (Given - Provider: Miri Esquivel RN)2122 (Given - Provider: Adrianna Mcnamara RN) 0144 (Given - Provider: Adrianna Mcnamara RN)0837 (Given - Provider: Jessica Clifford RN)1533 (Given - Provider: Jessica Clifford RN)2120 (Given - Provider: Luis García RN) 0309 (Given - Provider: Luis García RN) oxyCODONE (ROXICODONE) immediate release tablet 5 mg 5 mg, Oral, EVERY 4 HOURS PRN, Moderate Pain (4-6), Starting on Wed05/31/19 at 1946, USE IMMEDIATE RELEASE TABLETS 0122 (Given - Provider: Rosana Eisenberg RN)0739 (Return to Cabinet - Provider: Miri Esquivel RN) 0900 (Given - Provider: Wendi Reilly RN) prochlorperazine (COMPAZINE) tablet 10 mg 10 mg, Oral, EVERY 6 HOURS PRN, Nausea or Vomiting, Starting on Wed05/31/19 at 1515, May give IV if unable to tolerate PO, Post-Op/Procedure simethicone (MYLICON) chewable tablet 160 mg 160 mg, Oral, 3 TIMES DAILY PRN, Cramping, Flatulence, Starting on Wed06/02/19 at 0652 0837 (Given - Provider: Jessica Clifford, RN)2219 (Given - Provider: Luis García RN) simethicone (MYLICON) chewable tablet 80 mg (CANCELED) 80 mg, Oral, 3 TIMES DAILY PRN, Flatulence, Starting on Wed05/31/19 at 1515, Post-Op/Procedure 1723 (Given - Provider: Miri Esquivel RN) documented in this encounter Additional Health Concerns Assessment Noted Time PHQ-9 Depression Total Score: 0 05/31/20 19 6:00 PM PDT documented as of this encounter Care Teams Log Marker Relationship Specialty Start Date End Date Angela Heard MD PCP - General Obstetrics & Gynecology 05/25/1907/26 documented as of this encounter
--- OUTSIDE RECORDS SUMMARY | 2024-10-05 21:05 | XMS_ITS | Summary of Care ---
Author Organization [facility] Address [facility] [address] [place] [address] Care Team Providers Care Medical Safety Director Name Role Phone Tariq Lopez DO Primary Care Provi madeline Reason for Visit * Reason Onset Date Comments Other 06/07/2020 COLON BENEFITS Encounter Details Date Type Department Care Team Description 06/07/2020 Telephone [facility] [address] [facility] [address] [place] [id number] Sadie Porter MD [address] [facility] [address] [place] [address] Other (COLON BENEFITS) Allergies No Known Allergiesdocumented as of this encounter (statuses as of 06/07/2020) Medications Medication Sig Dispensed Refills Start Date End Date Status loratadine (CLARITIN) 10 mg tablet 0 Active sodium sulfate-potassium sulfate-magnesium sulfate (SUPREP BOWEL PREP KIT) oral solutionIndications:Scree kobi for malignant neoplasm of colon,Chronic idiopathic constipation Use as directed. 1 kit 0 12/11/2019 Active documented as of this encounter (statuses as of 06/07/2020) Active Problems Problem Noted Date Screening for malignant neoplasm of colo n 12/11/2019 Last Assessment & Plan: Due now for first colon cancer screening. A discussion was held with the patient [...] will be administered by a Certified Nurse Traffic Operator with the physician in the room. Both anesthesia options will have careful cardiovascular monitoring. - Plan for colonoscopy with suprep Chronic idiopathic constipation 12/11/19 Last Assessment & Plan: Chronic issues for most of her life. She has tried several over the counter options over the years. We discussed the various etiologies of constipation which may include obstructive pathology, pelvic floor dyssynergia, chronic stool retention, motility disorders. These underlying conditions may require further work-up which include possible colonoscopy, ano-rectal manometry, Sitzmark study, MRI defecography, lactulose hydrogen breath test, or SMART pill. The studies were reviewed with the patient and the risks and benefits of each were discussed. - Follow up after procedure to further discuss management options for constipation - Consider daily miralax after cleanse out History of cervical cancer 12/11/2019 Overview: S/p hysterectomy May 2019 Last Assessment & Plan: Assess anal canal for high risk HPV at time of procedure S/P hysterectomy 12/11/2019 Overview: May 2019 Last Assessment & Plan: May 2019 documented as of this encounter (statuses as of 06/07/2020) Immunizations Name Administration Dates Next Due TDAP, (ADOL/ADULT) 04/25/2019 documented as of this encounter Social History Tobacco Use Types Packs/Day Years Used Date Never Smoker Smokeless Tobacco: Never Used Alcohol Use Drinks/Week oz/Week Comments Yes Sex Assigned at Date Recorded Not on file documented as of this encounter Miscellaneous Notes * Telephone Encounter - Kayleen Valentin - 06/07/2020 3:46 PM PDT BLS PPO (GOLD) COLON PRECERT NOT REQUIRED MEDICAL SERVICES WILL BE PERFORMED AT [facility] COLON COV'D (PREVENTIVE) 100% AGES 50 YRS AND ABOVE. 1 EVERY 10 YEARS PER WEB documented in this encounter Plan of Treatment Upcoming Encounters Date Type Specialty Care Team Description 07/12/2020 Off-Site Visit Gastroenterology Sadie Porter MD [address] [address] [phone] Health Maintenance Due Date Last Done Comments Hepatitis C Screening 1965 Cervical Cancer Screening (Pap) 12/24/1997 Breast Cancer Screening 11/24/2013 11/24/2012 Colorectal Cancer Screening (Colonoscopy) 12/24/2017 Vaccine: Zoster (1 of 2) 12/24/2017 Vaccine: Influenza (#1) 2020 Vaccine: Dtap/Tdap/Td (2 - Td) 04/25/2029 04/25/2019 documented as of this encounter Insurance Payer Benefit Plan / Group Subscriber ID Effective Dates Phone Address Type [facility] [place] [id number] 2019-Present PPO documented as of this encounter Advance Directives Documents on File Type Date Recorded Patient Food Counselor Expl anation Power of C Web Developer Advance Directive packet giv en 05/18/19
--- OUTSIDE RECORDS SUMMARY | 2024-10-05 21:05 | XMS_ITS | Encounter Summary ---
Author Organization [facility] Address [address] [facility] [place] [address] Phone Care Team Providers Care Seaport Planning Manager Name Role Phone Angela Heard MD Primary Care Provider [phone] Encounter Details Date Type Department Care Team (Late st Contact Info) Description 06/17/2019 Telephone [facility] [address] [place] [address] Kody Piper MD [address] [facility] [address], [place] [id number] Social History Tobacco Use Types Packs/Day Years [...] as of this encounter Progress Notes * Kody Piper MD - 06/17/2019 11:25 AM PDT Patient called wondering if it is safe for her to take a short 2-1/2-hour flight this coming Wednesday. I counseled her that this is appropriate as long as she wears compression stockings, does leg exercises during the flight, and gets up and walks around during the flight. Patient is still currentlytaking her Lovenox shots we will continue to do that so throughout this week. All questions answered. Signed, Sherie Piper MD Fellow-GynOnc documented in this encounter Plan of Treatment Upcoming Encounters Date Type Department Care Team (Late st Contact Info) Description 10/30/2024 3:00 PM PST Initial consult [facility]/LAX [address] [place] [address] [address] [place] [address] Jesu Dawkins MD [address] [id number] documented as of this encounter Visit Diagnoses Not on filedocumented in this encounter Additional Health Concerns Infection Onset Date Last Indicated Resolved Time ESBL Producing Organism (Ext ended Spectrum Beta-lactamase) Comment:06/08/19 Urine E.coli 06/13/2019 06/13/2019 Assessment Noted Time PHQ-9 Depression Total Score: 0 05/31/20 19 6:00 PM PDT documented as of this encounter Care Teams Seaport Planning Manager Relationship Specialty Start Date End Date Angela Heard MD PCP - General Obstetrics & Gynecology [birth year]09[birth year] documented as of this encounter
--- OUTSIDE RECORDS SUMMARY | 2024-10-05 21:05 | XMS_ITS | Summary of Care ---
Author Organization [facility] Address [facility] [address] [place] [address] Care Team Providers Care Crisis Clinician Name Role Phone Tariq Lopez DO Primary Care Provi madeline Reason for Visit * Reason Onset Date Comments Testing 04/24/2020 coronavirus Encounter Details Date Type Department Care Team Description 04/24/2020 Telephone [facility] [address] [facility] [address] [place] [address] Sadie Porter MD [address] [facility] [address] [place] [address] Testing (coronavirus) Allergies No Known Allergiesdocumented as of this encounter (statuses as of 04/24/2020) Medications Medication Sig Dispensed Refills Start Date End Date Status loratadine (CLARITIN) 10 mg tablet 0 Active sodium sulfate-potassium sulfate-magnesium sulfate (SUPREP BOWEL PREP KIT) oral solutionIndications:Scree kobi for malignant neoplasm of colon,Chronic idiopathic constipation Use as directed. 1 kit 0 12/11/2019 Active documented as of this encounter (statuses as of 04/24/2020) Active Problems Problem Noted Date Screening for [...] be administered by a Certified Nurse Traffic Reporter with the physician in the room. Both anesthesia options will have careful cardiovascular monitoring. - Plan for colonoscopy with priyanka Chronic idiopathic constipation 12/11/19 Last Assessment & [...] as of this encounter (statuses as of 04/24/2020) Immunizations Name Administration Dates Next Due TDAP, (ADOL/ADULT) 04/25/2019 documented as of this encounter Social History Tobacco Use Types Packs/Day Years Used Date Never Smoker Smokeless Tobacco: Never Used Alcohol Use Drinks/Week oz/Week Comments Yes Sex Assigned at Date Recorded Not on file documented as of this encounter Miscellaneous Notes * Telephone Encounter - Hannah Riggs Medical Assistant - 04/24/2020 9:31 AM PDT Called patient regarding COVID test prior to procedure. Informed them to have test done 5-7 days before the procedure, either in our office 8 am - 12 pm [address] [place] [address]. documented in this encounter Plan of Treatment Upcoming Encounters Date Type Specialty Care Team Description 05/03/2020 Off-Site Visit Gastroenterology Sadie Porter MD [address] [address] [phone] 05/17/2020 Office Visit Gastroenterology Sadie Porter MD [address] [address] [phone] Health Maintenance Due Date Last Done Comments [...] [place] [id number] 2019-Present PPO documented as of this encounter Advance Directives Documents on File Type Date Recorded Patient Building Dismantler Expl anation Power of Fluid Pump Operator Advance Directive packet giv en 05/18/19
--- OUTSIDE RECORDS SUMMARY | 2024-10-05 21:05 | XMS_ITS | Summary of Care ---
Author Organization [facility] Address [facility] [address] [place] [address] Care Team Providers Care Section Hand Name Role Phone Tariq Lopez DO Primary Care Provi madeline Encounter Details Date Type Department Care Team Description 02/09/2020 Orders Only [facility] [address] [facility] [address] [place] [address] Sadie Porter MD [address] [facility] [address] [place], [place] [id number] Chronic idiopathic constipation (Primary Dx); Bloating; Screening for malignant neoplasm of colon Allergies No Known Allergiesdocumented as of this encounter (statuses as of 02/09/2020) Medications Medication Sig Dispensed Refills Start Date End Date Status loratadine (CLARITIN) 10 mg tablet 0 Active sodium sulfate-potassium sulfate-magnesium sulfate (SUPREP BOWEL PREP KIT) oral solutionIndications:Scree kobi for malignant neoplasm of colon,Chronic idiopathic constipation Use as directed. 1 kit 0 12/11/2019 Active documented as of this encounter (statuses as of 02/09/2020) Active Problems Problem Noted Date Screening for [...] will be administered by a Certified Nurse Spinning Operator with the physician in the room. [...] as of this encounter (statuses as of 02/09/2020) Immunizations Name Administration Dates Next Due TDAP, [...] geovany ilable. documented as of this encounter Plan of Treatment Upcoming Encounters Date Type Specialty Care Team Description 02/22/2020 Office Visit Gastroenterology Sadie Porter MD [address] [place] [address] 05/03/2020 Off-Site Visit Gastroenterology Sadie Porter MD [address] [place], [place] [id number] Scheduled Orders Name Type Priority Associated Diagnoses Orde r Schedule Coronavirus (COVID-19) NAAT Microbiology Routine Chronic idiopathic constipation Bloating Screening for malignant neoplasm of colon 1 Occurrences starting 02/09/2020 until 02/08/2021 Health Maintenance Due Date Last Done Comments Cervical Cancer Screening (Pap) 12/24/1997 Breast Cancer Screening 11/24/2013 11/24/2012 Colorectal Cancer Screening (Colonoscopy) 12/24/2017 Vaccine: Zoster (1 of 2) 12/24/2017 Vaccine: Influenza (Season Ended) 2020 Vaccine: Dtap/Tdap/Td (2 - Td) 04/25/2029 04/25/2019 documented as of this encounter Visit Diagnoses Diagnosis Chronic idiopathic constipation- Primary Unspecified constipation Bloating Flatulence, eructation, and gas pain Screening for malignant neoplasm of colon documented in this encounter Insurance Payer Benefit Plan / Group Subscriber ID Effective Dates Phone Address Type [facility] [place] [id number] 2019-Present PPO documented as of this encounter Advance Directives Documents on File Type Date Recorded Patient Spinner Frame Expl anation Power of Director Of Marketing Communications Advance Directive packet giv en 05/18/19
--- OUTSIDE RECORDS SUMMARY | 2024-10-05 21:05 | XMS_ITS | Summary of Care ---
Author Organization [facility] Address [facility] [address] [place] [address] Care Team Providers Care Jar Filler Name Role Phone Tariq Lopez DO Primary Care Provi madeline Reason for Visit * Reason Onset Date Comments Other 08/20/2020 Covid Test Encounter Details Date Type Department Care Team Description 08/20/2020 Telephone [facility] [address] [facility] [address] [place] [phone] Sadie Porter MD [address] [facility] [address] [place] [address] Other (Covid Test) Allergies No Known Active Allergiesdocumented as of [...] will be administered by a Certified Nurse Foam Molder with the physician in the room. Both [...] * Telephone Encounter - Leah Cedeño - 08/20/2020 2:33 PM PST Called patient to inform them that there is no COVID test. They will need to go to [facility] at [address] [place] [address] to the outpatient lab in the [facility] between 8 am - 4:30 pm for a rapid COVID test to be run in order to continue with planned procedure. Left voicemail for patient. documented in this encounter Plan of Treatment Upcoming Encounters Date Type Specialty Care Team Description 08/26/2020 Off-Site Visit Gastroenterology Sadie Porter MD [address] [address] [phone] Health Maintenance Due Date Last Done Comments [...] [place] [id number] 2019-Present PPO documented as of this encounter Advance Directives Documents on File Type Date Recorded Patient Delinquent Tax Collector Assistant Expl anation Power of Director Case Advance Directive packet giv en 05/18/19
--- OUTSIDE RECORDS SUMMARY | 2024-10-05 21:05 | XMS_ITS | Summary of Care ---
Author Organization [facility] Address [facility] [address] [place] [address] Care Team Providers Care Electric Milkers Installer Name Role Phone Tariq Lopez DO Primary Care Provi madeline Reason for Visit * Reason Onset Date Comments Other 07/23/2020 COVID TEST Encounter Details Date Type Department Care Team Description 07/23/2020 Telephone [facility] [address] [facility] [address] [place] [phone] Sadie Porter MD [address] [facility] [address] [place] [address] Other (COVID TEST) Allergies No Known Allergiesdocumented as of this encounter (statuses as of 07/23/2020) Medications Medication Sig Dispensed Refills Start Date End Date Status loratadine (CLARITIN) 10 mg tablet 0 Active sodium sulfate-potassium sulfate-magnesium sulfate (SUPREP BOWEL PREP KIT) oral solutionIndications:Scree kobi for malignant neoplasm of colon,Chronic idiopathic constipation Use as directed. 1 kit 0 12/11/2019 Active documented as of this encounter (statuses as of 07/23/2020) Active Problems Problem Noted Date Screening for [...] will be administered by a Certified Nurse Computer Systems Software Architect with the physician in the room. Both [...] as of this encounter (statuses as of 07/23/2020) Immunizations Name Administration Dates Next Due TDAP, (ADOL/ADULT) 04/25/2019 documented as of this encounter Social History Tobacco Use Types Packs/Day Years Used Date Never Smoker Smokeless Tobacco: Never Used Alcohol Use Drinks/Week oz/Week Comments Yes Sex Assigned at Date Recorded Not on file documented as of this encounter Miscellaneous Notes * Telephone Encounter - Leah Cedeño - 07/23/2020 2:15 PM PDT Called patient to inform them that their COVID test has not resulted from the lab yet. They will need to go to [facility] at [address] [place] [address] to the outpatient lab in the [facility] between8 am - 4:30 pm today for a rapid COVID test to be run in order to continue with planned procedure. Left voicemail for patient. documented in this encounter Plan of Treatment Upcoming Encounters Date Type Specialty Care Team Description 07/26/2020 Off-Site Visit Gastroenterology Sadie Porter MD [address] [address] [phone] Health Maintenance Due Date Last Done Comments Hepatitis C Screening 1965 Cervical Cancer Screening (Pap) 12/24/1997 Breast Cancer Screening 11/24/2013 11/24/2012 Colorectal Cancer Screening (Colonoscopy) 12/24/2017 Vaccine: Zoster (1 of 2) 12/24/2017 Vaccine: Influenza (#1) 2020 Vaccine: Dtap/Tdap/Td (2 - Td) 04/25/2029 04/25/2019 documented as of this encounter Insurance Payer Benefit Plan / Group Subscriber ID Effective Dates Phone Address Type [facility] [place] [id number] 2019-Present PPO documented as of this encounter Advance Directives Documents on File Type Date Recorded Patient Urinalysis Technician Expl anation Power of Pyroglazer Advance Directive packet giv en 05/18/19
--- OUTSIDE RECORDS SUMMARY | 2024-10-05 21:05 | XMS_ITS | Summary of Care ---
Author Organization [facility] [place] [employer] [facility] Address [address] [address] Care Team Providers Care Teacher Industrial Arts Name Role Phone Tariq Lopez DO Primary Care [facility] madeline Reason for Visit * Reason Comments Annual Exam Encounter Details Date Type Department Care Team Description 04/25/2019 Office Visit [place] [address] [address] [facility] [address] [place] [address] Tariq Lopez DO [address] [facility] [address] [place] [address] Annual physical exam (Primary Dx) Allergies No Known Allergiesdocumented as of this encounter (statuses as of 04/25/2019) Medications No known medicationsdocumented as of this encounter (statuses as of 04/25/2019) Active Problems No known active problems documented as of this encounter (statuses as of 04/25/2019) Immunizations Name Dates Previously Given Next Due [...] Vital Signs Vital Sign Reading Time Taken Blood Pressure 120/80 04/25/2019 1114 PDT Pulse 66 04/25/2019 1040 PDT Temperature 36.9 ??C (98.5 ??F) 04/25/2019 1 040 PDT Respiratory Rate - - Oxygen Saturation 98% 04/25/2019 104 0 PDT Inhaled Oxygen Concentration - - Weight 65.3 kg (144 lb) 04/25/2019 1040 PDT Height 174 cm (5' 8.5) 04/25/2019 1040 PDT Body Mass Index 21.58 04/25/2019 1040 PDT documented in this encounter Progress Notes * Tariq Lopez, - 04/25/2019 1030 PDT Patient Name: Leah Jones Age: 53 y.o. : 1965 Date of Service: 04/25/2019 (home) PCP: Virgilio Lopez DO Encounter Dept: [place] [address] SUBJECTIVE: History of Present Illness: Leah Jones is a 53 y.o. female new patient presents for annual physical examination. Patient states her fingernails were splitting for months but better now. Patient usually feels cold (for many years). Her skin is dry. Allergies: No Known Allergies Medications: Patient Reported Taking OCP (patient does not know name) Past Medical History: She has a past medical history of Basal cell carcinoma. Family History: Her family history includes Arthritis in her mother; Diabetes in her mother; Hearing loss in her father. Social History: reports that she has never smoked. She has never used smokeless tobacco. She reports that she drinks alcohol. She reports that she does not use drugs. Surgical History: She has a past surgical history that includes Appendectomy. ROS: All pertinent positives are noted in the HPI. All other systems are negative in relation to the chief complaint. OBJECTIVE: BP 120/80 Pulse 66 Temp 36.9 ??C (98.5 ??F) (Tympanic) Ht 1.74 m (5' 8.5) Wt 65.3 kg (144 lb) SpO2 98% BMI 21.58 kg/m?? Physical Examination: GEN: alert and oriented, NAD Skin: moles Thyroid: supple, no goiter HEENT: PEERLA, TMs clear, nl mucosa, good dentition Lungs: CTA B, no wheezes Heart: RRR, no murmurs Breast: no masses, non tender, no nipple discharge Abd: soft, no masses, NT, BS present Ext/MS: nl strength, no deformity Neuro: non focal Reviewed Radiology: No results found. Reviewed Orders/Procedures/Referrals: Orders Placed This Encounter Procedures ??? JAIRON Digital Screening Bilateral ??? Tdap vaccine greater than or equal to 7yo IM [50027] No notes on file Health Maintenance Status: Preventative Services TOPIC LAST DONE NEXT DUE Vaccine: Influenza 06/11/2019 Colorectal Cancer Screening (Colonoscopy) 12/24/2017 Breast Cancer Screening (Ages 50-74) 11/24/2012 12/24/2017 Cervical Cancer Screening (Pap) 12/24/1997 Vaccine: Dtap/Tdap/Td 12/24/1986 Vaccine: Zoster 12/24/2017 ASSESSMENT & PLAN: 1) Annual physical examination Bloodwork, UA Patient sees Dr. Heard (TECHNOLOGY CONSULTANT) SBE monthly Mammogram Tdap today Colonoscopy Recommend Shingrix Continue healthy diet exercise New, Modified, Previous & DC 'd Meds: Patient's Medications No medications on file Follow Up: After care instructions & AVS given. Return if symptoms worsen or fail to improve. or sooner prn worse condition. Electronically signed by: Tariq Lopez DO 04/25/2019 at 11:24 documented in this encounter Plan of Treatment Scheduled Tests Name Priority Associated Diagnoses Order S chedule JAIRON Digital Screening Bilateral Routine Annual physical exam Expected: 04/25/2019, Expires: 06/26/2020 Health Maintenance Due Date Last Done Comments Vaccine: Dtap/Tdap/Td (1 - Tdap) 12/24/1986 Cervical Cancer Screening (Pap) 12/24/1997 Breast Cancer Screening (Ages 50-74) 12/24/201711/11 Colorectal Cancer Screening (Colonoscopy) 12/24/2017 Vaccine: Zoster (1 of 2) 12/24/2017 Vaccine: Influenza (#1) 2019 documented as of this encounter Visit Diagnoses Diagnosis Annual physical exam- Primary Routine general medical examination at a health care facility documented in this encounter Advance Directives Patient has advance care planning documents on file. For more information, please contact: [facility] [address] [place] [address]
--- OUTSIDE RECORDS SUMMARY | 2024-10-05 21:05 | XMS_ITS | Encounter Summary ---
Author Organization [facility] Address [address] [facility] [place] [address] Phone Care Team Providers Care Chlorine Operator Name Role Phone Unavailable Primary Care Provider Unavailabl e Encounter Details Date Type Department Care Team (Late st Contact Info) Description 05/23/2019 Telephone [facility] the [facility] [place] [address] [place] [address] Willard Vann MD [address] [id number] Social History Tobacco Use Types Packs/Day Years [...] Telephone Encounter - Willard Vann MD - 05/23/2019 3:29 PM PDT I called Kori at [phone] at the patient's request. I answered all of the emailed questions. I also reviewed the PET CT from 05/19/19: Abdomen, pelvis, and thighs: Ill-defined markedly hypermetabolic [...] of the likely regionally invasive cervical neoplasm. I reviewed that the normal lymph node findings are reassuring. I would proceed with radical open hysterectomy. While her exam showed a 2 cm lesion, the CT identifies a 5 cm mass; I discussed this would not change my management as it is incongruent with her physical exam. Kori will convey this to the patient. Willard Vann 05/23/2019 3:31 PM documented in this encounter Plan of Treatment Upcoming Encounters Date Type Department Care Team (Late st Contact Info) Description 10/30/2024 3:00 PM PST Initial consult [facility] [address] [place] [address] [place] [id number] Jesu Dawkins MD [address] [place] [address] documented as of this encounter Visit Diagnoses Not on filedocumented in this encounter
--- OUTSIDE RECORDS SUMMARY | 2024-10-05 21:05 | XMS_ITS | Summary of Care ---
Author Organization [facility] an [employer] [facility] Address [facility] [address] [place] [address] Care Team Providers Care Material Attendant Name Role Phone Tariq Lopez DO Primary Care Provi madeline Reason for Referral * (Routine) Status Reason Specialty Diagnoses / Procedures Referred By Contact Referred To Contact Pending Review Specialty Services Required Gastroenterology Diagnoses Screening for malignant neoplasm of colon Audrey Rodrigez NP [address] [facility] [address] [place] [address] [facility] [address] [place] [address] [address] [place] [address] Reason for Visit * Reason Comments Other colon screening Encounter Details Date Type Department Care Team Description 12/11/2019 Office Visit [facility] [address] [facility] [facility] [facility] [address] [place] [address] Sadie Porter MD [address] [facility] [address] [place], [place] [phone] Screening for malignant neoplasm of colon (Primary Dx); Chronic idiopathic constipation; Bloating; History of cervical cancer; S/P hysterectomy Allergies No Known Allergiesdocumented as of this encounter (statuses as of 12/18/2019) Medications Medication Sig Dispensed Refills Start Date End Date Status loratadine (CLARITIN) 10 mg tablet 0 Active sodium sulfate-potassium sulfate-magnesium sulfate (SUPREP BOWEL PREP KIT) oral solutionIndications:Scree kobi for malignant neoplasm of colon,Chronic idiopathic constipation Use as directed. 1 kit 0 12/11/2019 Active documented as of this encounter (statuses as of 12/18/2019) Active Problems Problem Noted Date Screening for [...] will be administered by a Certified Nurse German Tutor with the physician in the room. Both [...] as of this encounter (statuses as of 12/18/2019) Immunizations Name Administration Dates Next Due TDAP, [...] Sign Reading Time Taken Comments Blood Pressure 145/93 12/11/2019 10:19 AM PST Pulse 64 12/11/2019 10:19 AM PST Temperature 36.7 ??C (98 ??F) 12/11/2019 10:19 AM PST Respiratory Rate - - Oxygen Saturation - - Inhaled Oxygen Concentration - - Weight 60.8 kg (134 lb) 12/11/2019 10:19 AM PST Height 172.7 cm (5' 8) 12/11/2019 10:19 AM PST Body Mass Index 20.37 12/11/2019 10:19 AM PST documented in this encounter Patient Instructions * Patient Instructions* Audrey Rodrigez NP - 12/11/2019 10:00 AM PST - Colonoscopy now for colon cancer screening - Follow up after colonoscopy to discuss in more detail options to better work up and manage chronic constipation Colorectal Cancer Screening Colorectal cancer is cancer in the colon or rectum. It is a??leading cause of cancer deaths in the [place] But when this cancer is found and removed early, the chances of a full recovery are very good. Because colorectal cancer rarely causes symptoms in its early stages, screening for the disease is important. It???s even more crucial if you have risk factors for the disease. Learn more about colorectal cancer and its risk factors. Then talk to your healthcare provider about being screened. Risk factors for colorectal cancer Your risk of having colorectal cancer increases if you: ?? Are 50 years of age or older ?? Have a family history or personal history of colorectal cancer or??polyps ?? Have a personal history of type 2 diabetes, Crohn???s disease, or ulcerative colitis ?? Have an inherited genetic syndrome like Serna syndrome (HNPCC) or familial adenomatous polyposis(FAP) ?? Are very overweight ?? Are not physically active ?? Smoke ?? Drink a lot of alcohol ?? Eat a lot of red or processed meat The colon and rectum Waste from food you eat enters the colon from the small intestine. As it travels through the colon,the waste (stool) loses water and becomes more solid. Intestinal muscles push it toward the sigmoidcolon. This is the last section of the colon. Stool then moves into the rectum, where it???s storeduntil it???s ready to leave the body during a bowel movement. How colorectal cancer starts Polyps are growths that form on the inner lining of the colon or rectum. Most are benign, which means they aren???t cancer. But over time, some polyps can become cancer (malignant). This happens whencells in these polyps begin growing abnormally. In time, malignant cells invade more of the colon and rectum. The cancer may also spread to nearby organs or lymph nodes or to other parts of the body.Finding and removing polyps can help prevent cancer from forming. Your screening Screening means looking for a health problem before you have symptoms. During screening for colorectal cancer, your healthcare provider will ask about your health history, examine you, and do 1 or more tests. To start, you may have: ?? Health history questions to answer. Your healthcare provider will ask about your health history.Mention if a family member has had colon cancer or polyps. Also mention any health problems you have had in the past. ?? Digital rectal exam (RAGHU). During a RAGHU, the healthcare provider inserts a lubricated gloved finger into the rectum. The test is painless and takes less than a minute. This test alone is not enough to screen for colorectal cancer. You will also need one of the below tests. Screening test choices Fecal occult blood test (FOBT) or fecal immunochemical test (FIT) These tests check for blood in stool that you can???t see (hidden or occult blood). Hidden blood may be a sign of colon polyps or cancer. A small sample of stool is tested for blood in a laboratory. Most often, you collect this sample at home using a kit your healthcare provider gives you. Follow the instructions carefully for using this kit. You might need to not eat certain foods and not take certain medicines before the test, as directed. Stool DNA test This test looks for DNA changes in cells in the stool. These DNA changes might be signs of cancer. It also looks for hidden blood in stool. For this test, you collect an entire bowel movement. This is done using a special container put in the toilet. The sample is then sent to a lab for testing. Barium enema with contrast (double-contrast barium enema) This test uses X-rays to create images of the entire colon and rectum. The day before this test, you will need to do a bowel prep to clean out the colon and rectum. A bowel prep is a liquid diet plusstrong laxatives or enemas. You will be awake for the test, but you may be given medicine to help you relax. At the start of the test, a healthcare provider who specializes in imaging tests (radiologist) places a soft tube into the rectum. The tube is used to fill the colon with a contrast liquid (barium) and air. This can be uncomfortable for some people. The liquid helps the colon show up clearly on the X-rays. Because the test uses X-rays, it exposes you to a small amount of radiation. Virtual colonoscopy This exam is also called a CT colonography. It??uses a series of X-ray photographs to create a 3-D view of the colon and rectum. The day before the test, you will need to do a bowel prep to clean outyour colon. Your healthcare provider will give you instructions on how to do this. During the procedure, you will lie on a table that is part of a special X-ray machine called a CT scanner. A small tube will be placed into your rectum to fill the colon and rectum with air. This can be uncomfortablefor some people. Then, the table will move into the machine and pictures will be taken of your colon and rectum. A computer will combine these photos to create a 3-D picture. Because the test uses X-rays, it exposes you to a small amount of radiation. Scope exams Here are 2 types of scope exams: ?? Colonoscopy.??This test can be used to find and remove polyps anywhere in the colon or rectum. The day before the test, you will do a bowel prep. This is a liquid diet plus a strong laxative solution or an enema. The bowel prep will??cleanse your colon. You will be given instructions for this. Just before the test, you are given a medicine to make you sleepy. Then, a long, flexible, lighted tube called a colonoscope is gently inserted into the rectum and guided through the entire colon. Images of the colon are viewed on a video screen. Any polyps that are found are removed and sent to a lab for testing. If a polyp can???t be removed, a sample of tissue is taken and the polyp might be removed later during surgery. You will need to bring someone with you to drive you home after this test. Colonoscopy is the only screening test that lets your healthcare provider see the entire colon andrectum. This test also lets your healthcare provider remove any pieces of tissue that need to be looked at by a lab. If something suspicious is found using any other tests, you will likely need a colonoscopy. ?? Sigmoidoscopy.??This test is similar to colonoscopy, but focuses only on the sigmoid colon and rectum. As with colonoscopy, bowel prep must be done the day before this test. It might not need to be as complete as the bowel prep for a colonoscopy. You are awake during the procedure, but you may be given medicine to help you relax. During the test, the healthcare provider guides a thin, flexible, lighted tube called a sigmoidoscope through your rectum and lower colon. The images are displayed on a video screen. Polyps are removed, if possible, and sent to a lab for testing. ?? When to call your healthcare provider after a test Call your healthcare provider if you have any of the following after any screening test: ?? Bleeding ?? Fever of 100.4??F (38??C) or higher, or as directed by your healthcare provider ?? Abdominal pain ?? Vomiting Date Last Reviewed: 09/10/2017 ?? [id number] [employer]. [address] [place] [address]. All rights reserved. This information is not intended as a substitute for professional medical care. Always follow your healthcare professional's instructions. Constipation (Adult) Constipation means that you have bowel movements that are less frequent than usual. Stools often become very hard and difficult to pass. Constipation is very common. At some point in life, it affects almost everyone. Since everyone's bowel habits are different, what is constipation to one person may not be to another. Your healthcare provider may do tests to diagnose constipation. It depends on what??he or she??finds when evaluatingyou. Symptoms of constipation include: Abdominal pain Bloating Vomiting Painful bowel movements Itching, swelling, bleeding, or pain around the anus Causes Constipation can have many causes. These include: Diet low in fiber Too much dairy Not drinking enough liquids Lack of exercise or physical activity (especially true for older adults) Changes in lifestyle or daily routine, including , aging, work, and travel Frequent use or misuse of laxatives Ignoring the urge to have a bowel movement or delaying it until later Medicines, such as certain prescription pain medicines, iron supplements, antacids, certain antidepressants, and calcium supplements Diseases like irritable bowel syndrome, bowel obstructions, stroke, diabetes, thyroid disease, Parkinson disease, hemorrhoids, and colon cancer Complications Potential complications of constipation can include: Hemorrhoids Rectal bleeding from hemorrhoids or anal fissures??(skin tears) Hernias Dependency on laxatives Chronic constipation Fecal impaction, a severe form of constipation in which a large amount of hard stool is in your rectum that you can't pass Bowel obstruction or perforation Home care All treatment should be done after talking with your healthcare provider. This is especially true if you have another medical problems, are taking prescription medicines, or are an older adult. Treatment most often involves lifestyle changes. You may also need medicines. Your healthcare provider will tell you which will work best for you. Follow the advice below to help avoid this problem in the future. Lifestyle changes These lifestyle changes can help prevent constipation: Diet. Eat a high-fiber diet, with fresh fruit and vegetables, and reduce dairy intake, meats, and processed foods Fluids. It's important to get enough fluids each day. Drink plenty of water when you eat more fiber. If you are on diet that limits the amount of fluid you can have, talk about this with your healthcare provider. Regular exercise. Check with your healthcare provider first. Medicines Take any medicines as directed. Some laxatives are safe to use only every now and then. Others can be taken on a regular basis. While laxatives don't cause bowel dependence, they are treating the symptoms. So your constipation may return if you don't make other changes. Talk with your healthcare provider or pharmacist if you have questions. Prescription pain medicines can cause constipation. If you are taking this kind of medicine, ask your healthcare provider if you should also take a stool softener. Medicines you may take to treat constipation include: Fiber supplements Stool softeners Laxatives Enemas Rectal suppositories Follow-up care Follow up with your healthcare provider if symptoms don't get better in the next few days. You may need to have more tests or see a specialist. Call 911 Call 911 if any of these occur: Trouble breathing Stiff, rigid abdomen that is severely painful to touch Confusion Fainting or loss of consciousness Rapid heart rate Chest pain When to seek medical advice Call your healthcare provider right away if any of these occur: Fever of 100.4??F (38??C) or higher, or as directed by your healthcare provider Failure to resume normal bowel movements Pain in your abdomen or back gets worse Nausea or vomiting Swelling in your abdomen Blood in the stool Black, tarry stool Involuntary weight loss Weakness Date Last Reviewed: 03/11/2018 ?? [id number] [employer]. [address] [place] [address]. All rights reserved. This information is not intended as a substitute for professional medical care. Always follow your healthcare professional's instructions. documented in this encounter Progress Notes * Sadie Porter MD - 12/11/2019 10:00 AM PST Creating healthier formerly [facility], [facility], together [address] [place] [phone] Patient Name: Leah Jones Age: 53 y.o. : 1965 Date of Service: 12/11/2019 (home) Referring Provider: No ref. provider found Encounter Dept: [facility] Payor: Payor: [facility] [place] / Plan[place] CV[place] / Product Type: PPO / SUBJECTIVE: CC: Chief Complaint Patient presents with ??? Other colon screening History of Present Illness: Leah Jones is a 53 y.o. 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 Lopez. She has one paternal uncle with colon cancer, diagnosed in his 60s she thinks, he had never had colonoscopy. She is not aware of any other colon cancer on that side of the family. She just had a hysterectomy for cervical cancer. She reports she's always had trouble with digestion and bowel movements. She takes a lot of fiber pills and eat a lot of vegetables. She has some periods where she has no problem and then other timesshe struggles. After her hysterectomy in May, she had more issues, and felt off for 6 months after. She has tried tumeric pills that a friend gave her which was actually helpful. She's tried several things, which will help for a period of time and then stop working. She notes her mother has alsoalways had digestive issues but doesn't talk about it much. She can have bloating and a sense of fullness with it, but no pain associated with her constipation. She has hemorrhoids and sometimes has blood streaking she relates to hemorrhoids flares. She denies anemia. She had some unintentional weight loss after her surgery. She denies any upper digestive issues now. She saw Dr. Davies in 2006 for GERD, but her symptoms went away. She doesn't need to take any acid reducing medications now. She denies chronic cough or dysphagia. Chronic Problem List: Patient Active Problem List [...] Gastrointestinal: Positive for abdominal pain and constipation. Negative for heartburn. Genitourinary: Negative. Musculoskeletal: Negative. Skin: Negative. Neurological: Negative. Endo/Heme/Allergies: Negative. Psychiatric/Behavioral: Negative. I have reviewed this ROS with the patient. OBJECTIVE: BP (!) 145/93 Pulse 64 Temp 36.7 ??C (98 ??F) (Oral) Ht 1.727 m (5' 8) Wt 60.8 kg (134 lb) BMI 20.37 kg/m?? Physical Examination: Physical Exam Vitals signs reviewed. Constitutional: Appearance: Normal appearance. HENT: Head: Normocephalic and atraumatic. Eyes: Conjunctiva/sclera: Conjunctivae normal. Neck: Musculoskeletal: Neck supple. Cardiovascular: Rate and Rhythm: Normal rate and regular rhythm. Heart sounds: Normal heart sounds. Pulmonary: Effort: Pulmonary effort is normal. Breath sounds: Normal breath sounds. Abdominal: General: Bowel sounds are normal. There is no distension. Palpations: Abdomen is soft. Tenderness: There is no abdominal tenderness. Musculoskeletal: Normal range of motion. Neurological: General: No focal deficit present. Mental Status: She is alert. Mental status is at baseline. Reviewed Lab(s): Recent Results (from the past 1344 hour(s)) [facility] Referral Collection Time: 11/10/19 12:00 AM Result Value Ref Range [facility] TEST 1 SEE NOTE (A) Culture, Wound, Smear Collection Time: 11/10/19 12:00 AM Result Value Ref Range Culture 1+ Corynebacterium species Gram Stain Result No white blood cells (PMNs) seen Gram Stain Result No organisms seen Reviewed Radiology: No results found. Reviewed Orders/Procedures/Referrals: Orders Placed This Encounter Procedures ??? Colonoscopy DHA w/Suprep No notes on file Reviewed Records: Reviewed active problem list, medication list, allergies, family history, social history, notes from last encounter, and recent lab results. ASSESSMENT & PLAN: 1. Screening for malignant neoplasm of colon (Primary) Assessment & Plan: Due now for first [...] will be administered by a Certified Nurse German Tutor with the physician in the room. Both anesthesia options will have careful cardiovascular monitoring. - Plan for colonoscopy with suprep Orders: - Colonoscopy DHA w/Suprep - sodium sulfate-potassium sulfate-magnesium sulfate (SUPREP BOWEL PREP KIT) oral solution; Use as directed. Dispense: 1 kit; Refill: 0 2. Chronic idiopathic constipation Assessment & Plan: Chronic issues for most [...] - Consider daily miralax after cleanse out Orders: - sodium sulfate-potassium sulfate-magnesium sulfate (SUPREP BOWEL PREP KIT) oral solution; Use as directed. Dispense: 1 kit; Refill: 0 3. Bloating 4. History of cervical cancer Assessment & Plan: Assess anal canal for high risk HPV at time of procedure 5. S/P hysterectomy Assessment & Plan: May 2019 New, Modified, Previous & DC 'd Meds: Patient's Medications New Prescriptions SODIUM SULFATE-POTASSIUM SULFATE-MAGNESIUM SULFATE (SUPREP BOWEL PREP KIT) ORAL SOLUTION Use as directed. Start Date: 12/11/2019 End Date: -- Modified Medications No medications on file Discontinued Medications No medications on file Care instructions and warning signs were discussed. Medications per orders. Side effects discussed.All pertinent labs, studies & exam findings were reviewed today and discussed with patient. Patient expresses understanding of assessment & plan. All questions answered. All portions documented in this exam were performed today and the results are accurately documented. This assessment and plan of care was established in coordination with Audrey Rodrigez NP and Dr. Porter, who both assessed and evaluated patient during this visit. Follow Up: After care instructions & AVS given. Return in about 3 months (around 03/12/2020). or sooner prn worse condition. Electronically signed by: Sadie Porter MD 12/11/2019 at 10:26 AM documented in this encounter Miscellaneous Notes * Assessment & Plan Note - Audrey Rodrigez NP - 12/11/2019 10:54 AM PST Associated Problem(s): S/P hysterectomy May 2019 * Assessment & Plan Note - Audrey Rodrigez NP - 12/11/2019 10:51 AM PST Associated Problem(s): History of cervical cancer Assess anal canal for high risk HPV at time of procedure * Assessment & Plan Note - Audrey Rodrigez NP - 12/11/2019 10:45 AM PST Associated Problem(s): Chronic idiopathic constipation Chronic issues for most of her life. [...] - Consider daily miralax after cleanse out * Assessment & Plan Note - Audrey Rodrigez NP - 12/11/2019 10:45 AM PST Associated Problem(s): Screening for malignant neoplasm of colon Due now for first colon cancer screening. [...] will be administered by a Certified Nurse German Tutor with the physician in the room. Both anesthesia options will have careful cardiovascular monitoring. - Plan for colonoscopy with suprep documented in this encounter Plan of Treatment Upcoming Encounters Date Type Specialty Care Team Description 02/16/2020 Off-Site Visit Gastroenterology Sadie Porter MD [address] [facility] [address] [place], [place] [id number] 02/22/2020 Office Visit Gastroenterology Sadie Porter MD [address] [facility] [address], [place] [phone] Scheduled Referrals Name Type Priority Associated Diagnoses Order Schedule Colonoscopy DHA w/Suprep Outpatient Referral Routine Screening for malignant neoplasm of colon Ordered: 12/11/2019 Health Maintenance Due Date Last Done Comments Cervical Cancer Screening (Pap) 12/24/1997 Breast Cancer Screening 11/24/2013 11/24/2012 Colorectal Cancer Screening (Colonoscopy) 12/24/2017 Vaccine: Zoster (1 of 2) 12/24/2017 Vaccine: Influenza (#1) 2019 Vaccine: Dtap/Tdap/Td (2 - Td) 04/25/2029 04/25/2019 documented as of this encounter Visit Diagnoses Diagnosis Screening for malignant neoplasm of colon- Primary Chronic idiopathic constipation Unspecified constipation Bloating Flatulence, eructation, and gas pain History of cervical cancer Personal history of malignant neoplasm of cervix uteri S/P hysterectomy Acquired absence of both cervix and uterus documented in this encounter Advance Directives Documents on File Type Date Recorded 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
--- OUTSIDE RECORDS SUMMARY | 2024-10-05 21:05 | XMS_ITS | Summary of Care ---
Author Organization [facility] Address [facility] [address] [place] [address] Care Team Providers Care Pattern Designer Name Role Phone Tariq Lopez Primary Care Provi madeline Reason for Visit * Reason Comments Other Patient decided to s [place] treatment elsewhere. Encounter Details Date Type Department Care Team Description 05/30/2019 Telephone [facility] G[facility]EC[facility]COL[facility]Y [address] [place] [address] Eduar Hinkle MD [address] [place] [address] Other (Patient decided to seek treatment elsewhere.) Allergies No Known Allergiesdocumented as of this encounter (statuses as of 05/30/2019) Medications Medication Sig Dispensed Refills Start Date End Date Status loratadine (CLARITIN) 10 mg tablet 0 Active levonorgestrel-ethinyl estradiol 0.15-0.03 MG per tablet TAKE 1 TABLET BY MOUTH DAILY 12 03/26/2019 Active documented as of this encounter (statuses as of 05/30/2019) Active Problems No known active problems documented as of this encounter (statuses as of 05/30/2019) Immunizations Name Dates Previously Given Next Due [...] encounter Miscellaneous Notes * Telephone Encounter - Calos Rivera - 05/30/2019 1110 PDT Received email from patient on 05/29/19. Patient decided to seek treatment at [facility] See email below From: Leah Jones [[email or web address] Sent: Wednesday, May 29, 2019 1:10 AM To: Calos Rivera <[email or web address]> Subject: Re: Appointment Hi Alex. Thank you for reaching out. I???m on my way back from my trip now and wanted to let you and the doctor know I???ve decided to go in another direction. But thank you for everything. Leah documented in this encounter Plan of Treatment Upcoming Encounters Date Type Specialty Care Team Description 06/20/2019 Appointment Oncology Eduar Hinkle MD [address] [place], [place] [phone] Health Maintenance Due Date Last Done Comments Cervical Cancer Screening (Pap) 12/24/1997 Breast Cancer Screening (Ages 50-74) 12/24/201711/11 Colorectal Cancer Screening (Colonoscopy) 12/24/2017 Vaccine: Zoster (1 of 2) 12/24/2017 Vaccine: Influenza (#1) 2019 Vaccine: Dtap/Tdap/Td (2 - Td) 04/25/2029 04/25/2019 documented as of this encounter Insurance Payer Benefit Plan / Group Subscriber ID Effective Dates Phone Address Type [facility] [place] [id number] 2008-Present PPO documented as of this encounter Advance Directives Patient has advance care planning documents on file. For more information, please contact: [facility] [address] [place] [address]
--- OUTSIDE RECORDS SUMMARY | 2024-10-05 21:05 | XMS_ITS | Summary of Care ---
Author Organization [facility] Address [facility] [address] [place] [address] Care Team Providers Care Polysomnographic Technician Name Role Phone Tariq Lopez DO Primary Care Provi madeline Reason for Visit * Reason Comments Other COLON BENEFITS Encounter Details Date Type Department Care Team Description 01/23/2020 Telephone [facility] [address] [facility] [address] [place] [phone] Sadie Porter MD [address] [place], [place] [id number] Other (COLON BENEFITS) Allergies No Known Allergiesdocumented as of this encounter (statuses as of 01/23/2020) Medications Medication Sig Dispensed Refills Start Date End Date Status loratadine (CLARITIN) 10 mg tablet 0 Active sodium sulfate-potassium sulfate-magnesium sulfate (SUPREP BOWEL PREP KIT) oral solutionIndications:Scree kobi for malignant neoplasm of colon,Chronic idiopathic constipation Use as directed. 1 kit 0 12/11/2019 Active documented as of this encounter (statuses as of 01/23/2020) Active Problems Problem Noted Date Screening for [...] will be administered by a Certified Nurse Talent Acquisition Consultant with the physician in the room. Both [...] as of this encounter (statuses as of 01/23/2020) Immunizations Name Administration Dates Next Due TDAP, [...] * Telephone Encounter - Kayleen Valentin - 01/23/2020 2:09 PM PDT BLS PPO (GOLD) COLON BENEFITS PRECERT NOT REQUIRED MEDICAL SERVICES WILL BE PERFORMED AT [facility] COLON COV'D (PREVENTIVE) 100% AGES 50 YRS AND ABOVE. 1 EVERY 10 YEARS PER WEB documented in this encounter Plan of Treatment Upcoming Encounters Date Type Specialty Care Team Description 02/16/2020 Off-Site Visit Gastroenterology Sadie Porter MD [address] [address] [phone] 02/22/2020 Office Visit Gastroenterology Sadie Porter MD [address] [facility] [address] [place] [address] [phone] Health Maintenance Due Date Last Done Comments Cervical Cancer Screening (Pap) 12/24/1997 Breast Cancer Screening 11/24/2013 11/24/2012 Colorectal Cancer Screening (Colonoscopy) 12/24/2017 Vaccine: Zoster (1 of 2) 12/24/2017 Vaccine: Influenza (Season Ended) 2020 Vaccine: Dtap/Tdap/Td (2 - Td) 04/25/2029 04/25/2019 documented as of this encounter Insurance Payer Benefit Plan / Group Subscriber ID Effective Dates Phone Address Type BLUE [facility] [place] [id number] 2019-Present PPO documented as of this encounter Advance Directives Documents on File Type Date Recorded Patient Wood Turning Lathe Operator Expl anation Power of Customer Service Operator Advance Directive packet giv en 05/18/19
--- OUTSIDE RECORDS SUMMARY | 2024-10-05 21:06 | XMS_ITS | Summary of Care ---
Author Organization [facility] a Address [address] [facility] [address] [place] [address] Phone Care Team Providers Care Rod Cup Filler Name Role Phone Tariq Lopezdy Primary Care Provi madeline Encounter Details Date Type Department Care Team Description 06/10/2023 Patient Message [place] [id number] [address] [facility] [address] [place] [address] Stacy [place], LegalJump Your Health Summary & Action Steps Allergies No known active allergiesdocumented as of this encounter (statuses as of 07/11/2023) Medications Medication Sig Dispensed Refills Start Date End Date Status loratadine (CLARITIN) 10 mg tablet 0 Active sodium sulfate-potassium sulfate-magnesium sulfate (SUPREP BOWEL PREP KIT) oral solution Take 177 mLs by mouth every 12 hours. 354 mL 0 04/02/2023 Active documented as of this encounter (statuses as of 07/11/2023) Active Problems Problem Noted Date Diagnosed Date Screening for malignant neoplasm of colon 2019 Last Assessment & Plan: A discussion was [...] will be administered by a Certified Nurse Senior Network Administrator with the physician in the room. Both anesthesia options will have careful cardiovascular monitoring. Chronic idiopathic constipation 12/11/2019 Last Assessment & Plan: We discussed the [...] as of this encounter (statuses as of 07/11/2023) Immunizations Name Administration Dates Next Due INFLUENZA PF, QUADRIVALENT 08/24/2020 TDAP, (ADOL/ADULT) 04/25/2019 documented as of this encounter Social History Tobacco Use Types Packs/Day Years Used Date Smoking Tobacco: Never Smokeless Tobacco: Never Alcohol Use Standard Drinks/Week Comments Yes 0 (1 standard drink = 0.6 oz pur e alcohol) PHQ-2 Answer Date Recorded PHQ-2 Total Score 0 04/25/2019 Sex and Gender Information Value Date Recorded Sex Assigned at Not on file Gender Identity Not on file Sexual Orientation Not on file documented as of this encounter Plan of Treatment Upcoming Encounters Date Type Department Care Team Description 09/06/2023 12:45 PM PST Off-Site Visit [facility] [address] [facility] [address] [place], [place] [phone] Sadie Porter MD [address] [facility] [address] [place], [place] [phone] Health Maintenance Due Date Last Done Comments Hepatitis C Screening 1965 Human Immunodeficiency Virus (HIV) Screening 12/24/1982 CT Colonography 12/24/1985 ColoGuard 12/24/1985 FIT 12/24/1985 Sigmoidoscopy 12/24/1985 Vaccine: Zoster (1 of 2) 12/24/2017 COVID-19 Vaccine (3 - Pfizer series) 03/20/2021 04/02/2021, 01/02/2021 Breast Cancer Screening 12/24/2022 11/24/2012 Vaccine: Influenza (#1) 2023 08/24/2020 Cervical Cancer Screening (Pap/HPV) 08/22/202508/22 Vaccine: Dtap/Tdap/Td (2 - Td or Tdap) 04/25/2029 Colonoscopy 08/26/2030 08/26/2020 Colorectal Combination Topic 08/26/2030 documented as of this encounter Additional Health Concerns Assessment Noted Time PHQ-2 Depression Total Score: 0 04/25/20 19 11:12 AM PDT documented as of this encounter Insurance Payer Benefit Plan / Group Subscriber ID Effective Dates Phone Address Type BLUE [facility] [place] OOS POS [id number] 2023-Present [address] [address] [place] [address] POS documented as of this encounter Care Teams Rod Cup Filler Relationship Specialty Start Date End Date Tariq Lopez DO [address] [place] [address] PCP - General Family Medicine 04/25/19 documented as of this encounter
--- OUTSIDE RECORDS SUMMARY | 2024-10-05 21:06 | XMS_ITS | Summary of Care ---
Author Organization [facility] a Address [address] [facility] [address] [place] [address] Phone Care Team Providers Care Account Resolution Specialist Name Role Phone Tariq Lopezdy Primary Care Provi madeline Reason for Visit * Reason Onset Date Comments Procedure 08/31/2023 Pre procedure ca ll Encounter Details Date Type Department Care Team Description 08/31/2023 Telephone [facility] [address] [facility] [address] [place] [address] Sadie Porter MD [address] [facility] [address] [place] [address] Procedure (Pre procedure call) Allergies No known active allergiesdocumented as of this encounter (statuses as of 08/31/2023) Medications Medication Sig Dispensed Refills Start Date End Date Status loratadine (CLARITIN) 10 mg tablet 0 Active sodium sulfate-potassium sulfate-magnesium sulfate (SUPREP BOWEL PREP KIT) oral solution Take 177 mLs by mouth every 12 hours. 354 mL 0 04/02/2023 Active documented as of this encounter (statuses as of 08/31/2023) Active Problems Problem Noted Date Diagnosed Date [...] will be administered by a Certified Nurse Button Tufting Machine Operator with the physician in the room. [...] as of this encounter (statuses as of 08/31/2023) Immunizations Name Administration Dates Next Due INFLUENZA [...] encounter Miscellaneous Notes * Telephone Encounter - Tawnya Schultz Organ Fixer - 08/31/2023 10:09 AM PST Called patient to review pre-procedure check list. Left patient voicemail with the following checklist reminders: Confirmed type of procedure patient is scheduled for. Confirm date and time of arrival. Confirm procedure location. Does patient have a commercial collections driver? Didn't speak with patient Has patient read through their procedure instructions? Didn't speak with patient Does patient have a pacemaker? Is patient taking any blood thinners or GLP-1 agonists medication? a. If yes, has patient stopped medication as indicated? Remind patient to review the [facility] Center's consent forms ahead of time. Has patient picked up their laxative? Didn't speak with patient Notes: documented in this encounter Plan of Treatment Upcoming Encounters Date Type Department Care Team Description 09/06/2023 12:45 PM PST Off-Site Visit [facility] [address] [facility] [address] [place] [address] Sadie Porter MD [address] [place] [address] Health Maintenance Due Date Last Done Comments Hepatitis C Screening 1965 Human Immunodeficiency Virus (HIV) Screening 12/24/1982 CT Colonography 12/24/1985 ColoGuard 12/24/1985 FIT 12/24/1985 Sigmoidoscopy 12/24/1985 Vaccine: Zoster (1 of 2) 12/24/2017 Breast Cancer Screening 12/24/2022 11/24/2012 COVID-19 Vaccine ( season) 2023, 01/02/2021 Vaccine: Influenza (#1) 2023 08/24/2020 Cervical Cancer [...] ID Effective Dates Phone Address Type [place] [place] [employer] [place] O[place] POS [id number] 2023-Present [address] [address] [place] [address] POS documented as of this encounter Care Teams Account Resolution Specialist Relationship Specialty Start Date End Date Tariq Lopez DO [address] [address] PCP - General Family Medicine 04/25/19 documented as of this encounter
--- OUTSIDE RECORDS SUMMARY | 2024-10-05 21:06 | XMS_ITS | Summary of Care ---
Author Organization [facility] Address [facility] [address] [place] [address] Care Team Providers Care Funeral Home Associate Name Role Phone Tariq Lopez DO Primary Care Provi madeline Reason for Visit * Reason Onset Date Comments Recall For Services (DMST) 05/08/2021 Encounter Details Date Type Department Care Team Description 05/08/2021 Patient Outreach [facility] [place] [address] [address] [place] [id number] [place] [phone] Tariq Lopez DO [address] [phone] PHST Preventative Screening, PHST Breast Cancer Screening Allergies No known active allergiesdocumented as of this encounter (statuses as of 05/08/2021) Medications Medication Sig Dispensed Refills Start Date End Date Status loratadine (CLARITIN) 10 mg tablet 0 Active sodium sulfate-potassium sulfate-magnesium sulfate (SUPREP BOWEL PREP KIT) oral solutionIndications:Rail Car Driver 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 1 kit 0 08/20/2020 Active documented as of this encounter (statuses as of 05/08/2021) Active Problems Problem Noted Date Screening for [...] will be administered by a Certified Nurse Cash Applications Clerk with the physician in the room. Both [...] as of this encounter (statuses as of 05/08/2021) Immunizations Name Administration Dates Next Due INFLUENZA PF, QUADRIVALENT 08/24/2020 TDAP, (ADOL/ADULT) 04/25/2019 documented as of this encounter Social History Tobacco Use Types Packs/Day Years Used Date Never Smoker Smokeless Tobacco: Never Used Alcohol Use Standard Drinks/Week Comments Yes 0 (1 standard drink = 0.6 oz pur e alcohol) Sex Assigned at Date Recorded Not on file documented as of this encounter Miscellaneous Notes * Telephone Encounter - Stacy Washington, Ball Assembler - 05/08/2021 11:25 AM PDT Patient shows due for the following Preventative services: Physical (CPE) due now Breast Cancer Screening due now screening mammogram order on file. Contacted patient via Text Message and Warm Call regarding services due. Left voicemail for patient to call back regarding health services due. Automated call/ text message sent to patient regarding health maintenance services due. Population Health Clinical Outreach Services documented in this encounter Plan of Treatment Health Maintenance Due Date Last Done Comments Hepatitis C Screening 1965 Breast Cancer Screening 11/24/2013 11/24/2012 Vaccine: Zoster (1 of 2) 12/24/2017 Vaccine: Influenza (#1) 2021 08/24/2020 Cervical Cancer Screening (Pap) 08/22/2025 0 Vaccine: Dtap/Tdap/Td (2 - Td or Tdap) 04/25/2029 Colorectal Cancer Screening (Colonoscopy) 08/26/2030 08/26/2020 COVID-19 Vaccine Completed 01/23/2021, 01/02/2021 documented as of this encounter Insurance Payer Benefit Plan / Group Subscriber ID Effective Dates Phone Address Type [place] [id number] 2019-Presen t [address] [place] [address] PPO documented as of this encounter Advance Directives Documents on File Type Date Recorded Patient Speech Language Therapist Expl anation Power of Auto Camp Attendant Advance Directive packet giv en 05/18/19 Care Teams Funeral Home Associate Relationship Specialty Start Date End Date Tariq Lopezmiguel [address] [address] PCP - General Family Medicine 04/25/19 documented as of this encounter
--- OUTSIDE RECORDS SUMMARY | 2024-10-05 21:06 | XMS_ITS | Summary of Care ---
Author Organization [facility] a Address [address] [facility] [address] [place] [address] Phone Care Team Providers Care Loom Inspector Name Role Phone Tariq Lopezdy DO Primary Care Provi madeline Reason for Referral * Outpatient Procedures (Routine) - Pending Review Specialty Diagnoses / Procedures Referred By Contac t Referred To Contact Clinic/Center - Endoscopy Diagnoses Encounter for colonoscopy in patient with family history of colon cancer Encounter for colonoscopy due to history of colonic polyp Silvana Oliva PA-C [address] [place] [address] [facility] [address] [place] [address] Referral ID Status Reason Start Date Expiration Date Visits Requested Visits Authorized [id number] Pending Review Specialty Services Required 03/30/2023 09/26/2023 1 1 Scheduling Instructions Prep: Suprep Reason for Visit * Reason Onset Date Comments Colon Cancer Screening 03/22/2023 Encounter Details Date Type Department Care Team Description 03/22/2023 Telephone [facility] [address] [place] [address] Sadie Porter MD [address] [place] [address] Colon Cancer Screening Allergies No known active allergiesdocumented as of this encounter (statuses as of 03/31/2023) Medications Medication Sig Dispensed Refills Start Date End Date Status loratadine (CLARITIN) 10 mg tablet 0 Active sodium sulfate-potassium sulfate-magnesium sulfate (SUPREP BOWEL PREP KIT) oral solutionIndications:Chr onic idiopathic 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 1 kit 0 08/20/2020 Active sodium sulfate-potassium sulfate-magnesium sulfate (SUPREP BOWEL PREP KIT) oral solution Take 177 mLs by mouth every 12 hours. 354 mL 0 03/30/2023 Active documented as of this encounter (statuses as of 03/31/2023) Active Problems Problem Noted Date Diagnosed Date [...] will be administered by a Certified Nurse Chemists with the physician in the room. Both [...] as of this encounter (statuses as of 03/31/2023) Immunizations Name Administration Dates Next Due INFLUENZA [...] encounter Miscellaneous Notes * Telephone Encounter - Ilir Poe U.S. Representative - 03/30/2023 10:06 AM PDT Quan PORTER Patient wants to proceed with a colonoscopy without an office visit. Please review questionnaire and add order. Open Access Colonoscopy Screening Questionnaire: Referring Provider: SELF Is the patient's BMI under 40? (If they don't know, ask for height and weight so we can calculate and confirm) 20.1 Is patient on any blood thinners or diabetes medication? NO If yes, name of medication? NO Over the age of 45? YES 57 Any regular digestive symptoms? (ex. Constipation, diarrhea, GERD) YES, PT STATES CONSTIPATION Any family history of colon cancer? YES, PT STATES FATHERS BROTHER HAD COLON CANCER Any cardiac, respiratory, or kidney issues? NO If yes, what type and last time they saw their specialist? NO Previous procedure or screening (colonoscopy, stool FIT or Cologuard)? When? YES, PT STATES 2017, ITH (Average risk interval for screenings are 10 years after normal colonoscopy, 3 years after normal Cologuard stool test, 1 year after normal FIT stool test. Patients who believe they need more frequent screening should be referred for consult to discuss.) 9. Preferred pharmacy: [facility] IN CHART 10. Insurance Information (if sent through [employer]):IN CHART PER PT CHART, LAST COLONOSCOPY WAS 08/26/2020 W/ DR PORTER. 1 POLYP WAS REMOVED AND BIOPSIED. PATHOLOGY INDICATED COLONIC MUCOSA W/ HYPERPLASTIC CHANGE & LYMPHOID AGGREGATES. NEG FOR DYPLASIA ORMALIGNANCY. RECALL ADVISED REPEAT PROCEDURE IN 3 YRS SUPREP WAS USED PREP QUALITY: EXCELLENT * Telephone Encounter - Carter Bone Assistant - 03/24/2023 1:35 PM PDT Questionnaire sent via my chart * Telephone Encounter - Chyna Madrigal - 03/22/2023 3:07 PM PDT Open Access Scheduling Intake 1) Provider requesting to schedule with: Sadie Porter MD 2) Referring Provider: SELF 3) Demographics and Insurance(s) confirmed: YES 4) Is insurance card in chart? If not ask for number on back of their insurance card: YES 5) Best telephone number: HOME 6) Access to [employer]:SENT LINK documented in this encounter Plan of Treatment Scheduled Referrals Name Type Priority Associated Diagnoses Order Schedule AMB Referral to Miscellaneous Outpatient Referral Routine Encounter For Colonoscopy In Patient With Family History Of Colon Cancer Encounter for colonoscopy due to history of colonic polyp Ordered: 03/30/2023 Health Maintenance Due Date Last Done Comments Hepatitis C Screening 1965 Human Immunodeficiency Virus (HIV) Screening 12/24/1982 CT Colonography 12/24/1985 ColoGuard 12/24/1985 FIT 12/24/1985 Sigmoidoscopy 12/24/1985 Vaccine: Zoster (1 of 2) 12/24/2017 COVID-19 Vaccine (3 - Pfizer series) 03/20/2021 0402/2021, 01/02/2021 Breast Cancer Screening 12/24/2022 11/24/2012 Vaccine: Influenza (Season Ended) 2023 020 Cervical Cancer Screening (Pap/HPV) 08/22/202508/22 Vaccine: Dtap/Tdap/Td (2 - Td or Tdap) 04/25/2029 Colonoscopy 08/26/2030 08/26/2020 Colorectal Combination Topic 08/26/2030 documented as of this encounter Visit Diagnoses Diagnosis Encounter for colonoscopy in patient with family history of colon cancer- Primary Encounter for colonoscopy due to history of colonic polyp Special screening for malignant neoplasms, colon documented in this encounter Additional Health Concerns Assessment Noted Time PHQ-2 Depression Total Score: 0 04/25/20 19 11:12 AM PDT documented as of this encounter Insurance Payer Benefit Plan / Group Subscriber ID Effective Dates Phone Address Type [place] [id number] 2023-Present [address] [address] [place] [address] POS documented as of this encounter Care Teams Loom Inspector Relationship Specialty Start Date End Date Tariq Lopez DO [address] [address] PCP - General Family Medicine 04/25/19 documented as of this encounter
--- OUTSIDE RECORDS SUMMARY | 2024-10-05 21:06 | XMS_ITS | Summary of Care ---
Author Organization [facility] Address [address] [place] [address] Care Team Providers Care Development Intern Name Role Phone Tariq Lopez DO Primary Care Provi madeline Reason for Visit * Reason Onset Date Comments Recall For Services (DMST) 10/01/2020 Encounter Details Date Type Department Care Team Description 10/01/2020 Patient Outreach [facility] [place] [address] [id number] [place] [address] Tariq Lopez DO [address] [address] PHST Preventative Screening Allergies No Known Active Allergiesdocumented as of this encounter (statuses as of 10/01/2020) Medications Medication Sig Dispensed Refills Start Date End Date Status loratadine (CLARITIN) 10 mg tablet 0 Active sodium sulfate-potassium sulfate-magnesium sulfate (SUPREP BOWEL PREP KIT) oral solutionIndications:Sign Artist 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 1 kit 0 08/20/2020 Active documented as of this encounter (statuses as of 10/01/2020) Active Problems Problem Noted Date Screening for [...] will be administered by a Certified Nurse Test Deck Supervisor with the physician in the room. Both [...] as of this encounter (statuses as of 10/01/2020) Immunizations Name Administration Dates Next Due TDAP, (ADOL/ADULT) 04/25/2019 documented as of this encounter Social History Tobacco Use Types Packs/Day Years Used Date Never Smoker Smokeless Tobacco: Never Used Alcohol Use Drinks/Week oz/Week Comments Yes Sex Assigned at Date Recorded Not on file documented as of this encounter Miscellaneous Notes * Telephone Encounter - Candida Medina Medical Assistant - 10/01/2020 3:59 PM PST Medical Records received from: [facility] Abstracted: Pap smear Results have been abstracted, Health Maintenance updated and reports have been sent to scanning. * Telephone Encounter - Stacy Washington, Stove Installer - 10/01/2020 3:12 PM PST Request for Medical Records. Request sent to: [facility] Request for: pap smear External Facility Phone #: [phone] Spoke to: Deisy Gao Fax #: [phone] Awaiting Records. Please abstract results Patient agreed to a future appointment with PCP and mammogram Future Appointments Date Time Provider Department Center 11/16/2020 12:30 PM JV CTI MM 01 JVCTIMAM JV CTI RADIO 11/20/2020 10:00 AM Tariq Lopez DO [facility] [place] Appointment notes have been updated with services due. Abrahan Castañeda Tech Clinical Manager Behavior documented in this encounter Plan of Treatment Upcoming Encounters Date Type Specialty Care Team Description 11/16/2020 Imaging Exam Radiology 11/20/2020 Office Visit Family Medicine Tariq Lopez DO [address] [place], [place] [phone] Health Maintenance Due Date Last Done Comments Hepatitis C Screening 1965 Breast Cancer Screening 11/24/2013 11/24/2012 Vaccine: Zoster (1 of 2) 12/24/2017 Vaccine: Influenza (#1) 2020 Cervical Cancer Screening (Pap) 08/22/2025 0 Vaccine: Dtap/Tdap/Td (2 - Td) 04/25/2029 04/25/2019 Colorectal Cancer Screening (Colonoscopy) 08/26/2030 08/26/2020 documented as of this encounter Procedures Procedure Name Priority Date/Time Associated Diagnosis Comments EXTERNAL LAB: PAP SMEAR Routine 08/22/2020 documented in this encounter Results * External Lab: PAP Smear (08/22/2020) Pap Smear, External No evidence of intraepithelial lesion or malignancyComment:[facility] pap smear report sent to scanning documented in this encounter Insurance Payer Benefit Plan / Group Subscriber ID Effective Dates Phone Address Type [place] FAM [id number] 2019-Present PPO documented as of this encounter Advance Directives Documents on File Type Date Recorded Patient Clinical Safety Specialist Expl anation Power of Auto Locator Advance Directive packet giv en 05/18/19
--- OUTSIDE RECORDS SUMMARY | 2024-10-05 21:06 | XMS_ITS | Summary of Care ---
Author Organization [facility] a Address [address] [facility] [address] [place] [address] Phone Care Team Providers Care Silvering Applicator Name Role Phone Tairq Lopezdy DO Primary Care Provi madeline Reason for Visit * Reason Onset Date Comments Procedure 06/29/2023 Colonoscopy 08/12 Encounter Details Date Type Department Care Team Description 06/29/2023 Telephone [facility] [address] [facility] [address] [place] [address] Sadie Porter MD [address] [facility] [address] [place], [place] [phone] Procedure (Colonoscopy 09/06/2023) Allergies No known active allergiesdocumented as of this encounter (statuses as of 06/29/2023) Medications Medication Sig Dispensed Refills Start Date End Date Status loratadine (CLARITIN) 10 mg tablet 0 Active sodium sulfate-potassium sulfate-magnesium sulfate (SUPREP BOWEL PREP KIT) oral solution Take 177 mLs by mouth every 12 hours. 354 mL 0 04/02/2023 Active documented as of this encounter (statuses as of 06/29/2023) Active Problems Problem Noted Date Diagnosed Date [...] will be administered by a Certified Nurse Security Risk Analyst with the physician in the room. Both [...] as of this encounter (statuses as of 06/29/2023) Immunizations Name Administration Dates Next Due INFLUENZA [...] Miscellaneous Notes * Telephone Encounter - Leah Kwan, Injection Molding Process Technician - 06/29/2023 2:30 PM PDT Request for insurance verification check Insurance: [employer] [place] Procedure: Colonoscopy - [address] Location: [facility] Diagnosis: Encounter for colonoscopy in patient with family history of colon cancer [Z12.11, Z80.0] Encounter for colonoscopy due to history of colonic polyp [Z12.11, Z86.010] Date scheduled for: 09/06/2023 Provider: Sadie Porter MD documented in this encounter Plan of Treatment Upcoming Encounters Date Type Department Care Team Description 09/06/2023 12:45 PM PST Off-Site Visit [facility] [address] [facility] [address] [place], [place] [phone] Sadie Porter MD [address] [facility] [address] [place] [address] Health Maintenance Due Date Last Done Comments [...] [place] OOS POS [id number] 2023-Present [address] [address] [place] [address] POS documented as of this encounter Care Teams Silvering Applicator Relationship Specialty Start Date End Date Tariq Lopez DO [address] [place] [address] PCP - General Family Medicine 04/25/19 documented as of this encounter
--- OUTSIDE RECORDS SUMMARY | 2024-10-05 21:06 | XMS_ITS | Summary of Care ---
Author Organization [facility] a Address [address] [facility] [address] [place] [address] Phone Care Team Providers Care Grey Tender Name Role Phone Tariq Lopez DO Primary Care Provi madeline Reason for Visit * Reason Onset Date Comments Care Gap 02/06/2022 mammo Encounter Details Date Type Department Care Team Description 02/06/2022 Clinic Outreach [facility] [place] [address] [phone] [place] [phone] Tariq Lopez DO [address] [phone] Breast Cancer Screening Allergies No known active allergiesdocumented as of this encounter (statuses as of 02/06/2022) Medications Medication Sig Dispensed Refills Start Date End Date Status loratadine (CLARITIN) 10 mg tablet 0 Active sodium sulfate-potassium sulfate-magnesium sulfate (SUPREP BOWEL PREP KIT) oral solutionIndications:Major Appliance Assembly Supervisor 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 1 kit 0 08/20/2020 Active documented as of this encounter (statuses as of 02/06/2022) Active Problems Problem Noted Date Screening for [...] will be administered by a Certified Nurse Automated Process Operator with the physician in the room. [...] as of this encounter (statuses as of 02/06/2022) Immunizations Name Administration Dates Next Due INFLUENZA [...] encounter Miscellaneous Notes * Telephone Encounter - Abrahan Castellanos Tech - 02/06/2022 2:12 PM PDT Patient has been contacted via Warm Call for the following services: Annual Physical due . Breast Cancer Screening due - 3D order Left voicemail for patient to call back regarding health services due. Quality Outreach Services documented in this encounter Plan of Treatment Health Maintenance Due Date Last Done Comments Hepatitis C Screening 1967 CT Colonography 12/24/1985 ColoGuard 12/24/1985 FIT 12/24/1985 Sigmoidoscopy 12/24/1985 Breast Cancer Screening 11/24/2013 11/24/2012 Vaccine: Zoster (1 of 2) 12/24/2017 COVID-19 Vaccine (3 - Booste r for Pfizer series) 06/25/2021 01/23/2021, 01/02/2021 Vaccine: Influenza (Season Ended) 2022 020 Cervical Cancer Screening (Pap) 08/22/2025 0 Vaccine: Dtap/Tdap/Td (2 - Td or Tdap) 04/25/2029 Colonoscopy 08/26/2030 08/26/2020 Colorectal Combination Topic 08/26/2030 documented as of this encounter Insurance Payer Benefit Plan / Group Subscriber ID Effective Dates Phone Address Type [place] FAM [id number] 2019-Presen t [address] [place] [phone] PPO documented as of this encounter Advance Directives Documents on File Type Date Recorded Patient Platform Stapler Expl anation Power of Washer Engineer Helper Advance Directive packet giv en 05/18/19 Care Teams Grey Tender Relationship Specialty Start Date End Date Tariq Lopez DO [address] [facility] [address] [place] [address] PCP - General Family Medicine 04/25/19 documented as of this encounter
--- OUTSIDE RECORDS SUMMARY | 2024-10-05 21:06 | XMS_ITS | Summary of Care ---
Author Organization [facility] a Address [address] [facility] [address] [place] [address] Phone Care Team Providers Care Charge Account Authorizer Name Role Phone Tariq Lopez DO Primary Care Provi madeline Reason for Visit * Reason Onset Date Comments Colonoscopy 09/06/2023 Encounter Details Date Type Department Care Team (Late st Contact Info) Description 09/06/2023 Telephone [facility] [address] [facility] [address] [place] [address] Sadie Porter MD [address] [place], [place] [phone] Colonoscopy Allergies No known active allergiesdocumented as of this encounter (statuses as of 05/12/2024) Medications Medication Sig Dispensed Refills Start Date End Date Status loratadine (CLARITIN) 10 mg tablet Active sodium sulfate-potassium sulfate-magnesium sulfate (SUPREP BOWEL PREP KIT) oral solution Take 177 mLs by mouth every 12 hours. 354 mL 04/02/2023 Active documented as of this encounter (statuses as of 05/12/2024) Active Problems Problem Noted Date Diagnosed Date Personal history of colonic polyps 11/17/2023 Overview (11/17/2023): 2019-1cm flat hyperplastic polyp right colon Oct 2023- 5mm tubular adenoma Uncle with CRC Repeat in 5 years. Screening for malignant neoplasm of colon 2019 Assessment & Plan (06/12/2020 10:13 AM PDT): A discussion was held with the patient [...] will be administered by a Certified Nurse Retail Team Member with the physician in the room. Both anesthesia options will have careful cardiovascular monitoring. Assessment & Plan (12/11/2019 10:45 AM PST): Due now for first colon cancer screening. [...] will be administered by a Certified Nurse Retail Team Member with the physician in the room. Both anesthesia options will have careful cardiovascular monitoring. - Plan for colonoscopy with suprep Chronic idiopathic constipation 12/11/2019 Assessment & Plan (06/12/2020 10:12 AM PDT): We discussed the various etiologies of constipation which may include obstructive pathology, pelvic floor dyssynergia, chronic stool retention, motility disorders. These underlying conditions may require further work-up which include possible colonoscopy, ano-rectal manometry, Sitzmark study, MRI defecography, lactulose hydrogen breath test, or SMART pill. The studies were reviewed with the patient and the risks and benefits of each were discussed. -colonoscopy Assessment & Plan (12/11/2019 10:54 AM PST): Chronic issues for most of her life. [...] cleanse out History of cervical cancer 12/11/2019 Overview (12/11/2019): S/p hysterectomy May 2019 Assessment & Plan (06/12/2020 10:13 AM PDT): Assess anal canal for high risk HPV at time of procedure Assessment & Plan (12/11/2019 10:51 AM PST): Assess anal canal for high risk HPV at time of procedure S/P hysterectomy 12/11/2019 Overview (12/11/2019): May 2019 Assessment & Plan (12/11/2019 10:54 AM PST): May 2019 documented as of this encounter (statuses as of 05/12/2024) Immunizations Name Administration Dates Next Due INFLUENZA [...] * Telephone Encounter - Leah Cedeño - 09/06/2023 8:53 AM PST PROCEDURE CANCELLED * Telephone Encounter - Jeanne Kidd - 09/06/2023 8:35 AM PST Pt called and cancelled colon not feeling well. Cg documented in this encounter Plan of Treatment Health Maintenance Due Date Last Done Comments Hepatitis C Screening 1965 Human Immunodeficiency Virus (HIV) Screening 12/24/1982 CT Colonography 12/24/1985 ColoGuard 12/24/1985 FIT 12/24/1985 Sigmoidoscopy 12/24/1985 Vaccine: Zoster (1 of 2) 12/24/2017 Breast Cancer Screening 12/24/2022 11/24/2012 COVID-19 Vaccine ( season) 2023 09/20/2021, 01/23/2021, 01/02/2021 Vaccine: Influenza (#1) 2024 08/24/2020 Cervical Cancer Screening (Pap/HPV) 08/22/202508/22 Colonoscopy 11/03/2028 11/03/2023, 08/26/2020 Colorectal Combination Topic 11/03/2028 Vaccine: Dtap/Tdap/Td (2 - Td or Tdap) 04/25/2029 documented as of this encounter Additional Health Concerns Assessment Noted Time PHQ-2 Depression Total Score: 0 04/25/20 11:12 AM PDT documented as of this encounter Insurance Payer Benefit Plan / Group Subscriber ID Effective Dates Phone Address Type [place] [id number] 2023-Present [address] [address] [place] [address] POS documented as of this encounter Care Teams Charge Account Authorizer Relationship Specialty Start Date End Date Tariq Lopez DO [address] [place] [address] PCP - General Family Medicine 04/25/19 documented as of this encounter
--- OUTSIDE RECORDS SUMMARY | 2024-10-05 21:06 | XMS_ITS | Summary of Care ---
Author Organization [facility] a Address [address] [facility] [address] [place] [address] Phone Care Team Providers Care Dead Mail Checker Name Role Phone Tairq Lopezdy Primary Care Provi madeline Encounter Details Date Type Department Care Team Description 11/03/2023 8:00 AM PST Off-Site Visit [facility] [address] [facility] [address] [place] [address] Sadie Porter MD [address] [facility] [address] [place] [address] Routine general medical examination at a health care facility (Primary Dx) Allergies No known active allergiesdocumented as of this encounter (statuses as of 11/04/2023) Medications Medication Sig Dispensed Refills Start Date End Date Status loratadine (CLARITIN) 10 mg tablet 0 Active sodium sulfate-potassium sulfate-magnesium sulfate (SUPREP BOWEL PREP KIT) oral solution Take 177 mLs by mouth every 12 hours. 354 mL 0 04/02/2023 Active documented as of this encounter (statuses as of 11/04/2023) Active Problems Problem Noted Date Diagnosed Date [...] will be administered by a Certified Nurse Tack Cutter with the physician in the room. Both [...] as of this encounter (statuses as of 11/04/2023) Immunizations Name Administration Dates Next Due INFLUENZA [...] as of this encounter Progress Notes * Gladys Mathew - 11/03/2023 8:00 AM PST See scan report documented in this encounter Plan of Treatment Health Maintenance Due Date Last Done Comments Hepatitis C Screening 1965 Human Immunodeficiency Virus (HIV) Screening 12/24/1982 CT Colonography 12/24/1985 ColoGuard 12/24/1985 FIT 12/24/1985 Sigmoidoscopy 12/24/1985 Vaccine: Zoster (1 of 2) 12/24/2017 Breast Cancer Screening 12/24/2022 11/24/2012 COVID-19 Vaccine ( season) 2023 09/20/2021, 01/23/2021, 01/02/2021 Vaccine: Influenza (#1) 2023 08/24/2020 Cervical Cancer Screening (Pap/HPV) 08/22/202508/22 Vaccine: Dtap/Tdap/Td (2 - Td or Tdap) 04/25/2029 Colonoscopy 08/26/2030 11/03/2023, 08/26/2020 Colorectal Combination Topic 08/26/2030 documented as of this encounter Procedures Procedure Name Priority Date/Time Associated Diagnosis Comments EXTERNAL: COLONOSCOPY Routine 11/03/2023 documented in this encounter Results * External: Colonoscopy (11/03/2023) Colonoscopy Impression, External see scanned report Historical Provider MD LAB EXTERNAL RESU LTS documented in this encounter Visit Diagnoses Diagnosis Routine general medical examination at a health care facility- Primary documented in this encounter Additional Health Concerns Assessment Noted Time PHQ-2 Depression Total Score: 0 04/25/20 19 11:12 AM PDT documented as of this encounter Care Teams Dead Mail Checker Relationship Specialty Start Date End Date Tariq Lopez DO [address] [facility] [address] [place], [place] [phone] PCP - General Family Medicine 04/25/19 documented as of this encounter
--- OUTSIDE RECORDS SUMMARY | 2024-10-05 21:06 | XMS_ITS | Summary of Care ---
Author Organization [facility] Address [facility] [address] [place] [address] Care Team Providers Care Welfare Adviser Name Role Phone Tariq Lopez DO Primary Care Provi madeline Reason for Visit * Reason Onset Date Comments Follow-up 11/26/2020 Encounter Details Date Type Department Care Team Description 11/26/2020 Telephone [facility] [place] [address] [address] [place] [address] Tariq Lopez DO [address] [address] Follow-up Allergies No Known Active Allergiesdocumented as of this encounter (statuses as of 11/26/2020) Medications Medication Sig Dispensed Refills Start Date End Date Status loratadine (CLARITIN) 10 mg tablet 0 Active sodium sulfate-potassium sulfate-magnesium sulfate (SUPREP BOWEL PREP KIT) oral solutionIndications:Solar Sales Energy Advisor 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 1 kit 0 08/20/2020 Active documented as of this encounter (statuses as of 11/26/2020) Active Problems Problem Noted Date Screening for [...] will be administered by a Certified Nurse Technical Service Representative with the physician in the room. Both [...] as of this encounter (statuses as of 11/26/2020) Immunizations Name Administration Dates Next Due TDAP, (ADOL/ADULT) 04/25/2019 documented as of this encounter Social History Tobacco Use Types Packs/Day Years Used Date Never Smoker Smokeless Tobacco: Never Used Alcohol Use Drinks/Week oz/Week Comments Yes Sex Assigned at Date Recorded Not on file documented as of this encounter Miscellaneous Notes * Telephone Encounter - Tariq Lopez DO - 11/26/2020 11:04 AM PST Left message for patient for follow up (patient canceled CPE this month) documented in this encounter Plan of Treatment Upcoming Encounters Date Type Specialty Care Team Description 12/20/2020 Imaging Exam Radiology Tariq Lopez DO [address] [place] [address] [phone] Health Maintenance Due Date Last Done Comments Hepatitis C Screening 1965 Breast Cancer Screening 11/24/2013 11/24/2012 Vaccine: Zoster (1 of 2) 12/24/2017 Vaccine: Influenza (#1) 2020 Cervical Cancer Screening (Pap) 08/22/2025 0 Vaccine: Dtap/Tdap/Td (2 - Td) 04/25/2029 04/25/2019 Colorectal Cancer Screening (Colonoscopy) 08/26/2030 08/26/2020 documented as of this encounter Insurance Payer Benefit Plan / Group Subscriber ID Effective Dates Phone Address Type [place] FAM [id number] 2019-Present PPO documented as of this encounter Advance Directives Documents on File Type Date Recorded Patient Concrete Analyst Expl anation Power of Dance Choreographer Advance Directive packet giv en 05/18/19
--- OUTSIDE RECORDS SUMMARY | 2024-10-05 21:06 | XMS_ITS | Summary of Care ---
Author Organization [facility] a Address [address] [facility] [address] [place] [address] Phone Care Team Providers Care Nursing Unit Coordinator Name Role Phone Tariq Lopezdy Primary Care Provi madeline Encounter Details Date Type Department Care Team Description 04/02/2023 Patient Message [facility] [address] [phone] Mychart, Generic Provider NO ADDRESS Colonoscopy Instructions Allergies No known active allergiesdocumented as of this encounter (statuses as of 05/03/2023) Medications Medication Sig Dispensed Refills Start Date End Date Status loratadine (CLARITIN) 10 mg tablet 0 Active sodium sulfate-potassium sulfate-magnesium sulfate (SUPREP BOWEL PREP KIT) oral solution Take 177 mLs by mouth every 12 hours. 354 mL 0 04/02/2023 Active documented as of this encounter (statuses as of 05/03/2023) Active Problems Problem Noted Date Diagnosed Date [...] will be administered by a Certified Nurse Showplace Manager with the physician in the room. Both [...] as of this encounter (statuses as of 05/03/2023) Immunizations Name Administration Dates Next Due INFLUENZA [...] Encounters Date Type Department Care Team Description 06/04/2023 12:45 PM PDT Off-Site Visit [facility] [address] [facility] [address] [place], [place] [phone] Sadie Porter MD [address] [facility] [address] [place], [place] [phone] Health Maintenance Due Date Last Done Comments Hepatitis C Screening 1965 Human Immunodeficiency Virus (HIV) Screening 12/24/1982 CT Colonography 12/24/1985 ColoGuard 12/24/1985 FIT 12/24/1985 Sigmoidoscopy 12/24/1985 Vaccine: Zoster (1 of 2) 12/24/2017 COVID-19 Vaccine (3 - Pfizer series) 03/20/202101/09, 01/02/2021 Breast Cancer Screening 12/24/2022 11/24/2012 Vaccine: [...] Dates Phone Address Type [place] O[place] POS [id number] 2023-Present [address] [address] [place] [address] POS documented as of this encounter Care Teams Nursing Unit Coordinator Relationship Specialty Start Date End Date Tariq Lopez DO [address] [facility] [address] [place] [address] PCP - General Family Medicine 04/25/19 documented as of this encounter
--- OUTSIDE RECORDS SUMMARY | 2024-10-05 21:06 | XMS_ITS | Summary of Care ---
Author Organization [facility] a Address [address] [facility] [address] [place] [address] Phone Care Team Providers Care Labor Contract Analyst Name Role Phone John Tariq Terandy Primary Care Provi madeline Reason for Visit * Reason Onset Date Comments Procedure 06/29/2023 Encounter Details Date Type Department Care Team Description 06/29/2023 Telephone [facility] [address] [facility] [address] [place] [address] Sadie Porter MD [address] [facility] [address] [place], [place] [phone] Procedure Allergies No known active allergiesdocumented as of [...] will be administered by a Certified Nurse Automobile Tire Builder with the physician in the room. Both [...] encounter Miscellaneous Notes * Telephone Encounter - Carter Jeong Assistant - 06/29/2023 2:30 PM PDT Patient scheduled procedure for 09/06/2023. * Telephone Encounter - Mendel Márquez - 06/29/2023 1:58 PM PDT Pt needs to set up procedure please give a call back thanks documented in this encounter Plan of Treatment Upcoming Encounters Date Type Department Care Team Description 09/06/2023 12:45 PM PST Off-Site Visit [facility] [address] [place], [place] [phone] Sadie Porter MD [address] [place] [address] Health Maintenance Due Date Last Done Comments [...] [place] O[place] POS [id number] 2023-Present [address] [address] [place] [address] POS documented as of this encounter Care Teams Labor Contract Analyst Relationship Specialty Start Date End Date Tariq Lopez DO [address] [place] [phone] PCP - General Family Medicine 04/25/19 documented as of this encounter
--- OUTSIDE RECORDS SUMMARY | 2024-10-05 21:06 | XMS_ITS | Summary of Care ---
Author Organization [facility] a Address [address] [facility] [address] [place] [address] Phone Care Team Providers Care Supervisor Extruding Department Name Role Phone Tariq Lopezdy Primary Care Provi madeline Reason for Visit * Reason Onset Date Comments Other 04/02/2023 COLON - BENEFITS Encounter Details Date Type Department Care Team Description 04/02/2023 Telephone [facility] [address] [facility] [address] [place] [phone] Sadie Porter MD [address] [facility] [address] [place] [address] Other (COLON - BENEFITS) Allergies No known active allergiesdocumented as of this encounter (statuses as of 04/02/2023) Medications Medication Sig Dispensed Refills Start Date [...] as of this encounter (statuses as of 04/02/2023) Active Problems Problem Noted Date Diagnosed Date [...] will be administered by a Certified Nurse Continuous Mining Operator with the physician in the room. [...] as of this encounter (statuses as of 04/02/2023) Immunizations Name Administration Dates Next Due INFLUENZA [...] Miscellaneous Notes * Telephone Encounter - Leah Davidson - 04/02/2023 9:14 AM PDT BLUE CR[employer] PPO Request for insurance verification check Procedure: Colonoscopy Location: [facility] Diagnosis: Colon cancer screening Date scheduled for: 06/04/23 Provider: Sadie Porter MD documented in this encounter Plan of Treatment Upcoming Encounters Date Type Department Care Team Description 06/04/2023 12:45 PM PDT Off-Site Visit [facility] [address] [place], [place] [phone] Sadie Porter MD [address] [place] [address] Health Maintenance Due Date Last Done Comments [...] Subscriber ID Effective Dates Phone Address Type [place] POS [id number] 2023-Present [address] [address] [place] [address] POS documented as of this encounter Care Teams Supervisor Extruding Department Relationship Specialty Start Date End Date Tariq Lopez DO [address] [address] PCP - General Family Medicine 04/25/19 documented as of this encounter
--- OUTSIDE RECORDS SUMMARY | 2024-10-05 21:06 | XMS_ITS | Summary of Care ---
Author Organization [facility] Address [facility] [address] [place] [address] Care Team Providers Care Waxer Operator Name Role Phone Tariq Lopez DO Primary Care Provi madeline Encounter Details Date Type Department Care Team Description 04/11/2021 Letter (Out) [facility] [place] [id number] [address] [facility] [address] [place] [phone] Stacy Washington, Data Power Consultant Allergies No known active allergiesdocumented as of this encounter (statuses as of 04/11/2021) Medications Medication Sig Dispensed Refills Start Date End Date Status loratadine (CLARITIN) 10 mg tablet 0 Active sodium sulfate-potassium sulfate-magnesium sulfate (SUPREP BOWEL PREP KIT) oral solutionIndications:Community Relations Liaison 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 1 kit 0 08/20/2020 Active documented as of this encounter (statuses as of 04/11/2021) Active Problems Problem Noted Date Screening for [...] will be administered by a Certified Nurse Divisional Storekeeper with the physician in the room. Both [...] as of this encounter (statuses as of 04/11/2021) Immunizations Name Administration Dates Next Due TDAP, (ADOL/ADULT) 04/25/2019 documented as of this encounter Social History Tobacco Use Types Packs/Day Years Used Date Never Smoker Smokeless Tobacco: Never Used Alcohol Use Standard Drinks/Week Comments Yes 0 (1 standard drink = 0.6 oz pur e alcohol) Sex Assigned at Date Recorded Not on file documented as of this encounter Plan of Treatment Health Maintenance Due Date Last Done Comments Hepatitis C Screening 1965 Breast Cancer Screening 11/24/2013 11/24/2012 Vaccine: Zoster (1 of 2) 12/24/2017 Vaccine: Influenza (Season Ended) 2021 Cervical Cancer Screening (Pap) 08/22/2025 0 Vaccine: Dtap/Tdap/Td (2 - Td) 04/25/2029 04/25/2019 Colorectal Cancer Screening (Colonoscopy) 08/26/2030 08/26/2020 COVID-19 Vaccine Completed 01/23/2021, 01/02/2021 documented as of this encounter Insurance Payer Benefit Plan / Group Subscriber ID Effective Dates Phone Address Type [id number] FAM [id number] 2019-Bela fernandes [address] [place] [phone] PPO documented as of this encounter Advance Directives Documents on File Type Date Recorded 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
== END 2024-10-05 21:02 | disposition home or self-care (01) ==
LOC: LBN 21:01
PROVIDERS: Visit Provider Family Medicine
DX: R10.2 Pelvic and perineal pain (principal)
CPT/HCPCS: 87480; 87510; 87660